=== PATIENT | female | born 2000 | race Caucasian/White ===

== ENCOUNTER 2020-07-27 11:59 | Emergency (ER) | payer MEDICAID, SELFPAY ==
[2020-07-27 12:00] VITALS: BP 135/71; PULSE 84; RESP 16; TEMP 37.7; O2SAT 95; BMI 49.6
--- NOTE | 2020-07-27 12:03 | US_ITS ---
PROCEDURE: US OB <= 14 WEEKS FETUS CLINICAL INDICATION: pain, bleeding Early OB with bleeding COMPARISON: No exams were available for comparison FINDINGS: There is no visualized intrauterine . There is the endometrium which measures 13.8 millimeters, upper limits of normal for a reproductive age female. The cervix is non dilated. There is no fluid gestational sac in the cervix. There is heterogeneity of the myometrium or endometrium. Differential considerations include vaginal bleeding, but raise possibility of coexisting fibroids or myometrosis. Correlate with beta HCG to exclude abnormality such as molar or ectopic . The ovaries are normal in appearance bilaterally. IMPRESSION: No viable intrauterine . Normal ovaries. Correlate clinically. Additional comments above. Dictated by: Nerissa Gan MD 07/27/2020 13:44 Nerissa Gan MD in OV 07/27/2020 13:44
--- NOTE | 2020-07-27 12:10 | HMH.EDGENADL ---
ED Disposition Clinical Impression: Threatened miscarriage in early Disposition: Home, Self-Care Condition on Discharge: Good Instructions: DI for Vaginal Bleeding, Threatened Miscarriage Additional Instructions: You have been evaluated for bleeding in first trimester . This is called a threatened miscarriage. Please use pelvic rest. Follow-up with your CT SCAN TECHNICIAN in 24 to 48 hours for repeat beta hCG. Return to the emergency department for any new or worsening symptoms, pain, syncope, other concerns Referrals: PCP,No [Non-Staff] - Time of Disposition: 13:10 - Critical Care Critical Care Time: No Attestation: On , the high probability of a clinically significant, sudden or life threatening deterioration of the following system(s) required my full and direct attention, intervention and personal management. The time I documented below is in addition to time spent performing reported procedures but includes the following listed in this critical care notation. Medical Decision Making - Medical Records Medical records reviewed: Yes: I reviewed the patient's medical records. - Narinder Inquiry Pt receiving controlled substance: No Vital Signs: 07/27/20 12:00 Temperature 99.9 F H Temperature Source Oral Pulse Rate [Right] 84 Respiratory Rate 16 Blood Pressure [Right Arm] 135/71 Blood Pressure Mean [Right Arm] 92 Blood Pressure Source [Right Arm] Automatic Cuff Blood Pressure Position [Right Arm] Sitting 02 Sat by Pulse Oximetry 95 Oxygen Delivery Method Room Air - Lab Data Lab Results 07/27/20 12:20: WBC 8.1, RBC 4.68, Hgb 12.7, Hct 40.7, MCV 86.9, MCH 27.2, MCHC 31.2 L, RDW 13.5, Plt Count 215, MPV 8.7, Neut % (Auto) 79.7, Lymph % (Auto) 15.8, [place] % (Auto) 2.9, Eos % (Auto) 1.2, Baso % (Auto) 0.5, Neut # (Auto) 6.5, Lymph # (Auto) 1.3, [place] # (Auto) 0.2, Eos # (Auto) 0.1, Baso # (Auto) 0.0 07/27/20 12:20: HCG, Quant 498 H 07/27/20 12:20: Blood Type O Positive Result diagrams: 07/27/20 12:20 Orders (Tests/Meds): ORDERS Category Date Time Status Type and Screen Stat BBK 07/27/20 12:20 Results US OB <= 14 weeks fetus Stat Exams 07/27/20 12:03 Taken UA [Urinalysis and Microscopic] Stat Lab 07/27/20 12:02 Ordered Medical Decision Narrative: In summary this is a 19-year-old female presenting to the emergency department with vaginal bleeding, cramping, possible . Patient is stable on arrival. Vital signs within normal limits. No hypotension, tachycardia, other vital sign abnormalities. Differential diagnoses include threatened miscarriage, intrauterine , ectopic . Will obtain CBC, type and screen, hCG, urinalysis, transvaginal ultrasound. Laboratory results show no significant anemia. hCG elevated at 498. Blood type is O+, does not require RhoGam. Transvaginal ultrasound shows a thickened endometrium. No clear intrauterine . The patient is very early in . Counseled on first trimester threatened miscarriage. Counseled on pelvic rest. Recommended close follow-up with CT SCAN TECHNICIAN for repeat beta hCG in 24 to 48 hours. Given return precautions. Stable for discharge. General Adult HPI - General Chief complaint: Vaginal Bleeding Stated complaint: Possible miscarriage Time Seen by Provider: 07/27/20 12:10 Mode of Arrival: EMS Limitations: No Limitations Description of Symptoms (Recalled from ER Triage Doc. by RN): Pt advises she had a positive test at the doc 2 weeks ago and last night she tsrated having bleeding and pain. advises the blood is bright red and dark. Pt given 75 mcg of fentanyl and 4mg of zofran enroute per EMS plus 500ml fluid bolus - History of Present Illness HPI narrative: 19-year-old female presenting to the emergency department with vaginal bleeding and abdominal cramping. Symptoms started this morning. Cramping is located on both sides. Happens intermittently. Lasts for seconds to minutes at a
--- NOTE | 2020-07-27 12:27 | PC.NURSE ---
pt to ultra sound
[2020-07-27 12:46] LABS: Basophils % 0.5 % (0.1-2.0); Eosinophils # 0.1 K/mm3 (0.0-0.4); Eosinophils % 1.2 % (0.1-12.0); Hematocrit 40.7 % (37.0-47.0); Hemoglobin 12.7 g/dL (12.2-16.2); Lymphocytes # 1.3 K/mm3 (0.7-4.5); Lymphocytes % 15.8 % (10-50); Mean Corpuscular HGB Conc 31.2 g/dL (31.8-35.4); Mean Corpuscular Hemoglobin 27.2 pg (27.0-31.2); Mean Corpuscular Volume 86.9 fl (81-99); Mean Platelet Volume 8.7 fl (7.4-10.4); Monocytes # 0.2 K/mm3 (0.1-1.0); Monocytes % 2.9 % (1.7-9.3); Neutrophils # 6.5 K/mm3 (1.8-7.8); Neutrophils % 79.7 % (37.0-80.0); Platelet Count 215 K/mm3 (142-424); Red Blood Count 4.68 M/mm3 (4.20-5.40); Red Cell Distribution Width 13.5 % (11.5-17.5); White Blood Count 8.1 K/mm3 (4.8-10.8)
--- NOTE | 2020-07-27 12:54 | PC.NURSE ---
pt return from ultrasound, ultrasound staff gave report to MARY SAVAGE
[2020-07-27 13:09] LABS: HCG,Quantitative 498 mIU/ml (0-5.42)
[2020-07-27 13:41] VITALS: PULSE 93; O2SAT 98
[2020-07-27 13:52] VITALS: BP 132/70; PULSE 84; RESP 16; TEMP 37.6; O2SAT 98
== END 2020-07-27 13:53 | disposition home or self-care (01) ==
PROVIDERS: Emergency Provider Emergency Medicine; PCP Nurse Practitioner
DX: O20.0 Threatened abortion (principal)
CPT/HCPCS: 36415; 76801; 84702; 85025; 86850; 99283

== ENCOUNTER → 2022-02-28 10:30 | Outpatient (CLI) | payer MEDICAID, SELFPAY ==
[2022-02-28 11:28] LABS: Basophils # 0.1 K/mm3 (0-0.2); Basophils % 1.6 % (0.1-2.0); Eosinophils # 0.1 K/mm3 (0.0-0.4); Eosinophils % 1.4 % (0.1-12.0); Hemoglobin 14.2 g/dL (12.2-16.2); Lymphocytes # 1.8 K/mm3 (0.7-4.5); Lymphocytes % 20.2 % (10-50); Mean Corpuscular Hemoglobin 27.8 pg (27.0-31.2); Mean Platelet Volume 8.7 fl (7.4-10.4); Monocytes # 0.4 K/mm3 (0.1-1.0); Monocytes % 4.4 % (1.7-9.3); Neutrophils # 6.3 K/mm3 (1.8-7.8); Neutrophils % 72.3 % (37.0-80.0); Platelet Count 273 K/mm3 (142-424); Red Blood Count 5.12 M/mm3 (4.20-5.40); Red Cell Distribution Width 14.3 % (11.5-17.5); White Blood Count 8.7 K/mm3 (4.8-10.8)
[2022-02-28 11:47] LABS: Chloride 103 mmol/L (98-107); Sodium 141 mmol/L (136-145)
[2022-02-28 11:48] LABS: Potassium 4.4 mmoL/L (3.5-5.1)
[2022-02-28 11:50] LABS: Alanine Aminotransferase 27 U/L (12-78); Albumin Level 4.9 g/dl (3.5-5.0); Albumin/Globulin Ratio 1.7 (1.1-1.8); Alkaline Phosphatase 117 U/L (38-126); Anion Gap 17.4 mEq/L (5-15); Aspartate Amino Transferase 28 U/L (14-36); Bilirubin,Total 0.3 mg/dl (0.2-1.3); Blood Urea Nitrogen 13 mg/dl (7-17); Carbon Dioxide 25 mmol/L (22.0-30.0); Estimated Glomerular Filt Rate 153 ml/min (>60); GFR (African American) 185 ML/MIN (>60); Globulin 2.9 g/dL (1.3-3.2); Total Protein,Serum 7.8 g/dl (6.3-8.2)
[2022-02-28 11:51] LABS: Calcium 9.1 mg/dl (8.4-10.2); Glucose 99 mg/dl (74-100)
[2022-02-28 12:09] LABS: HCG,Quantitative < 2 mIU/ml (0-5.42)
== END ==
PROVIDERS: PCP Family Medicine; Visit Provider Obstetrics & Gynecology
DX: E28.2 Polycystic ovarian syndrome (principal)
CPT/HCPCS: 36415; 80053; 84702; 85025; C9803; U0003; U0005

== ENCOUNTER 2022-03-02 06:05 | Day surgery (SDC) | payer MEDICAID, SELFPAY ==
[2022-03-02] VITALS (11 sets, daily range): BP systolic 108–138; BP diastolic 67–75; PULSE 69–96; RESP 14–20; TEMP 36.3–43; O2SAT 93–98; BMI 47.5
--- NOTE | 2022-03-02 07:12 | P.PN_ITS ---
[facility] Medical History Allergies Anxiety Asthma Cholecystectomy planned Degenerative disc disease Depression Encounter for sterilization Enlarged heart Heart murmur History of anemia History of bipolar disorder History of COVID-19 Hypothyroid Irritable bowel syndrome (IBS) Scoliosis Surgical History History of tonsillectomy and adenoidectomy [place] teeth extracted Family History (Updated 03/02/22 @ 06:29 by Pinky Chi RN) Father History of liver disease Father Heart attack Social History (Updated 03/02/22 @ 06:32 by Pinky Chi, RN) Smoking Status: Never smoker alcohol intake: current substance use type: denies use current occupational status: unemployed Travel in the last 8 weeks: None [facility] Anesthesia Checklist Patient Identification Patient Identification: Arm Band and Verbal (Name & ) Structural Data Admitted From: Home Planned Operative Procedure/s: Lap. salpingectomy Consent for Planned Operative Procedure(s) Verified: Yes NPO Status Verified Time NPO: 00:00 Chart Verification Results Verified: CBC, BMP and HCG Additional verifications Anesthesia Reactions: No Hx Blood Transfusions: No Blood Transfusion Reaction: No Airway Assessment C-Spine Mobility Assessed: Yes TMJ Mobility Assessed: Yes Dentition: Good Dentition Neurological Assessment Level of Consciousness: Awake Hx Seizures: No Numbness or tingling in extremities: No Anesthesia Plan Anesthesia Risk discussed: Yes Anesthesia Plan: Verified ASA Class: II Anesthesia Type: General
--- NOTE | 2022-03-02 08:40 | EXP.ANES.I ---
[facility] Anesthesia Record Part I Anesthesia Record I Intake, IV Amount: 300 Estimated blood loss (mL): 5 Urine output (mL): 0 Blood Pressure: 116/67 SaO2: 94 Pulse Rate: 96 Respiratory Rate: 20 Temperature: 97.9 F Patient is:: Awake Stable to PACU at:: 08:39
--- NOTE | 2022-03-02 08:40 | EXP.OP.NOTE ---
Date of procedure: 03/02/22 Pre-op Diagnosis:: 1. Complete family status, desires permanent sterilization Post-op Diagnosis:: 1. Complete family status, desires permanent sterilization Procedure performed:: 1. Laparoscopy, bilateral salpingectomy Surgeon:: Le Ashford DO Hogshead Packer(s):: N/a RETAIL WAREHOUSE SUPERVISOR:: Adama Hall Anesthesia: GETA Estimated blood loss (mL): 5 Clinical Note:: Ms Rosalinda Boateng is a 21 yo P2022. History of x 2. She is complete with childbearing. She is currently on OCPs and is breast feeding. Last period was October. She reports history of PCOS. Surgical history significant for cholecystectomy. She desires permanent sterilization. Operative findings:: 1. On bimanual exam, uterus was anteverted and of normal size and shape. No adnexal masses palpated 2. On laparoscopic exam, grossly normal appearing liver, stomach, bowel and omentum. Gallbladder surgically absent. 3. Uterus, bilateral fallopian tubes and bilateral ovaries grossly normal. No adhesion and no evidence of endometriosis. Operative note:: Risks, benefits and alternatives were discussed with the patient. Risks include but are not limited to bleeding, infection, damage to adjacent structures and VTE. Patient voiced understanding and agreed to proceed with surgery. She was wheeled back to the operating room and placed under general anesthesia without difficulty. She was placed in the dorsal lithotomy position and prepped and draped in normal sterile fashion. A straight catheter was used to drain the bladder. A bimanual exam was performed. A weighted Auvard was placed in the vaginal vault. A single tooth tenaculum was placed on the anterior lip of the cervix. [place] manipulator was inserted into the cervical canal and attached to the tenaculum. Weighted Auvard was removed from the vagina. Attention was then drawn to the abdomen. A 2cm infraumbilical incision was made. Veress needle was tested and inserted intraabdominally without difficulty. Opening pressure of 6 mm Hg. Abdomen was then insulflated to 15 mm Hg. Trocar was inserted through infraumbilical incision and laparoscope was inserted. Abdomen was viewed in its entirety. See findings above. Pictures were taken. Right lower quadrant was transilluminated. 5 mm incision was made and 5 mm disposable blunt trocar was inserted into the abdomen under direct laparoscopic visualization. Trocar was removed and sleeve was left in place. Left lower quadrant was transilluminated. A 1 cm incision was made and an 8 mm disposable trocar was inserted into the abdomen under direct laparoscopic visualization. Obturator was removed and sleeve was left in place. Fimbriated end of right fallopian tube was grasped. Ligasure was used to transect the right mesosalpinx and fallopian tube at uterine cornua, leaving right ovary in situ. Same procedure was carried out on the contralateral side. Bilateral fallopian tubes will be sent to pathology for review. Hemostasis was noted. Left lower quadrant trocar was removed under direct laparoscopic visualization. Right lower quadrant trocar was removed under direct laparoscopic visualization. Pneumoperitoneum was released into the atmosphere. Infraumbilical trocar was removed under direct laparoscopic visualization to ensure no herniation of bowel or omentum. Skin incisions were closed with 3-0 Vicryl. Dermabond was applied over closed skin incisions. All instruments were removed from the vagina. Tenaculum site with small amount of oozing noted. Anterior lip of cervix was grasped with ringed forcep. Silver nitrate stick x 1 was applied to right tenaculum site. Hemostasis was noted. Patient was cleaned and placed into the dorsal supine position. She awoke from anesthesia without difficulty. She was transported to the recovery room in stable condition. She was given instructions for discharge and to follow-up in the office in 2 weeks at which time pathology will be reviewed. Condition: stable Disposition: same day
--- NOTE | 2022-03-02 09:16 | SUR.PHASEI ---
0904 called and gave detailed report to Comfort Santoyo RN [id number] transported via stretcher to post op. vital signs stable. rates pain at a 3. states warm blanket helped relieve some pain. left in stable condition with Comfort Santoyo RN at bedside.
--- NOTE | 2022-03-02 09:44 | P.PNANES_ITS ---
[facility] Anesthesia Record Part II Anesthesia Record Part II Discharge Time: :09 Destination: Surgical Day Care (OP Surgery) PACU nurse assessment reviewed?: Yes Patient Condition:: Good Anesthesia Complications:: None Swallowing reflex intact?: Yes Cyanosis?: No Blood Pressure: 136/69 Pulse Rate: 74 Temperature: 98 F Mental Status: Alert & Oriented Pain level:: 3 Nausea and/or vomitting:: None Intake, IV Amount: 0
== END 2022-03-02 09:40 | disposition home or self-care (01) ==
PROVIDERS: PCP Nurse Practitioner; Visit Provider Obstetrics & Gynecology
PROC: (CPT 58661; principal; 2022-03-02 07:30)
DX: Z30.2 Encounter for sterilization (principal); E28.2 Polycystic ovarian syndrome; Z79.899 Other long term (current) drug therapy
CPT/HCPCS: 58661; J0131; J2405; J3475

== ENCOUNTER 2024-01-02 13:42 | Outpatient (CLI) | payer MEDICAID, SELFPAY ==
--- NOTE | 2024-01-02 13:43 | US_ITS ---
PROCEDURE: US TRANSVAGINAL CLINICAL INDICATION: menorrhagia, pelvic pain COMPARISON: No exams were available for comparison FINDINGS: Transvaginal sonographic images of the pelvis were obtained. UTERUS: 8.7 cm x 4.4cmx 3.7 cm anteverted with a combined endometrial thickness of 11.7mm. LEFT OVARY: 2.6 cmx2.9 cmx2.2cm with a volume of 8.8ml. There is a follicle in left ovary measuring 1.4 cm x 1.4 cm x 1.5 cm. There are several smaller follicles. RIGHT OVARY: Not visualized. Left ovary is seen and appears normal. Doppler flow to left ovary is seen. There is no fluid in the cul-de-sac. IMPRESSION: 1. Difficult exam secondary to patient body habitus. 2. Anteverted uterus normal in shape and size. The endometrium is normal. 3. The left ovary is seen and appears normal. There is a dominant follicle measuring 1.5 cm. 4. The right ovary is not visualized. No masses seen in the right adnexa. 5. No fluid in the cul-de-sac. Dictated by: Lj Choi MD 01/02/2024 15:12 Lj Choi MD in OV 01/02/2024 15:12
== END 2024-01-02 23:59 | disposition home or self-care (01) ==
LOC: RAD 13:43
PROVIDERS: PCP Nurse Practitioner; Visit Provider Obstetrics & Gynecology
DX: N92.0 Excessive and frequent menstruation with regular cycle (principal); R10.2 Pelvic and perineal pain
CPT/HCPCS: 76830

== ENCOUNTER 2024-01-14 15:23 | Outpatient (CLI) | payer MEDICAID, SELFPAY | END 2024-01-14 23:59 | disposition home or self-care (01) | LOC: RT 15:25 | PROVIDERS: PCP Nurse Practitioner; Visit Provider Internal Medicine | DX: I49.8 Other specified cardiac arrhythmias (principal); R01.1 Cardiac murmur, unspecified | CPT/HCPCS: 93225; 93227 ==

== ENCOUNTER 2024-01-16 14:59 | Outpatient (CLI) | payer MEDICAID, SELFPAY | END 2024-01-16 23:59 | disposition home or self-care (01) | LOC: RT 15:01 | PROVIDERS: PCP Nurse Practitioner | DX: I49.8 Other specified cardiac arrhythmias (principal); R01.1 Cardiac murmur, unspecified | CPT/HCPCS: 93270 ==

== ENCOUNTER 2024-01-23 13:40 | Outpatient (CLI) | payer MEDICAID, SELFPAY ==
--- NOTE | 2024-01-23 13:42 | CA_ITS ---
APPROVED REPORT EXAM: Comprehensive 2D, Doppler, and color-flow Echocardiogram Certified Medical Asst: Sneha Miranda RVT Ht: 5 ft 3 in Wt: 278lbs BSA: 2.22 BP: 131/77 mmHg Indications: PRE-OP,CARDIOMEGALY,ABN EKG,MURMUR 2D Dimensions LA Volume 28.20 mL LA Volume Index 12.65 mL/m2 (M/F) 16-34 M-Mode Dimensions RVDd 2.85 cm (0.9-2.6) LA Diam 3.58 cm (1.9-4.0) LVDd 5.55 cm (3.5-5.7) LVDs 3.88 cm (3.5-5.7) IVSd 0.84 cm (0.6-1.1) PWd 0.61 cm (0.6-1.1) EF (Teich) 56.70% FS 30.10% EDV (Teich) 150.50 mL TAPSE 2.26 (<1.7) ESV (Teich) 65.10 mL LV Diastology E Decel Time 207 (160-240 msec) E/A Ratio 1.1 Aortic Valve JACKIE Index 2.09 cm2/m2 AoV Peak Rohan. 126.0 (50-130 cm/s) AO Peak GR. 6.30 mmHg AO Mean GR. 3.60 (<5 mmHg) AO VTI 22.8 (18-25 cm) JACKIE (VTI) 4.76 (2.5-4.5 cm2) Mitral Valve MV E Max Rohan. 65.0 (40-130 cm/s) MV A Velocity 58.0 (40-130 cm/s) E/A Ratio 1.12 MV PHT 61.0 ms Pulmonary Valve PV Peak Velocity 110.0 (50-150 cm/s) Tricuspid Valve TR P. Velocity 210.00 cm/s RAP Estimate 10.00 mmHg RVSP 27.60 mmHg Left Ventricle The left ventricle is normal size. The left ventricular systolic function is normal. The left ventricular ejection fraction is within the normal range. There is normal left ventricular wall thickness. There is normal LV segmental wall motion. The left ventricular diastolic function is normal. LVEF is 55%. Right Ventricle Right ventricle is mildly dilated. Right ventricle is mildly hypokinetic. Atria The left atrium size is normal. The right atrium size is normal. There is no Doppler evidence of interatrial shunt. Aortic Valve The aortic valve opens well. There is no aortic valvular stenosis. Trace aortic regurgitation. Mitral Valve The mitral valve is normal in structure. No evidence of mitral valve stenosis. Trace mitral regurgitation. Tricuspid Valve The tricuspid valve leaflets are thin and pliable. Trace tricuspid regurgitation. There is insufficient TR jet to estimate RVSP. Pulmonic Valve The pulmonary valve is normal in structure. Trace pulmonic regurgitation. Great Vessels The aortic root is normal in size. The ascending aorta is normal in size. IVC is normal in size and collapses >50% with inspiration. Pericardium There is no pericardial effusion. Other Information Study Quality: Fair Conclusion Normal LV systolic function. Mild RV dilation with mild reduction in RV function. No significant valvular stenosis or regurgitation. No Doppler evidence of interatrial shunt. In the setting of young age and mild RV dysfunction, further evaluation with limited TTE with agitated saline administration (bubble study) is recommended. Also cardiac MRI ([facility] protocol) is suggested. Electronically signed by : Luz Shetty MD 01/27/2024 13:28:31
== END 2024-01-23 23:59 | disposition home or self-care (01) ==
LOC: RT 13:40
PROVIDERS: PCP Nurse Practitioner; Visit Provider Nurse Practitioner Family
DX: I49.8 Other specified cardiac arrhythmias (principal); R01.1 Cardiac murmur, unspecified
CPT/HCPCS: 93306

== ENCOUNTER 2024-02-22 10:51 | Outpatient (CLI) | payer MEDICAID, SELFPAY ==
--- NOTE | 2024-02-22 10:56 | CA_ITS ---
APPROVED REPORT EXAM: Limited 2D and color flow Echocardiogram Bituminous Paving Machine Operator: RT Sabino(R) Ht: 5 ft 3 in Wt: 281lbs BSA: 2.23 BP: 125/77 mmHg Indications: Limited bubble study, recent echo with bubble study recommended. murmur, abn EKG, arrhythmia noted. Other Information Study Quality: Fair Conclusion This is a limited study to evaluate for interatrial shunt. Limited windows were obtained. Agitated saline administration (bubble study) was performed. Agitated saline administration (bubble study) demonstrates no evidence of interatrial shunt at rest or with either sniff or Valsalva maneuver. Color Doppler does not demonstrate evidence of interatrial shunt. Electronically signed by : Luz Shetty MD 02/24/2024 12:05:21
== END 2024-02-22 23:59 | disposition home or self-care (01) ==
LOC: RT 10:52
PROVIDERS: PCP Nurse Practitioner; Visit Provider Nurse Practitioner Family
DX: I49.3 Ventricular premature depolarization (principal); I51.9 Heart disease, unspecified
CPT/HCPCS: 93308

== ENCOUNTER 2024-03-03 10:13 | Outpatient (CLI) | payer MEDICAID, SELFPAY ==
--- NOTE | 2024-03-03 10:40 | MR_ITS ---
APPROVED REPORT Pharmacy Operations Coordinator: CLINICAL INDICATION PVCs TECHNIQUE Image Acquisition: Cardiac magnetic resonance (CMR) was performed on Siemens Espree MRI 1.5T scanner. Software platform sequences were performed using the Siemens Funidelia MR B19 platform. A set of three-plane, low-resolution, large [id number] localizers were initially acquired. Then axial, coronal, sagittal TrueFISP, as well as axial HASTE images, were obtained. These were followed by gated TrueFISP breathold cinematic sequences obtained in the short axis with 8 mm slices and 2 mm gaps, 2-chamber (vertical long axis), 3-chamber, 4-chamber (horizontal long axis). 2D-velocity phase mapping was performed. Functional parameters were calculated by offline analysis on an independent workstation ([employer], [facility]). Contrast: Not administered FINDINGS MORPHOLOGY AND FUNCTION Left ventricle: The left ventricle is normal in size. The indexed left ventricular end-diastolic volume (LVEDVi) is 57 ml/m2 (reference range 57-105 ml/m2 in males, 56-96 ml/m2 in females). Normal left ventricular systolic function is present. There is low normal left ventricular wall thickness. There are no regional wall motion abnormalities noted. LVEF is calculated at 50.6% (reference range 57-77%). Right ventricle: The right ventricle is normal in size. The indexed right ventricular end-diastolic volume (RVEDVi) is 56 ml/m2 (reference range 61-121 ml/m2 in males, 48-112 ml/m2 in females). Normal right ventricular systolic function is present. RVEF is calculated at 50.4% (reference range 52-72% in males, 51-71% in females). Atria: The left atrium is normal in size. The maximum indexed left atrial volume is 24 ml/m2 (reference range 26-52 ml/m2 in males, 27-53 ml/m2 in females). The right atrium is normal in size. The maximum indexed right atrial volume is 18 ml/m2 (reference range 18-90 ml/m2). Aorta: The diameter of the aortic annulus is normal, measuring 24 mm (coronal view reference range 21-30 mm in males, 19-27 mm in females). The diameter of the aortic sinus is normal, measuring 29 mm (coronal view reference range 25-42 mm in males, 24-36 mm in females). The diameter of the sinotubular junction is normal, measuring 22 mm (coronal view reference range 18-32 mm in males, 18-28 mm in females). The diameters of the ascending and descending thoracic aorta are normal. Main pulmonary artery: The main pulmonary artery diameter is normal. Pericardium: The pericardial thickness is normal. The pericardial thickness measures 1 mm (normal < 4.0 mm). There is no pericardial effusion. VALVES The valvular morphologies in the visualized sequences appear normal. There is no significant valvular stenosis or regurgitation of the mitral, aortic, tricuspid, or pulmonic valve noted visually. Systolic anterior motion of the mitral valve is not visualized. Ratio of pulmonary to systemic flow, Qp:Qs ratio = 1.37 (normal < or = 1.2, hemodynamically significant shunt > 1.5), demonstrating no evidence of hemodynamically significant shunt. TISSUE CHARACTERIZATION Resting Perfusion: Contrast was not administered during this study. Perfusion analysis cannot be performed. Myocardial Fibrosis and/or edema: Contrast was not administered during this study. Gadolinium enhancement analysis cannot be performed. OTHER No other significant findings are noted. However, this exam is focused on the cardiac structure and function. IMPRESSION Normal LV size with low-normal LV systolic function. LVEDVi= 57 ml/m2 and LVEF= 50.6%. Normal RV size with normal RV systolic function. RVEDVi= 56 ml/m2 and RVEF= 50.4%. No atrial enlargement. Perfusion analysis and LGE data cannot be performed due to absence of contrast administration in the study. Ratio of pulmonary to systemic flow, Qp:Qs ratio = 1.37 (normal < or = 1.2, hemodynamically significant shunt > 1.5), demonstrating no evidence of hemodynamically significant shunt. This was a noncontrast CMR to evaluate for cardiac function and structure in the setting of frequent PVCs. Overall, this CMR demonstrates low normal biventricular systolic function. No CMR evidence of structural or functional cardiomyopathy. This study cannot evaluate for myocardial scar tissue (to assess possible location of PVCs) in the setting of no contrast administration. COMPARISON None CRITICAL RESULT None COMMUNICATION This CMR findings were communicated with the patient at the time of her routine outpatient visit. The findings of this cardiac MR were reviewed, reported, and signed by Jaxon Shetty MD (Charge Hand). Conclusion Electronically signed by : Luz Shetty MD 03/04/2024 01:50:02
== END 2024-03-03 23:59 | disposition home or self-care (01) ==
LOC: RAD 10:14
PROVIDERS: PCP Nurse Practitioner; Visit Provider Nurse Practitioner Family
DX: I49.3 Ventricular premature depolarization (principal); I50.9 Heart failure, unspecified
CPT/HCPCS: 75557

== ENCOUNTER 2024-03-12 12:12 | Outpatient (CLI) | payer MEDICAID, SELFPAY ==
[2024-03-12 13:02] LABS: Basophils # 0.1 K/mm3 (0-0.2); Eosinophils # 0.1 K/mm3 (0.0-0.4); Eosinophils % 2.2 % (0.1-12.0); Hematocrit 44.2 % (37.0-47.0); Hemoglobin 13.8 g/dL (12.2-16.2); Lymphocytes # 1.3 K/mm3 (0.7-4.5); Lymphocytes % 25.9 % (10-50); Mean Corpuscular HGB Conc 31.3 g/dL (31.8-35.4); Mean Corpuscular Hemoglobin 27.8 pg (27.0-31.2); Mean Corpuscular Volume 88.8 fl (81-99); Mean Platelet Volume 8.6 fl (7.4-10.4); Monocytes # 0.2 K/mm3 (0.1-1.0); Monocytes % 3.8 % (1.7-9.3); Neutrophils # 3.3 K/mm3 (1.8-7.8); Neutrophils % 67.2 % (37.0-80.0); Platelet Count 214 K/mm3 (142-424); Red Blood Count 4.97 M/mm3 (4.20-5.40); Red Cell Distribution Width 13.7 % (11.5-17.5); White Blood Count 4.9 K/mm3 (4.8-10.8)
[2024-03-12 14:50] LABS: Albumin Level 4.5 g/dl (3.5-5.0); Chloride 103 mmol/L (98-107)
[2024-03-12 14:51] LABS: Potassium 4.1 mmoL/L (3.5-5.1); Sodium 138 mmol/L (136-145)
[2024-03-12 14:53] LABS: Alanine Aminotransferase 37 U/L (12-78); Anion Gap 13.1 mEq/L (5-15); Aspartate Amino Transferase 38 U/L (14-36); Blood Urea Nitrogen 7 mg/dl (7-17); Carbon Dioxide 26 mmol/L (22.0-30.0); Estimated Glomerular Filt Rate 102 ml/min (>60); GFR (African American) 123 ML/MIN (>60)
[2024-03-12 14:54] LABS: Albumin/Globulin Ratio 1.5 (1.1-1.8); Alkaline Phosphatase 82 U/L (38-126); Bilirubin,Total 0.7 mg/dl (0.2-1.3); Glucose 93 mg/dl (74-100); Total Protein,Serum 7.5 g/dl (6.3-8.2)
[2024-03-12 15:11] LABS: HCG,Quantitative < 2 mIU/ml (0-5.42)
== END 2024-03-12 23:59 | disposition home or self-care (01) ==
LOC: PREOP 12:13
PROVIDERS: PCP Nurse Practitioner; Visit Provider Obstetrics & Gynecology
DX: N94.6 Dysmenorrhea, unspecified (principal)
CPT/HCPCS: 80053; 84702; 85025

== ENCOUNTER 2024-03-17 07:22 | Day surgery (SDC) | payer MEDICAID, SELFPAY ==
[2024-03-12 12:28] VITALS: BMI 46.5
[2024-03-17] VITALS (10 sets, daily range): BP systolic 105–157; BP diastolic 58–84; PULSE 68–94; RESP 16–18; TEMP 36.3–37.3; O2SAT 95–99
[2024-03-17] MEDS: ACETAMINOPHEN 500MG TAB 1000 MG PO (07:47)
[2024-03-17] MEDS: LACTATED RINGERS 1000ML 1,000 ML 25 ML IV (07:55)
--- NOTE | 2024-03-17 08:51 | EXP.ANES.CKL ---
[facility] Disclaimer: The information contained in this section may have been updated after the patient was seen, as this information can be updated by other users. Medical History Anxiety History of gastroesophageal reflux (GERD) Palpitations Right ventricular dysfunction PVC (premature ventricular contraction) Ventricular bigeminy Encounter for pre-operative cardiovascular clearance Abnormal electrocardiogram [ECG] [EKG] Morbid obesity with BMI of 45.0-49.9, adult Dysmenorrhea Menorrhagia Asthma History of bipolar disorder Depression Anxiety Scoliosis Degenerative disc disease Irritable bowel syndrome (IBS) Hypothyroid Allergies Enlarged heart Heart murmur History of anemia Cholecystectomy planned Surgical History H/O wisdom tooth extraction History of tubal ligation History of cholecystectomy History of tonsillectomy History of salpingectomy History of tonsillectomy and adenoidectomy [place] teeth extracted Family History Father History of liver disease Father Heart attack Brother Testicular cancer Grandmother Lung cancer Social History Smoking Status: Never smoker alcohol intake: never substance use type: denies use current occupational status: unemployed Travel in the last 8 weeks: None [facility] Anesthesia Checklist Patient Identification Patient Identification: Verbal (Name & ) Structural Data Admitted From: Home Planned Operative Procedure/s: d/c hyst NPO Status Verified Time NPO: 00:00 Additional verifications Anesthesia Reactions: No Hx Blood Transfusions: No Blood Transfusion Reaction: No Airway Assessment Mallampati Score:: Class II C-Spine Mobility Assessed: Yes TMJ Mobility Assessed: Yes Dentition: Good Dentition Neurological Assessment Level of Consciousness: Awake, Alert and Appropriate Anesthesia Plan Anesthesia Risk discussed: Yes Anesthesia Plan: Verified ASA Class: III Anesthesia Type: General
[2024-03-17] MEDS: SODIUM CHLORIDE IRRIG SOLUTION 3,000 ML 25 ML IR (08:57)
--- NOTE | 2024-03-17 09:27 | EXP.ANES.I ---
[facility] Anesthesia Record Part I Anesthesia Record I Intake, IV Amount: 1,000 Hydration: Adequate Estimated blood loss (mL): 0 Urine output (mL): 0 Blood Pressure: 105/60 SaO2: 96 Pulse Rate: 94 Airway Patency: Patent Respiratory Rate: 16 Temperature: 99 F Patient is:: Awake and Stable Stable to PACU at:: 09:25
--- NOTE | 2024-03-17 09:30 | EXP.OP.NOTE ---
Date of procedure: 03/17/24 Pre-op Diagnosis:: 1. Menorrhagia 2. Dysmenorrhea 3. Morbid obesity Post-op Diagnosis:: 1. Menorrhagia 2. Dysmenorrhea 3. Morbid obesity Procedure performed:: 1. Hysteroscopy, dilation and curettage, Novasure endometrial ablation Surgeon:: Le Ashford DO Affirmative Action Officer(s):: N/a TOWER OPERATOR:: yTson Melgar Anesthesia: GETA Estimated blood loss (mL): 5 Clinical Note:: Ms Rosalinda Boateng is a 23 yo P2022 who presents to [facility] for scheduled procedure. She complains of heavy periods. Flow typically lasts 10 days. She reports a lot of back pain with her periods. History of x 2 and tubal ligation. History of laparoscopic cholecystectomy. She has tried Depo Provera, Micronor and Sprintec in the past without success. Depo Provera changed her mood and did not make her feel well. She states she intentionally lost 50 lbs and periods became heavier and more painful. She decided not to proceed with gastric sleeve. She admits to excess hair on chin and lip that she has to shave. She initially wanted a hysterectomy but now would rather try endometrial ablation first. Pelvic ultrasound 01/02/24 demonstrated anteverted uterus normal in shape and size. The endometrium is normal. The left ovary is seen and appears normal. There is a dominant follicle measuring 1.5 cm. The right ovary is not visualized. No masses seen in the right adnexa. No fluid in the cul-de-sac. Operative findings:: 1. On bimanual exam, uterus normal size and shape, midposition. No adnexal masses palpated but exam was extremely difficulty secondary to patient's body habitus 2. On hysteroscopic exam, bilateral tubal ostia easily visualized, small amount of fluffy endometrial tissue present. No masses, lesions or polyps. Operative note:: Risks, benefits and alternatives were discussed with the patient. Risks include but are not limited to bleeding, infection, uterine perforation and VTE. Patient voiced understanding and agreed to proceed. She was wheeled back to the operating room and placed under general anesthesia without difficulty. She was placed in dorsal lithotomy position and prepped and draped in the normal sterile fashion. Straight catheter was used to drain the bladder. A bimanual exam was performed. A weighted Auvard was placed in the vaginal vault. Single tooth tenaculum was placed on anterior lip of the cervix. Uterus sounded to 10. Sequential Malcolm dilators were used to dilate the cervical os. Hysteroscope was tested inserted through the cervix without difficulty. Endometrial cavity was evaluated. See findings above. Pictures were taken. Hysteroscope was removed. Medium size sharp curette was inserted through the cervix into the uterine cavity. The endometrial cavity was curetted with a systematic [id number] movement of the curette so that all possible endometrium was sampled. Endometrial curettings will be sent to pathology for review. Novasure sure sound was used to obtain uterine length. Uterus measured 4 cm in length and 4.4 cm in cavity width. Novasure deviced was inserted and ablation was performed per protocol at a power of 97 w for 94 seconds. Novasure device was removed. Hysteroscope was reinserted and cavity revealed adequate burn and no uterine perforation. Hysteroscope was removed. Instruments were removed from the vagina. Tenaculum site was noted to be oozing. 2-0 Chromic suture was used to ligate oozing tenaculum site. Excellent hemostasis was noted. Patient was awaken from anesthesia without difficulty. She was transported to recovery room in stable condition. Patient will be discharged home when awake and ambulating. She was given postop instructions as well as instructions to follow-up in the office in 2 weeks at which time pathology will be reviewed. Condition: stable Disposition: same day Specimens:: 1. Endometrial curettings Complications:: None
--- NOTE | 2024-03-17 14:32 | P.PNANES_ITS ---
[facility] Anesthesia Record Part II Anesthesia Record Part II Discharge Time: 09:55 Destination: Surgical Day Care (OP Surgery) PACU nurse assessment reviewed?: Yes Patient Condition:: Good Anesthesia Complications:: None Swallowing reflex intact?: Yes Airway Patency: Patent Cyanosis?: No Blood Pressure: 123/65 SaO2: 96 Respiratory Rate: 18 Pulse Rate: 87 Temperature: 99.2 F Mental Status: Alert & Oriented Pain level:: 0 Nausea and/or vomitting:: None Intake, IV Amount: 0 Hydration: Adequate
== END 2024-03-17 10:27 | disposition home or self-care (01) ==
PROVIDERS: Visit Provider Obstetrics & Gynecology
PROC: (CPT 58563; principal; 2024-03-17 09:00)
DX: N92.0 Excessive and frequent menstruation with regular cycle (principal); N94.6 Dysmenorrhea, unspecified; E66.01 Morbid (severe) obesity due to excess calories; Z68.42 Body mass index [BMI] 45.0-49.9, adult
CPT/HCPCS: 58563; J1100; J1885; J2250; J2405; J3010; J7120

== ENCOUNTER 2024-08-08 10:37 | Outpatient (CLI) | payer MEDICAID, SELFPAY ==
--- NOTE | 2024-08-08 10:40 | US_ITS ---
PROCEDURE INFORMATION: Exam: US Left Breast, Complete Exam date and time: 08/08/2024 11:14 AM Age: 23 years old Clinical indication: Breast pain; Left. Left armpit pain TECHNIQUE: Imaging protocol: Complete ultrasound of all four quadrants of the left breast and the retroareolar regions, including ultrasound of the axilla when performed. COMPARISON: No relevant prior studies available. FINDINGS: ULTRASOUND: Breast ultrasound findings: Sonographic images of the left breast including the retroareolar region, all 4 quadrants and the axilla do not demonstrate any solid or cystic masses. No architectural distortion or acoustical shadowing. No skin thickening or axillary adenopathy. A fat containing normal appearing axillary lymph node measuring 2.8 cm is noted IMPRESSION: No sonographic evidence of malignancy. ASSESSMENT: BI-RADS Category 1: Negative.
== END 2024-08-08 23:59 | disposition home or self-care (01) ==
LOC: RAD 10:37
PROVIDERS: PCP Nurse Practitioner; Visit Provider Obstetrics & Gynecology
DX: N64.4 Mastodynia (principal); N63.20 Unspecified lump in the left breast, unspecified quadrant
CPT/HCPCS: 76641

== ENCOUNTER 2024-11-24 08:56 | Day surgery (SDC) | payer MEDICAID, SELFPAY ==
[2024-11-21 09:40] VITALS: BMI 48.9
--- NOTE | 2024-11-24 08:51 | P.HP_ITS ---
History of Present Illness *Admission Date: 11/24/24 *Reason for visit:: Noncardiac chest pain, heartburn, nausea, belching and dyspepsia *History of present illness: Ms. Boateng is a 23-year-old female who is here for diagnostic EGD secondary to dyspepsia, noncardiac chest pain, heartburn, belching, nausea and vomiting. The examination is deemed medically necessary for diagnostic EGD. The patient has been seen, interviewed and examined prior to the procedure by both myself and the anesthesia provider. [facility] Disclaimer: The information contained in this section may have been updated after the patient was seen, as this information can be updated by other users. Medical History Breast pain, left Acid reflux Anxiety History of gastroesophageal reflux (GERD) Palpitations Right ventricular dysfunction PVC (premature ventricular contraction) Ventricular bigeminy Encounter for pre-operative cardiovascular clearance Abnormal electrocardiogram [ECG] [EKG] Morbid obesity with BMI of 45.0-49.9, adult Dysmenorrhea Menorrhagia Asthma History of bipolar disorder Depression Anxiety Scoliosis Degenerative disc disease Irritable bowel syndrome (IBS) Hypothyroid Allergies Enlarged heart Heart murmur History of anemia Cholecystectomy planned Surgical History H/O cardiac radiofrequency ablation History of endometrial ablation H/O wisdom tooth extraction History of cholecystectomy History of tonsillectomy History of salpingectomy History of tonsillectomy and adenoidectomy [place] teeth extracted Family History Father History of liver disease Father Heart attack Brother Testicular cancer Grandmother Lung cancer Social History Smoking Status: Never smoker alcohol intake: never substance use type: denies use current occupational status: unemployed Travel in the last 8 weeks?: None Have you lived/traveled outside [place] in past 30 days?: No Contact w/someone who lives/traveled outside US past 30 days?: No Exposure to someone with infectious disease in past 14 days?: No Do you have a fever (greater than 100.4 F or 38 C)?: No Have you tested positive for COVID-19?: No Exposed to someone with COVID-19 in past 14 days?: No Do you have a sore throat?: No Do you have a cough?: No Do you have any weakness?: No Do you have any diarrhea?: No Are you experiencing any unusual bleeding?: No Do you have any muscle aches/pain?: No Do you have any abdominal pain?: No Are you experiencing loss of taste or smell?: No Other Medical History Have you received the Flu Vaccine for this season: Yes Have you received the Pneumonia Vaccine: No Review of Systems Review of Systems Review of systems (narrative): Negative *Cardiovascular Comments: Negative *Gastrointestinal Comments: Negative *Genitourinary Comments: Negative *Musculoskeletal Comments: Negative *Neurologic Comments: Negative Meds Home Medications and Allergies Home Medications ?Medication ?Instructions ?Recorded ?Confirmed ?Type buspirone 10 mg tablet 10 mg PO DAILY 09/03/2411/09 History pantoprazole 40 mg tablet,delayed 40 mg PO DAILY Heart burn 09/03/24 11/24/24 History release amitriptyline 10 mg tablet 10 mg PO HS PRN bp 11/05/24 11/24/24 History vortioxetine 10 mg tablet 10 mg PO DAILY 11/05/2411/09 History (Trintellix) New Prescriptions to Start Prescriptions: Allergies Allergy/AdvReac Type Severity Reaction Status Date / Time duloxetine (From Cymbalta) Allergy Mild Headache Verified 11/24/24 09:35 sumatriptan (From Imitrex) Allergy Mild Headache Verified 11/24/24 09:35 Exam Data for Last 24 hours I & O for Last 24 hours: Intake & Output 11/21/24 11/22/24 11/23/24 11/24/24 23:59 23:59 23:59 23:59 Weight 294 lb *Routine HEENT Exam Head: Present normocephalic Eye: Present EOMI and PERRL ENT: Present mucous membranes moist *Routine Neck Exam Neck: Present supple *Routine Respiratory Exam Respiratory: Present CTA bilaterally *Routine Cardiovascular Exam Cardiovascular: Present RRR *Routine Abdominal Exam Abdominal: Present soft and normoactive bowel sounds; Absent tenderness *Routine Rectal Exam Rectal:: deferred *Routine Genitalia Exam Genitalia:: deferred *Routine Extremities Exam Extremities: Absent cyanosis, clubbing or edema *Routine Skin Exam Skin: Present warm; Absent rash *Routine Neurological Exam Neurological: Present alert and oriented X3 Assessment and Plan *Assessment and plan (1) Non-cardiac chest pain: Status: Acute Category: Medical Code(s): R07.89 - Other chest pain (2) Epigastric pain: Status: Acute Category: Medical Code(s): R10.13 - Epigastric pain (3) Nausea: Status: Acute Category: Medical Code(s): R11.0 - Nausea (4) Loss of appetite: Status: Acute Category: Medical Code(s): R63.0 - Anorexia (5) Dyspepsia: Status: Acute Category: Medical Code(s): R10.13 - Epigastric pain (6) Heartburn: Status: Acute Category: Medical Code(s): R12 - Heartburn Plan A/P: 1. Dyspepsia/noncardiac chest pain with nausea, early satiety and heartburn is the preprocedural diagnosis. The patient will be anesthetized/sedated using MAC sedation. The patient has been seen and examined. Cardiac and lung assessment prior to the examination is stable. Proceed with planned diagnostic EGD.
[2024-11-24 09:38] VITALS: BP 120/66; PULSE 63; RESP 17; TEMP 36.1; O2SAT 98
[2024-11-24 09:40] LABS: Urine Pregnancy, HCG Qual. Negative (Negative)
--- NOTE | 2024-11-24 10:38 | P.PCN_ITS ---
[facility] Procedure Note Date: 11/24/24 Time: 10:46 Procedure Note:: Upper Endoscopy Procedure Report: Esophagogastroduodenoscopy with cold biopsies Endoscopost: Henry Max II, MD Referring Physician: SIMON Cutler, [address] [facility] [id number] Date of Procedure: November 24, 2024 Equipment: Olympus GIF 190 standard upper endoscope Sedation: MAC sedation Indications: Ms. Boateng is a 23-year-old female with noncardiac chest pain and dyspepsia who is here for diagnostic upper endoscopy. She reports epigastric and retrosternal pain and discomfort that occurs about 10 minutes postprandially. She has had bloating, belching, nausea and early satiety. She has lost about 40 pounds over the last year and some of this weight loss is intentional. She did have cardiac ablation treatment in March 2020 for and her symptoms did get worse. She does have chronic constipation but then will alternate with diarrhea. The patient is on pantoprazole. Procedure: Prior to the procedure, a history and physical exam was performed, and patient's medications and allergies were reviewed. The risks, benefits and alternatives of the sedation and procedure were discussed with the patient. All questions were answered and informed consent was obtained. The patient was brought to the procedure room. Patient identification and proposed procedure were verified by the physician and the nurse. The patient was placed in a left lateral decubitus position and the scope was passed under direct vision. Throughout the procedure, the patient's blood pressure, pulse, and oxygen saturations were monitored continuously. The upper GI endoscopy was accomplished without difficulty. The patient tolerated the procedure well. Findings: The scope was passed directly into the upper esophagus and advanced to the fourth portion of duodenum and proximal jejunum. A cold biopsy was taken from the proximal jejunum for disaccharidase assay. The proximal jejunum, post bulbar duodenum, ampulla and duodenal bulb were normal with normal mucosa and conniventes. The scope was withdrawn through a normal duodenal bulb and pylorus into the stomach. There was minor bile reflux with minimal antral linear gastropathy. There was minimal proximal gastritis. Biopsies were taken along the lesser curvature to rule out H. pylori. Upon retroflexion there was no hiatal hernia. The scope was then withdrawn into the esophagus. There was no evidence of reflux esophagitis or Camilo's. The remainder of the esophageal mucosa was normal. Impression: 1. Nonerosive GERD 2. Very mild antral gastropathy and very mild chronic gastritis Plan: I will follow-up the biopsies and disaccharidase assay. 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 Most of her symptoms of dyspepsia are related to and driven by lower intestinal gas pressure gradients/high gas pressure buildup resulting in backflow of bile and peptic fluid from the duodenum into the stomach (duodenal reflux). This gas production (carbon dioxide, hydrogen, methane, etc.) from the lower intestinal tract is the byp roduct of colonic bacterial fermentation. This colonic fermentation occurs when there is more carbohydrate (dietary starches, sugars and high residue plant fiber) substrate that does not get digested (in the middle or small intestine) or occurs when there is colonic fecal buildup and colonic bacterial overgrowth. This indeed leads to bloating and the gas pressure buildup with gas pressure gradients that do drive backflow and dyspepsia.
[2024-11-24 10:48] VITALS: BP 145/71; PULSE 68; RESP 16; TEMP 36.2; O2SAT 96
[2024-11-24 10:58] VITALS: BP 129/83; PULSE 54; RESP 17; O2SAT 96
[2024-11-24 11:08] VITALS: BP 109/64; PULSE 64; RESP 18; O2SAT 99
[2024-11-24 11:18] VITALS: BP 117/64; PULSE 63; RESP 18; O2SAT 100
[2024-11-28 14:11] LABS: Disclaimer Notes (.); Interpretation Notes (.); Lactase 32.13 (>/= 14.0); Palatinase 23.76 (>/= 8.5); Reference Notes (.); Sucrase 79.65 (>/= 25.0)
== END 2024-11-24 11:25 | disposition home or self-care (01) ==
PROVIDERS: PCP Nurse Practitioner; Visit Provider Internal Medicine Gastroenterology
PROC: 0DJ08ZZ Inspection of Upper Intestinal Tract, Via Natural or Artificial Opening Endoscopic (ICD-10-PCS; CPT 43239; principal; 2024-11-24 10:00)
DX: K21.9 Gastro-esophageal reflux disease without esophagitis (principal); K31.9 Disease of stomach and duodenum, unspecified; K29.50 Unspecified chronic gastritis without bleeding; J45.909 Unspecified asthma, uncomplicated; E03.9 Hypothyroidism, unspecified; E66.01 Morbid (severe) obesity due to excess calories; Z68.42 Body mass index [BMI] 45.0-49.9, adult; Z79.899 Other long term (current) drug therapy
CPT/HCPCS: 43239; 81025; 82657; J2003; J2704

== ENCOUNTER 2025-02-16 10:31 | Emergency (ER) | payer OTHER, SELFPAY ==
--- OUTSIDE RECORDS SUMMARY | 2022-10-10 09:20 | XMS_ITS | Encounter Summary ---
Author Organization [place] [address] Care Team Providers Care Senior Revenue Accountant Name Role Phone Gareth Wheeler MD Primary Care Provider [phone] Encounter Details Date Type Department Care Team (Late st Contact Info) Description 10/10/2022 9:20 AM EDT Hospital Encounter [facility] [address] [place] [address] Le Blood, DEPOSITING MACHINE OPERATOR [address] [place] [address] Left without seen Social History Tobacco Use Types Packs/Day Years Used Date Smoking Tobacco: Never Passive Smoke Exposure: Never Smokeless Tobacco: Never Alcohol Use Standard Drinks/Week Comments Not Currently 1 (1 standard drink = 0.6 oz pur e alcohol) every once and a while [facility] Utilities Answer Date Recorded In the past 12 months has [employer], [employer], or water [employer] threatened to shut off services in your home? No 03/27/2024 Overall Financial Resource Strain (CARDIA) Answe r Date Recorded How hard is it for you to pa y for the very basics like food, housing, medical care, and heating? Not very hard 03/27/2024 PHQ-2 Answer Date Recorded PHQ-2 Total Score 0 01/29/2025 [facility]ational Stress Questionnaire Answer Date [...] things needed for daily living? No 09/05/2021 [facility] IP Transportation Answer D ate Recorded In [...] as of this encounter Functional Status * Cognitive and Functional Status Question Answer Date of Assessment Author Is the person deaf or does he/she have serious difficulty hearing? No 11/14/2024 10:03 AM EDT Liset Lin ae, RMA Is the person blind or does he/she have serious difficulty seeing even when wearing glasses? No 11/14/2024 10:03 AM EDT Liset Lin jorge, RMA Does this person have seriou s difficulty walking or climbing stairs? No 11/14/2024 10:03 AM EDT Liset Lin jorge, RMA Does this person have difficulty dressing or bathing? No 11/14/2024 10:03 AM EDT Liset Lin ae, RMA * Alcohol Screening Score Answer Date of Assessment Author 0 03/27/2024 6:48 PM Anjum Crisostomo RN * Drug Screening Score Answer Date of Assessment Author 0 03/27/2024 6:48 PM Anjum Crisostomo RN * Question Answer Date of Assessment Author How often do you have a drin k containing alcohol? 0 03/27/2024 6:48 PM Marianna Crisostomo RN How many drinks containing a lcohol do you have on a typical day when you are drinking? 0 03/27/2024 6:48 PM Marianna Crisostomo RN How often do you have six or more drinks on one occasion? 0 03/27/2024 6:48 PM Sheyla Crisostomo RN AUDIT-C to Determine Rows 4-10 0 03/27/2024 6:48 PM Marianna Crisostomo RN * Is the person deaf or does he/she have serious difficulty hearing? Answer Date of Assessment Author No 10/10/2022 10:16 AM Angelito Meredith LPN * Is the person blind or does he/she have serious difficulty seeing even when wearing glasses? Answer Date of Assessment Author No 10/10/2022 10:16 AM Angelito Meredith LPN * Does this person have serious difficulty walking or climbing stairs? Answer Date of Assessment Author No 10/10/2022 10:16 AM EDT Angelito Martinez, ECOLOGICAL RISK ASSESSOR * Does this person have difficulty dressing or bathing? Answer Date of Assessment Author No 10/10/2022 10:16 AM EDT Angelito Martinez, ECOLOGICAL RISK ASSESSOR * Because of a physical, mental or emotional condition, does this person have difficulty doing errands alone such as visiting a doctor's office or shopping? Answer Date of Assessment Author No 10/10/2022 10:16 AM Angelito Meredith, ECOLOGICAL RISK ASSESSOR * Question Answer Date of Assessment Author If you checked off any problems, how difficult have these problems made it for you to do your work, take care of things at home, or get along with other people? Not difficult at all 03/26/2024 10:29 AM EDT Preeti Damon RN * PHQ-2 Total Score Answer Date of Assessment Author 0 01/29/2025 9:00 AM Nirmal Ventura RMA * PHQ-9 Total Score Answer Date of Assessment Author 0 01/29/2025 9:00 AM EDNirmal Zepeda RMA * Question Answer Date of Assessment Author Little interest or pleasure in doing things 0 01/29/2025 9:00 AM Liset Ventura Ma, JAMES Feeling down, depressed, or hopeless 0 01/29/2025 9:00 AM Liset Ventura Ma, JAMES Trouble falling or staying asleep, or sleeping too much 0 01/29/2025 9:00 AM Liset Ventura RMA Feeling tired or having boogie le energy 0 01/29/2025 9:00 AM Liset Ventura Ma, RMA Poor appetite or overeating 0 01/29/2025 9: 00 AM Liset Ventura RMA Feeling bad about yourself - or that you are a failure or have let yourself or your family down 0 01/29/2025 9:00 AM Liset Ventura Ma, JAMES Trouble concentrating on things, such as reading the newspaper or watching television 0 01/29/2025 9:00 AM EDT Liset Lin Ma, RMA Moving or speaking so slowly that other people could have noticed. Or the opposite - being so fidgety or restless that you have been moving around a lot more than usual 0 01/29/2025 9:00 AM EDT Liset Lin, JAMES Thoughts that you would be better off , or of hurting yourself in some way 0 01/29/2025 9:00 AM EDT Liset Lin ae, RMA * PHQ-2 Total Score Answer Date of Assessment Author 0 01/29/2025 9:00 AM EDT Nirmal Lin, RMA * Question Answer Date of Assessment Author Feeling Nervous, Anxious, or on Edge 0 11/27/2024 9:36 AM EDT Liset Lin Ma, RMA Not Being Able to Stop or Control Worrying 0 11/27/2024 9:36 AM EDT Liset Lin Ma, RMA Worrying too Much About Different Things 0 11/27/2024 9:36 AM EDT Liset Lin Ma, RMA Trouble Relaxing 0 11/27/2024 9:36 AM EDT Liset Dominguez, RMA Being so Restless That it is Hard to Sit Still 0 11/27/2024 9:36 AM EDT Liset Lin Ma, RMA Becoming Easily Annoyed or Irritable 0 11/27/2024 9:36 AM EDT Liset Lin Ma, RMA Feeling Afraid as if Somethi ng Awful Might Happen 0 11/27/2024 9:36 AM EDT Liset Lin Ma, RMA JONAS-7 Total Score 0 11/27/2024 9:36 AM EDT Liset Lin, RMA * Suicide Severity Rating Answer Date of Assessment Author No Risk 11/14/2024 6:10 PM EDT Juan Luis Duffy, HARESH * [place] Suicide Severity Rating Scale (Q shift for moderate and high) Question Answer Date of Assessment Author 1. In the past month, have y ou wished you were or wished you could go to sleep and not wake up? 0 11/14/2024 6:10 PM EDT Joselin Duffy, RN 2. In the past month, have y ou actually had any thoughts of killing yourself? (If no, skip to question 6) 0 11/14/2024 6:10 PM EDT Elba Duffy RN 6. Have you ever done anythi ng, started to do anything, or prepared to do anything to end your life? 0 11/14/2024 6:10 PM EDT Elba Rosario RN documented as of this encounter Mental Status * Cognitive and Functional Status Question Answer Entry Date Author Because of a physical, menta l or emotional condition, does this person have difficulty doing errands alone such as visiting a doctor's office or shopping? No 11/14/2024 10:03 AM EDT Liset Lin ae, RMA Because of a physical, menta l or emotional condition, does this person have serious difficulty concentrating, remembering or making decisions? No 11/14/2024 10:03 AM EDT Liset Lin ae, RMA * Because of a physical, mental or emotional condition, does this person have serious difficulty concentrating, remembering or making decisions? Answer Entry Date Author No 10/10/2022 10:16 AM EDT Angelito Martinez, LENKA documented in this encounter Plan of Treatment Upcoming Encounters Date Type Department Care Team (Late st Contact Info) Description 02/17/2025 8:45 AM EDT Office Visit [facility] [address] [facility] [address] Gareth Wheeler MD [address] [place] [address] 02/18/2025 10:30 AM EDT Telemedicine [facility] [address] [place] [address] Chely Frazier, RD [address] [place] [address] 02/27/2025 9:30 AM EDT Office Visit [facility] [address] [place] [address] documented as of this encounter Goals Goal Patient Goal Type Associated Problems Recent Progress Patient-Stated? Author Blood Pressure < 140/90 Blood Pressure 118/80(2024 8:54 AM EDT) No Jess Wang MA Eat better, exercise, reach an ideal body weight General No Liset Lin RMA BMI (Calculated) < 30 General 53(01/30/2025 8:54 AM EDT) No Jess Wang MA HEMOGLOBIN A1C < 7.0 Result Component 5.4( 12:11 PM EDT) No Jess Wang MA documented as of this encounter Visit Diagnoses Not on filedocumented in this encounter Additional Health Concerns Assessment Noted Time PHQ-9 Depression Total Score: 23 023 10:16 AM EDT PHQ-2 Depression Total Score: 6 10/11/19 23 10:16 AM EDT documented as of this encounter Care Teams Senior Revenue Accountant Relationship Specialty Start Date End Date Gareth Wheeler MD [address] [place] [address] PCP - General 03/01/09 documented as of this encounter
--- OUTSIDE RECORDS SUMMARY | 2023-01-11 12:10 | XMS_ITS | Encounter Summary ---
Author Organization [place] [address] Support Name Relationship Address Phone Juma Bear Emergency Contact [address] [place] [address] Mecheleelee Jones Emergency Contact [address] [address] Jose Nate Emergency Contact [address] [place] [address] Vicenta Kilo Emergency Contact Unknown [phone] Kvng Kilo Personal Relationship [address] [place], [place] Care Team Providers Care Ground Systems Engineer Name Role Phone Gareth Wheeler MD Primary Care Provider [phone] Encounter Details Date Type Department Care Team (Latest Contact Info) Description 01/11/2023 12:10 PM EDT Hospital Encounter [facility] [address] [place] [address] Left without seen Social History Tobacco Use Types Packs/Day Years Used Date Smoking Tobacco: Never Passive Smoke Exposure: Never Smokeless Tobacco: Never Alcohol Use Standard Drinks/Week Comments Not Currently 1 (1 standard drink = 0.6 oz pur e alcohol) every once and a while [facility] Utilities Answer Date Recorded In the past [...] Date Recorded PHQ-2 Total Score 0 01/29/2025 [facility] Occupat ional Health - Occupational Stress [...] things needed for daily living? No 09/05/2021 [facility] IP Transportation Answer D ate [...] Meredith, LENKA * Does this person have difficulty dressing or bathing? Answer Date of Assessment Author No 10/10/2022 10:16 AM Angelito Meredith, INFORMATION SPECIALIST * Because of a physical, mental or emotional condition, does this person have difficulty doing errands alone such as visiting a doctor's office or shopping? Answer Date of Assessment Author No 10/10/2022 10:16 AM EDT Angelito Martinez, LENKA * Question Answer Date of Assessment Author [...] of Assessment Author 0 01/29/2025 9:00 AM KBT Nirmal Lin RMA * Question Answer Date of Assessment Author Little interest or pleasure in doing things 0 01/29/2025 9:00 AM EDT Liset Lin Ma, RMA Feeling down, depressed, or hopeless 0 01/29/2025 9:00 AM EDT Liset Lin Ma, RMA Trouble falling or staying asleep, or sleeping too much 0 01/29/2025 9:00 AM Liset Ventura RMA Feeling tired or having boogie le energy 0 01/29/2025 9:00 AM KBT Liset Lin Ma, JAMES Poor appetite or overeating 0 01/29/2025 9: 00 AM KBT Liset Lin RMA Feeling bad about yourself - or that you are a failure or have let yourself or your family down 0 01/29/2025 9:00 AM Liset Ventura Ma, RMA Trouble concentrating on things, such as reading the newspaper or watching television 0 01/29/2025 9:00 AM Liset Ventura Ma, RMA Moving or speaking so slowly that other people could have noticed. Or the opposite - being so fidgety or restless that you have been moving around a lot more than usual 0 01/29/2025 9:00 AM EDT Delia, Liset Vergara, RMA Thoughts that you would be better [...] Risk 11/14/2024 6:10 PM EDT Juan Luis Duffy RN * [place] Suicide Severity Rating Scale (Q shift for moderate and high) Question Answer Date of Assessment Author 1. In the past month, have y ou wished you were or wished you could go to sleep and not wake up? 0 11/14/2024 6:10 PM EDT Joselin Duffy RN 2. In the past month, have [...] 02/17/2025 8:45 AM EDT Office Visit [facility] [address] [place] [address] Gareth Wheeler MD [address] [place] [address] 02/18/2025 10:30 AM EDT Telemedicine [facility] BRITANY LAURO [address] [place] [address] Chely Frazier, RD [address] [place] [address] 02/27/2025 9:30 AM EDT Office Visit [facility] BRITANY LAURO [address] [place] [address] documented as of this encounter [...] HEMOGLOBIN A1C < 7.0 Result Component 5.4( 5 12:11 PM EDT) No Jess Wang MA documented as of this encounter Visit Diagnoses Not on filedocumented in this encounter Additional Health Concerns Assessment Noted Time PHQ-9 Depression Total Score: 23 023 10:16 AM EDT PHQ-2 Depression Total Score: 6 10/11/19 23 10:16 AM EDT documented as of this encounter Care Teams Ground Systems Engineer Relationship Specialty Start Date End Date Gareth Wheeler MD [address] [place] [address] PCP - General 03/01/09 documented as of this encounter
--- OUTSIDE RECORDS SUMMARY | 2024-01-12 05:00 | XMS_ITS ---
Author Organization [facility] Address [address] [place] [address] Care Team Providers Care Radiology Asst Name Role Phone Bonita Frederick Unavailable [phone] Migration, Provider Unavailable Unavailable Allergies Allergen (clinical [...] belts Encounters Encounter Location Date Provider Diagnosis [facility] [address] [place] [address] 01/12/2024 Provider Migration Plan Of Treatment No Information Progress Notes * Rosalinda NELSON sDOB:2000 (24 yo F)Acc No.[id number]:01/12/2024 Patient: Guevara Rosalinda CHAN :2000 A ge:23 Y S ex:Female Address:[address] [place] [address], [id number] Subjective: * Chief Complaints: * Medical History: Asthma Arthritis Bowel trouble Stress incontinence Heart trouble: murmur Anxiety Depression GERD Finger fracture *NO SIGNIFICANT GENETIC HISTORY 7 [place]: Self breast exam - No 7 [place]: Sexually active - Yes 7 [place]: Dairy Product Use - Yes + DHA, oral Flonase Allergy Relief spray 1 spray (50 mcg) in each nostril by intranasal route once daily for 30 days. * Immigration Services Officer History: M enstrual History: A ge of [...] :N Sex :F.? * Surgical History: Tonsillectomy [place] teeth surgery * Family History: F amily [...]
--- OUTSIDE RECORDS SUMMARY | 2024-12-30 13:00 | XMS_ITS | Encounter Summary ---
Author Organization [place] [address] Support Name Relationship Address Phone Juma Bear Emergency Contact [address] [place] [address] Meche Jones Emergency Contact [address] [address] Jose Sullivan Emergency Contact [address] [place] [address] Vicenta Kilo Emergency Contact Unknown [phone] Kvng Kilo Personal Relationship [address] [place], [place] Care Team Providers Care Fbi Investigator Name Role Phone Gareth Wheeler MD Primary Care Provider [phone] Janeth Hester SUPERVISOR NET MAKING Unavailable Unav ailable Reason for Referral * Genetic Lab Test (Routine) - Authorization Not Needed Specialty Diagnoses / Procedures Referred By Contac t Referred To Contact Lab Diagnoses Bipolar 2 disorder, major depressive episode (HCC) Generalized anxiety disorder with panic attacks Procedures PHARMACOGENOMIC PANEL Le Blood APRN [address] [place] [address] Phone: tel: fax: Referral ID Status Reason Start Date Expiration Date Visits Requested Visits Authorized [id number] Authorization Not Needed 12/30/2024 12/30/2025 1 1 Reason for Visit * Reason Comments Skin Condition Started with a bite on 12/26 Nausea Encounter Details Date Type Department Care Team (Late st Contact Info) Description 12/30/2024 1:00 PM EDT Office Visit [facility] [address] [place] [address] Le Blood, ADDING MACHINE MECHANIC [address] [place] [address] Contact dermatitis due to plants, except food, unspecified contact dermatitis type (Primary Dx); Tired; Nausea; Bipolar 2 disorder, major depressive episode (HCC); Generalized anxiety disorder with panic attacks; Acne vulgaris; Mastitis in female Social History Tobacco Use Types Packs/Day Years Used Date Smoking Tobacco: Never Passive Smoke Exposure: Never Smokeless Tobacco: Never Alcohol Use Standard Drinks/Week Comments Not Currently 1 (1 standard drink = 0.6 oz pur e alcohol) every once and a while [facility] Utilities Answer Date Recorded In the past 12 months has [employer] electric, gas, oil, or water [employer] threatened to shut off services in your home? No 03/27/2024 Overall Financial Resource Strain (CARDIA) Answe r Date Recorded How hard is it for you to pa y for the very basics like food, housing, medical care, and heating? Not very hard 03/27/2024 PHQ-2 Answer Date Recorded PHQ-2 Total Score 0 11/27/2024 [facility] [place] [facility] - Occupational Stress [...] the money to buy more. Never true 10/17/20 24 Within the past 12 months, t [...] things needed for daily living? No 09/05/2021 [facility] H[facility]N [facility] IP Transportation Answer D ate Recorded [...] on file Sexual Orientation Not on file documented as of this encounter Last Filed Vital Signs Vital Sign Reading Time Taken Comments Blood Pressure 124/82 12/30/2024 1:03 PM EDT Pulse 103 12/30/2024 1:03 PM EDT Temperature 36.3 C (97.4 F) 12/30/2024 1:03 PM EDT Respiratory Rate - - Oxygen Saturation 99% 12/30/2024 1:03 PM EDT Inhaled Oxygen Concentration - - Weight 137.4 kg (303 lb) 12/30/2024 1:03 PM EDT Height 162.6 cm (5' 4 ) 12/30/2024 1:03 PM EDT Body Mass Index 52.01 12/30/2024 1:03 PM EDT documented in this encounter Functional Status * Is the person deaf or does he/she have serious difficulty hearing? Answer Date of Assessment Author No 11/14/2024 10:03 AM EDT Liset Lin RMA * Is the person blind or does he/she have serious difficulty seeing even when wearing glasses? Answer Date of Assessment Author No 11/14/2024 10:03 AM EDT Liset Lin RMA * Does this person have serious difficulty walking or climbing stairs? Answer Date of Assessment Author No 11/14/2024 10:03 AM Liset Ventura RMA * Does this person have difficulty dressing or bathing? Answer Date of Assessment Author No 11/14/2024 10:03 AM Liset Ventura RMA * Because of a physical, mental or emotional condition, does this person have difficulty doing errands alone such as visiting a doctor's office or shopping? Answer Date of Assessment Author No 11/14/2024 10:03 AM Liset Ventura RMA documented as of this encounter Mental Status * Because of a physical, mental or emotional condition, does this person have serious difficulty concentrating, remembering or making decisions? Answer Entry Date Author No 11/14/2024 10:03 AM Liset Ventura RMA documented in this encounter Ordered Prescriptions Prescription Sig Dispense Quantity Refills Last Filled Start Date End Date minocycline (MINOCIN;DYNACIN) 100 mg Oral CapsuleIndications :Acne vulgaris Take 1 Capsule by mouth daily. 90 Capsule 1 12/30/2024 clindamycin-benzoy l peroxide (BENZACLIN) Top GelIndications:Acn e vulgaris Apply topically 2 times daily. 50 g 2 12/30/2024 ondansetron (ZOFRAN-ODT) 4 mg Oral Tablet, Rapid DissolveIndication s:Nausea Dissolve 1 Tablet by mouth every 6 hours as needed. 30 Tablet 12/30/2024 cephALEXin (KEFLEX) 500 mg Oral CapsuleIndications :Mastitis in female Take 2 Capsules by mouth 2 times daily for 10 days. 40 Capsule 12/30/2024 5 lumateperone (CAPLYTA) 21 mg Oral CapsuleIndications :Bipolar 2 disorder, major depressive episode (HCC),Generalized anxiety disorder with panic attacks Take 21 mg by mouth daily. 90 Capsule 1 12/30/2024 5 documented in this encounter Progress Notes * Le Blood APRN - 12/30/2024 1:00 PM EDTAssociated Problem(s): Bipolar 2 disorder, major depressive episode (HCC) Goal: achieve mental health wellness where ADLs, family, social and work relationships are optimal Depression Screen Score: Addressed: - Current stressors contributing to sx explored and discussed Compliance: - compliant with medications Advice: - remain compliant with follow up and medications Medication Management: - medication management decisions took place at today's visit (see orders) Orders: ??? PHARMACOGENOMIC PANEL; Future ??? lumateperone (CAPLYTA) 21 mg Oral Capsule; Take 21 mg by mouth daily. Decrease dose of caplyta due to side effects and see if better tolerated. * Le Blood APRN - 12/30/2024 1:00 PM EDT Assessment & Plan Contact dermatitis due to plants, except food, unspecified contact dermatitis type Orders: ??? methylPREDNISolone acetate (DEPO-Medrol) injection 80 mg Tired Orders: ??? LYME ABS, IGG AND IGM BY IMMUNOBLOT-REF LAB; Future ??? IRON+TIBC; Future ??? CMV IGG/IGM; Future ??? EBV VIRAL CAPSID ANTIBODIES; Future Nausea Orders: ??? LYME ABS, IGG AND IGM BY IMMUNOBLOT-REF LAB; Future ??? IRON+TIBC; Future ??? CMV IGG/IGM; Future ??? EBV VIRAL CAPSID ANTIBODIES; Future ??? ondansetron (ZOFRAN-ODT) 4 mg Oral Tablet, Rapid Dissolve; Dissolve 1 Tablet by mouth every 6 hours as needed. ??? HUMAN CHORIONIC GONADOTROPIN QUANTITATIVE; Future Bipolar 2 disorder, major depressive episode (HCC) Goal: achieve mental health wellness where ADLs, family, social and work relationships are optimal Depression Screen Score: Addressed: - Current stressors contributing to sx explored and discussed Compliance: - compliant with medications Advice: - remain compliant with follow up and medications Medication Management: - medication management decisions took place at today's visit (see orders) Orders: ??? PHARMACOGENOMIC PANEL; Future ??? lumateperone (CAPLYTA) 21 mg Oral Capsule; Take 21 mg by mouth daily. Decrease dose of caplyta due to side effects and see if better tolerated. Generalized anxiety disorder with panic attacks Goal: achieve mental health wellness where ADLs, family, social and work relationships are optimal Depression Screen Score: Addressed: - Current stressors contributing to sx explored and discussed Compliance: - compliant with medications Advice: - remain compliant with follow up and medications Medication Management: - medication management decisions took place at today's visit (see orders) Orders: ??? PHARMACOGENOMIC PANEL; Future ??? lumateperone (CAPLYTA) 21 mg Oral Capsule; Take 21 mg by mouth daily. Acne vulgaris Orders: ??? clindamycin-benzoyl peroxide (BENZACLIN) Top Gel; Apply topically 2 times daily. ??? minocycline (MINOCIN;DYNACIN) 100 mg Oral Capsule; Take 1 Capsule by mouth daily. Mastitis in female Orders: ??? cephALEXin (KEFLEX) 500 mg Oral Capsule; Take 2 Capsules by mouth 2 times daily for 10 days. Progress Note: Vitals: 12/30/24 1303 BP: 124/82 Pulse: 103 Temp: 97.4 ??F (36.3 ??C) TempSrc: Forehead SpO2: 99% Weight: (!) 303 lb (137.4 kg) Height: 5' 4 (1.626 m) Body mass index is 52.01 kg/m??. SUBJECTIVE: Chief Complaint Patient presents with ??? Skin Condition Started with a bite on 12/26 ??? Nausea HPI: Not feeling well, yesterday woke with nausea. No diarrhea.no known fevers, no abdominal cramping. Has been around a lot of kids, had VBS last week. Some abdominal tenderness, radiates into back. Out in garden, feels like has poison oak. Started on right thigh, now to inner thigh and spreading to left thigh. Does not like caplyta so far. Makes her feel tired and drunk. Stopped her sleep aid, but still makes her feel off. Having some breast pain, mostly in left breast. Pain toward back of breast. Deep throbbing pain. Feels like clogged duct. Review of Systems Constitutional: Positive for fatigue. HENT: Negative. Respiratory: Negative. Cardiovascular: Negative. Skin: Positive for rash. OBJECTIVE: Physical Exam Vitals and nursing note reviewed. Constitutional: Appearance: Normal appearance. HENT: Mouth/Throat: Mouth: Mucous membranes are moist. Cardiovascular: Rate and Rhythm: Normal rate and regular rhythm. Pulmonary: Effort: Pulmonary effort is normal. Breath sounds: Normal breath sounds. Abdominal: Palpations: Abdomen is soft. Tenderness: There is abdominal tenderness (upper abdomen). Skin: General: Skin is warm and dry. Findings: Rash present. Neurological: Mental Status: She is alert. documented in this encounter Plan of Treatment Upcoming Encounters Date Type Department Care Team (Late st Contact Info) Description 02/17/2025 8:45 AM EDT Office Visit [facility] [address] [place] [address] Gareth Wheeler MD [address] [place] [address] 02/18/2025 10:30 AM EDT Telemedicine [facility] [address] [place] [address] Chely Frazier, RD [address] [place] [address] 02/27/2025 9:30 AM EDT Office Visit [facility] [address] [place] [address] documented as of this encounter [...] Wang MA documented as of this encounter Procedures Procedure Name Priority Date/Time Associated Diagnosis Comments PHARMACOGENOMIC PANEL Routine 01/05/2025 Bipolar 2 disorder, major depressive episode (HCC) Generalized anxiety disorder with panic attacks IRON+TIBC Routine 12/30/2024 1:40 PM EDT Tired Nausea LYME ABS, IGG AND IGM BY IMMUNOBLOT-REF LAB Routine 12/30/2024 1:40 PM EDT Tired Nausea CMV IGG/IGM Routine 12/30/2024 1:40 PM EDT Tired Nausea EBV VIRAL CAPSID ANTIBODIES Routine 12/30/2024 1:40 PM EDT Tired Nausea HUMAN CHORIONIC GONADOTROPIN QUANTITATIVE Routine 12/30/2024 1:40 PM EDT Nausea documented in this encounter Results * PHARMACOGENOMIC PANEL (01/05/2025) [facility] Pharmacogenomic Lab Comments See Comment ONELEAH Comment:Hemizygous males and homozygous females are reported as HTR2C CC. Pharmacogenomic Lab Method See Comment JENNIFERLEAH Comment: This test was developed, and its performance characteristics determined by [facility], a clinical laboratory located at [address] [place] [address]. These tests have not been cleared or approved by the U.S. Food and Drug Administration. The FDA does not require this test to go through premarket FDA review. [facility] is certified under CLIA-88 and accredited by the [employer] as qualified to perform high-complexity testing. This test is approved for clinical use by the [facility] Department of Health. This test should not be regarded as investigational or for research. *Genomic DNA was analyzed by PCR using [employer] TaqMan and/or proteonomix BHQ probe-based methods to interrogate the variant locations listed in the Test results table above. For tests that include CYP2D6, the CYP2D6 copy number status was assessed at sites within the promoter, intron 2, intron 6, and exon 9. The test detects CYP2D6 deletions, duplications/multiplications, and hybrid alleles, but cannot differentiate duplications in the presence of a deletion. *Legacy nomenclature for applicable genes and alleles is used to remain consistent with industry language. *The test does not detect all known and unknown variations in the gene(s) tested, nor does absence of a detectable variant (designated as *1 for genes encoding drug metabolizing enzymes) rule out the presence of other, non-detected variants. *As with other common SNP genotyping techniques, these assays cannot differentiate between the maternal and paternal chromosomes. In cases where observed variants are associated with more than one haplotype, [facility] infers and reports the most likely diplotype based on published allele frequency and/or ethnicity data. Inferences with potential clinical impact are reported in the Report and laboratory comments section. *PCR may be subject to general interference by factors such as reaction inhibitors and low quality or quantity of extracted DNA. When present, these interferents typically yield no result rather than an inaccurate one. Very infrequent variants or polymorphisms occurring in primer- or probe-binding regions may affect testing and could produce an erroneous result or assay failure. Variant locations tested by the assay but not assigned a genotype call are reported as No Call. *The variant detection methods validated by [employer] [facility] [employer] [facility] provide >99.9% accuracy for the adult population; however, clinical interpretation may be inaccurate for patients who have undergone or are receiving non-autologous blood transfusions, tissue, and/or organ transplant therapies. Although extremely rare, results could also be impacted by other factors not addressed above, such as laboratory error. *Pharmacogenetic correlation is largely based on studies of adult populations. Gene-drug guidance may not be informative in pediatric patients. For patients that may carry a probabilistic risk of disease, patients and providers should consider the benefits of consulting with a trained genetic counseling professional, physician, or pharmacogenomic specialist. For additional support, contact [facility] through the website or by calling [phone]. [facility] 01/05/2025 01/12/2025 Narrative [facility] - 01/16/2025 This result has genomic variants that were not included in this document. us Le Blood APRN [facility] - ORDERABLES Final Result [facility] [address] [facility] [address] [phone] * HUMAN CHORIONIC GONADOTROPIN QUANTITATIVE (12/30/2024 1:40 PM EDT) Pathologist [facility] Hcg Quant <1 <5 mIU/mL 12/30/2024 10:13 PM EDT [facility] Blood VENOUS BLOOD / Unknown Venipuncture / Unknown 12/30/2024 1:40 PM EDT 12/30/2024 1:40 PM EDT Narrative PREFERRED [facility] - 12/30/2024 10:13 PM EDT Female (non-): 0-4.9 mIU/mL Female (postmenopausal): 0-8.1 mIU/mL Indeterminate values for (e.g., 5-25 mIU/mL) may be confirmed with a repeat test in 48-72 hours. Values in should double every 2-3 days for the first six weeks. Ingestion of mary jo doses of biotin (>5 mg/day) taken within 8 hours of drawing blood sample can interfere with this immunoassay test. Le Blood APRN CHEMISTRY ORDERABLES Vesta strange Result [facility] [address] [facility] , [place] [address] * EBV VIRAL CAPSID ANTIBODIES (12/30/2024 1:40 PM EDT) Pathologist [facility] EB VCA IgM 12.6 unit/mL 12/31/2024 10:13 AM EDT [facility] Comment: Sample results should be interpreted as follows: <36.0 U/mL Negative Absence of detectable VCA IgM antibodies. If exposure to Nataly-Kinsey virus is suspected despite a negative finding, a second sample should be collected and tested no less than one to two weeks later. 36.0 to 43.9 U/mL Equivocal The equivocal sample should be repeat tested. In case the result remains in this range after repeat testing, a second sample should be collected and tested no less than one to two weeks later. > 44.0 U/mL Positive Presence of detectable VCA IgM antibodies. Specific IgM antibodies are usually detected in patients with recent primary infections and may be found in patients with reactivated infections. Other EBV serology assays should be performed to confirm EBV-associated infectious mononucleosis. Note - The magnitude of the measured result, above the cutoff, is not indicative of the amount of antibody present. EB VCA IgG 329.0 unit/mL 12/31/2024 10:13 AM EDT [facility] Comment: Sample results should be interpreted as follows: < 18.0 U/mL Negative Absence of detectable VCA IgG antibodies. If exposure to Nataly-Kinsey virus is suspected despite a negative finding, a second sample should be collected and tested no less than one to two weeks later. 18.0 to 21.9 U/mL Equivocal The equivocal sample should be repeat tested. In case the result remains in this range after repeat testing, a second sample should be collected and tested no less than one or two weeks later. > 22 U/mL Positive Presence of detectable VCA IgG antibodies. A positive result indicates current or past exposure to Nataly-Kinsey virus. Note - The magnitude of the measured result, above the cutoff, is not indicative of the amount of antibody present. Blood VENOUS BLOOD / Unknown Venipuncture / Unknown 12/30/2024 1:40 PM EDT 12/30/2024 1:40 PM EDT us Le Blood APRN IMMUNOLOGY ORDERABLES Fin al Result [facility] [address] [facility] , [place] [address] * CMV IGG/IGM (12/30/2024 1:40 PM EDT) Pathologist [facility] CMV IgG Negative Negative 12/31/2024 10:09 AM EDT [facility] CMV IgM Negative Negative 12/31/2024 10:09 AM EDT [facility] Blood VENOUS BLOOD / Unknown Venipuncture / Unknown 12/30/2024 1:40 PM EDT 12/30/2024 1:40 PM EDT Narrative [facility] - 12/31/2024 10:09 AM EDT A positive test for CMV IgG indicates that a person was infected with CMV at some time during their life, but does not indicate when a person was infected. This applies for persons >/= 12 months of age when maternal antibodies are no longer present. Measurement of CMV IgG in paired samples taken 1-3 months apart can be used to diagnose primary infection. Seroconversion (first sample IgG negative, second sample IgG positive) is evidence for recent primary infection. The presence of CMV IgM cannot be used by itself to diagnose primary CMV infection because IgM can also be present during secondary infection (reactivation). An IgG avidity assay may be necessary to distinguish a primary CMV infection from a past infection. Various factors may cause false positive IgM results. Recommend drawing another sample in 1-3 weeks for equivocal results. [facility] ADDING MACHINE MECHANIC IMMUNOLOGY ORDERABLES Fin al Result Performing Organization Address [facility] Co de Phone Number [employer] [address] [place] [address] , [place] [address] * (ABNORMAL) IRON+TIBC (12/30/2024 1:40 PM EDT) [facility] Iron 68 30 - 160 mcg/dL 12/30/2024 10:03 PM EDT [facility] Transferrin 267 200 - 360 mg/dL 12/30/2024 10:03 PM EDT [facility] Transferrin Saturation 18(L) 20 - 50 % 12/30/2024 10:03 PM EDT [facility] TIBC 374 250 - 400 mcg/dL 12/30/2024 10:03 PM EDT [facility] Blood VENOUS BLOOD / Unknown Venipuncture / Unknown 12/30/2024 1:40 PM EDT 12/30/2024 1:40 PM EDT [facility] ADDING MACHINE MECHANIC CHEMISTRY ORDERABLES Vesta l Result Performing Organization Address [facility] Co de Phone Number [facility] [address] [place] [address] [place] [address] [place] [address] * LYME ABS, IGG AND IGM BY IMMUNOBLOT-REF LAB (12/30/2024 1:40 PM EDT) Pathologist [facility] B. burgdorferi IgG Immunoblot Negative Negative 01/02/2025 3:21 PM EDT [facility] Comment: Band(s) present: 41 kDa (Insufficient number of bands for positive result) INTERPRETIVE INFORMATION: B. burgdorferi IgG Immunoblot For this assay, a positive result is reported when any 5 or more of the following 10 bands are present: 18, 23, 28, 30, 39, 41, 45, 58, 66, or 93 kDa. All other banding patterns are reported as negative. B. burgdorferi IgM Immunoblot Negative Negative 01/02/2025 3:21 PM EDT [facility] Comment: Band(s) present: NONE (Insufficient number of bands for positive result) INTERPRETIVE INFORMATION: B. burgdorferi Antibody IgM Immunoblot For this assay, a positive result is reported when any 2 or more of the following bands are present: 23, 39, or 41 kDa. All other banding patterns are reported as negative. Performed By: [facility] [address] [place] [address] [employer] Preserving Plant Laborer: Elie Hassan MD, PhD CLIA Number: [id number] Blood VENOUS BLOOD / Unknown Venipuncture / Unknown 12/30/2024 1:40 PM EDT 12/30/2024 1:40 PM EDT us Le Blood APRN IMMUNOLOGY ORDERABLES Fin al Result [facility] [address] [place] [address] documented in this encounter Visit Diagnoses Diagnosis Contact dermatitis due to plants, except food, unspecified contact dermatitis type- Primary Tired Other malaise and fatigue Nausea Nausea alone Bipolar 2 disorder, major depressive episode (HCC) Other bipolar disorders Generalized anxiety disorder with panic attacks Acne vulgaris Other acne Mastitis in female Inflammatory disease of breast documented in this encounter Administered Medications Inactive Administered Medications - up to 1 most recent administrations Medication Order MAR Action Action Date Dose Rate Site methylPREDNISolone acetate (DEPO-Medrol) injection 80 mg 80 mg, Intramuscular, ONCE, 1 dose, On Sun12/30/24 at 1330, Dx: 1. Contact dermatitis due to plants, except food, unspecified contact dermatitis typeIndications:Contact dermatitis due to plants, except food, unspecified contact dermatitis type Given 12/30/2024 1:40 PM EDT 80 mg Right upper gluteus documented in this encounter Discontinued Medications Medication Sig Discontinue Reason Start Date End Da te lumateperone (CAPLYTA) 42 mg Oral CapsuleIndications:Bipol ar 2 disorder, major depressive episode (HCC) Take 1 Capsule by mouth daily. Dose adjustment 12/11/2024 12/30/2024 minocycline (MINOCIN;DYNACIN) 100 mg Oral CapsuleIndications:Acne vulgaris Take 1 Capsule by mouth daily. Reorder 12/11/2024 12/30/2024 documented as of this encounter Orders Medications Ordered That Manish ht Not Have Been Administered Count Last Ordered Date First Ordered Date methylPREDNISolone acetate ( DEPO-Medrol) injection 80 mg 1 12/30/2024 documented in this encounter Care Teams Fbi Investigator Relationship Specialty Start Date End Date Gareth Wheeler MD [address] [place] [id number] PCP - General 03/01/09 Janeth Hester, SUPERVISOR NET MAKING [employer] 10/16/24 documented as of this encounter
--- OUTSIDE RECORDS SUMMARY | 2025-01-02 11:00 | XMS_ITS | Encounter Summary ---
Author Organization [place] [address] Support Name Relationship Address Phone Juma Bear Emergency Contact [address] [place] [address] Mecheleelee Jones Emergency Contact [address] [address] Jose Nate Emergency Contact [address] [place] [address] Vicenta Boateng Emergency Contact Unknown [phone] Kvng Kilo Personal Relationship [address] 06/12 [place] Care Team Providers Care Philosophy And Religion Instructor Name Role Phone Gareth Wheeler MD Primary Care Provider [phone] Janeth Hester JEWELRY JOBBER Unavailable Unav ailable Encounter Details Date Type Department Care Team (Late st Contact Info) Description 01/02/2025 11:00 AM EDT Office Visit [facility] [address] [place] [address] Chely Frazier, RD [address] [place] [address] Morbid obesity with BMI of 50.0-59.9, adult (HCC) (Primary Dx); Encounter for nutrition evaluation prior to bariatric surgery; Encounter for pre-bariatric surgery counseling and education; Screening for unspecified condition; Pre-operative laboratory examination; Screening for endocrine, nutritional, metabolic and immunity disorder Social History Tobacco Use Types Packs/Day Years Used Date Smoking Tobacco: Never Passive Smoke Exposure: Never Smokeless Tobacco: Never Alcohol Use Standard Drinks/Week Comments Not Currently 1 (1 standard drink = 0.6 oz pur e alcohol) every once and a while [facility] Utilities Answer Date Recorded In [...] Date Recorded PHQ-2 Total Score 0 11/27/2024 [facility] - Occupational Stress [...] things needed for daily living? No 09[facility]20[facility] IP Transportation Answer D ate Recorded [...] Sign Reading Time Taken Comments Blood Pressure - - Pulse - - Temperature - - Respiratory Rate - - Oxygen Saturation - - Inhaled Oxygen Concentration - - Weight 137.4 kg (303 lb) 01/02/2025 10:44 AM EDT Height 162.6 cm (5' 4 ) 01/02/2025 10:44 AM EDT Body Mass Index 52.01 01/02/2025 10:44 AM EDT documented in this encounter Functional Status * Is the person deaf or does he/she have serious difficulty hearing? Answer Date of Assessment Author No 11/14/2024 10:03 AM Liset Ventura RMA * Is the person blind or does he/she have serious difficulty seeing even when wearing glasses? Answer Date of Assessment Author No 11/14/2024 10:03 AM Liset Ventura RMA * Does this person have serious [...] Liset Ventura RMA documented in this encounter Progress Notes * Chely Frazier, RD - 01/02/2025 10:30 AM EDT Medical Nutrition Therapy Pre-operative Assessment/Diet Trial Diet Trial 2 of 3 Type of Surgery Planned: Sleeve Gastrectomy Surgeon: Mcnamara Start Weight: 296.4 lbs Up 6.6 lbs since starting NUTRITION ASSESSMENT Food/Nutrition Related History Current Outpatient Medications on File Prior to Visit Medication Sig Dispense Refill ??? albuterol (PROVENTIL HFA;VENTOLIN HFA) 90 mcg/actuation Inhl HFA Aerosol Inhaler Inhale 2 Puffsinto the lungs every 4 hours as needed for Wheezing. 1 Each 2 ??? busPIRone (BUSPAR) 10 mg Oral Tablet Take 1 Tablet by mouth 3 times daily. 270 Tablet 1 ??? cephALEXin (KEFLEX) 500 mg Oral Capsule Take 2 Capsules by mouth 2 times daily for 10 days. 40 Capsule 0 ??? clindamycin-benzoyl peroxide (BENZACLIN) Top Gel Apply topically 2 times daily. 50 g 2 ??? hydrOXYzine (ATARAX) 10 mg Oral Tablet Take 1-2 tabs nightly as needed. 180 Tablet 1 ??? linaCLOtide (LINZESS) 72 mcg Oral Capsule Take 1 Capsule by mouth daily. 30 Capsule 2 ??? lumateperone (CAPLYTA) 21 mg Oral Capsule Take 21 mg by mouth daily. 90 Capsule 1 ??? minocycline (MINOCIN;DYNACIN) 100 mg Oral Capsule Take 1 Capsule by mouth daily. 90 Capsule 1 ??? ondansetron (ZOFRAN-ODT) 4 mg Oral Tablet, Rapid Dissolve Dissolve 1 Tablet by mouth every 6 hours as needed. 30 Tablet 0 ??? pantoprazole (PROTONIX) 40 mg Oral Tablet, Delayed Release (E.C.) Take 1 Tablet by mouth daily.90 Tablet 1 No current facility-administered medications on file prior to visit. Food Preferences Food allergies: NKFA Food intolerances: eggs, oatmeal, diary, beans, nuts - was having trouble with chronic constipation, reports she saw GI and was told to avoid these; eliminated all of these and feels better since; they also started her on laxative and she is having regular BM's; she has reintroduced those foods andfound she does not tolerate eggs and milk, but the rest seem ok (especially if she does not over consume) Food dislikes: likes most foods Food triggers: None Eating Habits Do you recognize fullness/satisfaction? Yes, using smaller plates, waits for about 15 minutes before deciding if she wants seconds; rarely goes back for seconds How long does it take you to finish a meal? still following eating practices from when she in the program in 2022 - eating slow, chewing well, not drinking with meals How often do you dine out/week? 2 times/week Occupation/work schedule: [employer]; Does your work schedule/environment affect your diet? No Food Diary How often are you eating? Consistent meals throughout the day Did you journal? Compliant with recording ; Baritastic, 1200 kcals Typical Food Choices and Meal Schedule Wakes 8-8:30 Breakfast : fish (sometimes breaded, sometimes not) with a little cheese and LF tartar sauce on gluten free bread, 10 Snack : none Lunch : piece of fish; plain chicken wings 2-3 Snack : none Dinner : usually chicken, green beans and corn; chicken and roasted potatoes; occ a little mac and cheese, 6-7 Snack : none Fluids: flavored water; coffee with creamer (sometimes flavored lattes if she is out), a few times/wk; eliminated sweet tea Have you eliminated carbonated beverages? Does not consume Have you eliminated caffeine? No, coffee a few times/wk Do you drink alcohol? rarely Are you smoking or using nicotine? no Physical Activity: Are you exercising? rides bikes with her kids; walks at the park Anthropometric Measurements Current Weight: Weight: (!) 303 lb (137.4 kg) BMI: Body mass index is 52.01 kg/m??. Wt Readings from Last 6 Encounters: 01/02/25 (!) 303 lb (137.4 kg) 12/30/24 (!) 303 lb (137.4 kg) 12/11/24 300 lb (136.1 kg) 12/05/24 296 lb 6.4 oz (134.4 kg) 11/27/24 295 lb (133.8 kg) 11/14/24 290 lb (131.5 kg) Client History Past Medical History: Diagnosis Date ??? Allergy ??? Anemia ??? Anxiety ??? Asthma ??? Breast disorder low vitamin E ??? Complication of anesthesia anxiety, mild nausea ??? Depression ??? Geographical tongue during ??? Headache Migraines ??? 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 ??? Heart murmur ??? Heartburn ??? Mental disorder depression, anxiety ??? Motion sickness ??? PCOS (polycystic ovarian syndrome) 08/15/2022 ??? Post-operative nausea and vomiting nausea postop ??? Thyroid disease ??? Vertebrogenic pain Family History Problem Relation Age of Onset ??? Asthma Mother ??? Migraines Mother ??? Hypertension Father ??? Heart Disease Father ??? Liver Disease Father ??? Diabetes Father ??? Substance Abuse Father ??? Asthma Father ??? Hypertension Sister ??? Heart Disease Sister mumur ??? Heart Disease Brother mumur ??? Diabetes Maternal Aunt ??? No Known Problems Maternal Grandmother ??? Hypertension Maternal Grandfather ??? Heart Disease Maternal Grandfather ??? Diabetes Paternal Grandmother ??? Cancer Paternal Grandfather ??? Diabetes Paternal Grandfather ??? Hypertension Paternal Grandfather ??? Heart Disease Paternal Grandfather ??? Depression Maternal Aunt ??? Diabetes Maternal Aunt ??? Thyroid Disease Maternal Aunt ??? High Blood Pressure Maternal Aunt ??? Hearing Loss Neg Hx ??? Allergies Neg Hx ??? Anesth Problems Neg Hx Personal History Who do you live with? Spouse, Children Who does the meal planning? Both Who does the food preparation? Both Who does the grocery shopping? Both Do you have problems with any of the following? Dentition Problems: no Gi Problems: GERD (had EGD recently at [facility]) NUTRITION INTERVENTION Nutrition Education Portioned plate, Go-to food and snack ideas, Nutrition basics - macros and good sources of each, Meal timing, Meal planning and prepping, Food diary, Soda alternatives, Mindful eating habits, Physical activity Client Understanding: good Barriers to Learning: no Expected Compliance to diet and lifestyle changes: yes Common Dietary Goals Prior to Surgery: 1. Eliminate carbonation if you have not already done so 2. Eat slowly - try to spend 20-30 minutes at each meal and avoid distractions while eating. 3. Chew your food thoroughly before swallowing. 4. Do not drink with your meals, and try not to drink for 30 minutes after your meals. 5. Eat your lean protein first, then low carb veggies next, then whole grains and fruits last. 6. Don't drink your calories! Water or sugar free beverages only. 7. Please bring your dietary binder and journal with you to ALL appointments Patient Specific Goals for Next Visit Food Goal : Recommend the following kcal/macro goals: 7552-0805 kcals (100-116 g protein, 100-116 gcarbs, 45-52 g fat), Increase fiber (fruits, vegetables, grains) Behavior Goal: Continue recording intake, Continue current meal schedule Fitness Goal: Continue current PA regimen, Increase frequency, duration and intensity as tolerated RD Comments: Stopped Abilify (as recommended by Dr. Mcnamara); trying to find a new medication that works for her; she is having Genesight testing (will completing soon). This has created barriers for her motivation and energy. She is frustrated with her weight; feels she is doing well with her diet and is being pretty active. She also eliminated sweet tea, drinks mostly flavored water. She is recording her intake; consuming ~1200 kcals/day. Per pt verbal recall - she focuses on protein, but carb intake is sporadic (fiber intake is low). Recommend pt to incorporate a fruit/veg/grain at B and L. Discussed weight gain and suspect it is r/t to fluid as a result constant changes with bipolar meds. Encouraged ptto focus on factors she can control (diet and exercise) and reminded her weight is just one piece. Cleared by Behavioral Health to proceed to surgery? no; appointment scheduled? no SPECIALTY CLEARANCES REQUIRED: 1. Need Documented History of Obesity? no 2. PCP Letter of Recommendation: no 3. PCP Clearance: no 4. Cardiac: no 5. Pulmonology: no 6. TSH: no 7. H. Pylori: no 8. Drug Screen: no 9. EGD prior to surgery: no To Do List for Next Visit: 1) Schedule Diet Trial 3, Sleeve and Bypass Class, RD follow-up after class, and follow-up with Marky 2) Have pre-op labs completed - fast for 10-12 hours prior Time spent in Chart review/pre-charting prior to visit: 5 minutes Time spent face to face time with patient, documenting in chart and Care Coordination: 70 minutes Total time: 75 minutes documented in this encounter Plan of Treatment Upcoming Encounters Date Type Department Care Team (Late st Contact Info) Description 02/17/2025 8:45 AM EDT Office Visit [facility] [address] [place] [address] Gareth Wheeler MD [address] [place] [address] 02/18/2025 10:30 AM EDT Telemedicine SEP WE[facility]ITANY LAURO [address] [place] [address] Chely Frazier, RD [address] [place] [address] 02/27/2025 9:30 AM EDT Office Visit SEP WEIGHT MGT BRITANY LAURO [address] [place] [address] documented as of this encounter [...] Wang MA documented as of this encounter Results * FERRITIN (01/02/2025 12:11 PM EDT) [facility] Signature Ferritin 53 30 - 150 ng/mL 01/02/2025 7:38 PM EDT [facility] [employer] [facility] Comment:The lower threshold of 30 is not statistically defined, nor internally validated. The threshold has been updated to more closely reflect a physiologic basis. Lorri Sherwood, et al. Physiologically based serum ferritin thresholds for iron deficiency in children and non- women: a [place] National Health and Nutrition Examination Surveys (NHANES) serial cross-sectional study. Lancet Haematol 2021;8:e572-82. Blood VENOUS BLOOD / Unknown Venipuncture / Unknown 01/02/2025 12:11 PM EDT 01/02/2025 12:11 PM EDT Narrative PREFERRED [facility] - 01/02/2025 7:38 PM EDT Ingestion of mary jo doses of biotin (>5 mg/day) taken within 8 hours of drawing blood sample can interfere with this immunoassay test. Andreia Love APRN CHEMISTRY ORDERABLES Fi nal Result Performing Organization Address [facility] Co de Phone Number [facility] [address] , [place] [address] * MAGNESIUM LEVEL (01/02/2025 12:11 PM EDT) Magnesium 2.3 1.6 - 2.4 mg/dL 01/02/2025 7:38 PM EDT [facility] Blood VENOUS BLOOD / Unknown Venipuncture / Unknown 01/02/2025 12:11 PM EDT 01/02/2025 12:11 PM EDT Andreia Love APRN CHEMISTRY ORDERABLES Fi nal Result Performing Organization Address [facility] Phone Number [facility] [employer] , [place] [id number] * ZINC LEVEL-REF LAB (01/02/2025 12:11 PM EDT) Zinc 79.9 60.0 - 120.0 ug/dL 01/04/2025 2:36 AM EDT [facility] Comment: INTERPRETIVE INFORMATION: Zinc, Serum or Plasma Elevated results may be due to skin or collection-related contamination, including the use of a noncertified metal-free collection/transport tube. If contamination concerns exist due to elevated levels of serum/plasma zinc, confirmation with a second specimen collected in a certified metal-free tube is recommended. Circulating zinc concentrations are dependent on albumin status and are depressed with malnutrition. Zinc may also be lowered with infection, inflammation, stress, oral contraceptives, and . Zinc may be elevated with zinc supplementation or fasting. Elevated zinc concentrations may interfere with copper absorption. This test was developed and its performance characteristics determined by [employer]. It has not been cleared or approved by the US Food and Drug Administration. This test was performed in a CLIA certified laboratory and is intended for clinical purposes. Performed By: [employer] [address] [place], [place] [id number] Marketing Support Manager: Elie Hassan MD, PhD CLIA Number: [id number] Blood VENOUS BLOOD / Unknown Venipuncture / Unknown 01/02/2025 12:11 PM EDT 01/02/2025 12:11 PM EDT [facility] Yuan Love DIRECTOR TRANSITION CHEMISTRY ORDERABLES Fi nal Result Performing Organization Address [facility] Co [place] [address] * VITAMIN E - REF LAB (01/02/2025 12:11 PM EDT) Alpha-Tocopherol (Vit E) mg/L 6.9 5.5 - 18.0 mg/L 01/05/2025 3:17 PM EDT [facility] Comment: This test was developed and its performance characteristics determined by [employer]. It has not been cleared or approved by the US Food and Drug Administration. This test was performed in a CLIA certified laboratory and is intended for clinical purposes. Gamma-Tocopherol (Vit E) mg/L 1.9 0.0 - 6.0 mg/L 01/05/2025 3:17 PM EDT [facility] Comment: Performed By: [employer] [address] [place], [place] [id number] Marketing Support Manager: Elie Hassan MD, PhD CLIA Number: [id number] Blood VENOUS BLOOD / Unknown Venipuncture / Unknown 01/02/2025 12:11 PM EDT 01/02/2025 12:11 PM EDT Andreia Love APRN CHEMISTRY ORDERABLES Fi nal Result Performing Organization Address [facility] Co [place] [address] * (ABNORMAL) VITAMIN D 25 HYDROXY (01/02/2025 12:11 PM EDT) Vit D 25 OH 23.9(L) 30.0 - 150.0 ng/mL 01/02/2025 6:03 PM EDT [facility] Comment: Preferred: >= 30 ng/mL Insufficient: 21-29 ng/mL Deficient <= 20 ng/mL Possible Toxicity: >150 ng/mL Samples should not be taken from patients receiving therapy with high biotin doses (i.e. > 5 mg/day) until at least 8 hours following the last biotin administration. Blood VENOUS BLOOD / Unknown Venipuncture / Unknown 01/02/2025 12:11 PM EDT 01/02/2025 12:11 PM EDT Andreia Love APRN CHEMISTRY ORDERABLES Fi nal Result Performing Organization Address [facility] Co de Phone Number [facility] [employer] , [place] [address] * FOLATE LEVEL (01/02/2025 12:11 PM EDT) Pathologist [facility] Folate 8.35 >=4.80 ng/mL 01/02/2025 6:03 PM EDT [facility] Blood VENOUS BLOOD / Unknown Venipuncture / Unknown 01/02/2025 12:11 PM EDT 01/02/2025 12:11 PM EDT Narrative [facility] - 01/02/2025 6:03 PM EDT Ingestion of mary jo doses of biotin (>5 mg/day) taken within 8 hours of drawing blood sample can interfere with this immunoassay test. Andreia Love APRN CHEMISTRY ORDERABLES Fi nal Result Performing Organization Address [facility] Co de Phone Number [facility] [employer] , [place] [address] * VITAMIN B12 LEVEL (01/02/2025 12:11 PM EDT) [facility] Vitamin B12 490 232 - 1,245 pg/mL 01/02/2025 6:03 PM EDT [facility] [employer] Blood VENOUS BLOOD / Unknown Venipuncture / Unknown 01/02/2025 12:11 PM EDT 01/02/2025 12:11 PM EDT Narrative PREFERRED [facility] - 01/02/2025 6:03 PM EDT Ingestion of mary jo doses of biotin (>5 mg/day) taken within 8 hours of drawing blood sample can interfere with this immunoassay test. Andreia Love DIRECTOR TRANSITION CHEMISTRY ORDERABLES Fi nal Result Performing Organization Address City/[facility]/ZIP Co de Phone Number [facility] [address] [facility], [place] [address] * VITAMIN B1 (THIAMINE) WHOLE BLOOD -REF LAB (01/02/2025 12:11 PM EDT) [facility] Vit B1 WB 109 70 - 180 nmol/L 01/05/2025 10:32 AM EDT [facility] Comment: INTERPRETIVE INFORMATION: Vitamin B1, Whole Blood This assay measures the concentration of thiamine diphosphate (TDP), the primary active form of vitamin B1. Approximately 90 percent of vitamin B1 present in whole blood is TDP. Thiamine and thiamine monophosphate, which comprise the remaining 10 percent, are not measured. This test was developed and its performance characteristics determined by [employer]. It has not been cleared or approved by the US Food and Drug Administration. This test was performed in a CLIA certified laboratory and is intended for clinical purposes. Performed By: [facility] [address] [place] [address] Marketing Support Manager: Elie Hassan MD, PhD CLIA Number: [id number] Blood VENOUS BLOOD / Unknown Venipuncture / Unknown 01/02/2025 12:11 PM EDT 01/02/2025 12:11 PM EDT Andreia Love DIRECTOR TRANSITION CHEMISTRY ORDERABLES Fi nal Result Performing Organization Address City/[facility]/ZIP Co de Phone Number [facility] [address] [place] [address] * VITAMIN A (RETINOL) -REF LAB (01/02/2025 12:11 PM EDT) Vit A(Retinol) 0.36 0.30 - 1.20 mg/L 01/05/2025 3:17 PM EDT [facility] Retinyl Palm <0.02 0.00 - 0.10 mg/L 01/05/2025 3:17 PM EDT [employer] Vit A Intrp Normal 01/05/2025 3:17 PM EDT [employer] Comment: This test was developed and its performance characteristics determined by [employer]. It has not been cleared or approved by the US Food and Drug Administration. This test was performed in a CLIA certified laboratory and is intended for clinical purposes. Performed By: [facility] [employer] [facility] [address] [place] [address] Marketing Support Manager: Elie Hassan MD, PhD CLIA Number: [id number] Blood VENOUS BLOOD / Unknown Venipuncture / Unknown 01/02/2025 12:11 PM EDT 01/02/2025 12:11 PM EDT Andreia Love DIRECTOR TRANSITION CHEMISTRY ORDERABLES Fi nal Result [facility] [address] [place], [place] [id number] * HEMOGLOBIN A1C (01/02/2025 12:11 PM EDT) Pathologist [facility] Hgb A1C 5.4 4.2 - 5.6 % 01/02/2025 4:27 PM EDT [facility] [employer] [employer] Est. Avg Glucose 108 mg/dL 01/02/2025 4:27 PM EDT [facility] [employer] [employer] Blood VENOUS BLOOD / Unknown Venipuncture / Unknown 01/02/2025 12:11 PM EDT 01/02/2025 12:11 PM EDT Narrative [facility] [employer] [employer] - 01/02/2025 4:27 PM EDT REFERENCE RANGE: Normal: 4.0-5.6% Pre-diabetes: 5.7-6.4% Provisional diagnosis of diabetes: >6.4% Hgb F>10% and anything which shortens red cell survival, such as hemolytic anemia, or unstable hemoglobin variants such as HbSS, HbSC, or HbCC, will lower the HbA1c value associated with a given level of glycemic control. Andreia Love DIRECTOR TRANSITION CHEMISTRY ORDERABLES Fi nal Result [facility] [address] [facility] , [place] [address] * COMPREHENSIVE METABOLIC PANEL (01/02/2025 12:11 PM EDT) [facility] Sodium 136 136 - 145 mmol/L 01/02/2025 7:38 PM EDT [facility] Potassium 3.8 3.5 - 5.0 mmol/L 01/02/2025 7:38 PM EDT [facility] Chloride 102 98 - 107 mmol/L 01/02/2025 7:38 PM EDT [facility] Total CO2 23 22 - 29 mmol/L 01/02/2025 7:38 PM EDT [facility] Anion Gap 11 7 - 16 mmol/L 01/02/2025 7:38 PM EDT [facility] Calcium 9.2 8.6 - 10.4 mg/dL 01/02/2025 7:38 PM EDT [facility] Glucose Lvl 86 70 - 99 mg/dL 01/02/2025 7:38 PM EDT [facility] BUN 10 6 - 20 mg/dL 01/02/2025 7:38 PM EDT [facility] Creatinine 0.55 0.51 - 1.30 mg/dL 01/02/2025 7:38 PM EDT [facility] Albumin 4.6 3.5 - 5.2 gm/dL 01/02/2025 7:38 PM EDT [facility] Total Protein 7.8 6.4 - 8.3 gm/dL 01/02/2025 7:38 PM EDT [facility] Bili Total 0.4 0.2 - 1.3 mg/dL 01/02/2025 7:38 PM EDT [facility] ALT 35 <=41 U/L 01/02/2025 7:38 PM EDT [facility] AST 30 <=40 U/L 01/02/2025 7:38 PM EDT [facility] Alk Phos 103 36 - 123 U/L 01/02/2025 7:38 PM EDT [facility] eGFR (CKD-EPIcr 2020) 129 >=60 mL/min/1.7 3 m2 01/02/2025 7:38 PM EDT [facility] Comment:Estimated GFR was ca lculated using the CKD-EPIcr (2020) equation refit without race. The equation is recommended by the National Kidney Foundation - [place] [employer] of Nephrology Task Force. Blood VENOUS BLOOD / Unknown Venipuncture / Unknown 01/02/2025 12:11 PM EDT 01/02/2025 12:11 PM EDT us Andreia Love DIRECTOR TRANSITION CHEMISTRY ORDERABLES Fi nal Result [facility] [address] [facility] , [place] [address] * CBC (01/02/2025 12:11 PM EDT) WBC 7.5 3.7 - 10.3 x10(3)/mcL 01/02/2025 4:05 PM EDT [facility] RBC 5.08 3.90 - 5.20 x10(6)/mcL 01/02/2025 4:05 PM EDT [facility] Hgb 13.8 11.2 - 15.7 g/dL 01/02/2025 4:05 PM EDT [facility] Hct 44.5 34.0 - 45.0 % 01/02/2025 4:05 PM EDT [facility] MCV 87.6 80.0 - 100.0 fL 01/02/2025 4:05 PM EDT [facility] MCH 27.2 26.0 - 34.0 pg 01/02/2025 4:05 PM EDT [facility] MCHC 31.0 30.7 - 35.5 g/dL 01/02/2025 4:05 PM EDT [facility] RDW 13.1 <=14.9 % 01/02/2025 4:05 PM EDT [facility] [employer] Platelet 230 155 - 369 x10(3)/mcL 01/02/2025 4:05 PM EDT [facility] MPV 10.6 8.8 - 12.5 fL 01/02/2025 4:05 PM EDT [facility]REF[facility]ED [facility] [employer] Blood VENOUS BLOOD / Unknown Venipuncture / Unknown 01/02/2025 12:11 PM EDT 01/02/2025 12:11 PM EDT us Andreia Love DIRECTOR TRANSITION HEMATOLOGY ORDERABLES F inal Result PREFERRED [facility] [employer] [address] [facility] , [place] [place] [address] documented in this encounter Visit Diagnoses Diagnosis Morbid obesity with BMI of 50.0-59.9, adult (HCC)- Primary Encounter for nutrition evaluation prior to bariatric surgery Dietary surveillance and counseling Encounter for pre-bariatric surgery counseling and education Screening for unspecified condition Pre-operative laboratory examination Pre-procedural laboratory examination Screening for endocrine, nutritional, metabolic and immunity disorder Screening for other and unspecified endocrine, nutritional, metabolic, and immunity disorders documented in this encounter Care Teams Philosophy And Religion Instructor Relationship Specialty Start Date End Date Gareth Wheeler MD [address] [place] [id number] PCP - General 03/01/09 Janeth Hester, JEWELRY JOBBER Dredge Pump Operator 10/16/24 documented as of this encounter
--- OUTSIDE RECORDS SUMMARY | 2025-01-02 12:05 | XMS_ITS | Encounter Summary ---
Author Organization [place] [address] Support Name Relationship Address Phone Juma Bear Emergency Contact [address] [place] [address] Mecheleelee Jones Emergency Contact [address] [address] Jose Nate Emergency Contact [address] [place] [address] Vicenta Boateng Emergency Contact Unknown [phone] Kvng Kilo Personal Relationship [address] [place], [place] Care Team Providers Care Land Resource Specialist Name Role Phone Gareth Wheeler MD Primary Care Provider [phone] Janeth Hester UNDER TRIMMER Unavailable Unav ailable Encounter Details Date Type Department Care Team (Latest Contact Info) Description 01/02/2025 12:05 PM EDT - 01/02/2025 11:59 PM EDT Hospital Encounter [facility] [address] [place] [address] Morbid obesity with BMI of 50.0-59.9, adult (HCC); Encounter for nutrition evaluation prior to bariatric surgery; Encounter for pre-bariatric surgery counseling and education; Screening for unspecified condition; Pre-operative laboratory examination; Screening for endocrine, nutritional, metabolic and immunity disorder Discharge Disposition: Home or Self Care Social History Tobacco Use Types Packs/Day Years Used Date Smoking Tobacco: Never Passive Smoke Exposure: Never Smokeless Tobacco: Never Alcohol Use Standard Drinks/Week Comments Not Currently 1 (1 standard drink = 0.6 oz pur e alcohol) every once and a while [facility] Utilities Answer Date Recorded In the past [...] Date Recorded PHQ-2 Total Score 0 11/27/2024 [facility] - Occupational Stress [...] things needed for daily living? No [facility] Answer D [...] on file documented as of this encounter Functional Status * Is the [...] Liset Ventura RMA documented in this encounter Medications at Time of Discharge albuterol (PROVENTIL HFA;VENTOLIN HFA) 90 mcg/actuation Inhl HFA Aerosol InhalerIndications :History of asthma Inhale 2 Puffs into the lungs every 4 hours as needed for Wheezing. 1 Each 2 11/14/2024 clindamycin-benzoy l peroxide (BENZACLIN) Top GelIndications:Acn e vulgaris Apply topically 2 times daily. 50 g 2 12/30/2024 linaCLOtide (LINZESS) 72 mcg Oral CapsuleIndications :Irritable bowel syndrome with constipation Take 1 Capsule by mouth daily. 30 Capsule 2 12/11/2024 minocycline (MINOCIN;DYNACIN) 100 mg Oral CapsuleIndications :Acne vulgaris Take 1 Capsule by mouth daily. 90 Capsule 1 12/30/2024 ondansetron (ZOFRAN-ODT) 4 mg Oral Tablet, Rapid DissolveIndication s:Nausea Dissolve 1 Tablet by mouth every 6 hours as needed. 30 Tablet 12/30/2024 busPIRone (BUSPAR) 10 mg Oral TabletIndications: Bipolar 2 disorder, major depressive episode (HCC),Generalized anxiety disorder with panic attacks Take 1 Tablet by mouth 3 times daily. 270 Tablet 1 05/23/2024 5 cephALEXin (KEFLEX) 500 mg Oral CapsuleIndications :Mastitis in female Take 2 Capsules by mouth 2 times daily for 10 days. 40 Capsule 12/30/2024 5 hydrOXYzine (ATARAX) 10 mg Oral TabletIndications: Insomnia, persistent Take 1-2 tabs nightly as needed. 180 Tablet 1 11/14/2024 5 lumateperone (CAPLYTA) 21 mg Oral CapsuleIndications :Bipolar 2 disorder, major depressive episode (HCC),Generalized anxiety disorder with panic attacks Take 21 mg by mouth daily. 90 Capsule 1 12/30/2024 5 pantoprazole (PROTONIX) 40 mg Oral Tablet, Delayed Release (E.C.)Indications: Gastroesophageal reflux disease with esophagitis without hemorrhage Take 1 Tablet by mouth daily. 90 Tablet 1 05/23/2024 5 documented as of this encounter Discharge Disposition Disposition Code Departure Means Destination Home or Self Care documented in this encounter Plan of Treatment Upcoming Encounters Date Type Department Care Team (Late st Contact Info) Description 02/17/2025 8:45 AM EDT Office Visit [facility] [address] [place] [address] Gareth Wheeler MD [address] [place] [address] 02/18/2025 10:30 AM EDT Telemedicine [facility] [address] [place] [address] Chely Frazier, RD [address] [place] [address] 02/27/2025 9:30 AM EDT Office Visit [facility] [address] [place] [address] documented as of this encounter [...] Procedure Name Priority Date/Time Associated Diagnosis Comments VITAMIN E - REF LAB Routine 01/02/2025 1 2:11 PM EDT Morbid obesity with BMI of 50.0-59.9, adult (HCC) Encounter for nutrition evaluation prior to bariatric surgery Encounter for pre-bariatric surgery counseling and education Screening for unspecified condition Pre-operative laboratory examination Screening for endocrine, nutritional, metabolic and immunity disorder CBC Routine 01/02/2025 12:11 PM EDT Morbid obesity with BMI of 50.0-59.9, adult ([facility]) Encounter for nutrition evaluation prior to bariatric surgery Encounter for pre-bariatric surgery counseling and education Screening for unspecified condition Pre-operative laboratory examination Screening for endocrine, nutritional, metabolic and immunity disorder VITAMIN D 25 HYDROXY Routine 01/02/2025 12:11 PM EDT Morbid obesity with BMI of 50.0-59.9, adult (HCC) Encounter for nutrition evaluation prior to bariatric surgery Encounter for pre-bariatric surgery counseling and education Screening for unspecified condition Pre-operative laboratory examination Screening for endocrine, nutritional, metabolic and immunity disorder VITAMIN B1 (THIAMINE) WHOLE BLOOD -REF LAB Routine 01/02/2025 12:11 PM EDT Morbid obesity with BMI of 50.0-59.9, adult ([facility]) Encounter for nutrition evaluation prior to bariatric surgery Encounter for pre-bariatric surgery counseling and education Screening for unspecified condition Pre-operative laboratory examination Screening for endocrine, nutritional, metabolic and immunity disorder ZINC LEVEL-REF LAB Routine 01/02/2025 12 :11 PM EDT Morbid obesity with BMI of 50.0-59.9, adult (HCC) Encounter for nutrition evaluation prior to bariatric surgery Encounter for pre-bariatric surgery counseling and education Screening for unspecified condition Pre-operative laboratory examination Screening for endocrine, nutritional, metabolic and immunity disorder VITAMIN A (RETINOL) -REF LAB Routine 01/02/2025 12:11 PM EDT Morbid obesity with BMI of 50.0-59.9, adult ([facility]) Encounter for nutrition evaluation prior to bariatric surgery Encounter for pre-bariatric surgery counseling and education Screening for unspecified condition Pre-operative laboratory examination Screening for endocrine, nutritional, metabolic and immunity disorder MAGNESIUM LEVEL Routine 01/02/2025 12:11 PM EDT Morbid obesity with BMI of 50.0-59.9, adult ([facility]) Encounter for nutrition evaluation prior to bariatric surgery Encounter for pre-bariatric surgery counseling and education Screening for unspecified condition Pre-operative laboratory examination Screening for endocrine, nutritional, metabolic and immunity disorder HEMOGLOBIN A1C Routine 01/02/2025 12:11 PM EDT Morbid obesity with BMI of 50.0-59.9, adult ([facility]) Encounter for nutrition evaluation prior to bariatric surgery Encounter for pre-bariatric surgery counseling and education Screening for unspecified condition Pre-operative laboratory examination Screening for endocrine, nutritional, metabolic and immunity disorder FOLATE LEVEL Routine 01/02/2025 12:11 PM EDT Morbid obesity with BMI of 50.0-59.9, adult ([facility]) Encounter for nutrition evaluation prior to bariatric surgery Encounter for pre-bariatric surgery counseling and education Screening for unspecified condition Pre-operative laboratory examination Screening for endocrine, nutritional, metabolic and immunity disorder FERRITIN Routine 01/02/2025 12:11 PM EDT Morbid obesity with BMI of 50.0-59.9, adult ([facility]) Encounter for nutrition evaluation prior to bariatric surgery Encounter for pre-bariatric surgery counseling and education Screening for unspecified condition Pre-operative laboratory examination Screening for endocrine, nutritional, metabolic and immunity disorder VITAMIN B12 LEVEL Routine 01/02/2025 12: 11 PM EDT Morbid obesity with BMI of 50.0-59.9, adult (HCC) Encounter for nutrition evaluation prior to bariatric surgery Encounter for pre-bariatric surgery counseling and education Screening for unspecified condition Pre-operative laboratory examination Screening for endocrine, nutritional, metabolic and immunity disorder COMPREHENSIVE METABOLIC PANEL Routine 01/02/2025 12:11 PM EDT Morbid obesity with BMI of 50.0-59.9, adult (HCC) Encounter for nutrition evaluation prior to bariatric surgery Encounter for pre-bariatric surgery counseling and education Screening for unspecified condition Pre-operative laboratory examination Screening for endocrine, nutritional, metabolic and immunity disorder documented in this encounter Results * FERRITIN (01/02/2025 12:11 PM EDT) Ferritin 53 30 - 150 ng/mL 01/02/2025 7:38 PM EDT [facility] Comment:The lower threshold of 30 is not statistically defined, nor internally validated. The threshold has been updated to more closely reflect a physiologic basis. Lorri Z, et al. Physiologically based serum ferritin thresholds for iron deficiency in children and non- women: a [place] National Health and Nutrition Examination Surveys (NHANES) serial cross-sectional study. Lancet Haematol 202;8:e572-82. Blood VENOUS BLOOD / Unknown Venipuncture / Unknown 01/02/2025 12:11 PM EDT 01/02/2025 12:11 PM EDT Narrative [facility] - 01/02/2025 7:38 PM EDT Ingestion of mary jo doses of biotin (>5 mg/day) taken within 8 hours of drawing blood sample can interfere with this immunoassay test. Andreia Love ROUTE RELIEF DRIVER CHEMISTRY ORDERABLES Fi nal Result [facility] [address] [facility] , [place] [address] * MAGNESIUM LEVEL (01/02/2025 12:11 PM EDT) Magnesium 2.3 1.6 - 2.4 mg/dL 01/02/2025 7:38 PM EDT [facility] [employer] [facility] Blood VENOUS BLOOD / Unknown Venipuncture / Unknown 01/02/2025 12:11 PM EDT 01/02/2025 12:11 PM EDT Andreia Love ROUTE RELIEF DRIVER CHEMISTRY ORDERABLES Fi nal Result Performing Organization Address City/[facility] Co de Phone Number [facility] [employer] [address] [facility] , [place] [address] * ZINC LEVEL-REF LAB (01/02/2025 12:11 PM EDT) Zinc 79.9 60.0 - 120.0 ug/dL 01/04/2025 2:36 AM EDT [employer] Comment: INTERPRETIVE INFORMATION: Zinc, Serum or [...] developed and its performance characteristics determined by [employer]. It has not been cleared or approved by the US Food and Drug Administration. This test was performed in a CLIA certified laboratory and is intended for clinical purposes. Performed By: [employer] [address] [place] [id number] Commercial Airline Pilot: Elie Hassan MD, PhD CLIA Number: [id number] Blood VENOUS BLOOD / Unknown Venipuncture / Unknown 01/02/2025 12:11 PM EDT 01/02/2025 12:11 PM EDT Andreia Love ROUTE RELIEF DRIVER CHEMISTRY ORDERABLES Fi nal Result Performing Organization Address City/[facility] Co de Phone Number [facility] [address] [place] [address] * VITAMIN E - REF LAB (01/02/2025 12:11 PM EDT) [facility] Alpha-Tocopherol (Vit E) mg/L 6.9 5.5 - 18.0 mg/L 01/05/2025 3:17 PM EDT [employer] Comment: This test was developed and its performance characteristics determined by [employer]. It has not been cleared or approved by the US Food and Drug Administration. This test was performed in a CLIA certified laboratory and is intended for clinical purposes. Gamma-Tocopherol (Vit E) mg/L 1.9 0.0 - 6.0 mg/L 01/05/2025 3:17 PM EDT [employer] Comment: Performed By: [employer] [address] [place] [address] Commercial Airline Pilot: Elie Hassan MD, PhD CLIA Number: [id number] Blood VENOUS BLOOD / Unknown Venipuncture / Unknown 01/02/2025 12:11 PM EDT 01/02/2025 12:11 PM EDT Andreia Love ROUTE RELIEF DRIVER CHEMISTRY ORDERABLES Fi nal Result Performing Organization Address [facility]/ZIP Co de Phone Number [facility] [address] [place] [address] * (ABNORMAL) VITAMIN D 25 HYDROXY (01/02/2025 12:11 PM EDT) [facility] Vit D 25 [place] 23.9(L) 30.0 - 150.0 ng/mL 01/02/2025 6:03 PM EDT [employer] Comment: Preferred: >= 30 ng/mL Insufficient: 21-29 [...] ORDERABLES Fi nal Result Performing Organization Address City/[facility]/ZIP Co de Phone Number [facility] [address] [facility] , [place] [address] * FOLATE LEVEL (01/02/2025 12:11 PM EDT) Folate 8.35 >=4.80 ng/mL 01/02/2025 6:03 PM EDT [facility]REF[facility] [employer] Blood VENOUS BLOOD / Unknown Venipuncture / Unknown 01/02/2025 12:11 PM EDT 01/02/2025 12:11 PM EDT Narrative PREFERRED [employer] - 01/02/2025 6:03 PM EDT Ingestion of mary jo doses of biotin (>5 mg/day) taken within 8 hours of drawing blood sample can interfere with this immunoassay test. Andreia Love APRN CHEMISTRY ORDERABLES Fi nal Result Performing Organization Address [facility] de Phone Number [facility] [address] [facility] , [place] [address] * VITAMIN B12 LEVEL (01/02/2025 12:11 PM EDT) Vitamin B12 490 232 - 1,245 pg/mL 01/02/2025 6:03 PM EDT [facility] Blood VENOUS BLOOD / Unknown Venipuncture / Unknown 01/02/2025 12:11 PM EDT 01/02/2025 12:11 PM EDT Narrative [facility]REFERRED [employer] [employer] - 01/02/2025 6:03 PM EDT Ingestion of mary jo doses of biotin (>5 mg/day) taken within 8 hours of drawing blood sample can interfere with this immunoassay test. Andreia Love APRN CHEMISTRY ORDERABLES Fi nal Result Performing Organization Address City/[facility] Co de Phone Number [employer] [facility] [address] [facility] , [address] [place] [id number] * VITAMIN B1 (THIAMINE) WHOLE BLOOD -REF LAB (01/02/2025 12:11 PM EDT) Pathologist [facility] Vit B1 WB 109 70 - 180 nmol/L 01/05/2025 10:32 AM EDT [employer] Comment: INTERPRETIVE INFORMATION: Vitamin B1, Whole Blood This assay measures the concentration of thiamine diphosphate (TDP), the primary active form of vitamin B1. Approximately 90 percent of vitamin B1 present in whole blood is TDP. Thiamine and thiamine monophosphate, which comprise the remaining 10 percent, are not measured. This test was developed and its performance characteristics determined by [employer]. It has not been cleared or approved by the US Food and Drug Administration. This test was performed in a CLIA certified laboratory and is intended for clinical purposes. Performed By: [facility] [address] [place] [address] Commercial Airline Pilot: Elie Hassan MD, PhD CLIA Number: [id number] Blood VENOUS BLOOD / Unknown Venipuncture / Unknown 01/02/2025 12:11 PM EDT 01/02/2025 12:11 PM EDT Andreia Love ROUTE RELIEF DRIVER CHEMISTRY ORDERABLES Fi nal Result [facility] [address] [place], [place] [id number] * VITAMIN A (RETINOL) -REF LAB (01/02/2025 12:11 PM EDT) [facility] Vit A(Retinol) 0.36 0.30 - 1.20 mg/L 01/05/2025 3:17 PM EDT [employer] Retinyl Palm <0.02 0.00 - 0.10 mg/L 01/05/2025 3:17 PM EDT [employer] Vit A Intrp Normal 01/05/2025 3:17 PM EDT [employer] Comment: This test was developed and its performance characteristics determined by [employer]. It has not been cleared or approved by the US Food and Drug Administration. This test was performed in a CLIA certified laboratory and is intended for clinical purposes. Performed By: [facility] [address] [place] [address] Commercial Airline Pilot: Elie Hassan MD, PhD CLIA Number: [id number] Blood VENOUS BLOOD / Unknown Venipuncture / Unknown 01/02/2025 12:11 PM EDT 01/02/2025 12:11 PM EDT Andreia Love APRN CHEMISTRY ORDERABLES Fi nal Result Performing Organization Address [facility] Co de Phone Number [facility] [address] [place] [address] * HEMOGLOBIN A1C (01/02/2025 12:11 PM EDT) Hgb A1C 5.4 4.2 - 5.6 % 01/02/2025 4:27 PM EDT PREFERRED [employer] Est. Avg Glucose 108 mg/dL 01/02/2025 4:27 PM EDT [facility]REF[facility] [employer] Blood VENOUS BLOOD / Unknown Venipuncture / Unknown 01/02/2025 12:11 PM EDT 01/02/2025 12:11 PM EDT Narrative PREFERRED [employer] - 01/02/2025 4:27 PM EDT REFERENCE RANGE: Normal: 4.0-5.6% Pre-diabetes: 5.7-6.4% Provisional diagnosis of diabetes: >6.4% Hgb F>10% and anything which shortens red cell survival, such as hemolytic anemia, or unstable hemoglobin variants such as HbSS, HbSC, or HbCC, will lower the HbA1c value associated with a given level of glycemic control. Andreia Love APRN CHEMISTRY ORDERABLES Fi nal Result Performing Organization Address City/[facility]/ZIP Co de Phone Number [facility] [address] [place] [address] , [place] [address] * COMPREHENSIVE METABOLIC PANEL (01/02/2025 12:11 PM EDT) Sodium 136 136 - 145 mmol/L 01/02/2025 [...] 7:38 PM EDT [facility] Alk Phos 103 36 - 123 U/L 01/02/2025 7:38 PM EDT [facility] eGFR (CKD-EPIcr 2020) 129 >=60 mL/min/1.7 3 m2 01/02/2025 7:38 PM EDT [facility] Comment:Estimated GFR was ca lculated using the CKD-EPIcr (2020) equation refit without race. The equation is recommended by the National Kidney Foundation - [place] [employer] Neph[employer] Task Force. Blood VENOUS BLOOD / Unknown Venipuncture / Unknown 01/02/2025 12:11 PM EDT 01/02/2025 12:11 PM EDT Andreia Love ROUTE RELIEF DRIVER CHEMISTRY ORDERABLES Fi nal Result [facility] [address] [facility] , [place] [address] * CBC (01/02/2025 12:11 PM EDT) Pathologist [facility] WBC 7.5 3.7 - 10.3 x10(3)/mcL 01/02/2025 4:05 PM EDT [facility] RBC 5.08 3.90 - 5.20 x10(6)/mcL 01/02/2025 4:05 PM EDT [facility] Hgb 13.8 11.2 - 15.7 g/dL 01/02/2025 4:05 PM EDT [facility] Hct 44.5 34.0 - 45.0 % 01/02/2025 4:05 PM EDT [facility] MCV 87.6 80.0 - 100.0 fL 01/02/2025 4:05 PM EDT [facility] MCH 27.2 26.0 - 34.0 pg 01/02/2025 4:05 PM EDT [facility] MCHC 31.0 30.7 - 35.5 g/dL 01/02/2025 4:05 PM EDT [facility] RDW 13.1 <=14.9 % 01/02/2025 4:05 PM EDT [facility] Platelet 230 155 - 369 x10(3)/mcL 01/02/2025 4:05 PM EDT [facility] MPV 10.6 8.8 - 12.5 fL 01/02/2025 4:05 PM EDT [facility] Blood VENOUS BLOOD / Unknown Venipuncture / Unknown 01/02/2025 12:11 PM EDT 01/02/2025 12:11 PM EDT Andreia Love ROUTE RELIEF DRIVER HEMATOLOGY ORDERABLES F inal Result [facility] [address] [facility] , [address] [place], [place] [id number] documented in this encounter Visit Diagnoses Diagnosis Morbid obesity with BMI of 50.0-59.9, adult (HCC) Encounter for nutrition evaluation prior to bariatric surgery Dietary surveillance and counseling Encounter for pre-bariatric surgery counseling and education Screening for unspecified condition Pre-operative laboratory examination Pre-procedural laboratory examination Screening for endocrine, nutritional, metabolic and immunity disorder Screening for other and unspecified endocrine, nutritional, metabolic, and immunity disorders documented in this encounter Care Teams Land Resource Specialist Relationship Specialty Start Date End Date Gareth Wheeler MD [address] [place] [address] PCP - General 03/01/09 Janeth Hester, UNDER TRIMMER Burr Filer 10/16/24 documented as of this encounter
--- OUTSIDE RECORDS SUMMARY | 2025-01-29 09:30 | XMS_ITS | Encounter Summary ---
Author Organization [place] [address] Support Name Relationship Address Phone Juma Bear Emergency Contact [address] [place] [address] Meche Jones Emergency Contact [address] [address] Jose Nate Emergency Contact [address] [place] [address] Vicenta Kilo Emergency Contact Unknown [phone] Kvng Kilo Personal Relationship [address] [place], [place] Care Team Providers Care Tierce Filler Name Role Phone Gareth Wheeler MD Primary Care Provider [phone] Janeth Hester PRODUCTION LEADER Unavailable Unav ailable Reason for Referral * Medication Prior Authorization - Authorized Specialty Diagnoses / Procedures Referred By Niyah draper Referred To Contact Diagnoses Bipolar 2 disorder, major depressive episode (HCC) Le Blood APRN [address] [place] [address] Phone: tel: fax: Referral ID Status Reason Start Date Expiration Date V isits Requested Visits Authorized [id number] Authorized 1 1 Reason for Visit * Reason Comments Follow-up Discuss results Headache Fatigue Encounter Details Date Type Department Care Team (Late st Contact Info) Description 01/29/2025 9:30 AM EDT Office Visit [facility] [address] [place] [address] Le Blood APRN [address] [place] [address] Acute cough (Primary Dx); Bipolar 2 disorder, major depressive episode (HCC) Social History Tobacco Use Types Packs/Day Years Used Date Smoking Tobacco: Never Passive Smoke Exposure: Never Smokeless Tobacco: Never Alcohol Use Standard Drinks/Week Comments Not Currently 1 (1 standard drink = 0.6 oz pur e alcohol) every once and a while [facility] Utilities Answer Date Recorded In [...] Date Recorded PHQ-2 Total Score 0 01/29/2025 [facility] [place] [facility] - Occupational Stress [...] things needed for daily living? No 09[facility]2021 [facility] [address] IP Transportation Answer D ate Recorded In [...] Sign Reading Time Taken Comments Blood Pressure 114/72 01/29/2025 9:21 AM EDT Pulse 103 01/29/2025 9:21 AM EDT Temperature 36.6 C (97.9 F) 01/29/2025 9:21 AM EDT Respiratory Rate - - Oxygen Saturation 95% 01/29/2025 9:21 AM EDT Inhaled Oxygen Concentration - - Weight 139.7 kg (308 lb) 01/29/2025 9:21 AM EDT Height 162.6 cm (5' 4 ) 01/29/2025 9:21 AM EDT Body Mass Index 52.87 01/29/2025 9:21 AM EDT documented in this encounter Functional [...] Lin RMA * Does this person have difficulty dressing or bathing? Answer Date of Assessment Author No 11/14/2024 10:03 AM EDT Liset Lin RMA * Because of a physical, mental or emotional condition, does this person have difficulty doing errands alone such as visiting a doctor's office or shopping? Answer Date of Assessment Author No 11/14/2024 10:03 AM Liset Ventura RMA * PHQ-2 Total Score Answer Date [...] Entry Date Author No 11/14/2024 10:03 AM EDT Liset Lin RMA documented in this encounter Ordered Prescriptions Prescription Sig Dispense Quantity Refills Last Filled Start Date End Date benzonatate (TESSALON) 200 mg Oral CapsuleIndications :Acute cough Take 1 Capsule by mouth 3 times daily as needed for Cough. 30 Capsule 2 01/29/2025 ARIPiprazole (ABILIFY) 10 mg Oral TabletIndications: Bipolar 2 disorder, major depressive episode (HCC) Take 10mg daily x 2 weeks then increase to 20mg daily. 180 Tablet 01/29/2025 documented in this encounter Progress Notes * Le Blood APRN - 01/29/2025 9:30 AM EDTAssociated Problem(s): Bipolar 2 disorder, major depressive episode (HCC) Goal: achieve mental health wellness where ADLs, family, social and work relationships are optimal Depression Screen Score: PHQ-2 Total Score: 0 PHQ-9 Total Score: 0 Addressed: - Current stressors contributing to sx explored and discussed Compliance: - compliant with medications Advice: - remain compliant with follow up and medications Medication Management: - medication management decisions took place at today's visit (see orders) Orders: ??? ARIPiprazole (ABILIFY) 10 mg Oral Tablet; Take 10mg daily x 2 weeks then increase to 20mg daily. Stop caplyta, restart abilify, did much better on her abilify when she was on it. * Le Blood APRN - 01/29/2025 9:30 AM EDT Assessment & Plan Bipolar 2 disorder, major depressive episode (HCC) Goal: achieve mental health wellness where ADLs, family, social and work relationships are optimal Depression Screen Score: PHQ-2 Total Score: 0 PHQ-9 Total Score: 0 Addressed: - Current stressors contributing to sx explored and discussed Compliance: - compliant with medications Advice: - remain compliant with follow up and medications Medication Management: - medication management decisions took place at today's visit (see orders) Orders: ??? ARIPiprazole (ABILIFY) 10 mg Oral Tablet; Take 10mg daily x 2 weeks then increase to 20mg daily. Stop caplyta, restart abilify, did much better on her abilify when she was on it. Acute cough Orders: ??? benzonatate (TESSALON) 200 mg Oral Capsule; Take 1 Capsule by mouth 3 times daily as needed forCough. Progress Note: Vitals: 01/29/25 0921 BP: 114/72 Pulse: 103 Temp: 97.9 ??F (36.6 ??C) TempSrc: Forehead SpO2: 95% Weight: (!) 308 lb (139.7 kg) Height: 5' 4 (1.626 m) Body mass index is 52.87 kg/m??. SUBJECTIVE: Chief Complaint Patient presents with ??? Follow-up Discuss results ??? Headache ??? Fatigue HPI: Has been having extreme headaches. Takes tylenol, improves, but then returns. Started in last threeweeks. Stays tired. Has been taking caplyta med every other day, will feel better, but then when takes the next day is so tired it's hard to function. Review of Systems Constitutional: Negative. HENT: Negative. Respiratory: Positive for cough. Neurological: Positive for headaches. OBJECTIVE: Physical Exam Vitals and nursing note reviewed. Constitutional: Appearance: Normal appearance. HENT: Mouth/Throat: Mouth: Mucous membranes are moist. Cardiovascular: Rate and Rhythm: Normal rate and regular rhythm. Pulmonary: Effort: Pulmonary effort is normal. Skin: General: Skin is warm and dry. Neurological: Mental Status: She is alert. Psychiatric: Mood and Affect: Mood normal. documented in this encounter Plan of Treatment Upcoming Encounters Date Type Department Care Team (Late st Contact Info) Description 02/17/2025 8:45 AM EDT Office Visit [facility] [address] [place] [address] Gareth Wheeler MD [address] [place] [address] 02/18/2025 10:30 AM EDT Telemedicine [facility] [address] [place] [address] Chely Frazier, RD [address] [place] [address] 02/27/2025 9:30 AM EDT Office Visit [facility] [address] [place] [address] documented as of this encounter [...] documented as of this encounter Visit Diagnoses Diagnosis Acute cough- Primary Bipolar 2 disorder, major depressive episode (HCC) Other bipolar disorders documented in this encounter Discontinued Medications Medication Sig Discontinue Reason Start Date End Da te lumateperone (CAPLYTA) 21 mg Oral CapsuleIndications:Bipola r 2 disorder, major depressive episode (HCC),Generalized anxiety disorder with panic attacks Take 21 mg by mouth daily. Side effects 12/30/2024 01/29/2025 documented as of this encounter Care Teams Tierce Filler Relationship Specialty Start Date End Date Gareth Wheeler MD [address] [place] [address] PCP - General 03/01/09 Janeth Hester, PRODUCTION LEADER Hunter Guide 10/16/24 documented as of this encounter
--- OUTSIDE RECORDS SUMMARY | 2025-01-30 09:30 | XMS_ITS | Encounter Summary ---
Author Organization [place] [address] Care Team Providers Care Electronic Console Display Operator Name Role Phone Gareth Wheeler MD Primary Care Provider [phone] Janeth Hester COSMETIC ASSEMBLER Unavailable Unav ailable Reason for Referral * Consultation (Routine) - Pending Review Specialty Diagnoses / Procedures Referred By Contac t Referred To Contact Diagnoses Encounter for pre-bariatric surgery counseling and education Morbid obesity with BMI of 50.0-59.9, adult (HCC) Fatty liver Gastroesophageal reflux disease, unspecified whether esophagitis present Portia Jones, ENTRY LEVEL SOFTWARE ENGINEER [address] [place] [address] Phone: tel: fax: Noel Burnett MD [address] [place] [id number] Phone: tel: fax: Referral ID Status Reason Start Date Expiration Date V isits Requested Visits Authorized [id number] Pending Review 01/30/2025 01/30/2026 99 99 Reason for Visit * Reason Comments Diet Trial 3 of 3 Encounter Details Date Type Department Care Team (Late st Contact Info) Description 01/30/2025 9:30 AM EDT Telemedicine [facility] [address] [place] [address] Portia Jones APRN [address] [place] [address] Encounter for pre-bariatric surgery counseling and education (Primary Dx); Morbid obesity with BMI of 50.0-59.9, adult (HCC); Fatty liver; Gastroesophageal reflux disease, unspecified whether esophagitis present Social History Tobacco Use Types Packs/Day Years Used Date Smoking Tobacco: Never Passive Smoke Exposure: Never Smokeless Tobacco: Never Alcohol Use Standard Drinks/Week Comments Not Currently 1 (1 standard drink = 0.6 oz pur e alcohol) every once and a while [facility] Utilities Answer Date Recorded In the past 12 months has [employer] electric, gas, oil, or water company threatened to shut off services in your home? No 03/27/2024 Overall Financial Resource Strain (CARDIA) Answe r Date Recorded How hard is it for you to pa y for the very basics like food, housing, medical care, and heating? Not very hard 03/27/2024 PHQ-2 Answer Date Recorded PHQ-2 Total Score 0 01/29/2025 [facility] Occupat ional Health - Occupational Stress [...] things needed for daily living? No 09/05/2021 [facility] IP Transportation Answer D ate Recorded In [...] Sign Reading Time Taken Comments Blood Pressure 118/80 01/30/2025 8:54 AM EDT Pulse 86 01/30/2025 8:54 AM EDT Temperature - - Respiratory Rate - - Oxygen Saturation 99% 01/30/2025 8:54 AM EDT Inhaled Oxygen Concentration - - Weight 139.7 kg (308 lb) 01/30/2025 8:54 AM EDT Height 162.6 cm (5' 4 ) 01/30/2025 8:54 AM EDT Body Mass Index 52.87 01/30/2025 8:54 AM EDT documented in this encounter Functional [...] of Assessment Author No 11/14/2024 10:03 AM VARSHA Lin Liset VergaraJAMES * Does this person have difficulty dressing or bathing? Answer Date of Assessment Author No 11/14/2024 10:03 AM VASRHA Lin Liset VergaraJAMES * Because of a physical, mental or emotional condition, does this person have difficulty doing errands alone such as visiting a doctor's office or shopping? Answer Date of Assessment Author No 11/14/2024 10:03 AM VARSHA Lin Liset VergaraJAMES documented as of this encounter Mental Status * Because of a physical, mental or emotional condition, does this person have serious difficulty concentrating, remembering or making decisions? Answer Entry Date Author No 11/14/2024 10:03 AM Liset Ventura JAMES documented in this encounter Progress Notes * Portia Jones, ENTRY LEVEL SOFTWARE ENGINEER - 01/30/2025 9:30 AM EDT PRE-OPERATIVE DIET TRIAL Month # 3 of 3 Type of Surgery Planned: Sleeve Gastrectomy Surgeon: Naima Start Weight: 296.4 pounds gain 11.6 lbs. since starting program. Weight Change Since Last Visit: gain 5 lbs. SUBJECTIVE Has just stopped a medication she was taking to help stabilize her mood due to side effects (headaches, etc) - has been trying new medications to find something that helps her, but doesn't cause weight gain. Currently not feeling great and attributes to these medication changes. [place] seeing the cfo controller was very helpful. She wasn't getting enough calories according to her tracking review with the RD, but she is frustrated because she has gained weight. Tracking with [employer] and staying within targets provided by RD. Has also discovered foods that she doesn't tolerate (eggs, some dairy) Does a lot of walking, has some weights at home, does You Tube videos; exercising 3x/week. Getting ready to start going to the gym now that her son is going back to school. Denies carbonation, doesn't use NSAIDs. Denies any prior nicotine use. Uses Protonix and denies breakthrough reflux symptoms. Any Health Problems Since Last Visit? no What diet plan are you currently prescribed?: Portioned Plate Diet Did you follow your recommended diet plan this month? yes If not, what type of dietary plan are you following, and why? Did you journal? yes Did you bring your journal for review? no Did You Exercise? yes How much? doing light activities daily, planning to start going to the gym soon Fitness Goal: Aerobic 30 minutes/day 5 days/week, to include 10,000 steps daily at least 5 days perweek. Are you smoking or using nicotine? no Have you eliminated carbonated drinks? yes Do you drink alcohol? no If yes, how many drinks per day / week? REVIEW OF SYSTEMS: Review of Systems Constitutional: Negative for chills, fever and malaise/fatigue. HENT: Negative for congestion and sore throat. Respiratory: Negative for cough, shortness of breath and wheezing. Cardiovascular: Negative for chest pain, palpitations and leg swelling. Gastrointestinal: Negative for abdominal pain, constipation, diarrhea, heartburn, nausea and vomiting. Musculoskeletal: Negative for back pain, joint pain and neck pain. Neurological: Positive for headaches. Negative for dizziness. Endo/Heme/Allergies: Negative for environmental allergies. Does not bruise/bleed easily. Psychiatric/Behavioral: The patient is not nervous/anxious. Current Medications: Outpatient Medications Marked as Taking for the 01/30/25 encounter (Telemedicine) with Portia Jones APRN Medication Sig Dispense Refill albuterol (PROVENTIL HFA;VENTOLIN HFA) 90 mcg/actuation Inhl HFA Aerosol Inhaler Inhale 2 Puffs into the lungs every 4 hours as needed for Wheezing. 1 Each 2 ARIPiprazole (ABILIFY) 10 mg Oral Tablet Take 10mg daily x 2 weeks then increase to 20mg daily. 180Tablet 0 benzonatate (TESSALON) 200 mg Oral Capsule Take 1 Capsule by mouth 3 times daily as needed for Cough. 30 Capsule 2 busPIRone (BUSPAR) 10 mg Oral Tablet Take 1 Tablet by mouth 3 times daily. 270 Tablet 1 clindamycin-benzoyl peroxide (BENZACLIN) Top Gel Apply topically 2 times daily. 50 g 2 hydrOXYzine (ATARAX) 10 mg Oral Tablet Take 1-2 tabs nightly as needed. 180 Tablet 1 linaCLOtide (LINZESS) 72 mcg Oral Capsule Take 1 Capsule by mouth daily. 30 Capsule 2 minocycline (MINOCIN;DYNACIN) 100 mg Oral Capsule Take 1 Capsule by mouth daily. 90 Capsule 1 ondansetron (ZOFRAN-ODT) 4 mg Oral Tablet, Rapid Dissolve Dissolve 1 Tablet by mouth every 6 hours as needed. 30 Tablet 0 pantoprazole (PROTONIX) 40 mg Oral Tablet, Delayed Release (E.C.) Take 1 Tablet by mouth daily. 90 Tablet 1 Chronic Problem List: Patient Active Problem List Diagnosis Constipation, chronic Irritable bowel syndrome with constipation Morbid obesity with BMI of 50.0-59.9, adult (HCC) Depression during in third trimester Closed fracture of first lumbar vertebra with routine healing Scoliosis of thoracolumbar spine Cervicogenic migraine PCOS (polycystic ovarian syndrome) Lumbar radiculopathy DDD (degenerative disc disease), lumbosacral Gastroesophageal reflux disease without esophagitis PVC (premature ventricular contraction) Hx of prior ablation treatment Pseudoaneurysm following procedure Bipolar 2 disorder, major depressive episode (HCC) History of asthma 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 Weight: Wt Readings from Last 6 Encounters: 01/30/25 (!) 308 lb (139.7 kg) 01/29/25 (!) 308 lb (139.7 kg) 01/02/25 (!) 303 lb (137.4 kg) 12/30/24 (!) 303 lb (137.4 kg) 12/11/24 300 lb (136.1 kg) 12/05/24 296 lb 6.4 oz (134.4 kg) BMI: Body mass index is 52.87 kg/m??. Height: 5' 4 (162.6 cm) Hospital Outpatient Visit on 01/02/2025 Component Date Value Ref Range Status WBC 01/02/2025 7.5 3.7 - 10.3 x10(3)/mcL Final RBC 01/02/2025 5.08 3.90 - 5.20 x10(6)/mcL Final Hgb 01/02/2025 13.8 11.2 - 15.7 g/dL Final Hct 01/02/2025 44.5 34.0 - 45.0 % Final MCV 01/02/2025 87.6 80.0 - 100.0 fL Final MCH 01/02/2025 27.2 26.0 - 34.0 pg Final MCHC 01/02/2025 31.0 30.7 - 35.5 g/dL Final RDW 01/02/2025 13.1 <=14.9 % Final Platelet 01/02/2025 230 155 - 369 x10(3)/mcL Final MPV 01/02/2025 10.6 8.8 - 12.5 fL Final Sodium 01/02/2025 136 136 - 145 mmol/L Final Potassium 01/02/2025 3.8 3.5 - 5.0 mmol/L Final Chloride 01/02/2025 102 98 - 107 mmol/L Final Total CO2 01/02/2025 23 22 - 29 mmol/L Final Anion Gap 01/02/2025 11 7 - 16 mmol/L Final Calcium 01/02/2025 9.2 8.6 - 10.4 mg/dL Final Glucose Lvl 01/02/2025 86 70 - 99 mg/dL Final BUN 01/02/2025 10 6 - 20 mg/dL Final Creatinine 01/02/2025 0.55 0.51 - 1.30 mg/dL Final Albumin 01/02/2025 4.6 3.5 - 5.2 gm/dL Final Total Protein 01/02/2025 7.8 6.4 - 8.3 gm/dL Final Bili Total 01/02/2025 0.4 0.2 - 1.3 mg/dL Final ALT 01/02/2025 35 <=41 U/L Final AST 01/02/2025 30 <=40 U/L Final Alk Phos 01/02/2025 103 36 - 123 U/L Final eGFR (CKD-EPIcr 2020) 01/02/2025 129 >=60 mL/min/1.73 m2 Final Estimated GFR was calculated using the CKD-EPIcr (2020) equation refit without race. The equation is recommended by the National Kidney Foundation - [place] Society of Nephrology Task Force. Hgb A1C 01/02/2025 5.4 4.2 - 5.6 % Final Est. Avg Glucose 01/02/2025 108 mg/dL Final Vit A(Retinol) 01/02/2025 0.36 0.30 - 1.20 mg/L Final Retinyl Palm 01/02/2025 <0.02 0.00 - 0.10 mg/L Final Vit A Intrp 01/02/2025 Normal Final This test was developed and its performance characteristics determined by [facility]. It has not been cleared or approved by the US Food and Drug Administration. This test was performed in a CLIA certified laboratory and is intended for clinical purposes. Performed By: [facility] [address] [place] [address] Marketing Designer: Elie Hassan MD, PhD CLIA Number: [id number] Vit B1 WB 01/02/2025 109 70 - 180 nmol/L Final INTERPRETIVE INFORMATION: Vitamin B1, Whole Blood This assay measures the concentration of thiamine diphosphate (TDP), the primary active form of vitamin B1. Approximately 90 percent of vitamin B1 present in whole blood is TDP. Thiamine and thiamine monophosphate, which comprise the remaining 10 percent, are not measured. This test was developed and its performance characteristics determined by [facility]. It has not been cleared or approved by the US Food and Drug Administration. This test was performed in a CLIA certified laboratory and is intended for clinical purposes. Performed By: [facility] [address] [place] [address] Marketing Designer: Elie Hassan MD, PhD CLIA Number: [id number] Vitamin B12 01/02/2025 490 232 - 1,245 pg/mL Final Folate 01/02/2025 8.35 >=4.80 ng/mL Final Vit D 25 OH 01/02/2025 23.9 (L) 30.0 - 150.0 ng/mL Final Preferred: >= 30 ng/mL Insufficient: 21-29 ng/mL Deficient <= 20 ng/mL Possible Toxicity: >150 ng/mL Samples should not be taken from patients receiving therapy with high biotin doses (i.e. > 5 mg/day) until at least 8 hours following the last biotin administration. Alpha-Tocopherol (Vit E) mg/L 01/02/2025 6.9 5.5 - 18.0 mg/L Final This test was developed and its performance characteristics determined by [facility]. It has not been cleared or approved by the US Food and Drug Administration. This test was performed in a CLIA certified laboratory and is intended for clinical purposes. Gamma-Tocopherol (Vit E) mg/L 01/02/2025 1.9 0.0 - 6.0 mg/L Final Performed By: [facility] [address] [place], [place] [id number] Marketing Designer: Elie Hassan MD, PhD CLIA Number: [id number] Zinc 01/02/2025 79.9 60.0 - 120.0 ug/dL Final Comment: INTERPRETIVE INFORMATION: Zinc, Serum or Plasma [...] developed and its performance characteristics determined by [facility]. It has not been cleared or approved by the US Food and Drug Administration. This test was performed in a CLIA certified laboratory and is intended for clinical purposes. Performed By: [facility] [address] [place], [place] [id number] Marketing Designer: Elie Hassan MD, PhD CLIA Number: [id number] Magnesium 01/02/2025 2.3 1.6 - 2.4 mg/dL Final Ferritin 01/02/2025 53 30 - 150 ng/mL Final The lower threshold of 30 is not statistically defined, nor internally validated. The threshold hasbeen updated to more closely reflect a physiologic basis. Lorri Z, et al. Physiologically based serumferritin thresholds for iron deficiency in children and non- women: a [place] National Health and Nutrition Examination Surveys (NHANES) serial cross-sectional study. Lancet Haematol 2021;8:e572-82. Physical Exam: Physical Exam Vitals reviewed. Constitutional: Appearance: Normal appearance. She is obese. She is not ill-appearing. HENT: Head: Normocephalic. Pulmonary: Effort: Pulmonary effort is normal. Abdominal: Palpations: Abdomen is soft. Skin: General: Skin is warm and dry. Neurological: Mental Status: She is alert. Psychiatric: Mood and Affect: Mood normal. BEHAVIORAL THERAPY: Cleared by Behavioral Health to proceed to surgery? no; pending coordination ofcare letter from current psych meds provider as well as future therapist; also pending improvement in eating behaviors (i.e., eating 3 meals day and tracking food intake) and continue working on improving healthy life style choices (i.e. movement/self-care) Counseling Referral for: n/a SPECIALTY CLEARANCES REQUIRED: 1. Cardiac no 2. Pulmonology no 3. Sleep Study no 4. Upper GI no 5. H.Pylori no 6. PCP Clearance no 7. PCP Letter of Recommendation no 8. GB Ultrasound no 9. EGD prior to surgery? no 10. Need Documented History of Obesity? no 11. Can not gain weight BMI: Body mass index is 52.87 kg/m??. REVIEWED: Dietary Journal Diet/Menu guidelines and compliance to dietary recommendations Program Compliance and attendance, pathway to surgery Importance of regular protein intake to regulate appetite and blood sugar Hidden CHO sources Potential effect of low cho products on blood sugar / weight loss efforts in susceptible individuals, Medications reviewed for appropriate size and strength after surgery Dietitian notes since last visit reviewed Behavioral health notes since last visit reviewed Comment to R.N. / R.D: None CURRENT ASSESSMENT / DIAGNOSES: Diagnoses and all orders for this visit: Encounter for pre-bariatric surgery counseling and education - AMB REFERRAL FOR BARIATRICS Morbid obesity with BMI of 50.0-59.9, adult (HCC) (Chronic) - AMB REFERRAL FOR BARIATRICS Fatty liver - AMB REFERRAL FOR BARIATRICS Gastroesophageal reflux disease, unspecified whether esophagitis present - AMB REFERRAL FOR BARIATRICS TREATMENT PLAN: Portioned Plate plan to include non-starchy green vegetables as desired, 4 ounces of lean protein per meal, and 1/2-3/4 cup whole grain or fruit per meal. EXERCISE PLAN: Aerobic exercise 30 minutes/day, 5 days/week GOALS FOR THE NEXT 4 WEEKS Common Dietary Goals Prior to Surgery: 1. Eliminate carbonation if you have not already done so 2. Eat slowly - try to spend 30 minutes at each meal and avoid distractions [...] ALL appointments Patient Specific Goals for Next Visit: 1. Start eating from The [employer] . Document all intake and bring records to each visit 2. Start tracking your steps - target 10,000 daily. Record in your journal and bring to each visit 3. Practice your common goals 4. Schedule diet trial # 4 in 4-6 weeks 5. Practice meal planning and shopping from your meal plan to ensure you have the proper foods at home. To Do List for Next Visit Continue working on common goals Eat small, frequent, protein-dense meals/snacks Continue food tracking Exercise regularly, including 2-3 days of strength/resistance training Referral placed to Medical Weight Management Schedule diet trial #4 in 4-6 weeks Have pre-op labs been ordered? yes Have pre-op labs been drawn? yes Total time spent this visit was 39 minutes. Additional Comments: Lengthy discussion today. She has experienced weight gain and we discussed some potential contributing factors. She has had several recent adjustments of some of her psychiatric medications and is also adjusting her eating schedule to better support postop eat habits. We discussed the role of Medical Weight Management to augment her efforts in preparation for bariatric surgery. She is agreeable to referral and this was placed today. Advised additional diet trials while working to achieve pre-op weight loss and stabilization of her psychiatric medication regimen. I have spent a total of 39 on Preparing to see the patient (e.g. review of tests), Performing a medical appropriate examination and/or evaluation, Counseling and educating the patient/family/caregiver, Referring and communicating with other healthcare professionals (not separately reported), and Documenting clinical information in the electronic or other health record. Portia Jones, MSN, ENTRY LEVEL SOFTWARE ENGINEER, PRIOR AUTHORIZATION TECHNICIAN-C [facility] [address] [place] [address] documented in this encounter Miscellaneous Notes * Patient Instructions - Portia Jones APRN - 01/30/2025 9:30 AM EDT GOALS FOR THE NEXT 4 WEEKS Common Dietary Goals Prior to Surgery: 1. Eliminate carbonation if you have not already done so 2. Eat slowly - try to spend 30 minutes at each meal and avoid distractions [...] ALL appointments Patient Specific Goals for Next Visit: 1. Start eating from The Plate . Document all intake and bring records to each visit 2. Start tracking your steps - target 10,000 daily. Record in your journal and bring to each visit 3. Practice your common goals 4. Schedule diet trial # 4 in 4-6 weeks 5. Practice meal planning and shopping from your meal plan to ensure you have the proper foods at home. To Do List for Next Visit Continue working on common goals Eat small, frequent, protein-dense meals/snacks Continue food tracking Exercise regularly, including 2-3 days of strength/resistance training Referral placed to Medical Weight Management Schedule diet trial #4 in 4-6 weeks documented in this encounter Plan of Treatment Upcoming Encounters Date Type Department Care Team (Late st Contact Info) Description 02/17/2025 8:45 AM EDT Office Visit [facility] [address] [place] [address] Gareth Wheeler MD [address] [place] [address] 02/18/2025 10:30 AM EDT Telemedicine [facility] [address] [place] [address] Chely Frazier, RD [address] [place] [address] 02/27/2025 9:30 AM EDT Office Visit [facility] [address] [place] [address] Scheduled Referrals Name Type Priority Associated Diagnoses Orde r Schedule AMB REFERRAL FOR BARIATRICS Outpatient Referral Routine Encounter for pre-bariatric surgery counseling and education Morbid obesity with BMI of 50.0-59.9, adult (HCC) Fatty liver Gastroesophageal reflux disease, unspecified whether esophagitis present Ordered: 01/30/2025 documented as of this encounter Goals Goal [...] as of this encounter Visit Diagnoses Diagnosis Encounter for pre-bariatric surgery counseling and education- Primary Morbid obesity with BMI of 50.0-59.9, adult (HCC) Fatty liver Other chronic nonalcoholic liver disease Gastroesophageal reflux disease, unspecified whether esophagitis present documented in this encounter Care Teams Electronic Console Display Operator Relationship Specialty Start Date End Date Gareth Wheeler MD [address] [place] [address] PCP - General 03/01/09 Janeth Hester, TRE Sales Property Manager 10/16/24 documented as of this encounter
--- OUTSIDE RECORDS SUMMARY | 2025-02-04 15:30 | XMS_ITS | Encounter Summary ---
Author Organization [place] [address] Support Name Relationship Address Phone Juma Bear Emergency Contact [address] [place] [address] Mecheleelee Jones Emergency Contact [address] [address] Jose Nate Emergency Contact [address] [place] [address] Vicenta Kilo Emergency Contact Unknown [phone] Kvng Kilo Personal Relationship [address] [place], [place] Care Team Providers Care Box Machine Operator Name Role Phone Gareth Wheeler MD Primary Care Provider [phone] Janeth Hester COMMUNICATIONS STRATEGIST Unavailable Unav ailable Encounter Details Date Type Department Care Team (Late st Contact Info) Description 02/04/2025 3:30 PM EDT Office Visit [facility] [address] [place] [address] Morbid obesity with BMI of 50.0-59.9, adult (HCC) (Primary Dx) Social History Tobacco Use Types Packs/Day Years Used Date Smoking Tobacco: Never Passive Smoke Exposure: Never Smokeless Tobacco: Never Alcohol Use Standard Drinks/Week Comments Not Currently 1 (1 standard drink = 0.6 oz pur e alcohol) every once and a while [facility] Utilities Answer Date Recorded In the past 12 months has [employer], gas, oil, or water company threatened to shut off services in your home? No 03/27/2024 Overall Financial Resource Strain (CARDIA) Answe r Date Recorded How hard is it for you to pa y for the very basics like food, housing, medical care, and heating? Not very hard 03/27/2024 PHQ-2 Answer Date Recorded PHQ-2 Total Score 0 01/29/2025 [facility] - [...] things needed for daily living? No 09/05/2021 [facility] IP Transportation Answer D ate Recorded [...] No 11/14/2024 10:03 AM Liset Ventura JAMES * Does this person have difficulty dressing or bathing? Answer Date of Assessment Author No 11/14/2024 10:03 AM EDLiset Zepeda JAMES * Because of a physical, mental or emotional condition, does this person have difficulty doing errands alone such as visiting a doctor's office or shopping? Answer Date of Assessment Author No 11/14/2024 10:03 AM Liset Ventura JAMES documented as of this encounter Mental Status * Because of a physical, mental or emotional condition, does this person have serious difficulty concentrating, remembering or making decisions? Answer Entry Date Author No 11/14/2024 10:03 AM Liset Ventura PENELOPENirmal documented in this encounter Progress Notes * Agustín, September Cheryle Parker JAMES - 02/04/2025 3:30 PM EDT Topics: Pre-operative Diet, Post-operative Diet, Protein Supplements and Vitamins and Minerals *Pre-operative Diet -Importance/benefits -Calorie and Protein goals -Diet Prescription *Post-operative Diet -Eating practices (Chew thoroughly: 20-25 times/bite, Eat slow, Alternate liquids & solids) -Protein & Fluid needs -Stop eating when you are satisfied -Diet Progression: 1) Clear Liquids as instructed in the hospital 2) Week 1-2 Full Liquids 3) Week 3-4 Pureed Foods 4) Week 5-6 (possibly longer) Soft Foods 5) If tolerating soft foods well move to regular textures at Week 7 *Allowed food choices and appropriate portions on each stage - Protein first *Sample menus for each stage *Appropriate meal timing -Importance of fluid intake, especially immediately after surgery. Use fluid tracker provided -Possibility of lactose intolerance -Potential food intolerances after surgery and ways to deal with them -Appetite changes *Protein supplements -Difference varieties of protein supplements - Choose Whey Protein Isolate -Whey Isolate supplement options -Powder vs. RTD vs. Protein water -Where to purchase -Protein shake recipe ideas *Vitamins and Minerals -Importance of vitamin/mineral supplementation for life -Post-op vitamin and mineral regimen and the role each one plays in the body -Begin on day 30 after discharge 1) Multi-Vitamin - chewable or liquid form - no gummies! *Must contain 100% Daily Value for at least two thirds of nutrients *Aguilar nutrients: Vit B1, A, E & K, Iron, Folic acid, Zinc, Copper *Suggested brands 2) Calcium with Vitamin D - 3192-8230 mg/day (this is usually equivalent to 2-3 tabs/day *Chewable *Divide into of doses 500-600 mg at a time. Your body cannot absorb more than this. * If calcium carbonate - must take with a meal 3) Vitamin B12 - 350-500 mcg/day (sublingual tablet) OR 1000 mcg/month Intramuscular injections OR 500 mcg/week intranasal documented in this encounter Plan of Treatment Upcoming Encounters Date Type Department Care Team (Late st Contact Info) Description 02/17/2025 8:45 AM EDT Office Visit [facility] [address] [place] [address] Gareth Wheeler MD [address] [place] [address] 02/18/2025 10:30 AM EDT Telemedicine [facility] [address] [place] [address] Chely Frazier, RD [address] [place] [address] 02/27/2025 9:30 AM EDT Office Visit [facility] [address] [place] [address] documented as of this encounter [...] as of this encounter Visit Diagnoses Diagnosis Morbid obesity with BMI of 50.0-59.9, adult (HCC)- Primary documented in this encounter Care Teams Box Machine Operator Relationship Specialty Start Date End Date Gareth Wheeler MD [address] [facility] [place] [address] PCP - General 03/01/09 Janeth Hester, COMMUNICATIONS STRATEGIST Laboratory Helper 10/16/24 documented as of this encounter
--- OUTSIDE RECORDS SUMMARY | 2025-02-11 10:30 | XMS_ITS | Encounter Summary ---
Author Organization [facility] [address] Support Name Relationship Address Phone Juma Bear Emergency Contact [address] [place] [address] Mecheleelee Jones Emergency Contact [address] [address] Jose Sullivan Emergency Contact [address] [place] [address] Vicenta Boateng Emergency Contact Unknown Kvng Kilo Personal Relationship [address] [place], [place] Care Team Providers Care Correctional Substance Abuse Counselor Name Role Phone Gareth Wheeler MD Primary Care Provider [phone] Janeth Hester AIRPORT ENGINEER Unavailable Unav ailable Encounter Details Date Type Department Care Team (Latest Contact Info) Description 02/11/2025 10:30 AM EDT Telemedicine [facility] [address] [place] [address] Marky Gaspar, CONCERT MANAGER [address] [place] [address] Bipolar 2 disorder (HCC) (Primary Dx); Eating disorder, unspecified type; History of posttraumatic stress disorder (PTSD) Social History Tobacco Use Types Packs/Day Years Used Date Smoking Tobacco: Never Passive Smoke Exposure: Never Smokeless Tobacco: Never Alcohol Use Standard Drinks/Week Comments Not Currently 1 (1 standard drink = 0.6 oz pur e alcohol) every once and a while [facility] Utilities Answer Date Recorded In the [...] Date Recorded PHQ-2 Total Score 0 01/29/2025 [facility] - Occupational Stress [...] things needed for daily living? No 09/05/2021 [facility] IP Transportation Answer D ate [...] documented in this encounter Progress Notes * Marky Gaspar, CONCERT MANAGER - 02/11/2025 10:30 AM EDT BEHAVIORAL HEALTH FOLLOW-UP SURGICAL This encounter was completed through: [email or web address] Video Visit - Patient presented today through a videovisit. Patient has reviewed the terms and conditions of service as part of the registration for today's visit. Patient is aware that a video visit does not replace a [id number] exam and further services may be necessary. I advised the patient that we are conducting this video visit through a private space on our secure network, and that this video visit is being conducted in accordance with [facility] telehealth/video visit regulations. Emergency and disconnection contacts were confirmed.Patient had no questions prior to initiation of the visit. DIAGNOSIS: 1. Bipolar 2 disorder (HCC) 2. Eating disorder, unspecified type 3. History of posttraumatic stress disorder (PTSD) SESSION START TIME: 10:30 AM SESSION END TIME: 11:14 AM SESSION TIME (MINUTES): 44 METHOD OF THERAPY: Insight Oriented/Supportive Therapy SUMMARY OF SESSION: Subjective (complaints/concerns addressed): ?Pt. reported progress with scheduling/eating 3 meals daily, tracking food intake, and increased movement/self care. Pt also established BH care with Jose Alberto and was seeing Samantha GomezKRISTIN since October of this year; however, pt just recently found out Samantha is no longer with Jose Alberto as of last week. Pt provided a coordination of care letter from Samantha Patricia, but it was missing the provider's actual signature. Pt reported plans to contact Jose Alberto to beassigned a new behavioral health therapist and agreed to get an updated coordination of care letterfrom them. This therapist acknowledged receipt of the coordination of care [facility], Le Blood APRN, which was uploaded to pt's [employer] on 10/23/24. Pt reported some recent weight gain after attempting to change her Abilify. Pt reported attempting to findan alternative medication to Abilify at Dr. Mcnamara's suggestion (due to possible weight gain side effects); however, pt did not respond well to new medications and after doing Genesight testing, it wasdecided to go back on the Abilify. Pt reported feeling stable on current medication and being down 4 pounds since getting back on the Abilify. Pt was informed an updated coordination of care letter from Jose Alberto will need to be provided before her BH status can be moved from pending to cleared.? ? Objective (observations in session):??Pt. demonstrated a?cooperative attitude and remained engaged and composed throughout session. Pt and therapist discussed ways to maintain?and continue making?progress?with her goals?as?she?continues to?prepare for surgery GOALS/OBJECTIVES/STATUS: Goal: Facilitate stability in behavioral health symptom and medication management. Objective: Pt. will provide evidence of appropriate behavioral health treatment, including symptom management and treatment compliance over time. Progress: Progressing, Goal: Facilitate pt.'s behavioral readiness forWLS. Objective: Pt. will demonstrate compliance in weight loss surgery protocols. Progress: Progressing, and Goal: Facilitate pt.'s social and emotional readiness for WLS. Objective: Pt. will demonstrate adequacy of self-care and social support. Progress: Progressing MENTAL STATUS EXAM: Appearance: Normal Speech: Normal Eye contact: Normal Psychomotor Activity: Normal Affect: Full Mood: Euthymic Orientation: Oriented to Place, Object, Person, Time Attention: Normal Thought Process: Normal/Logical Thought Content/Perceptual Disturbances: None reported Attitude/Behavior: Cooperative Insight: Good Judgement: Good RISK ASSESSMENT: Suicide (risk of harm to self): None reported Non-Suicidal Self-Injurious Behavior: None reported Homicide (risk of harm to others): None reported ABILITY/CAPACITY TO RESPOND TO TREATMENT: From a behavioral health perspective, this pt. requires additional evaluation and follow-up before being deemed an appropriate candidate for weight loss surgery. Pt has provided the requested coordination of care letter from her psych meds provider and reported improvement in healthier eating habits and increased self care. Pt was was advised that BH assessment will remain pending until a coordination of care letters from her new therapist/counselor is received. Pt was informed their BH status is still currently pending, and that surgery will not proceed should BH assessment not be cleared. Pt expressed understanding and awareness. PLAN: Homework: Engage in self-care activities as discussed and continue working on previously discussed goals Follow-up: Make follow-up appointment in approximately 2-4 weeks and Continue with program appointments documented in this encounter Plan of Treatment Upcoming Encounters Date Type Department Care Team (Late st Contact Info) Description 02/17/2025 8:45 AM EDT Office Visit [facility] [address] [facility] [place] [address] Gareth Wheeler MD [address] [place] [address] 02/18/2025 10:30 AM EDT Telemedicine [facility] [address] [place] [address] Chely Frazier, [address] [place] [address] 02/27/2025 9:30 AM EDT Office Visit [facility] [address] [place] [address] documented as of this encounter [...] Component 5.4( 12:11 PM EDT) No Jess aWng MA documented as of this encounter Visit Diagnoses Diagnosis Bipolar 2 disorder (HCC)- Primary Other bipolar disorders Eating disorder, unspecified type History of posttraumatic stress disorder (PTSD) documented in this encounter Care Teams Correctional Substance Abuse Counselor Relationship Specialty Start Date End Date Gareth Wheeler MD [address] [place] [address] PCP - General 03/01/09 Janeth Hester, TRE Senior Accounts Payable Clerk 10/16/24 documented as of this encounter
[2025-02-16] VITALS (7 sets, daily range): BP systolic 117–139; BP diastolic 65–92; PULSE 62–93; RESP 15–18; TEMP 36.9; O2SAT 96–100; BMI 50.5
--- OUTSIDE RECORDS SUMMARY | 2025-02-16 10:39 | XMS_ITS | Encounter Summary ---
Author Organization [facility] [place] [address] Care Team Providers Care Shoe Laster Name Role Phone Gareth Wheeler MD Primary Care Provider [phone] Janeth Hester PLASTIC WORKER Unavailable Unav ailable Encounter Details Date Type Department Care Team (Latest Contact Info) Description 01/06/2025 Results Follow-Up [facility] [address] [place] [address] Andreia Love, DISK SHARPENER [address] [facility] [place] [address] CBC, COMPREHENSIVE METABOLIC PANEL, HEMOGLOBIN A1C, Additional followed-up results: 9 Social History Tobacco Use Types Packs/Day Years Used Date Smoking Tobacco: Never Passive Smoke Exposure: Never Smokeless Tobacco: Never Alcohol Use Standard Drinks/Week Comments Not Currently 1 (1 standard drink = 0.6 oz pur e alcohol) every once and a while [facility] Utilities Answer Date Recorded In the [...] Date Recorded PHQ-2 Total Score 0 11/27/2024 [facility] Answer Date [...] things needed for daily living? No 09/05/2021 [facility] IP Transportation Answer D ate Recorded [...] 10:03 AM EDT Liset Lin RMA documented as of this encounter Mental Status * Because of a physical, mental or emotional condition, does this person have serious difficulty concentrating, remembering or making decisions? Answer Entry Date Author No 11/14/2024 10:03 AM EDT Liset Lin RMA documented in this encounter Plan of Treatment Upcoming Encounters Date Type Department Care Team (Late st Contact Info) Description 02/17/2025 8:45 AM EDT Office Visit [facility] [address] [facility] [place] [address] Gareth Wheeler MD [address] [place] [address] 02/18/2025 10:30 AM EDT Telemedicine [facility] [address] [place] [address] Chely Frazier, RD [address] [place] [address] 02/27/2025 9:30 AM EDT Office Visit [facility] [address] [place] [address] documented as of this encounter [...] Diagnoses Not on filedocumented in this encounter Care Teams Shoe Laster Relationship Specialty Start Date End Date Gareth Wheeler MD [address] [place] [address] PCP - General 03/01/09 Janeth Hester, PLASTIC WORKER Nut Sifter 10/16/24 documented as of this encounter
--- OUTSIDE RECORDS SUMMARY | 2025-02-16 10:39 | XMS_ITS | Encounter Summary ---
Author Organization [place] [address] Support Name Relationship Address Phone Juma Bear Emergency Contact [address] [place] [address] Meche Jones Emergency Contact [address] [address] Jose Nate Emergency Contact [address] [place] [address] Vicenta Boateng Emergency Contact Unknown [phone] Kvng Brothersen Personal Relationship [address] [place], [place] Care Team Providers Care Harbour Master Name Role Phone Gareth Wheeler MD Primary Care Provider [phone] Mervat Reyes RN Unavailable Unavailable Janeth Hester MONOTYPE MACHINIST Unavailable Unav ailable Reason for Visit * Auth/Cert/Inpt Specialty Diagnoses / Procedures Referred By Contac t Referred To Contact Diagnoses labor assessment Referral ID Status Reason Start Date Expiration Date Visits Re quested Visits Authorized [id number] 1 1 Encounter Details Date Type Department Care Team (Late st Contact Info) Description 04/29/2019 Lab Requisition [facility] [place] [id number] Artemio Mayo MD Encounter for supervision of other normal , unspecified trimester Social History Tobacco Use Types Packs/Day Years Used Date Smoking Tobacco: Never Smokeless Tobacco: Never Alcohol Use Standard Drinks/Week Comments No 0 (1 standard drink = 0.6 oz pur e alcohol) PHQ-2 Answer Date Recorded PHQ-2 Score 0 10/29/2018 Comments Yes Sex and Gender Information Value Date Recorded Sex Assigned at Not on file Legal Sex Female 4:25 AM EDT Gender Identity Not on file Sexual Orientation Not on file documented as of this encounter Functional Status * Alcohol Screening Score Answer Date of Assessment Author 0 04/29/2019 5:54 PM Demarcus Villarreal RN * Drug Screening Score Answer Date of Assessment Author 0 04/29/2019 5:54 PM Demarcus Villarreal RN * Question Answer Date of Assessment Author How often do you have a drin k containing alcohol? 0 04/29/2019 5:54 PM Marine Villarreal RN * Is the person deaf or does he/she have serious difficulty hearing? Answer Date of Assessment Author No 04/28/2019 9:21 PM Lashaun Carter RN * Is the person blind or does he/she have serious difficulty seeing even when wearing glasses? Answer Date of Assessment Author No 04/28/2019 9:21 PM Lashaun Carter RN * Does this person have serious difficulty walking or climbing stairs? Answer Date of Assessment Author No 04/28/2019 9:21 PM Lashaun Carter RN * Does this person have difficulty dressing or bathing? Answer Date of Assessment Author No 04/28/2019 9:21 PM Lashaun Carter RN * Because of a physical, mental or emotional condition, does this person have difficulty doing errands alone such as visiting a doctor's office or shopping? Answer Date of Assessment Author No 04/28/2019 9:21 PM Lashaun Carter RN documented as of this encounter Mental Status * Because of a physical, mental or emotional condition, does this person have serious difficulty concentrating, remembering or making decisions? Answer Entry Date Author No 04/28/2019 9:21 PM Lashaun Carter RN documented in this encounter Plan of Treatment Upcoming Encounters Date Type Department Care Team (Late st Contact Info) Description 02/17/2025 8:45 AM EDT Office Visit [facility] [address] [place] [address] [place] [address] Gareth Wheeler MD [address] [place] [address] 02/18/2025 10:30 AM EDT Telemedicine [facility] [address] [place] [address] Chely Frazier, RD [address] [place] [address] 02/27/2025 9:30 AM EDT Office Visit [facility] [address] [place] [address] documented as of this encounter Goals Goal Patient Goal Type Associated Problems Recent Progress Patient-Stated? Author Eat better, exercise, reach an ideal body weight General No Liset Lin RMA documented as of this encounter Procedures Procedure Name Priority Date/Time Associated Diagnosis Comments STREP B DNA Routine 04/29/2019 4:30 PM EST Encounter for supervision of other normal , unspecified trimester documented in this encounter Results * STREP B DNA (04/29/2019 4:30 PM EST) Strep B DNA Not Detected Not Detected 9 8:15 AM EST PREFERRED DEQ Swab RECTUM AND VAGINA, CS / Unknown 04/29/2019 4:30 PM EST 04/29/2019 6:35 PM EST Narrative PREFERRED DEQ - 05/01/2019 8:15 AM EST TEST INFORMATION: This qualitative assay utilizes molecular amplification to detect a portion of the Streptococcus agalactiae genome and is intended for a screen of antepartum women in 35-37 weeks gestation. A negative result does not rule out the presence the Group B Strep in concentrations below the limit of detection for the assay. us Artemio Mayo MD MICROBIOLOGY - GENERAL ORDER MYRNA Final Result PREFERRED DEQ [address] [facility] , [place] [address] documented in this encounter Visit Diagnoses Diagnosis Encounter for supervision of other normal , unspecified trimester documented in this encounter Additional Health Concerns Infection Onset Date Last Indicated Resolved Time R/O COVID-19 03/03/2021 03/03/2021 03/03/2021 11:4 8 PM EDT COVID-19 06/23/2021 06/23/2021 07/23/2021 10:1 2 PM EST documented as of this encounter Care Teams Harbour Master Relationship Specialty Start Date End Date Gareth Wheeler MD [address] [place] [address] PCP - General 03/01/09 Mervat Reyes, RN Duty Officer 09/05/21 09/05/21 Janeth Hester, MONOTYPE MACHINIST Compounding Pharmacy Technician 10/16/24 documented as of this encounter
--- OUTSIDE RECORDS SUMMARY | 2025-02-16 10:39 | XMS_ITS | Encounter Summary ---
Author Organization [place] [address] Support Name Relationship Address Phone Juma Bear Emergency Contact [address] [place] [address] Meche Jones Emergency Contact [address] [address] Jose Salass Emergency Contact [address] [place] [address] Vicentarosa m Brothersen Emergency Contact Unknown Kvng Boateng Personal Relationship [address] [place], [place] Care Team Providers Care Data Sciences Director Name Role Phone Gareth Wheeler MD Primary Care Provider [phone] Janeth Hester CONSTRUCTION SKILLS TEACHER Unavailable Unav ailable Reason for Visit * Reason Onset Date Comments Results 01/20/2025 PHARMACOGENOMIC PANEL need resulted Encounter Details Date Type Department Care Team (Late st Contact Info) Description 01/20/2025 Telephone [facility] [address] [place] [address] Gareth Wheeler MD [address] [place] [address] Results (PHARMACOGENOMIC PANEL need resulted) Social History Tobacco Use Types Packs/Day Years Used Date Smoking Tobacco: Never Passive Smoke Exposure: Never Smokeless Tobacco: Never Alcohol Use Standard Drinks/Week Comments Not Currently 1 (1 standard drink = 0.6 oz pur e alcohol) every once and a while [facility] Utilities Answer Date Recorded In the [...] Date Recorded PHQ-2 Total Score 0 11/27/2024 [facility] of Occupat ional Health - Occupational [...] things needed for daily living? No 09/05/2021 [facility] IP Transportation Answer D ate Recorded In [...] Liset Lin RMA documented in this encounter Miscellaneous Notes * Telephone Encounter - Liset Lin RMA - 01/20/2025 3:53 PM EDT Msg sent to patient * Telephone Encounter - Le Blood APRN - 01/20/2025 3:39 PM EDT Hi Serenity! I looked over your results. There does not appear to be significant interaction in genes with the current medication. How is shefeeling on the caplyta now? * Telephone Encounter - Cha Hendricks RMA - 01/20/2025 1:04 PM EDT Select the most appropriate reason for this telephone message: Test Result(s) Purpose of call: Patient seeking results Type of test: Lab PHARMACOGENOMIC PANEL need resulted Date of test: 01/05/25 Who ordered the test: HIGINIO Hernandezdox Where was test performed: Other ordered to her house, it was a mouth swab Return Method of Communication: Phone Call or My Chart Additional Information: N/A Please Advise Patient/Caller, thank you. documented in this encounter Plan of Treatment Upcoming Encounters Date Type Department Care Team (Late st Contact Info) Description 02/17/2025 8:45 AM EDT Office Visit [facility] [address] [facility] [place] [address] Gareth Wheeler MD [address] [place] [address] 02/18/2025 10:30 AM EDT Telemedicine [facility] [address] [place] [address] Chely Frazier, RD [address] [place] [address] 02/27/2025 9:30 AM EDT Office Visit [facility] [address] [place] [address] documented as of this encounter [...] on filedocumented in this encounter Care Teams Data Sciences Director Relationship Specialty Start Date End Date Gareth Wheeler MD [address] [place] [address] PCP - General 03/01/09 Janeth Hester, CONSTRUCTION SKILLS TEACHER Yoga Instructor 10/16/24 documented as of this encounter
--- OUTSIDE RECORDS SUMMARY | 2025-02-16 10:39 | XMS_ITS | Encounter Summary ---
Author Organization [place] [address] Care Team Providers Care Property Portfolio Officer Name Role Phone Gareth Wheeler MD Primary Care Provider [phone] Janeth Hester RUBBER PRESS TENDER Unavailable Unav ailable Encounter Details Date Type Department Care Team (Late st Contact Info) Description 01/05/2025 Results Follow-Up SEP [facility] [address] [facility] [place] [address] Le Blood, BENEFITS ADVISOR [address] [place] [address] LYME ABS, IGG AND IGM BY IMMUNOBLOT-REF LAB, IRON+TIBC, CMV IGG/IGM, Additional followed-up results: 3 Social History Tobacco Use Types Packs/Day Years Used Date Smoking Tobacco: Never Passive Smoke Exposure: Never Smokeless Tobacco: Never Alcohol Use Standard Drinks/Week Comments Not Currently 1 (1 standard drink = 0.6 oz pur e alcohol) every once and a while [facility] Utilities Answer Date Recorded In the [...] Date Recorded PHQ-2 Total Score 0 11/27/2024 [facility] of Occupat ional [facility] - Occupational Stress Questionnaire Answer Date Recorded [...] things needed for daily living? No 09/05/2021 [facility] HRSN [facility] IP Transportation Answer D ate Recorded In [...] Entry Date Author No 11/14/2024 10:03 AM EDLiset Zepeda RMA documented in this encounter Miscellaneous Notes * Telephone Encounter - Vikki Malik, [place] - 01/26/2025 10:30 AM EDT Summary: Pharmacogenomics note PHARMACOGENOMIC PHARMACY CONSULT Name: Rosalinda Boateng : 2000 Date: 01/26/2025 Ordering Provider: Le Blood Summary of Recommendations: Medication Relevant PGx Finding Pharmacist Recommendation Lumateperone NA recommend if clinically indicated and effective, see justification below Pantoprazole 40 mg [id number] Rapid Metabolizer, risk of failure Continue if effective. Assess response. If ineffective, may increase to twice daily dosing of 40 mg Pharmacogenomic results are viewable in the Genomic Indicators tab. You can access Genomic Indicators on the Patient Snapshot or by adding the tab to your toolbar. Assessment: Patient was referred for pharmacogenetic testing to guide selection of medications for moods disorders. Patient has co- morbid depression, anxiety, bipolar 2. Patient has morbid obesity (BMI >50).Patient has been on multiple medications including antipsychotics (e.g. quetiapine XR 50 mg, cariprazine 3 mg, aripiprazole 30 mg ), SSRIs (sertraline 100 mg, ); SNRIs (duloxetine 60 mg) and others (vortioxetine 10 mg, bupropion XL 150 mg ) because of ineffectiveness intolerance or both. Please seehistory of medications below. Past Medications Quetiapine 50 mg -- 01/2022 -- did not do well Duloxetine 2017 >> nausea cariprazine 3 mg 10/2022 >> not effective and caused blurred vision. Was taken with sertraline Sertraline 100 mg 2022 aripiprazole 30 mg > 10 mg (last fill 10/20/2024) -- was stable on medication for a few years (2-3) for bipolar disorder and anxiety but prefers to discontinue due to upcoming gastric sleeve surgery and desire for maintaining healthy weight. She was concurrently on aripiprazole 30 mg, buSpar 10 mg three times daily, and hydroxyzine Bupropion XL 150 mg) last filled 08/06/2024 -- believed that it has caused stomach issues, was switched to vortioxetine Buspirone 10 mg three times daily (last fill 10/02/2024) Hydroxyzine 10 mg last fill 11/14/2024 Prazosin 1 mg 02/14/2023 Trazodone 50 mg 05/30/2024 Vortioxetine 10 mg last fill 11/25/2024 >> felt manic amitriptyline HCl 10 mg last filled 10/20/2024 Current Medications Lumateperone 42 mg > 21 mg (last fill 12/30/2024) Pharmacogenetics results (relevant) [id number] Rapid Metabolizer (RM) enzyme activity, which can lead to increased metabolism of [id number] SSRIs (escitalopram and citalopram), Tertiary amines Tricyclic Antidepressants (amitriptyline, clomipramine, trimipramine, doxepin), and a small increase in the metabolism of sertraline to the less active compounds. This can potentially result in a lower drug level than a person with a normal [id number] enzyme activity, which may increase the chances of non response. CYP2D6 Normal Metabolizer (NM) enzyme activity, and therefore, patient is predicted to have a normal metabolism of CYP2D6 dependent substrates including SSRIs (paroxetine, fluvoxamine); SNRIs (e.g. venlafaxine); serotonin modulators (e.g. vortioxetine); antipsychotics (aripiprazole, risperidone) Plan: -Bipolar 2 Lumateperone: Indicated for bipolar II depression. There are no data that indicates pharmacogeneticimplication with lumateperone. We recommend that patient continues treatment if clinically indicated and effective. Please find a table with recommendations on psychiatric medications informed by pharmacogenetics results (Lab results) Please note that patient response to medications depend on multiple factors such as age, comorbid conditions, response history, etc. Use clinical judgement in addition to pharmacogenetic information for all medication decisions. Subjective/Objective Rosalinda Boateng is a 24 y.o. female who has received pharmacogenomic testing to assist with medication therapy management. Through a review of patient???s current medication therapy and genetic results, pharmacogenomic results could provide guidance on the patient???s current therapy and potentially inform future therapy. Reason for testing: The patient has a history of medication failure Actionable Results: Genomic Indicators as of 01/26/2025 10:34 AM CYP2B6 Intermediate Metabolizer [id number] Rapid Metabolizer CY Expresser VKORC1: GA (Increased warfarin sensitivity) Gene-specific recommendations can be found in the Result Note or on the Genomic Indicators tab, accessible by clicking the DNA icon next to the patient's picture on the Storyboard. PHQ-9/JONAS-7 10/22/2024 JONAS 7 : 2 PHQ9: 2 Problem List Patient Active Problem List Diagnosis Constipation, chronic [...] History of asthma CYP2B6 intermediate metabolizer (HCC) [id number] rapid metabolizer (HCC) CY intermediate metabolizer (HCC) Monoallelic mutation of VKORC1 gene Allergies Allergies Allergen Reactions Cymbalta [Duloxetine] Nausea And Vomiting Imitrex [Sumatriptan Succinate] Nausea And Vomiting Medications Current Outpatient Medications Medication Instructions albuterol (PROVENTIL HFA;VENTOLIN HFA) 90 mcg/actuation Inhl HFA Aerosol Inhaler 2 Puffs, Inhalation, EVERY 4 HOURS PRN busPIRone (BUSPAR) 10 mg, Oral, 3 TIMES DAILY CAPLYTA 21 mg, Oral, DAILY clindamycin-benzoyl peroxide (BENZACLIN) Top Gel Topical, 2 TIMES DAILY hydrOXYzine (ATARAX) 10 mg Oral Tablet Take 1-2 tabs nightly as needed. LINZESS 72 mcg, Oral, DAILY minocycline (MINOCIN;DYNACIN) 100 mg, Oral, DAILY ondansetron (ZOFRAN-ODT) 4 mg, Oral, EVERY 6 HOURS PRN pantoprazole (PROTONIX) 40 mg, Oral, DAILY Thank you for the consult. Please reach out with any questions. Vikki Aceves PharmD [employer] [facility] documented in this encounter Plan of Treatment Upcoming Encounters Date Type Department Care Team (Late st Contact Info) Description 02/17/2025 8:45 AM EDT Office Visit [facility] [address] [facility] [place] [address] Gareth Wheeler MD [address] [place] [address] 02/18/2025 10:30 AM EDT Telemedicine [facility] [address] [place] [address] Chely Frazier, RD [address] [place] [address] 02/27/2025 9:30 AM EDT Office Visit [facility] [address] [place] [address] documented as of this encounter [...] as of this encounter Visit Diagnoses Diagnosis CYP2B6 intermediate metabolizer (HCC)- Primary [id number] rapid metabolizer (HCC) CY intermediate metabolizer (HCC) Monoallelic mutation of VKORC1 gene documented in this encounter Care Teams Property Portfolio Officer Relationship Specialty Start Date End Date Gareth Wheeler MD [address] [place] [address] PCP - General 03/01/09 Janeth Hester, RUBBER PRESS TENDER Tower Equipment Repairer 10/16/24 documented as of this encounter
--- OUTSIDE RECORDS SUMMARY | 2025-02-16 10:39 | XMS_ITS | Encounter Summary ---
Author Organization [facility] [place] [address] Support Name Relationship Address Phone Juma Bear Emergency Contact [address] [place] [address] Mecheleelee Jones Emergency Contact [address] [address] Jose Nate Emergency Contact [address] [place] [address] Vicenta Kilo Emergency Contact Unknown [phone] Kvng Kilo Personal Relationship [address] [place], [place] Care Team Providers Care Rn Private Duty Name Role Phone Gareth Wheeler MD Primary Care Provider [phone] Janeth Hester CLAIM EXAMINER Unavailable Unav ailable Encounter Details Date Type Department Care Team (Latest Contact Info) Description 01/28/2025 Travel Social History Tobacco Use Types Packs/Day Years Used Date Smoking Tobacco: Never Passive Smoke Exposure: Never Smokeless Tobacco: Never Alcohol Use Standard Drinks/Week Comments Not Currently 1 (1 standard drink = 0.6 oz pur e alcohol) every once and a while [facility] Utilities Answer Date Recorded In the past 12 months has [employer] electric, gas, oil, or water company threatened to shut off services in your home? No 03/27/2024 Overall Financial Resource Strain (CARDIA) Answe r Date Recorded How hard is it for you to pa y for the very basics like food, housing, medical care, and heating? Not very hard 03/27/2024 PHQ-2 Answer Date Recorded PHQ-2 Total Score 0 01/29/2025 [facility] of Occupat ional [facility] - Occupational Stress Questionnaire Answer [...] things needed for daily living? No 09/05/2021 [facility] IP Transportation Answer D ate Recorded [...] Assessment Author No 11/14/2024 10:03 AM EDT Delia Liset Vergara PENELOPENirmal * Does this person have difficulty dressing or bathing? Answer Date of Assessment Author No 11/14/2024 10:03 AM EDT Delia Liset VergaraJAMES * Because of a physical, mental or emotional condition, does this person have difficulty doing errands alone such as visiting a doctor's office or shopping? Answer Date of Assessment Author No 11/14/2024 10:03 AM EDT Delia Liset VergaraJAMES documented as of this encounter [...] 02/17/2025 8:45 AM EDT Office Visit SE[facility] [place] [address] [facility] [place] [address] Gareth Wheeler MD [address] [place] [address] 02/18/2025 10:30 AM EDT Telemedicine [facility] [address] [place] [address] Chely Frazier, RD [address] [place] [address] 02/27/2025 9:30 AM EDT Office Visit [facility] [address] [place] [address] documented as of this encounter [...] on filedocumented in this encounter Care Teams Rn Private Duty Relationship Specialty Start Date End Date Gareth Wheeler MD [address] [place] [address] PCP - General 03/01/09 Janeth Hester CSW Industrial Equipment Mechanic 10/16/24 documented as of this encounter
--- OUTSIDE RECORDS SUMMARY | 2025-02-16 10:39 | XMS_ITS | Encounter Summary ---
Author Organization [place] [address] Support Name Relationship Address Phone Juma Marianela Emergency Contact [address] [place] [address] Meche Jones Emergency Contact [address] [address] Jose Nate Emergency Contact [address] [place] [address] Vicenta Kilo Emergency Contact Unknown [phone] Kvng Kilo Personal Relationship [address] [place], [place] Care Team Providers Care Senior Science Consultant Name Role Phone Gareth Wheeler MD Primary Care Provider [phone] Janeth Hester COKE DRAWER Unavailable Unav ailable Reason for Visit * Reason Onset Date Comments Referral 01/30/2025 Ref'd by Antonella Jones APRN. Encounter Details Date Type Department Care Team (Late st Contact Info) Description 01/30/2025 Telephone [facility] [address] [place] [address] Kaela Velasquez MA Referral (Ref'd by Portia Jones APRN.) Social History Tobacco Use Types Packs/Day Years Used Date Smoking Tobacco: Never Passive Smoke Exposure: Never Smokeless Tobacco: Never Alcohol Use Standard Drinks/Week Comments Not Currently 1 (1 standard drink = 0.6 oz pur e alcohol) every once and a while [facility] Utilities Answer Date Recorded In [...] Date Recorded PHQ-2 Total Score 0 01/29/2025 [facility] of Occupat ional [facility] - Occupational Stress Questionnaire Answer Date [...] things needed for daily living? No 09/05/2021 [facility] IP Transportation Answer D ate [...] No 11/14/2024 10:03 AM EDT Liset Lin Vergara JAMES * Does this person have difficulty dressing or bathing? Answer Date of Assessment Author No 11/14/2024 10:03 AM EDT Liset Lin VergaraJAMES paiz * Because of a physical, mental or emotional condition, does this person have difficulty doing errands alone such as visiting a doctor's office or shopping? Answer Date of Assessment Author No 11/14/2024 10:03 AM EDT Liset Lin VergaraJAMES paiz documented as of this encounter Mental Status * Because of a physical, mental or emotional condition, does this person have serious difficulty concentrating, remembering or making decisions? Answer Entry Date Author No 11/14/2024 10:03 AM EDT Liset Lin Ursula JAMES documented in this encounter Miscellaneous Notes * Telephone Encounter - Kaela Velasquez MA - 01/30/2025 9:42 AM EDT Pt stopped at checkout stating she was referred by Portia Jones APRN to become a new patient of our Medical Weight Management program. Pt is aware that a New Patient packet must be completed and returned to the office before the firstappointment with our doctor can be scheduled. Pt left with the packet in hand today. Thank you. documented in this encounter Plan of Treatment Upcoming Encounters Date Type Department Care Team (Late st Contact Info) Description 02/17/2025 8:45 AM EDT Office Visit [facility] [address] [place] [address] Gareth Wheeler MD [address] [place] [address] 02/18/2025 10:30 AM EDT Telemedicine [facility] [address] [place] [address] Karin Chely Phelps, RD [address] [place] [address] 02/27/2025 9:30 AM EDT Office Visit [facility] [address] [place] [address] documented as of this encounter [...] on filedocumented in this encounter Care Teams Senior Science Consultant Relationship Specialty Start Date End Date Gareth Wheeler MD [address] [place] [address] PCP - General 03/01/09 Janeth Hester CSW Tacking Machine Operator 10/16/24 documented as of this encounter
--- OUTSIDE RECORDS SUMMARY | 2025-02-16 10:39 | XMS_ITS | Encounter Summary ---
Author Organization [place] [address] Support Name Relationship Address Phone Juma Bear Emergency Contact [address] [place] [address] Meche Jones Emergency Contact [address] [address] Jose Salass Emergency Contact [address] [place] [address] Vicenta Kilo Emergency Contact Unknown Kvng Boateng Personal Relationship [address] [place] Care Team Providers Care Product Applications Engineer Name Role Phone Gareth Wheeler MD Primary Care Provider [phone] Janeth Hester TEMPLATE CLERK Unavailable Unav ailable Reason for Visit * Reason Onset Date Comments Medication Refill 01/30/2025 Encounter Details Date Type Department Care Team (Late st Contact Info) Description 01/30/2025 Refill SEP [facility] [address] [place] [address] Le Blood, SAWMILLING OPERATOR [address] [place] [address] Medication Refill Social History Tobacco Use Types Packs/Day Years Used Date Smoking Tobacco: Never Passive Smoke Exposure: Never Smokeless Tobacco: Never Alcohol Use Standard Drinks/Week Comments Not Currently 1 (1 standard drink = 0.6 oz pur e alcohol) every once and a while [facility] Utilities Answer Date Recorded In the [...] Date Recorded PHQ-2 Total Score 0 01/29/2025 [facility] of Occupat ional Health - Occupational Stress [...] things needed for daily living? No 09/05/2021 [facility] IP Transportation Answer D ate [...] Refills Last Filled Start Date End Date hydrOXYzine (ATARAX) 10 mg Oral TabletIndications: Insomnia, persistent Take 1-2 tabs nightly as needed. 180 Tablet 02/02/2025 pantoprazole (PROTONIX) 40 mg Oral Tablet, Delayed Release (E.C.)Indications: Gastroesophageal reflux disease with esophagitis without hemorrhage Take 1 Tablet by mouth daily. 90 Tablet 02/02/2025 busPIRone (BUSPAR) 10 mg Oral TabletIndications: Bipolar 2 disorder, major depressive episode (HCC),Generalized anxiety disorder with panic attacks Take 1 Tablet by mouth 3 times daily. 270 Tablet 02/02/2025 documented in this encounter Plan of Treatment Upcoming Encounters Date Type Department Care Team (Late st Contact Info) Description 02/17/2025 8:45 AM EDT Office Visit [facility] [address] [place] [address] [place] [address] Gareth Wheeler MD [address] [place] [address] 02/18/2025 10:30 AM EDT Telemedicine [facility] [address] [place] [address] Chely Frazier, RD [address] [place] [address] 02/27/2025 9:30 AM EDT Office Visit [facility] [address] [place] [address] documented as of this encounter [...] this encounter Visit Diagnoses Diagnosis Bipolar 2 disorder, major depressive episode (HCC) Other bipolar disorders Generalized anxiety disorder with panic attacks Gastroesophageal reflux disease with esophagitis without hemorrhage Insomnia, persistent Persistent disorder of initiating or maintaining sleep documented in this encounter Discontinued Medications Medication Sig Discontinue Reason Start Date End Da te busPIRone (BUSPAR) 10 mg Oral TabletIndications:Bipola r 2 disorder, major depressive episode (HCC),Generalized anxiety disorder with panic attacks Take 1 Tablet by mouth 3 times daily. Reorder 05/23/2024 01/30/2025 pantoprazole (PROTONIX) 40 mg Oral Tablet, Delayed Release (E.C.)Indications:Gastro esophageal reflux disease with esophagitis without hemorrhage Take 1 Tablet by mouth daily. Reorder 05/23/2024 01/30/2025 hydrOXYzine (ATARAX) 10 mg Oral TabletIndications:Insomn ia, persistent Take 1-2 tabs nightly as needed. Reorder 11/14/2024 01/30/2025 documented as of this encounter Care Teams Product Applications Engineer Relationship Specialty Start Date End Date Gareth Wheeler MD [address] [facility] [place] [phone] PCP - General 03/01/09 Janeth Hester, TEMPLATE CLERK Maintenance Data Analyst 10/16/24 documented as of this encounter
--- OUTSIDE RECORDS SUMMARY | 2025-02-16 10:39 | XMS_ITS | Encounter Summary ---
Author Organization [place] [address] Support Name Relationship Address Phone Juma Bear Emergency Contact [address] [place] [address] Meche Jones Emergency Contact [address] [address] Jose Nate Emergency Contact [address] [place] [address] Vicenta Kilo Emergency Contact Unknown Kvng Kilo Personal Relationship 920 06/12 [place] Care Team Providers Care Newspaper Clipper Name Role Phone Gareth Wheeler MD Primary Care Provider [phone] Janeth Hester MILL AND COAL TRANSPORT OPERATOR Unavailable Unav ailable Reason for Visit * Reason Onset Date Comments Prior Authorization 01/30/2025 PA for Aripi prazole 10mg tablet Approved Encounter Details Date Type Department Care Team (Late st Contact Info) Description 01/30/2025 Telephone SEP [facility] [address] [place] [address] Le Blood, [facility] [address] [place] [address] Prior Authorization (PA for Aripiprazole 10mg tablet Approved) Social History Tobacco Use Types Packs/Day Years Used Date Smoking Tobacco: Never Passive Smoke Exposure: Never Smokeless Tobacco: Never Alcohol Use Standard Drinks/Week Comments Not Currently 1 (1 standard drink = 0.6 oz pur e alcohol) every once and a while [facility] Utilities Answer Date Recorded In [...] Date Recorded PHQ-2 Total Score 0 01/29/2025 [facility] of Occupat ional Health - Occupational Stress [...] things needed for daily living? No 09/05/2021 [facility] IP Transportation Answer D ate Recorded [...] encounter Miscellaneous Notes * Telephone Encounter - Idalia Estes MA - 01/30/2025 8:08 AM EDT PA for Aripiprazole 10mg tablet APPROVED. Approval dates from 01/29/2025 through 02/28/2025 This request has been approved with a quantity limit of 46 tablets per 30 days. PA reference #[id number] documented in this encounter Plan of Treatment Upcoming Encounters Date Type Department Care Team (Late st Contact Info) Description 02/17/2025 8:45 AM EDT Office Visit [facility] [address] [place] [address] Gareth Wheeler MD [address] [place] [address] 02/18/2025 10:30 AM EDT Telemedicine [facility] [address] [place] [address] Chely Frazier, RD [address] [place] [address] 02/27/2025 9:30 AM EDT Office Visit [facility] [address] [place] [address] documented as of this encounter [...] on filedocumented in this encounter Care Teams Newspaper Clipper Relationship Specialty Start Date End Date Gareth Wheeler MD [address] [facility] [address] PCP - General 03/01/09 Janeth Hester CSW Research Physicist 10/16/24 documented as of this encounter
--- OUTSIDE RECORDS SUMMARY | 2025-02-16 10:39 | XMS_ITS | Encounter Summary ---
Author Organization [place] [address] Support Name Relationship Address Phone Juma Bear Emergency Contact [address] [place] [address] Meche Jones Emergency Contact [address] [address] Jose Nate Emergency Contact [address] [place] [address] Vicenta Boateng Emergency Contact Unknown Kvng Kilo Personal Relationship 920 06/12 [place] Care Team Providers Care Office Services Clerk Name Role Phone Gareth Wheeler MD Primary Care Provider [phone] Janeth Hester FUNCTIONAL SUPPORT ANALYST Unavailable Unav ailable Encounter Details Date Type Department Care Team (Late st Contact Info) Description 02/13/2025 Orders Only SEP [facility] [address] [place] [address] Le Blood, HORSES OR MULES TEAMSTER [address] [place] [address] Social History Tobacco Use Types Packs/Day Years Used Date Smoking Tobacco: Never Passive Smoke Exposure: Never Smokeless Tobacco: Never Alcohol Use Standard Drinks/Week Comments Not Currently 1 (1 standard drink = 0.6 oz pur e alcohol) every once and a while [facility] Utilities Answer Date Recorded In the [...] Date Recorded PHQ-2 Total Score 0 01/29/2025 [facility] of Occupat ional [facility] - Occupational Stress Questionnaire Answer Date [...] things needed for daily living? No 09/05/2021 [facility] IP Transportation Answer D ate Recorded [...] No 11/14/2024 10:03 AM EDLiset Zepeda RMA * Does this person have serious [...] 11/14/2024 10:03 AM EDLiset Zepeda RMA documented as of this encounter Mental Status * Because of a physical, mental or emotional condition, does this person have serious difficulty concentrating, remembering or making decisions? Answer Entry Date Author No 11/14/2024 10:03 AM EDT Liset Lin RMA documented in this encounter Ordered Prescriptions Prescription Sig Dispense Quantity Refills Last Filled Start Date End Date promethazine-dextro methorphan (PROMETHAZINE-DM) 6.25-15 mg/5 mL Oral Syrup Take 10 mL by mouth every 6 hours as needed. 473 mL 02/13/2025 documented in this encounter Plan of Treatment Upcoming Encounters Date Type Department Care Team (Late st Contact Info) Description 02/17/2025 8:45 AM EDT Office Visit [facility] [address] [place] [address] Gareth Wheeler MD [address] [place] [address] 02/18/2025 10:30 AM EDT Telemedicine [facility] [address] [place] [address] Chely Frazier, RD [address] [facility] [place] [address] 02/27/2025 9:30 AM EDT Office Visit [facility] [address] [place] [address] documented as of this encounter Goals [...] on filedocumented in this encounter Care Teams Office Services Clerk Relationship Specialty Start Date End Date Gareth Wheeler MD [address] [facility] [place] [place] [address] PCP - General 03/01/09 Janeth Hester, TRE Senior Sas Programmer 10/16/24 documented as of this encounter
--- OUTSIDE RECORDS SUMMARY | 2025-02-16 10:39 | XMS_ITS | Encounter Summary ---
Author Organization [facility] [place] [address] Support Name Relationship Address Phone Juma Bear Emergency Contact [address] [place] [address] Mecheleelee Jones Emergency Contact [address] [address] Jose Nate Emergency Contact [address] [place] [address] Vicenta Kilo Emergency Contact Unknown [phone] Kvng Kilo Personal Relationship 920 06[address] [place], [place] Care Team Providers Care Silk Screen Printer Name Role Phone Gareth Wheeler MD Primary Care Provider [phone] Janeth Hester PROGRAM DIRECTOR GROUP WORK Unavailable Unav ailable Encounter Details Date Type Department Care Team (Latest Contact Info) Description 12/30/2024 Travel Social History Tobacco Use Types Packs/Day Years Used Date Smoking Tobacco: Never Passive Smoke Exposure: Never Smokeless Tobacco: Never Alcohol Use Standard Drinks/Week Comments Not Currently 1 (1 standard drink = 0.6 oz pur e alcohol) every once and a while [facility] Utilities Answer Date Recorded In the past 12 months has [employer] electric, gas, oil, or water company threatened to shut off services in your home? No 03/27/2024 Overall Financial Resource Strain (CARDIA) Answe r Date Recorded How hard is it for you to pa y for the very basics like food, housing, medical care, and heating? Not very hard 03/27/2024 PHQ-2 Answer Date Recorded PHQ-2 Total Score 0 11/27/2024 [facility] of Occupat ional [facility] - Occupational Stress Questionnaire Answer Date [...] things needed for daily living? No 09/05/2021 [facility] IP Transportation Answer D ate Recorded [...] Assessment Author No 11/14/2024 10:03 AM EDT Delai Liset VergaraJAMES documented as of this encounter [...] 02/17/2025 8:45 AM EDT Office Visit SEP [place] [address] [facility] [place] [address] Gareth Wheeler MD [address] [place] [address] 02/18/2025 10:30 AM EDT Telemedicine [facility] [address] [place] [address] Chely Frazier, RD [address] [place] [address] 02/27/2025 9:30 AM EDT Office Visit [facility] [address] [place] [address] documented as of this encounter [...] on filedocumented in this encounter Care Teams Silk Screen Printer Relationship Specialty Start Date End Date Gareth Wheeler MD [address] [place] [address] PCP - General 03/01/09 Janeth Hester CSW Clinical Research Nurse Coordinator 10/16/24 documented as of this encounter
--- OUTSIDE RECORDS SUMMARY | 2025-02-16 10:39 | XMS_ITS | Patient Health Record ---
Author Organization [facility] Address [address] [place] [address] Care Team Providers Care Innovation Analyst Name Role Phone Bonita Frederick Unavailable [phone] Allergies Allergen (clinical drug ingredient) Drug/Non Drug Allergy documented on EMR Reaction Allergy Type Onset Date Status Medications: Imitrex (uncoded) Unspecified Allergy Active Other: Cymbalta (uncoded) Unspecified Allergy Active Other: Narcotics (uncoded) Unspecified Allergy Active Reason For Referral No Information Medications Medication SIG (Take, Route, Fr equency, [...] [place]: Travel History: Uses seat belts Plan Of Treatment No Information Medical (General) History Medical History History ICD Code Asthma Arthritis Bowel trouble Stress incontinence Heart trouble: murmur Anxiety Depression GERD Finger fracture *NO SIGNIFICANT GENETIC HISTORY 7 Pipestem: Self breast exam - No 7 Pipestem: Sexually active - Yes 7 Pipestem: Dairy Product Use - Yes Surgical History Surgery Date(Month/Year) Tonsillectomy [place] teeth surgery
--- OUTSIDE RECORDS SUMMARY | 2025-02-16 10:39 | XMS_ITS | Encounter Summary ---
Author Organization [place] [address] Support Name Relationship Address Phone Juma Bear Emergency Contact [address] [place] [address] Meche Jones Emergency Contact [address] [address] Jose Nate Emergency Contact [address] [place] [address] Vicentarosa m Brothersen Emergency Contact Unknown [phone] Kvng Kilo Personal Relationship [address] 06/[address] [place] Care Team Providers Care Executive Sous Chef Name Role Phone Gareth Wheeler MD Primary Care Provider [phone] Janeth Hester LABORATORY EQUIPMENT CLEANER Unavailable Unav ailable Reason for Visit * Reason Onset Date Comments Prior Authorization 12/30/2024 PA for Caply ta 21mg capsule Approved Encounter Details Date Type Department Care Team (Late st Contact Info) Description 12/30/2024 Telephone SEP [facility] [address] [facility] [place] [address] Le Blood, SUPERVISOR CLEANING AND ANNEALING [address] [place] [address] Prior Authorization (PA for Caplyta 21mg capsule Approved) Social History Tobacco Use Types Packs/Day Years Used Date Smoking Tobacco: Never Passive Smoke Exposure: Never Smokeless Tobacco: Never Alcohol Use Standard Drinks/Week Comments Not Currently 1 (1 standard drink = 0.6 oz pur e alcohol) every once and a while [facility] Utilities Answer Date Recorded In the [...] Date Recorded PHQ-2 Total Score 0 11/27/2024 [facility] [place] of Occupat ional Health - Occupational Stress [...] things needed for daily living? No 09/05/2021 [facility] IP Transportation Answer D ate Recorded In [...] No 11/14/2024 10:03 AM EDT Liset Lin JAMES * Is the person blind or does he/she have serious difficulty seeing even when wearing glasses? Answer Date of Assessment Author No 11/14/2024 10:03 AM EDT Liset Lin JAMES * Does this person have serious difficulty walking or climbing stairs? Answer Date of Assessment Author No 11/14/2024 10:03 AM EDT Liset Lin JAMES * Does this person have difficulty dressing or bathing? Answer Date of Assessment Author No 11/14/2024 10:03 AM EDT Liset Lin JAMES * Because of a physical, mental or emotional condition, does this person have difficulty doing errands alone such as visiting a doctor's office or shopping? Answer Date of Assessment Author No 11/14/2024 10:03 AM EDT Liset Lin JAMES documented as of this encounter Mental Status * Because of a physical, mental or emotional condition, does this person have serious difficulty concentrating, remembering or making decisions? Answer Entry Date Author No 11/14/2024 10:03 AM EDT Liset Lin RMNirmal documented in this encounter Miscellaneous Notes * Telephone Encounter - Idalia Estes MA - 12/30/2024 4:09 PM EDT PA for Caplyta 21mg capsule APPROVED. Approval dates from 12/11/2024 through 12/11/2025 PA reference #[id number] documented in this encounter Plan of Treatment Upcoming Encounters Date Type Department Care Team (Late st Contact Info) Description 02/17/2025 8:45 AM EDT Office Visit SE[facility] [address] [place] [address] Gareth Wheeler MD [address] [place] [address] 02/18/2025 10:30 AM EDT Telemedicine [facility] [address] [facility] [address] Chely Frazier, RD [address] [place] [address] 02/27/2025 9:30 AM EDT Office Visit [facility] [address] [place] [address] documented as of this encounter [...] on filedocumented in this encounter Care Teams Executive Sous Chef Relationship Specialty Start Date End Date Gareth Wheeler MD [address] [place] [address] PCP - General 03/01/09 Janeth Hester CSW Machine Helper 10/16/24 documented as of this encounter
--- OUTSIDE RECORDS SUMMARY | 2025-02-16 10:40 | XMS_ITS | Encounter Summary ---
Author Organization [facility] Address [address] [place] [address] Phone Care Team Providers Care Electrical And Electronic Assembler Name Role Phone Bonita Frederick MD Primary Care Provider [phone] Reason for Referral * Radiology Services (Routine) - Closed Specialty Diagnoses / Procedures Referred By Contbreanne t Referred To Contact Procedures OB US STANDARD SECOND OR THIRD TRIMESTER HISTORICAL MED Referral ID Status Reason Start Date Expiration Date V isits Requested Visits Authorized [id number] Closed Specialty Services Required 03/24/2019 03/23/2020 150 150 Encounter Details Date Type Department Care Team (Late st Contact Info) Description 03/24/2019 [facility] [address] [place] [address] Social History Tobacco Use Types Packs/Day Years Used Date Smoking Tobacco: Never Assessed Comments Unknown Sex and Gender Information Value Date Recorded Sex Assigned at Not on file Legal Sex Female 4:30 PM EDT Gender Identity Not on file Sexual Orientation Not on file documented as of this encounter Plan of Treatment Not on file documented as of this encounter Procedures Procedure Name Priority Date/Time Associated Diagnosis Comments OB US STANDARD SECOND OR THI RD TRIMESTER Routine 03/03/2019 documented in this encounter Results * OB US STANDARD SECOND OR THIRD TRIMESTER (03/03/2019) Anatomical Region Laterality Modality Abdomen, Pelvis Ultrasound us Historical Med OBUS Final Result documented in this encounter Visit Diagnoses Not on filedocumented in this encounter Care Teams Electrical And Electronic Assembler Relationship Specialty Start Date End Date Otoniel, Denia., MD PCP - General Obstetrics & Gynecology 01/08/19 documented as of this encounter
--- OUTSIDE RECORDS SUMMARY | 2025-02-16 10:40 | XMS_ITS | Encounter Summary ---
Author Organization [place] [address] Support Name Relationship Address Phone Juma Bear Emergency Contact [address] [place] [address] Meche Jones Emergency Contact [address] [address] Jose Nate Emergency Contact [address] [place] [address] Vicentarosa m Brothersen Emergency Contact Unknown [phone] Kvng Brothersen Personal Relationship [address] [place], [place] Care Team Providers Care Library Circulation Clerk Name Role Phone Gareth Wheeler MD Primary Care Provider [phone] Janeth Hester ADVANCED PRACTICE NURSE PSYCHOTHERAPIST Unavailable Unav ailable Reason for Visit * Reason Onset Date Comments Prior Authorization 12/11/2024 PA for Caply ta 42mcg capsule Approved Encounter Details Date Type Department Care Team (Late st Contact Info) Description 12/11/2024 Telephone SEP [facility] [address] [place] [address] Le Blood, CONE TENDER [address] [place] [address] Prior Authorization (PA for Caplyta 42mcg capsule Approved) Social History Tobacco Use Types Packs/Day Years Used Date Smoking Tobacco: Never Passive Smoke Exposure: Never Smokeless Tobacco: Never Alcohol Use Standard Drinks/Week Comments Not Currently 1 (1 standard drink = 0.6 oz pur e alcohol) every once and a while [facility] Utilities Answer Date Recorded In the [...] Date Recorded PHQ-2 Total Score 0 11/27/2024 [facility] [place] of Occupat ional Health - Occupational Stress [...] things needed for daily living? No 09/05/2021 [facility] IP Transportation Answer D ate Recorded In [...] Telephone Encounter - Idalia Estes MA - 12/11/2024 8:46 AM EDT PA for Caplyta 42mg capsule APPROVED. Approval dates from 12/11/2024 through 12/11/2025 PA reference #[id number] documented in this encounter Plan of Treatment Upcoming Encounters Date Type Department Care Team (Late st Contact Info) Description 02/17/2025 8:45 AM EDT Office Visit [facility] [address] [place] [address] Gareth Wheeler MD [address] [place] [address] 02/18/2025 10:30 AM EDT Telemedicine [facility] [address] [place] [address] Caitlyn Chely Phelps, RD [address] [place] [address] 02/27/2025 9:30 AM EDT Office Visit [facility] [address] [place] [address] documented as of this encounter [...] on filedocumented in this encounter Care Teams Library Circulation Clerk Relationship Specialty Start Date End Date Gareth Wheeler MD [address] [place] [address] PCP - General 03/01/09 Janeth Hester CSW Blending Technician 10/16/24 documented as of this encounter
--- OUTSIDE RECORDS SUMMARY | 2025-02-16 10:40 | XMS_ITS | Clinical Summary ---
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 Routine 01/02/2025 12:11 PM EDT Morbid obesity with BMI of 50.0-59.9, adult ([facility]) Encounter for nutrition evaluation prior to bariatric surgery Encounter for pre-bariatric surgery counseling and education Screening for unspecified condition Pre-operative laboratory examination Screening for endocrine, nutritional, metabolic and immunity disorder VITAMIN B12 LEVEL Routine 01/02/2025 12: 11 PM EDT Morbid obesity with BMI of 50.0-59.9, adult ([facility]) Encounter for nutrition evaluation prior to bariatric surgery Encounter for pre-bariatric surgery counseling and education Screening for unspecified condition Pre-operative laboratory examination Screening for endocrine, nutritional, metabolic and immunity disorder VITAMIN B1 (THIAMINE) WHOLE BLOOD -REF LAB Routine 01/02/2025 12:11 PM EDT Morbid obesity with BMI of 50.0-59.9, adult ([facility]) Encounter for nutrition evaluation prior to bariatric surgery Encounter for pre-bariatric surgery counseling and education Screening for unspecified condition Pre-operative laboratory examination Screening for endocrine, nutritional, metabolic and immunity disorder VITAMIN A (RETINOL) -REF LAB Routine 01/02/2025 12:11 PM EDT Morbid obesity with BMI of 50.0-59.9, adult ([facility]) Encounter for nutrition evaluation prior to bariatric surgery Encounter for pre-bariatric surgery counseling and education Screening for unspecified condition Pre-operative laboratory examination Screening for endocrine, nutritional, metabolic and immunity disorder HEMOGLOBIN A1C Routine 01/02/2025 12:11 PM EDT Morbid obesity with BMI of 50.0-59.9, adult ([facility]) Encounter for nutrition evaluation prior to bariatric [...] for endocrine, nutritional, metabolic and immunity disorder HUMAN CHORIONIC GONADOTROPIN QUANTITATIVE Routine 12/30/2024 1:40 PM EDT Nausea EBV VIRAL CAPSID ANTIBODIES Routine 12/30/2024 1:40 PM EDT Tired Nausea CMV IGG/IGM Routine 12/30/2024 1:40 PM EDT Tired Nausea IRON+TIBC Routine 12/30/2024 1:40 PM EDT Tired Nausea LYME ABS, IGG AND IGM BY IMMUNOBLOT-REF LAB Routine 12/30/2024 1:40 PM EDT Tired Nausea T4, FREE (THYROXINE) Routine 12/11/2024 8:06 AM EDT Obesity, morbid, BMI 50 or higher (HCC) THYROID STIMULATING HORMONE Routine 12/11/2024 8:06 AM EDT Obesity, morbid, BMI 50 or higher (HCC) HEMOGLOBIN A1C Routine 12/11/2024 8:06 AM EDT Obesity, morbid, BMI 50 or higher (HCC) Elevated glucose LIPID SCREEN Routine 12/11/2024 8:06 AM EDT Well adult exam COMPREHENSIVE METABOLIC PANEL Routine 12/11/2024 8:06 AM EDT Well adult exam CBC WITH DIFF Routine 12/11/2024 8:06 AM EDT Well adult exam SCANNED LABS 12/07/2024 3:27 PM EDT SCANNED LABS 11/28/2024 1:32 PM EDT GC CHLAMYDIA THIN PREP Routine 10:09 AM EDT 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 Pharmacogenomic Lab Method See Comment [facility] Comment: This test was developed, and its performance characteristics determined by [facility], a clinical laboratory located at [address] [place] [address]. These tests have not been cleared or approved by the U.S. Food and Drug Administration. The FDA does not require this test to go through premarket FDA review. [facility] is certified under CLIA-88 and accredited by the [employer] as qualified to perform high-complexity testing. This test is approved for clinical use by the [facility] Department of Health. This test should not be regarded as investigational or for research. *Genomic DNA was analyzed by PCR using [employer] TaqMan and/or Optics 1Q probe-based methods to interrogate the variant locations [...] are associated with more than one haplotype, [facility] and reports the most likely diplotype [...] Call. *The variant detection methods validated by [facility] provide >99.9% accuracy for the adult population; [...] or pharmacogenomic specialist. For additional support, contact [facility] through the website or by calling [phone]. [facility]iva 01/05/2025 01/12/2025 Narrative [facility] - 01/16/2025 This result has genomic variants that were not included in this document. us Le Blood APRN [facility] - ORDERABLES Final Result [facility] [id number] [facility] [address] [place], [place] [address] [phone] * VITAMIN E - REF LAB (01/02/2025 12:11 PM EDT) Alpha-Tocopherol (Vit E) mg/L 6.9 5.5 - 18.0 mg/L 01/05/2025 3:17 PM EDT [facility] Comment: This test was developed and its performance characteristics determined by [facility]. It has not been cleared or approved by the US Food and Drug Administration. This test was performed in a CLIA certified laboratory and is intended for clinical purposes. Gamma-Tocopherol (Vit E) mg/L 1.9 0.0 - 6.0 mg/L 01/05/2025 3:17 PM EDT [facility] Comment: Performed By: [facility] [address] [place] [address] Radio News Writer: Elie Hassan MD, PhD CLIA Number: [id number] Blood VENOUS BLOOD / Unknown Venipuncture / Unknown 01/02/2025 12:11 PM EDT 01/02/2025 12:11 PM EDT Andreia Love PARK SERVICES SPECIALIST CHEMISTRY ORDERABLES Fi nal Result [facility] [address] [place] [address] * CBC (01/02/2025 12:11 PM EDT) WBC [...] g/dL 01/02/2025 4:05 PM EDT PREFERRED LAB [facility], [facility] RDW 13.1 <=14.9 % 01/02/2025 4:05 PM EDT [facility]REFERRED [facility], [facility] Platelet 230 155 - 369 x10(3)/mcL 01/02/2025 4:05 PM EDT PREFERRED [facility], [facility] MPV 10.6 8.8 - 12.5 fL 01/02/2025 4:05 PM EDT [facility], [facility] Blood VENOUS BLOOD / Unknown Venipuncture / Unknown 01/02/2025 12:11 PM EDT 01/02/2025 12:11 PM EDT Andreia Love PARK SERVICES SPECIALIST HEMATOLOGY ORDERABLES F inal Result Performing Organization Address [facility] de Phone Number PREFERRED [address] , [place] [address] * (ABNORMAL) VITAMIN D 25 HYDROXY (01/02/2025 12:11 PM EDT) [facility] Vit D 25 OH 23.9(L) 30.0 - 150.0 ng/mL 01/02/2025 6:03 PM EDT [facility], [facility] Comment: Preferred: >= 30 ng/mL Insufficient: 21-29 [...] ORDERABLES Fi nal Result Performing Organization Address [facility] de Phone Number [address] , [place] [address] * VITAMIN B1 (THIAMINE) WHOLE BLOOD -REF LAB (01/02/2025 12:11 PM EDT) Vit B1 WB 109 70 - 180 nmol/L 01/05/2025 10:32 AM EDT [facility] [employer] Comment: INTERPRETIVE INFORMATION: Vitamin B1, Whole Blood This assay measures the concentration of thiamine diphosphate (TDP), the primary active form of vitamin B1. Approximately 90 percent of vitamin B1 present in whole blood is TDP. Thiamine and thiamine monophosphate, which comprise the remaining 10 percent, are not measured. This test was developed and its performance characteristics determined by [facility]. It has not been cleared or approved by the US Food and Drug Administration. This test was performed in a CLIA certified laboratory and is intended for clinical purposes. Performed By: [facility] [address] [place] [address] Radio News Writer: Elie Hassan MD, PhD CLIA Number: [id number] Blood VENOUS BLOOD / Unknown Venipuncture / Unknown 01/02/2025 12:11 PM EDT 01/02/2025 12:11 PM EDT Andreia Love PARK SERVICES SPECIALIST CHEMISTRY ORDERABLES Fi nal Result [employer] [employer] [address] [place] [address] * ZINC LEVEL-REF LAB (01/02/2025 12:11 PM EDT) Pathologist [facility] Zinc 79.9 60.0 - 120.0 ug/dL 01/04/2025 2:36 AM EDT [employer] Comment: INTERPRETIVE INFORMATION: Zinc, Serum or Plasma [...] developed and its performance characteristics determined by [facility]. It has not been cleared or approved by the US Food and Drug Administration. This test was performed in a CLIA certified laboratory and is intended for clinical purposes. Performed By: [facility] [address] [place] [id number] Radio News Writer: Elie Hassan MD, PhD CLIA Number: [id number] Blood VENOUS BLOOD / Unknown Venipuncture / Unknown 01/02/2025 12:11 PM EDT 01/02/2025 12:11 PM EDT Andreia Love PARK SERVICES SPECIALIST CHEMISTRY ORDERABLES Fi nal Result Performing Organization Address City/[facility]/ZIP Co de Phone Number [facility], [place] [phone] * VITAMIN A (RETINOL) -REF LAB (01/02/2025 12:11 PM EDT) Vit A(Retinol) 0.36 0.30 - 1.20 mg/L 01/05/2025 3:17 PM EDT [facility] [place] Retinyl Palm <0.02 0.00 - 0.10 mg/L 01/05/2025 3:17 PM EDT [facility] Vit A Intrp Normal 01/05/2025 3:17 PM EDT [employer] Comment: This test was developed and its performance characteristics determined by [facility]. It has not been cleared or approved by the US Food and Drug Administration. This test was performed in a CLIA certified laboratory and is intended for clinical purposes. Performed By: [facility] [address] [place], [place] [id number] Radio News Writer: Elie Hassan MD, PhD CLIA Number: [id number] Blood VENOUS BLOOD / Unknown Venipuncture / Unknown 01/02/2025 12:11 PM EDT 01/02/2025 12:11 PM EDT Andreia Love APRN CHEMISTRY ORDERABLES Fi nal Result Performing Organization Address City/[facility]/ZIP Co de Phone Number Marco Vasco [place] [phone] * MAGNESIUM LEVEL (01/02/2025 12:11 PM EDT) [facility] Magnesium 2.3 1.6 - 2.4 mg/dL 01/02/2025 7:38 PM EDT [facility] [employer] [facility] Blood VENOUS BLOOD / Unknown Venipuncture / Unknown 01/02/2025 12:11 PM EDT 01/02/2025 12:11 PM EDT Andreia Love APRN CHEMISTRY ORDERABLES Fi nal Result Performing Organization Address [facility] Co de Phone Number [facility] [employer] [address] , [place] [address] * HEMOGLOBIN A1C (01/02/2025 12:11 PM EDT) Only the most recent of2 resultswithin the time period is included. [facility] Hgb A1C 5.4 4.2 - 5.6 % 01/02/2025 4:27 PM EDT [facility] [employer] [facility] Est. Avg Glucose 108 mg/dL 01/02/2025 4:27 PM EDT [facility] [employer] [facility] Blood VENOUS BLOOD / Unknown Venipuncture / Unknown 01/02/2025 12:11 PM EDT 01/02/2025 12:11 PM EDT Narrative [facility] [employer] [facility] - 01/02/2025 4:27 PM EDT REFERENCE RANGE: Normal: 4.0-5.6% Pre-diabetes: 5.7-6.4% Provisional diagnosis of diabetes: >6.4% Hgb F>10% and anything which shortens red cell survival, such as hemolytic anemia, or unstable hemoglobin variants such as HbSS, HbSC, or HbCC, will lower the HbA1c value associated with a given level of glycemic control. Andreia Love APRN CHEMISTRY ORDERABLES Fi nal Result Performing Organization Address [facility] Co de Phone Number [facility] [employer] [address] , [place] [address] * FOLATE LEVEL (01/02/2025 12:11 PM EDT) [facility] Folate 8.35 >=4.80 ng/mL 01/02/2025 6:03 PM EDT [facility] [employer] [facility] Blood VENOUS BLOOD / Unknown Venipuncture / Unknown 01/02/2025 12:11 PM EDT 01/02/2025 12:11 PM EDT Narrative [facility] - 01/02/2025 6:03 PM EDT Ingestion of mary jo doses of biotin (>5 mg/day) taken within 8 hours of drawing blood sample can interfere with this immunoassay test. Andreia Love APRN CHEMISTRY ORDERABLES Fi nal Result Performing Organization Address [facility] de Phone Number [facility] [employer] [address] , [place] [address] * FERRITIN (01/02/2025 12:11 PM EDT) Ferritin 53 30 - 150 ng/mL 01/02/2025 7:38 PM EDT [facility] [employer] [facility] Comment:The lower threshold of 30 is not [...] PM EDT 01/02/2025 12:11 PM EDT Narrative [facility] [employer] [facility] - 01/02/2025 7:38 PM EDT Ingestion of mary jo doses of biotin (>5 mg/day) taken within 8 hours of drawing blood sample can interfere with this immunoassay test. Andreia Love PARK SERVICES SPECIALIST CHEMISTRY ORDERABLES Fi nal Result Performing Organization Address [facility] Co de Phone Number [facility] [address] [facility] , [place] [address] * VITAMIN B12 LEVEL (01/02/2025 12:11 PM EDT) Vitamin B12 490 232 - 1,245 pg/mL 01/02/2025 6:03 PM EDT PREFERRED LAB [facility], [facility] Blood VENOUS BLOOD / Unknown Venipuncture / Unknown 01/02/2025 12:11 PM EDT 01/02/2025 12:11 PM EDT Narrative [facility], [facility] - 01/02/2025 6:03 PM EDT Ingestion of mary jo doses of biotin (>5 mg/day) taken within 8 hours of drawing blood sample can interfere with this immunoassay test. us Andreia Love PARK SERVICES SPECIALIST CHEMISTRY ORDERABLES Fi nal Result [facility] [address] [facility] , [address] [place] [id number] * COMPREHENSIVE METABOLIC PANEL (01/02/2025 12:11 PM EDT) Only the most recent of2 resultswithin the time period is included. Sodium 136 136 - 145 mmol/L 01/02/2025 7:38 PM EDT [facility] Potassium 3.8 3.5 - 5.0 mmol/L 01/02/2025 7:38 PM EDT [facility] Chloride 102 98 - 107 mmol/L 01/02/2025 7:38 PM EDT [facility] Total CO2 23 22 - 29 mmol/L 01/02/2025 7:38 PM EDT [facility] Anion Gap 11 7 - 16 mmol/L 01/02/2025 7:38 PM EDT [facility] Calcium 9.2 8.6 - 10.4 mg/dL 01/02/2025 7:38 PM EDT [facility] Glucose Lvl 86 70 - 99 mg/dL [...] 01/02/2025 7:38 PM EDT [facility] Bili Total 0.4 0.2 - 1.3 mg/dL 01/02/2025 7:38 PM EDT [facility] ALT 35 <=41 U/L 01/02/2025 7:38 PM EDT [facility] AST 30 <=40 U/L 01/02/2025 7:38 PM EDT [facility] Alk Phos 103 36 - 123 U/L 01/02/2025 7:38 PM EDT [facility] eGFR (CKD-EPIcr 2020) 129 >=60 mL/min/1.7 3 m2 01/02/2025 7:38 PM EDT [facility] Comment:Estimated GFR was ca lculated using the CKD-EPIcr (2020) equation refit without race. The equation is recommended by the National Kid[employer] - [place] [employer] Task Force. Blood VENOUS BLOOD / Unknown Venipuncture / Unknown 01/02/2025 12:11 PM EDT 01/02/2025 12:11 PM EDT Andreia Love PARK SERVICES SPECIALIST CHEMISTRY ORDERABLES Fi nal Result [facility] [address] [facility] , [place] [address] * (ABNORMAL) IRON+TIBC (12/30/2024 1:40 PM EDT) Iron 68 30 - 160 mcg/dL 12/30/2024 10:03 PM EDT [facility] Transferrin 267 200 - 360 mg/dL 12/30/2024 10:03 PM EDT [facility] [employer] Saturation 18(L) 20 - 50 % 12/30/2024 10:03 PM EDT [facility] TIBC 374 250 - 400 mcg/dL 12/30/2024 10:03 PM EDT [facility], [facility] Blood VENOUS BLOOD / Unknown Venipuncture / Unknown 12/30/2024 1:40 PM EDT 12/30/2024 1:40 PM EDT us Le Blood PARK SERVICES SPECIALIST CHEMISTRY ORDERABLES Vesta l Result [facility] [employer] [address] [facility], [place] [address] * LYME ABS, IGG AND IGM BY IMMUNOBLOT-REF LAB (12/30/2024 1:40 PM EDT) B. burgdorferi IgG Immunoblot Negative Negative 01/02/2025 3:21 PM EDT [facility] Comment: Band(s) present: 41 kDa (Insufficient number [...] Immunoblot Negative Negative 01/02/2025 3:21 PM EDT [facility] [employer] Comment: Band(s) present: NONE (Insufficient number of bands for positive result) INTERPRETIVE INFORMATION: B. burgdorferi Antibody IgM Immunoblot For this assay, a positive result is reported when any 2 or more of the following bands are present: 23, 39, or 41 kDa. All other banding patterns are reported as negative. Performed By: [facility] [address] [place] [address] Radio News Writer: Elie Hassan MD, PhD CLIA Number: [id number] Blood VENOUS BLOOD / Unknown Venipuncture / Unknown 12/30/2024 1:40 PM EDT 12/30/2024 1:40 PM EDT us Le Blood PARK SERVICES SPECIALIST IMMUNOLOGY ORDERABLES Fin al Result Performing Organization Address City/[facility]/ZIP Co de Phone Number [facility] [address] [place], [place] [id number] * CMV IGG/IGM (12/30/2024 1:40 PM EDT) CMV IgG Negative Negative 12/31/2024 10:09 AM EDT [facility] [employer] [facility] CMV IgM Negative Negative 12/31/2024 10:09 AM EDT [facility] Blood VENOUS BLOOD / Unknown Venipuncture / Unknown 12/30/2024 1:40 PM EDT 12/30/2024 1:40 PM EDT Narrative [facility] [employer] [facility] - 12/31/2024 10:09 AM EDT A positive [...] sample in 1-3 weeks for equivocal results. us Le Blood APRN IMMUNOLOGY ORDERABLES Fin al Result [facility] [employer] [facility] [address] [facility] , [place] [address] * EBV VIRAL CAPSID ANTIBODIES (12/30/2024 1:40 PM EDT) EB VCA IgM 12.6 unit/mL 12/31/2024 10:13 AM EDT [facility] [employer] [facility] Comment: Sample results should be interpreted as [...] IgG 329.0 unit/mL 12/31/2024 10:13 AM EDT [facility] Comment: Sample results should be interpreted as [...] PM EDT 12/30/2024 1:40 PM EDT Le Blood APRN IMMUNOLOGY ORDERABLES Fin al Result [facility] [address] [facility] , [place] [address] * HUMAN CHORIONIC GONADOTROPIN QUANTITATIVE (12/30/2024 1:40 PM EDT) [facility] Hcg Quant <1 <5 mIU/mL 12/30/2024 10:13 PM EDT [facility] Blood VENOUS BLOOD / Unknown Venipuncture / Unknown 12/30/2024 1:40 PM EDT 12/30/2024 1:40 PM EDT Narrative [facility] [employer] - 12/30/2024 10:13 PM EDT Female (non-): [...] sample can interfere with this immunoassay test. us Le Blood APRN CHEMISTRY ORDERABLES Vesta strange Result [facility] [address] [facility] , [place] [address] * CBC WITH DIFF (12/11/2024 8:06 AM EDT) WBC 6.7 3.7 - 10.3 x10(3)/mcL 12/11/2024 4:34 PM EDT [facility] RBC 4.80 3.90 - 5.20 x10(6)/mcL 12/11/2024 4:34 PM EDT [facility] Hgb 13.0 11.2 - 15.7 g/dL 12/11/2024 4:34 PM EDT [facility] Hct 42.3 34.0 - 45.0 % 12/11/2024 4:34 PM EDT [facility] MCV 88.1 80.0 - 100.0 fL 12/11/2024 4:34 PM EDT [facility] MCH 27.1 26.0 - 34.0 pg 12/11/2024 4:34 PM EDT [facility] MCHC 30.7 30.7 - 35.5 g/dL 12/11/2024 4:34 PM EDT [facility] RDW 13.3 <=14.9 % 12/11/2024 4:34 PM EDT [facility] Platelet 222 155 - 369 x10(3)/mcL 12/11/2024 4:34 PM EDT [facility] MPV 10.4 8.8 - 12.5 fL 12/11/2024 4:34 PM EDT [facility] Neut Percent 69.8 % 12/11/2024 4:34 PM EDT [facility] Comment:Neutrophils equals s egs plus bands Imm Gran% 0.6 % 12/11/2024 4:34 PM EDT [facility] Comment:Automated count of m etamyelocytes, myelocytes and promyelocytes. Lymph Percent 22.5 % 12/11/2024 4:34 PM EDT [facility] Waller Percent 4.8 % 12/11/2024 4:34 PM EDT [facility] Eos Percent 1.6 % 12/11/2024 4:34 PM EDT [facility] Baso Percent 0.7 % 12/11/2024 4:34 PM EDT [facility] Neut # 4.7 1.6 - 6.1 x10(3)/mcL 12/11/2024 4:34 PM EDT [facility] Comment:Neutrophils equals s egs plus bands IMMGRAN# 0.0 0.0 - 0.1 x10(3)/mcL 12/11/2024 4:34 PM EDT [facility] Comment:Automated count of m etamyelocytes, myelocytes and promyelocytes. An absolute IG <0.1 is reported as 0.0. Lymph # 1.5 1.2 - 3.9 x10(3)/mcL 12/11/2024 4:34 PM EDT [facility] Waller # 0.3 0.3 - 0.9 x10(3)/mcL 12/11/2024 4:34 PM EDT [facility] Eos# 0.1 0.0 - 0.5 x10(3)/[facility] 12/11/2024 4:34 PM EDT [facility] Baso # 0.1 0.0 - 0.1 x10(3)/[facility] 12/11/2024 4:34 PM EDT [facility] Blood VENOUS BLOOD / Unknown Venipuncture / Unknown 12/11/2024 8:06 AM EDT 12/11/2024 8:06 AM EDT us Le Blood PARK SERVICES SPECIALIST HEMATOLOGY ORDERABLES Fin al Result [facility], [address] , [place] [address] * THYROID STIMULATING HORMONE (12/11/2024 8:06 AM EDT) TSH 2.130 0.270 - 4.200 mcIU/mL 12/11/2024 3:16 PM EDT [facility] [employer] [facility] Blood VENOUS BLOOD / Unknown Venipuncture / Unknown 12/11/2024 8:06 AM EDT 12/11/2024 8:06 AM EDT Narrative [facility] [employer] [facility] - 12/11/2024 3:16 PM EDT Ingestion of mary jo doses of biotin (>5 mg/day) taken within 8 hours of drawing blood sample can interfere with this immunoassay test. [employer] PARK SERVICES SPECIALIST CHEMISTRY ORDERABLES Vesta l Result Performing Organization Address [facility] de Phone Number [facility] [employer] , [place] [address] * T4, FREE (THYROXINE) (12/11/2024 8:06 AM EDT) [facility] Free T4 1.30 0.80 - 1.80 ng/dL 12/11/2024 3:16 PM EDT [facility] [employer] [facility] Blood VENOUS BLOOD / Unknown Venipuncture / Unknown 12/11/2024 8:06 AM EDT 12/11/2024 8:06 AM EDT Narrative [facility] [employer] [facility] - 12/11/2024 3:16 PM EDT Ingestion of mary jo doses of biotin (>5 mg/day) taken within 8 hours of drawing blood sample can interfere with this immunoassay test. El S Blood PARK SERVICES SPECIALIST CHEMISTRY ORDERABLES Vesta l Result Performing Organization Address [facility] Co de Phone Number [facility] Owned [address] , [place] [address] * (ABNORMAL) LIPID SCREEN (12/11/2024 8:06 AM EDT) Pathologist [facility] [place] Cholesterol 154 <200 mg/dL 12/11/2024 3:16 PM EDT [facility] [employer] Comment: < 200 Desirable 200 - 239 Borderline High >= 240 High Triglyceride 213(H) <150 mg/dL 12/11/2024 3:16 PM EDT [employer] Comment: < 150 Normal 150 - 199 Borderline High 200 - 499 High >= 500 Very High HDL 36(L) >=40 mg/dL 12/11/2024 3:16 PM EDT [facility] [employer] Comment: > 60 Optimal 40 - 60 Acceptable < 40 Low LDL Calculated 82 <100 mg/dL 12/11/2024 3:16 PM EDT [facility] [employer] Comment: < 100 Optimal 100 - 129 Near or above optimal 130 - 159 Borderline High 160 - 189 High >= 190 Very High The National Institutes of Health (NIH) equation is used for all lipid panels that report calculated LDL (LDL-C). Non-HDL-C Calculated 118 <=129 mg/dL 12/11/2024 3:16 PM EDT [employer] Comment: <130 Desirable 130-159 Above Desirable 160-189 Borderline High 190-219 High >= 220 Very High Fasting Specimen? Yes None 025 3:16 PM EDT [facility] [employer] Blood VENOUS BLOOD / Unknown Venipuncture / Unknown 12/11/2024 8:06 AM EDT 12/11/2024 8:06 AM EDT us Le Blood PARK SERVICES SPECIALIST CHEMISTRY ORDERABLES Vesta l Result [facility] [employer] [address] [facility] , [place] [address] * SCANNED LABS (12/07/2024 3:27 PM EDT) Only the most recent of2 resultswithin the time period is included. 12/07/2024 3:27 PM EDT us Unknown Provider HEMATOLOGY ORDERABLES Final Res ult * MATERIALS ASSOCIATE CYTOLOGY REQUEST (PAP ONLY) (02/10/2021 10:09 AM EDT) CASE REPORT Gynecologic Cytology Report Case: [id number] Authorizing Provider: Jitendra Reyes, Collected: 02/10/2021 1009 DO Ordering Location: [facility] Received: 02/10/2021 1009 First Screen: Cordelia Freed CT Specimen: LIQUID-BASED PAP - CERVICAL/ENDOCERV ICAL, Cervix, Endocervical 02/15/2021 10:30 AM EDT [facility] PAP FINAL DIAGNOSIS Negative for intraepithelial lesion or malignancy 02/15/2021 10:30 AM EDT [facility] at 1030 EDT MICROSCOPIC DESCRIPTION Microscopic examination is performed and the findings corroborate the diagnosis. 02/15/2021 10:30 AM EDT [facility] PAP SMEAR ADEQUACY Satisfactory for evaluation 02/15/2021 10:30 AM EDT [facility] ENDOCERVICAL T-ZONE Transformation zone absent. This is not unusual in a woman 02/15/2021 10:30 AM EDT [facility] EMBEDDED IMAGES 10:30 AM EDT [facility] PAP DISCLAIMER The Pap Smear is a screening test that aids in the detection of cervical cancer and cancer precursors. Both false positive and false negative results can occur. The test should be used at regular intervals, and positive results should be confirmed before definitive therapy. Processed using the ThinPrep Dining Room Host/Hostess Automated cytology screening device (SpotH[employer]). 02/15/2021 10:30 AM EDT [facility] Thin Prep ENDOCERVICAL STRUCTURE / Unknown 02/10/2021 10:09 AM EDT 02/10/2021 10:09 AM EDT Jitendra Reyes DO CYTOLOGY ORDERABLES Final Result [facility] [address] [place] [address] * GC CHLAMYDIA THIN PREP (02/10/2021 10:09 AM EDT) Chlamydia trachomatis Not Detected Not Detected 02/11/2021 3:28 PM EDT PREFERRED [employer] Neisseria gonorrhoeae Not Detected Not Detected 02/11/2021 3:28 PM EDT [facility] [employer] [facility] Thin Prep SPECIMEN FROM UTERINE CERVIX / Unknown 02/10/2021 10:09 AM EDT 02/10/2021 10:09 AM EDT Narrative PREFERRED [employer] [facility] - 02/11/2021 3:28 PM EDT Testing methodology is superintendent quarry mediated amplification (TMA) using the Aptima Combo 2 assay from [employer]. A negative result does not completely rule out a Chlamydia trachomatis or Neisseria gonorrhoeae infection due to potential inhibitors or levels present below the limit of detection by this assay. Results are dependent on proper collection and transport of specimen. This test is indicated for medical purposes only and should not be used for legal or forensic purposes. The performance characteristics of this assay were validated by the testing laboratory. This assay is FDA cleared to test the following specimens: clinician-collected endocervical, vaginal, male urethral swab specimens, rectal swabs, and throat/pharyngeal swabs; patient collected vaginal specimens within a clinic setting; Thin Prep Specimens in [employer]; and first-stream, unpreserved male and female urine specimens. Detailed methodology is available upon request. Jitendra Reyes DO MICROBIOLOGY - GENER AL ORDERABLES Final Result PREFERRED [employer] [address], [address] [place] [id number] from Last 3 Months or Most Recently Relevant to Health Maintenance Insurance [employer] [place] MDR Advance Directives For more information, please contact: [phone] * Full Code (Latest Code Status on File) Date Activated Date Inactivated Comments 03/27/2024 7:51 PM 03/29/2024 3:54 PM * Full Code Date Activated Date Inactivated Comments 09/03/2021 3:18 AM 09/04/2021 5:24 PM * Full Code Date Activated Date Inactivated Comments 08/09/2021 6:23 AM 08/10/2021 9:19 PM * Full Code Date Activated Date Inactivated Comments 05/15/2019 2:00 PM 05/17/2019 8:30 PM Care Teams Security Business Analyst Relationship Specialty Start Date End Date Gareth Wheeler MD [address] [place] [address] PCP - General 03/01/09 Janeth Hester, TERADATA SOLUTION ARCHITECT Forest Supervisor 10/16/24
--- OUTSIDE RECORDS SUMMARY | 2025-02-16 10:40 | XMS_ITS | Encounter Summary ---
Author Organization [facility] Address [address] [place] [address] Phone Care Team Providers Care Test Designer Name Role Phone Bonita Frederick MD Primary Care Provider [phone] Reason for Referral * Radiology Services (Routine) - Closed Specialty Diagnoses / Procedures Referred By Contbreanne t Referred To Contact Procedures OB US STANDARD SECOND OR THIRD TRIMESTER HISTORICAL MED Referral ID Status Reason Start Date Expiration Date V isits Requested Visits Authorized [id number] Closed Specialty Services Required 02/20/2019 02/20/2020 150 150 Encounter Details Date Type Department Care Team (Late st Contact Info) Description 02/20/2019 SCAN [facility] [address] [place] [id number] Social History Tobacco Use Types Packs/Day Years [...] STANDARD SECOND OR THI RD TRIMESTER Routine 01/27/2019 documented in this encounter Results * OB US STANDARD SECOND OR THIRD TRIMESTER (01/27/2019) Anatomical Region Laterality Modality Abdomen, Pelvis Ultrasound us Historical Med OBUS Final Result documented in this encounter Visit Diagnoses Not on filedocumented in this encounter Care Teams Test Designer Relationship Specialty Start Date End Date Otoniel, Denia., MD PCP - General Obstetrics & Gynecology 01/08/19 documented as of this encounter
--- OUTSIDE RECORDS SUMMARY | 2025-02-16 10:40 | XMS_ITS | Clinical Summary ---
Author Organization [facility] Address [address] [place] [phone] Phone Care Team Providers Care Business Solutions Consultant Name Role Phone Bonita Frederick MD Primary Care Provider [phone] Social History Tobacco Use Types Packs/Day Years Used Date Smoking Tobacco: Never Assessed Comments Unknown Sex and Gender Information Value Date Recorded Sex Assigned at Not on file Legal Sex Female 4:30 PM EDT Gender Identity Not on file Sexual Orientation Not on file Plan of Treatment Health Maintenance Due Date Last Done Comments Pap Screening 12/26/2019 Influenza Vaccine (#1) 2025 02/28/2011 DTap,Tdap,and Td (8 - Td or Tdap) 03/03/2029 03/03/2019, 01/08/2010, 07/01/2003, Additional history exists RSV Vaccine (60+ or ) (1 - 1-dose 75+ series) 2073 HPV Completed 12/24/2015, 10/08/2012 Meningococcal conjugate valent 4 (MCV4) Aged Out 12/24/2015, 12/24/2015, 01/08/2010 No longer eligible based on patient's age to complete this topic Meningococcal B (MenB) Aged Out No lo nger eligible based on patient's age to complete this topic Pneumococcal 0-49 Aged Out No longer eligible based on patient's age to complete this topic RSV Immunization (<20 months) Aged Out No longer eligible based on patient's age to complete this topic Insurance * Guarantor: Rosalinda Boateng Account Type Relation to Patient Date of Phone Billing Address Personal/Family Self [address] [place] [address] [facility] Care Teams Business Solutions Consultant Relationship Specialty Start Date End Date Bonita Frederick MD PCP - General Obstetrics & Gynecology 01/08/19
--- OUTSIDE RECORDS SUMMARY | 2025-02-16 10:40 | XMS_ITS | Referral Summary ---
Author Organization [facility] Address [address] [place] [phone] Phone Care Team Providers Care Lending Manager Name Role Phone Bonita Frederick MD Primary Care Provider [phone] Social History Tobacco Use Types Packs/Day Years Used Date Smoking Tobacco: Never Assessed Comments Unknown Sex and Gender Information Value Date Recorded Sex Assigned at Not on file Legal Sex Female 4:30 PM EDT Gender Identity Not on file Sexual Orientation Not on file Plan of Treatment Not on file Insurance [facility] Care Teams Lending Manager Relationship Specialty Start Date End Date Bonita Frederick MD PCP - General Obstetrics & Gynecology 01/08/19
--- OUTSIDE RECORDS SUMMARY | 2025-02-16 10:40 | XMS_ITS | Encounter Summary ---
Author Organization [place] [address] Care Team Providers Care Flat Polisher Name Role Phone Gareth Wheeler MD Primary Care Provider Janeth Hester FILM SORTER Unavailable Unav ailable Encounter Details Date Type Department Care Team (Latest Contact Info) Description 12/15/2024 Results Follow-Up SEP [facility] [address] [place] [address] Le Blood, [facility] [address] [place] [address] CBC WITH DIFF, COMPREHENSIVE METABOLIC PANEL, LIPID SCREEN, Additional followed-up results: 3 Social History Tobacco Use Types Packs/Day Years Used Date Smoking Tobacco: Never Passive Smoke Exposure: Never Smokeless Tobacco: Never Alcohol Use Standard Drinks/Week Comments Not Currently 1 (1 standard drink = 0.6 oz pur e alcohol) every once and a while [facility] Utilities Answer Date Recorded In the [...] Date Recorded PHQ-2 Total Score 0 01/29/2025 [facility] - Occupational Stress [...] for daily living? No 09/05/2021 [facility] IP Transportation Answer D ate Recorded [...] your family down 0 01/29/2025 9:00 AM EDT Liset Lin Ma, RMA Trouble concentrating on things, such as reading the newspaper or watching television 0 01/29/2025 9:00 AM KBT Liset Lin Ma, RMA Moving or speaking so slowly that other people could have noticed. Or the opposite - being so fidgety or restless that you have been moving around a lot more than usual 0 01/29/2025 9:00 AM KBT Liset Lin RMA Thoughts that you would be better [...] 02/17/2025 8:45 AM EDT Office Visit [facility] [address] [facility] [place] [address] Gareth Wheeler MD [address] [place] [address] 02/18/2025 10:30 AM EDT Telemedicine [facility] [address] [place] [address] Chely Frazier, [address] [place] [address] 02/27/2025 9:30 AM EDT Office Visit [facility] [address] [place] [address] documented as of this encounter [...] on filedocumented in this encounter Care Teams Flat Polisher Relationship Specialty Start Date End Date Gareth Wheeler MD [address] [place] [id number] PCP - General 03/01/09 Janeth Hester, FILM SORTER Mud Mixer 10/16/24 documented as of this encounter
--- OUTSIDE RECORDS SUMMARY | 2025-02-16 10:40 | XMS_ITS | Encounter Summary ---
Author Organization [facility] Address [address] [place] [address] Phone Care Team Providers Care Fruit Or Nut Crops Farm Manager Name Role Phone Bonita Frederick MD Primary Care Provider [phone] Reason for Referral * Radiology Services (Routine) - Closed Specialty Diagnoses / Procedures Referred By Contbreanne t Referred To Contact Procedures OB US STANDARD SECOND OR THIRD TRIMESTER HISTORICAL MED Referral ID Status Reason Start Date Expiration Date V isits Requested Visits Authorized [id number] Closed Specialty Services Required 01/10/2019 01/10/2020 150 150 Encounter Details Date Type Department Care Team (Late st Contact Info) Description 01/10/2019 SCAN [facility] [address] [place] [phone] Social History Tobacco Use Types Packs/Day Years [...] STANDARD SECOND OR THI RD TRIMESTER Routine 01/06/2019 documented in this encounter Results * OB US STANDARD SECOND OR THIRD TRIMESTER (01/06/2019) Anatomical Region Laterality Modality Abdomen, Pelvis Ultrasound us Historical Med OBUS Final Result documented in this encounter Visit Diagnoses Not on filedocumented in this encounter Care Teams Fruit Or Nut Crops Farm Manager Relationship Specialty Start Date End Date Bonita Frederick MD PCP - General Obstetrics & Gynecology 01/08/19 documented as of this encounter
--- NOTE | 2025-02-16 10:46 | CT_ITS ---
FINAL REPORT TECHNIQUE: Thin section axial images are obtained through the abdomen and pelvis after intravenous contrast. Reconstruction images were obtained from the axial data. Exam was performed using dose reduction techniques. CLINICAL HISTORY: left back and abdominal pain FINDINGS: LUNG BASES: Lung bases are clear. Heart size is normal. LIVER: Homogeneous. No focal lesion. GALLBLADDER/BILIARY SYSTEM: Gallbladder is absent. No biliary dilatation. SPLEEN: Unremarkable. PANCREAS: Unremarkable. ADRENALS: Unremarkable. KIDNEYS/URETERS/BLADDER: No hydronephrosis, renal mass, or renal stone. Unremarkable urinary bladder. GI TRACT: No small bowel obstruction or dilatation. There is an appendicolith at the base of the appendix. Appendix is otherwise normal. No acute colon abnormality. PELVIC ORGANS: Unremarkable for age. LYMPH NODES/RETROPERITONEUM/MESENTERY: No lymphadenopathy. No abdominal aortic aneurysm. ABDOMINAL WALL: The abdominal wall is intact. FREE FLUID: No ascites. BONES: No acute osseous abnormality. IMPRESSION: No CT evidence of acute intra-abdominal or intrapelvic abnormality. Reviewed, Interpreted and Dictated by Montserrat Coles MD Transcribed by Shu Bush Authenticated and [facility]
--- NOTE | 2025-02-16 10:48 | ED_ITS ---
<Statement entered by Caden Sheppard MD - 02/16/25 19:04> I was consulted by the EULALIA, and we discussed the complexity of the problems being addressed. I approve the treatment and management plan for this patient's care in the emergency department, thus performing a substantive portion of the medical decision making. Caden Sheppard MD Discharge Plan Disposition Patient Disposition: Home, Self-Care Prescriptions Prescriptions: No Action buspirone 10 mg tablet 10 mg PO DAILY Patient Comments: TAKE 1 TABLET BY MOUTH 2 TIMES DAILY. Rx Instructions: ! tablet by mouth once a day pantoprazole 40 mg tablet,delayed release (DR/EC) 40 mg PO DAILY Patient Comments: TAKE 1 TABLET BY MOUTH DAILY. Rx Instructions: TAKE 1 TABLET BY MOUTH DAILY. amitriptyline 10 mg tablet 10 mg PO HS PRN (Reason: bp) Patient Comments: TAKE 1 TABLET BY MOUTH NIGHTLY NEEDED FOR SLEEP. Trintellix 10 mg tablet 10 mg PO DAILY Patient Comments: TAKE 1 TABLET BY MOUTH DAILY. Linzess 145 mcg capsule 145 mcg PO DAILY Qty: 30 12RF Rx Instructions: Please take 1 capsule by mouth every morning Referrals Follow up/Referrals: Le Ashford DO [Staff Physician, EMERGENCY VETERINARY TECHNICIAN] - See instructions Le Blood APRN [Primary Care Provider, Medical] - See instructions Activity Restrictions/Add. Instructions Additional Instructions/Restrictions: Please make appointment with Dr. Ashford. Drink lots of fluids and rest. May take ibuprofen or Tylenol for pain. If symptoms do not improve please return to the ED or call PCP. Clinical Impressions Clinical Impression: Abdominal pain Instructions Patient Instructions: DI for Acute Abdominal Pain Print Language Print Language: Icelandic Discharge ED Provider: Caden Sheppard General Adult HPI General Chief complaint: Abdominal Pain Stated complaint: abd pain Time Seen by Provider: 02/16/25 10:37 History of Present Illness HPI narrative: 24-year-old female presents to the ED today complaining of left lower abdominal pain, left side pain, pain along the top of the vagina and left lower pelvis. She did start spotting this morning when she was urinating. She has some increased urination. She has had some diarrhea but no vomiting and had some nausea. She says the pain is 6-1/2 to 7 out of 10 that is constant. It did start yesterday and it was not constant. But today it has been more constant. She has had some low back pain that has not been as bad. She also says she has had a cough and she has an appointment for that tomorrow. She has no history of stones. She did call the OB office for an appointment but they told her to come to the ED. She is concerned about torsion as her friend had torsion. No fevers. She has had hot flashes. She tells me she has had a tubal. No other associated signs or symptoms. Related Data Home Medications ?Medication ?Instructions ?Recorded ?Confirmed buspirone 10 mg tablet 10 mg PO DAILY 09/03/2411/09 pantoprazole 40 mg tablet,delayed 40 mg PO DAILY Heart burn 09/03/24 11/24/24 release amitriptyline 10 mg tablet 10 mg PO HS PRN bp 11/05/24 11/24/24 vortioxetine 10 mg tablet 10 mg PO DAILY 11/05/2411/09 (Trintellix) Previous Rx's ?Medication ?Instructions ?Recorded linaclotide 145 mcg capsule 145 mcg PO DAILY #30 caps 11/24/24 (Linzess) Allergies Allergy/AdvReac Type Severity Reaction Status Date / Time duloxetine (From Cymbalta) Allergy Mild Headache Verified 11/24/24 09:35 sumatriptan (From Imitrex) Allergy Mild Headache Verified 11/24/24 09:35 [facility] Disclaimer: The information contained in this section may have been updated after the patient was seen, as this information can be updated by other users. Medical History Breast pain, left Acid reflux Anxiety History of gastroesophageal reflux (GERD) Palpitations Right ventricular dysfunction PVC (premature ventricular contraction) Ventricular bigeminy Encounter for pre-operative cardiovascular clearance Abnormal electrocardiogram [ECG] [EKG] Morbid obesity with BMI of 45.0-49.9, adult Dysmenorrhea Menorrhagia Asthma History of bipolar disorder Depression Anxiety Scoliosis Degenerative disc disease Irritable bowel syndrome (IBS) Hypothyroid Allergies Enlarged heart Heart murmur History of anemia Cholecystectomy planned Surgical History H/O cardiac radiofrequency ablation History of endometrial ablation H/O wisdom tooth extraction History of cholecystectomy History of tonsillectomy History of salpingectomy History of tonsillectomy and adenoidectomy [place] teeth extracted Family History Father History of liver disease Father Heart attack Brother Testicular cancer Grandmother Lung cancer Social History Smoking Status: Never smoker alcohol intake: never substance use type: denies use current occupational status: unemployed Travel in the last 8 weeks?: None Have you lived/traveled outside US in past 30 days?: No Contact w/someone who lives/traveled outside US past 30 days?: No Exposure to someone with infectious disease in past 14 days?: No Do you have a fever (greater than 100.4 F or 38 C)?: No Have you tested positive for COVID-19?: No Exposed to someone with COVID-19 in past 14 days?: No Do you have a sore throat?: No Do you have a cough?: No Do you have any weakness?: No Do you have any diarrhea?: No Are you experiencing any unusual bleeding?: No Do you have any muscle aches/pain?: No Do you have any abdominal pain?: Yes Are you experiencing loss of taste or smell?: No Other Medical History Have you received the Flu Vaccine for this season: Yes Have you received the Pneumonia Vaccine: No ROS Obtained: Yes Systems reviewed as appropriate & no additional complaints except as documented Constitutional Constitutional: Reports as per HPI Physical Exam General General appearance: alert and in no apparent distress Head Head exam: normocephalic Eye Eye exam: Present PERRL and EOMI ENT ENT exam: Present normal oropharynx and mucous membranes moist Neck Neck exam: Present full ROM and trachea midline Respiratory Respiratory exam: Present normal lung sounds bilaterally Cardiovascular Cardiovascular exam: Present regular rate, normal rhythm, normal heart sounds, +S1 and +S2 Abdominal Exam Abdominal exam: Present soft and normal bowel sounds Abdominal tenderness: Present LLQ and suprapubic Extremities Exam Extremities exam: Present full ROM and normal capillary refill Back Exam Back exam: Present normal inspection Neurological Exam Neurological exam: Present alert, oriented X3 and normal gait Skin Skin exam: Present warm, dry and intact Medical Decision Making Medical Records Screening: Per USPSTF and CDC recommendations, given the prevalence of disease in our region, it is our hospital?s policy to screen for HIV and viral Hepatitis for all patients aged 18 and over and those with ongoing risk factors. Narinder Inquiry Pt receiving controlled substance: No Narinder was queried for this patient: No Vital Signs: 02/16/25 10:41 02/16/25 10:44 02/16/25 11:01 Temperature 98.4 F Temperature Source Oral Pulse Rate 93 H 78 Pulse Rate [Right Radial] 89 Respiratory Rate 18 15 17 Blood Pressure 134/92 H 117/73 Blood Pressure [Right Arm] 134/92 H Blood Pressure Mean [Right Arm] 106 Blood Pressure Source Blood Pressure Source [Right Arm] Automatic Cuff Blood Pressure Position Blood Pressure Position [Right Arm] Sitting 02 Sat by Pulse Oximetry 100 100 99 Oxygen Delivery Method Room Air 02/16/25 12:00 02/16/25 12:31 02/16/25 13:01 Temperature Temperature Source Pulse Rate 62 79 76 Pulse Rate [Right Radial] Respiratory Rate 18 Blood Pressure 130/65 136/79 139/91 H Blood Pressure [Right Arm] Blood Pressure Mean [Right Arm] Blood Pressure Source Blood Pressure Source [Right Arm] Blood Pressure Position Blood Pressure Position [Right Arm] 02 Sat by Pulse Oximetry 100 97 98 Oxygen Delivery Method Room Air 02/16/25 13:53 Temperature 98.4 F Temperature Source Oral Pulse Rate 73 Pulse Rate [Right Radial] Respiratory Rate 15 Blood Pressure 139/91 H Blood Pressure [Right Arm] Blood Pressure Mean [Right Arm] Blood Pressure Source Automatic Cuff Blood Pressure Source [Right Arm] Blood Pressure Position Supine Blood Pressure Position [Right Arm] 02 Sat by Pulse Oximetry Oxygen Delivery Method Room Air Lab Data Lab Results 02/16/25 10:39: Urine Color Yellow, Urine Appearance Clear, Urine pH 6.0, Ur Specific Alvo 1.010, Urine Protein Negative, Urine Glucose (UA) Negative, Urine Ketones Negative, Urine Blood Negative, Urine Nitrate Negative, Urine Bilirubin Negative, Urine Urobilinogen 0.2, Ur Leukocyte Esterase Negative, Urine RBC None, Urine WBC None, Ur Squamous Epith Cells 5-10, Urine Bacteria 1+, Urine HCG, Qual Negative 02/16/25 10:41: SARS-CoV-2 (PCR) Not detected, Influenza A Untype (PCR) Not detected, Influenza Type B (PCR) Not detected 02/16/25 10:45: WBC 7.8, RBC 4.97, Hgb 13.7, Hct 42.6, MCV 85.7, MCH 27.6, MCHC 32.2, RDW 12.9, Plt Count 243, MPV 9.6, Neut % (Auto) 76.3, Lymph % (Auto) 18.2, Tyler % (Auto) 3.9, Eos % (Auto) 0.8, Baso % (Auto) 0.5, Neut # (Auto) 5.9, Lymph # (Auto) 1.4, Tyler # (Auto) 0.3, Eos # (Auto) 0.1, Baso # (Auto) 0.0, Sodium 139, Potassium 3.8, Chloride 104, Carbon Dioxide 28, Anion Gap 10.8, BUN 8, Creatinine 0.60, Estimated Creat Clear 128, Estimated GFR 121, Est GFR ( Amer) 146, Glucose 87, Calcium 9.6, Magnesium 2.1, Total Bilirubin 0.6, AST 38 H , ALT 30, Alkaline Phosphatase 91, Total Protein 8.3 H, Albumin 4.8, Globulin 3.5 H, Albumin/Globulin Ratio 1.4, Lipase 86, HCV Ab BYRON w/Rflx PCR Qn Negative, HIV Ag/Ab Combo Qual Negative 02/16/25 10:45 02/16/25 10:45 Orders (Tests/Meds): ED MEDICATIONS Discontinued Medications Generic Name Dose Route Start Last Admin Trade Name Freq PRN Reason Stop Dose Admin Acetaminophen 1,000 mg 02/16/25 10:44 02/16/25 10:54 Acetaminophen 1,000mg/100ml Vial IV 02/16/25 10:45 1,000 mg ONCE ONE Administration Iopamidol 75 ml 02/16/25 11:46 02/16/25 11:47 Iopamidol-370 (76%);100ml Bottle IV 02/16/25 11:47 75 ml ONCE ONE Administration Ketorolac Tromethamine 30 mg 02/16/25 10:44 02/16/25 10:54 Ketorolac 30mg/Ml Vial IV 02/16/25 10:45 30 mg ONCE ONE Administration Sodium Chloride 10 ml 02/16/25 11:46 02/16/25 11:47 Sodium Chloride 0.9% 10ml Syr (Rad Only) IV 02/16/25 11:47 10 ml ONCE ONE Administration ORDERS Category Date Time Status CT abdomen pelvis w con Stat Cat Scan 02/16/25 10:46 Completed US transvaginal Stat Exams 02/16/25 10:51 Completed CBC [Complete Blood Count Auto Diff] Stat Lab 02/16/25 10:45 Completed Comprehensive Metabolic Panel Stat Lab 02/16/25 10:45 Completed HIV Combo Stat Lab 02/16/25 10:45 Completed Hepatitis C Ab Qual. W/ RFX Stat Lab 02/16/25 10:45 Completed Lipase Stat Lab 02/16/25 10:45 Completed Magnesium Stat Lab 02/16/25 10:45 Completed Rapid PCR Covid and Flu A/B Stat Lab 02/16/25 10:41 Completed Urinalysis and Microscopic Stat Lab 02/16/25 10:39 Completed Urine , HCG Qual. Stat Lab 02/16/25 10:39 Completed Medical Decision Narrative: patient is a 24-year-old female presenting to the emergency department for evaluation of left lower quadrant pain and pelvic pain. Patient is hemodynamically stable and nontoxic-appearing upon arrival, afebrile. Differential diagnosis includes ovarian torsion, diverticulitis, gastroenteritis, colitis, viral illness, among others. Workup will be conducted with hematologic labs, specific imaging. Initial inventions include crystalloid bolus, analgesics. Initial workup reviewed by mt hematologic labs are nonactionable. Preliminary report for CT scan shows no evidence of acute intra-abdominal or intrapelvic abnormality. The ultrasound showed no evidence of torsion. Discussed this with patient that she needs to make appointment with [facility]. Patient is safe for discharge home. Critical Care Critical Care Time Critical Care Time: No
[2025-02-16 10:49] LABS: Microscopic, Urine URINE MICROSCOPIC (MICROSCOPIC)
--- NOTE | 2025-02-16 10:51 | US_ITS ---
PROCEDURE INFORMATION: Exam: US Pelvis, Transvaginal, Non-Obstetric Exam date and time: 02/16/2025 11:00 AM Age: 24 years old Clinical indication: Llq and pelvic pain-- btl--ablation; Additional info: R/O ovarian torsion TECHNIQUE: Imaging protocol: Real-time transvaginal pelvic (non-obstetric) ultrasound with image documentation. Transvaginal imaging was used for better evaluation of the endometrium, adnexa, and/or cervix. COMPARISON: US TRANSVAGINAL 01/02/2024 1:55 PM FINDINGS: Uterus: The uterus is normal measuring 7.4 x 3.6 x 4.6 cm. The endometrium is normal measuring 5.8 mm. Small nabothian cysts. Right ovary/adnexa: The right ovary is normal measuring 1.9 x 1.5 x 1.2 cm. Normal flow is noted in the right ovary. Left ovary/adnexa: The left ovary is normal measuring 2 x 1.6 x 1.4 cm. Normal flow is noted in the left ovary. Urinary bladder: Urinary bladder is limited. Intraperitoneal space: No free fluid. IMPRESSION: No acute findings.
[2025-02-16 10:52] LABS: Hematocrit 42.6 % (37.0-47.0); Hemoglobin 13.7 g/dL (12.2-16.2); Immature Granulocytes % 0.3 %; Mean Corpuscular HGB Conc 32.2 g/dL (31.8-35.4); Mean Corpuscular Hemoglobin 27.6 pg (27.0-31.2); Mean Corpuscular Volume 85.7 fl (81-99); Nucleated Red Blood Cells % 0 %; Platelet Count 243 K/mm3 (142-424); Red Blood Count 4.97 M/mm3 (4.20-5.40); Red Cell Distribution Width-SD 39.9 fL; White Blood Count 7.8 K/mm3 (4.8-10.8)
[2025-02-16 10:54] LABS: Bilirubin,Urine Negative (Negative); Color,Urine YELLOW (Yellow); Glucose,Urine (UA) Negative (Negative); Ketones,Urine Negative (Negative); Leukocyte Esterase,Urine Negative (Negative); PH,Urine 6.0 (5.0-8.5); Protein,Urine Negative (Negative); Urobilinogen,Urine 0.2 EU/dl (0.2)
[2025-02-16] MEDS: KETOROLAC 30MG/ML VIAL 30 MG IV (10:54)
[2025-02-16] MEDS: ACETAMINOPHEN 1,000MG/100ML VIAL 1000 MG IV (10:54)
[2025-02-16 10:55] LABS: Specific Gravity, Urine 1.010 (1.005-1.030)
[2025-02-16 10:55] LABS: Coronavirus 19, PCR Not Detected (NotDetected); Influenza A, PCR Not Detected (NotDetected); Influenza B, PCR Not Detected (NotDetected)
[2025-02-16 10:57] LABS: Urine Pregnancy, HCG Qual. Negative (Negative)
[2025-02-16 11:01] LABS: Alanine Aminotransferase 30 U/L (12-78); Albumin Level 4.8 g/dl (3.5-5.0); Albumin/Globulin Ratio 1.4 (1.1-1.8); Alkaline Phosphatase 91 U/L (38-126); Anion Gap 10.8 mEq/L (5-15); Aspartate Amino Transferase 38 U/L (14-36); Bilirubin,Total 0.6 mg/dl (0.2-1.3); Blood Urea Nitrogen 8 mg/dl (7-17); Calcium 9.6 mg/dl (8.4-10.2); Carbon Dioxide 28 mmol/L (22.0-30.0); Chloride 104 mmol/L (98-107); Creatinine Clearance Estimated 128 mL/min (50-200); Creatinine,Serum 0.60 mg/dl (0.52-1.04); Estimated Glomerular Filt Rate 121 ml/min (>60); GFR (African American) 146 ML/MIN (>60); Globulin 3.5 g/dL (1.3-3.2); Glucose 87 mg/dl (74-100); Lipase 86 U/L (23-300); Magnesium 2.1 mg/dl (1.6-2.3); Potassium 3.8 mmoL/L (3.5-5.1); Sodium 139 mmol/L (136-145); Total Protein,Serum 8.3 g/dl (6.3-8.2)
--- NOTE | 2025-02-16 11:05 | PC.NURSE ---
PT TO US
[2025-02-16 11:30] LABS: Bacteria,Urine 1+ /lpf
--- NOTE | 2025-02-16 11:36 | PC.NURSE ---
PT RETURNED FROM US
--- NOTE | 2025-02-16 11:44 | PC.NURSE ---
PT TO CT
[2025-02-16] MEDS: IOPAMIDOL-370 (76%);100ML BOTTLE 75 ML IV (11:47)
[2025-02-16] MEDS: SODIUM CHLORIDE 0.9% 10ML SYR (RAD ONLY) 10 ML IV (11:47)
--- NOTE | 2025-02-16 11:50 | PC.NURSE ---
PT RETURNED FROM CT
[2025-02-16 12:01] LABS: Hepatitis C Ab Qual. W/ RFX NEGATIVE (Negative)
== END 2025-02-16 13:57 | disposition home or self-care (01) ==
PROVIDERS: Nurse Practitioner; Emergency Provider Student in an Organized Health Care Education/Training Program; PCP Nurse Practitioner
DX: R10.32 Left lower quadrant pain (principal); K21.9 Gastro-esophageal reflux disease without esophagitis; E66.01 Morbid (severe) obesity due to excess calories
CPT/HCPCS: 74177; 76830; 80053; 81001; 81025; 83690; 83735; 85025; 86803; 87389; 87636; 96374; 96375; 99285; J0131; J1885; Q9967

== ENCOUNTER 2025-05-12 09:58 | Outpatient (CLI) | payer OTHER, SELFPAY ==
--- OUTSIDE RECORDS SUMMARY | 2022-10-10 08:20 | XMS_ITS | Encounter Summary ---
Author Organization [place] [address] Support Name Relationship Address Phone Juma Bear Emergency Contact [address] [place] [address] Mecheleelee Jones Emergency Contact [address] [address] Jose Nate Emergency Contact [address] [place] [address] Vicenta Boateng Emergency Contact Unknown Kvng Kilo Personal Relationship [address] [place], [place] Care Team Providers Care Wood Shingle Roofer Name Role Phone Gareth Wheeler MD Primary Care Provider [phone] Encounter Details Date Type Department Care Team (Late st Contact Info) Description 10/10/2022 9:20 AM EDT Hospital Encounter [facility] [address] [place] [address] Le Blood, CUT OUT MARKER [address] [place] [address] Left without seen Social History Tobacco Use Types Packs/Day Years Used Date Smoking Tobacco: Never Passive Smoke Exposure: Never Smokeless Tobacco: Never Alcohol Use Standard Drinks/Week Comments Not Currently 1 (1 standard drink = 0.6 oz pur e alcohol) rarely [facility] Utilities Answer Date Recorded In the past 12 months has [employer], gas, oil, or water [employer] threatened to shut off services in your home? No 03/27/2024 Overall Financial Resource Strain (CARDIA) Answe r Date Recorded How hard is it for you to pa y for the very basics like food, housing, medical care, and heating? Not very hard 03/27/2024 PHQ-2 Answer Date Recorded PHQ-2 Total Score 0 01/29/2025 [facility]at [facility] - Occupational Stress Questionnaire Answer Date [...] things needed for daily living? No 09/05/2021 [facility] IP Transportation Answer D ate Recorded In [...] Author No 10/10/2022 10:16 AM Angelito Meredith, MICROSOFT BI ARCHITECT * Does this person have serious difficulty walking or climbing stairs? Answer Date of Assessment Author No 10/10/2022 10:16 AM Angelito Meredith, MICROSOFT BI ARCHITECT * Does this person have difficulty dressing or bathing? Answer Date of Assessment Author No 10/10/2022 10:16 AM Angelito Meredith, MICROSOFT BI ARCHITECT * Because of a physical, mental or emotional condition, does this person have difficulty doing errands alone such as visiting a doctor's office or shopping? Answer Date of Assessment Author No 10/10/2022 10:16 AM Angelito Meredith, MICROSOFT BI ARCHITECT * PHQ-2 Total Score Answer Date of [...] making decisions? No 11/14/2024 10:03 AM Liset Ventura ae, RMA * Because of a physical, mental or emotional condition, does this person have serious difficulty concentrating, remembering or making decisions? Answer Entry Date Author No 10/10/2022 10:16 AM EDT Angelito Martinez, LENKA documented in this encounter Plan of Treatment Upcoming Encounters Date Type Department Care Team (Late st Contact Info) Description 05/27/2025 10:00 AM EST Telemedicine [facility] [address] [place] [address] 06/01/2025 12:00 PM EST Office Visit [facility] [address] [place] [address] Pretty Vargas APRN [address] [place] [phone] 06/02/2025 1:15 PM EST Office Visit [facility] [address] [place] [address] Noel Burnett MD [address] [place] [address] 06/18/2025 10:00 AM EST Office Visit [facility] [address] [place] [address] 06/22/2025 1:45 PM EST Office Visit [facility] [address] [place] [address] Hakeem Diana MD [address] [place] [phone] documented as of this encounter Goals Goal [...] documented as of this encounter Care Teams Wood Shingle Roofer Relationship Specialty Start Date End Date Gareth Wheeler MD [address] [place] [address] PCP - General 03/01/09 documented as of this encounter
--- OUTSIDE RECORDS SUMMARY | 2023-01-11 11:10 | XMS_ITS | Encounter Summary ---
Author Organization [place] [address] Support Name Relationship Address Phone Juma Bear Emergency Contact [address] [place] [address] Mecheleelee Jones Emergency Contact [address] [address] Jose Nate Emergency Contact [address] [place] [address] Vicenta Boateng Emergency Contact Unknown [phone] Kvng Kilo Personal Relationship [address] [place], [place] Care Team Providers Care Keyseating Machine Set Up Operator Name Role Phone Gareth Wheeler MD Primary Care Provider [phone] Encounter Details Date Type Department Care Team (Latest Contact Info) Description 01/11/2023 12:10 PM EDT Hospital Encounter [facility] [address] [place] [address] Left without seen Social History Tobacco Use Types Packs/Day Years Used Date Smoking Tobacco: Never Passive Smoke Exposure: Never Smokeless Tobacco: Never Alcohol Use Standard Drinks/Week Comments Not Currently 1 (1 standard drink = 0.6 oz pur e alcohol) rarely [facility] Utilities Answer Date Recorded In the [...] Date Recorded PHQ-2 Total Score 0 01/29/2025 [facility] of Occupat ional Health - Occupational Stress [...] things needed for daily living? No 09/05/2021 [facility] IP Transportation Answer D ate Recorded In [...] overeating 0 01/29/2025 9: 00 AM EDLiset Zepeda RMA Feeling bad about yourself - or [...] in some way 0 01/29/2025 9:00 AM EDLiset Zepeda ae, RMA * PHQ-2 Total Score Answer [...] Telemedicine [facility] [address] [place] [address] 06/01/2025 12:00 PM EST Office Visit [facility] [address] [place] [address] Pretty Vargas APRN [address] [place] [address] 06/02/2025 1:15 PM EST Office Visit [facility] [address] [place] [address] Noel Burnett MD [address] [place] [address] 06/18/2025 10:00 AM EST Office Visit [facility] [address] [place] [address] 06/22/2025 1:45 PM EST Office Visit [facility] [address] [place] [address] Hakeem Diana MD [address] [place] [address] [place] [phone] documented as of this encounter Goals [...] documented as of this encounter Care Teams Keyseating Machine Set Up Operator Relationship Specialty Start Date End Date Gareth Wheeler MD [address] [place] [address] PCP - General 03/01/09 documented as of this encounter
--- OUTSIDE RECORDS SUMMARY | 2025-03-13 13:45 | XMS_ITS | Encounter Summary ---
Author Organization [place] [address] Support Name Relationship Address Phone Juma Bear Emergency Contact [address] [place] [address] Meche Jones Emergency Contact [address] [address] Jose Nate Emergency Contact [address] [place] [address] Vicenta Boateng Emergency Contact Unknown Kvng Kilo Personal Relationship [address] [place] Care Team Providers Care Metal Off Bearer Name Role Phone Gareth Wheeler MD Primary Care Provider [phone] Janeth Hester DUMPCART DRIVER Unavailable Unav ailable Encounter Details Date Type Department Care Team (Late st Contact Info) Description 03/13/2025 2:45 PM EDT Telemedicine [facility] [address] [place] [address] Le Blood, DIGITAL COLOR PRESS OPERATOR [address] [place] [address] Weight gain (Primary Dx); Swelling Social History Tobacco Use Types Packs/Day Years Used Date Smoking Tobacco: Never Passive Smoke Exposure: Never Smokeless Tobacco: Never Alcohol Use Standard Drinks/Week Comments Not Currently 1 (1 standard drink = 0.6 oz pur e alcohol) every once and a while [facility] Utilities Answer Date Recorded In the [...] Date Recorded PHQ-2 Total Score 0 01/29/2025 [facility] - Occupational Stress Questionnaire Answer Date [...] things needed for daily living? No 09[facility]05/2021 [facility] [address] IP Transportation Answer D ate Recorded [...] Refills Last Filled Start Date End Date hydroCHLOROthiazid e (MICROZIDE) 12.5 mg Oral CapsuleIndications :Weight gain,Swelling Take 1 Capsule by mouth daily. 30 Capsule 2 03/13/2025 documented in this encounter Progress Notes * Le Blood APRN - 03/13/2025 2:45 PM EDT Patient presented today for routine care follow-up through a video visit. Patient has reviewed the terms and conditions of service as part of the registration for today's visit. A video visit does not replace a [id number] exam and further services may be necessary. We are conducting her video visit in a private space and this video visit is being conducted in accordance with critical access hospital telehealth/video visit regulations. HPI: States is having rapid weight gain. Gaining 5-10 pounds a week. Has to have hysterectomy, having hormonal issues, cramping. Scheduled for May 18 at [facility]. Worried about rapid weight gain. States is now weighing 312 lb. Is in weight management program. Is eating 7189-7190 calories. Is up and moving. ? Having some swelling. Review of Systems Constitutional: Negative. HENT: Negative. Gastrointestinal: Positive for abdominal pain. Exam: Constitutional: NAD, appropriately groomed. Appears comfortable. HENT: No gross deformities. Voice normal. No facial swelling noted. Eyes: Extra occular movements grossly intact. Visible portions of the eyes appear normal. No redness or discharge visible via casual video inspection. Cardiopulmonary: Does not appear in cardiopulmonary distress. Easy respirations w/o labored breathing. No audible gross wheezing or breathlessness. Neuro: Alert and oriented. Conversational. No gross deficits or facial droop appreciated on video evaluation. Psych: Appropriate mood and affect. Normal conversation and thought content. Assessment Diagnoses and all orders for this visit: Weight gain - hydroCHLOROthiazide (MICROZIDE) 12.5 mg Oral Capsule; Take 1 Capsule by mouth daily. Dispense: 30Capsule; Refill: 2 Swelling - hydroCHLOROthiazide (MICROZIDE) 12.5 mg Oral Capsule; Take 1 Capsule by mouth daily. Dispense: 30Capsule; Refill: 2 documented in this encounter Plan of Treatment Upcoming Encounters Date Type Department Care Team (Late st Contact Info) Description 05/27/2025 10:00 AM EST Telemedicine [facility] [address] [place] [address] 06/01/2025 12:00 PM EST Office Visit [facility] [address] [place] [address] Pretty Vargas APRN [address] [place] [address] 06/02/2025 1:15 PM EST Office Visit [facility] [address] [place] [address] Noel Burnett MD [address] [place] [address] 06/18/2025 10:00 AM EST Office Visit [facility] [address] [place] [address] 06/22/2025 1:45 PM EST Office Visit [facility] [address] [place] [address] Hakeem Diana MD [address] [place] [phone] documented as of this encounter Goals [...] as of this encounter Visit Diagnoses Diagnosis Weight gain- Primary Abnormal weight gain Swelling Edema documented in this encounter Care Teams Metal Off Bearer Relationship Specialty Start Date End Date Gareth Wheeler MD [address] [place] [address] PCP - General 03/01/09 Janeth Hester, TRE Ground Service Equipment Mechanic 10/16/24 documented as of this encounter
--- OUTSIDE RECORDS SUMMARY | 2025-03-24 09:00 | XMS_ITS | Encounter Summary ---
Author Organization [facility] [place] [address] Support Name Relationship Address Phone Juma Bear Emergency Contact [address] [place] [address] Meche Jones Emergency Contact [address] [address] Jose Nate Emergency Contact [address] [place] [address] Vicenta Boateng Emergency Contact Unknown [phone] Kvng Kilo Personal Relationship [address] [place] Care Team Providers Care Registered Nurse Surgical Services Name Role Phone Gareth Wheeler MD Primary Care Provider [phone] Janeth Hester CRANE RIGGER Unavailable Unav ailable Reason for Visit * Reason Comments Diet Trial 10/14 Encounter Details Date Type Department Care Team (Late st Contact Info) Description 03/24/2025 10:00 AM EDT Office Visit [facility] [address] [place] [address] Andreia Love, VB DEVELOPER [address] [facility] [place], [place] [id number] Morbid obesity with BMI of 50.0-59.9, adult (HCC) (Primary Dx) Social History Tobacco Use Types Packs/Day Years Used Date Smoking Tobacco: Never Passive Smoke Exposure: Never Smokeless Tobacco: Never Tobacco Cessation:Counseling Given: Not Answered Alcohol Use Standard Drinks/Week Comments Not Currently [...] Date Recorded PHQ-2 Total Score 0 01/29/2025 [facility] [place] [facility] - Occupational Stress [...] things needed for daily living? No [facility] IP Transportation Answer D ate [...] Sign Reading Time Taken Comments Blood Pressure 134/82 03/24/2025 9:53 AM EDT Pulse 96 03/24/2025 9:53 AM EDT Temperature - - Respiratory Rate - - Oxygen Saturation 99% 03/24/2025 9:53 AM EDT Inhaled Oxygen Concentration - - Weight 140.4 kg (309 lb 9.6 oz) 03/24/2025 9:53 AM EDT Height 162.6 cm (5' 4 ) 03/24/2025 9:53 AM EDT Body Mass Index 53.14 03/24/2025 9:53 AM EDT documented in this encounter Functional Status * Is the person deaf or does he/she have serious difficulty hearing? Answer Date of Assessment Author No 11/14/2024 10:03 AM EDLiset Zepeda RMA * Is the person blind or [...] documented in this encounter Progress Notes * Andreia Love, HIGINIO - 03/24/2025 10:00 AM EDT PRE-OPERATIVE DIET TRIAL Month # 5 of 6 Type of Surgery Planned: Sleeve Gastrectomy Surgeon: Naima Start Weight: 296.4 pounds gain 13.2 lbs. since starting program. Weight Change Since Last Visit: gain 6.2 lbs. SUBJECTIVE Any Health Problems Since Last Visit? yes, recently started Hctz and Vitamin D. Has a hysterectomy scheduled for 05/18/2025. What diet plan are you currently prescribed?: Portioned Plate Diet Did you follow your recommended diet plan this month? yes If not, what type of dietary plan are you following, and why? Did you journal? yes Did you bring your journal for review? yes Did You Exercise? yes How much? walking a half a mile to a mile and heavy lifting. Fitness Goal: Aerobic 30 minutes/day 5 days/week, to include 10,000 steps daily at least 5 days perweek. Are you smoking or using nicotine? no Have you eliminated carbonated drinks? yes Do you drink alcohol? no If yes, how many drinks per day / week? REVIEW OF SYSTEMS: Review of Systems Constitutional: Positive for fever. Negative for chills and malaise/fatigue. HENT: Negative for congestion and sore throat. Respiratory: Negative for cough, shortness of breath and wheezing. Cardiovascular: Positive for leg swelling. Negative for chest pain and palpitations. Gastrointestinal: Positive for abdominal pain, diarrhea and nausea. Negative for constipation, heartburn and vomiting. Musculoskeletal: Negative for back pain, joint pain and neck pain. Neurological: Negative for dizziness and headaches. Endo/Heme/Allergies: Does not bruise/bleed easily. Psychiatric/Behavioral: The patient is not nervous/anxious. Current Medications: Medications Taking[1] Chronic Problem List: Problem List[1] OBJECTIVE: Vitals: 03/24/25 0953 BP: 134/82 Pulse: 96 SpO2: 99% BP 134/82 (BP Location: Left arm, Patient Position: Sitting) Pulse 96 Ht 5' 4 (1.626 m) Wt (!) 309 lb 9.6 oz (140.4 kg) SpO2 99% BMI 53.14 kg/m?? Weight: Wt Readings from Last 6 Encounters: 03/24/25 (!) 309 lb 9.6 oz (140.4 kg) 02/23/25 (!) 303 lb 6.4 oz (137.6 kg) 02/20/25 (!) 305 lb 6.4 oz (138.5 kg) 01/30/25 (!) 308 lb (139.7 kg) 01/29/25 (!) 308 lb (139.7 kg) 01/02/25 (!) 303 lb (137.4 kg) BMI: Body mass index is 53.14 kg/m??. Height: 5' 4 (162.6 cm) Hospital Outpatient Visit on 01/02/2025 Component Date Value Ref Range Status ??? WBC 01/02/2025 7.5 3.7 - 10.3 x10(3)/mcL Final ??? RBC 01/02/2025 5.08 3.90 - 5.20 x10(6)/mcL Final ??? Hgb 01/02/2025 13.8 11.2 - 15.7 g/dL Final ??? Hct 01/02/2025 44.5 34.0 - 45.0 % Final ??? MCV 01/02/2025 87.6 80.0 - 100.0 fL Final ??? MCH 01/02/2025 27.2 26.0 - 34.0 pg Final ??? MCHC 01/02/2025 31.0 30.7 - 35.5 g/dL Final RDW 01/02/2025 13.1 <=14.9 % Final ??? Platelet 01/02/2025 230 155 - 369 x10(3)/mcL Final ??? MPV 01/02/2025 10.6 8.8 - 12.5 fL Final ??? Sodium 01/02/2025 136 136 - 145 mmol/L Final ??? Potassium 01/02/2025 3.8 3.5 - 5.0 mmol/L Final ??? Chloride 01/02/2025 102 98 - 107 mmol/L Final ??? Total CO2 01/02/2025 23 22 - 29 mmol/L Final ??? Anion Gap 01/02/2025 11 7 - 16 mmol/L Final ??? Calcium 01/02/2025 9.2 8.6 - 10.4 mg/dL Final ??? Glucose Lvl 01/02/2025 86 70 - 99 mg/dL Final ??? BUN 01/02/2025 10 6 - 20 mg/dL Final ??? Creatinine 01/02/2025 0.55 0.51 - 1.30 mg/dL Final ??? Albumin 01/02/2025 4.6 3.5 - 5.2 gm/dL Final ??? Total Protein 01/02/2025 7.8 6.4 - 8.3 gm/dL Final ??? Bili Total 01/02/2025 0.4 0.2 - 1.3 mg/dL Final ALT 01/02/2025 35 <=41 U/L Final AST 01/02/2025 30 <=40 U/L Final ??? Alk Phos 01/02/2025 103 36 - 123 U/L Final eGFR (CKD-EPIcr 2020) 01/02/2025 129 >=60 mL/min/1.73 m2 Final Estimated GFR was calculated using the CKD-EPIcr (2020) equation refit without race. The equation is recommended by the National Kidney Foundation - [place] Society of Nephrology Task Force. ??? Hgb A1C 01/02/2025 5.4 4.2 - 5.6 % Final ??? Est. Avg Glucose 01/02/2025 108 mg/dL Final ??? Vit A(Retinol) 01/02/2025 0.36 0.30 - 1.20 mg/L Final Retinyl Palm 01/02/2025 <0.02 0.00 - 0.10 mg/L Final ??? Vit A Intrp 01/02/2025 Normal Final This test was developed and its performance characteristics determined by [facility]. It has not been cleared or approved by the US Food and Drug Administration. This test was performed in a CLIA certified laboratory and is intended for clinical purposes. Performed By: [facility] [address] [place] [id number] Portable Canteen Operator: Elie Hassan MD, PhD CLIA Number: [id number] ??? Vit B1 WB 01/02/2025 109 70 - [...] developed and its performance characteristics determined by [facility]. It has not been cleared or approved by the US Food and Drug Administration. This test was performed in a CLIA certified laboratory and is intended for clinical purposes. Performed By: [facility] [address] [place] [address] Portable Canteen Operator: Elie Hassan MD, PhD CLIA Number: [id number] ??? Vitamin B12 01/02/2025 490 232 - 1,245 pg/mL Final Folate 01/02/2025 8.35 >=4.80 ng/mL Final ??? Vit D 25 OH 01/02/2025 23.9 (L) 30.0 - 150.0 ng/mL Final Preferred: >= 30 ng/mL Insufficient: 21-29 ng/mL Deficient <= 20 ng/mL Possible Toxicity: >150 ng/mL Samples should not be taken from patients receiving therapy with high biotin doses (i.e. > 5 mg/day) until at least 8 hours following the last biotin administration. ??? Alpha-Tocopherol (Vit E) mg/L 01/02/2025 6.9 5.5 - 18.0 mg/L Final This test was developed and its performance characteristics determined by [facility]. It has not been cleared or approved by the US Food and Drug Administration. This test was performed in a CLIA certified laboratory and is intended for clinical purposes. ??? Gamma-Tocopherol (Vit E) mg/L 01/02/2025 1.9 0.0 - 6.0 mg/L Final Performed By: [facility] [address] [place] [id number] Portable Canteen Operator: Elie Hassan MD, PhD CLIA Number: [id number] ??? Zinc 01/02/2025 79.9 60.0 - 120.0 ug/dL [...] developed and its performance characteristics determined by [facility]. It has not been cleared or approved by the US Food and Drug Administration. This test was performed in a CLIA certified laboratory and is intended for clinical purposes. Performed By: [facility] [address] [place] [address] Portable Canteen Operator: Elie Hassan MD, PhD CLIA Number: [id number] ??? Magnesium 01/02/2025 2.3 1.6 - 2.4 mg/dL Final ??? Ferritin 01/02/2025 53 30 - 150 ng/mL Final The lower threshold of 30 is not statistically defined, nor internally validated. The threshold hasbeen updated to more closely reflect a physiologic basis. Lorri Sherwood, et al. Physiologically based serumferritin thresholds for iron deficiency in children and non- women: a [place] National Health and Nutrition Examination Surveys (NHANES) serial cross-sectional study. Lancet Haematol 202;8:e572-82. Physical Exam: Physical Exam Vitals reviewed. Constitutional: General: She is not in acute distress. Appearance: She is obese. She is not ill-appearing, toxic-appearing or diaphoretic. HENT: Head: Normocephalic and atraumatic. Mouth/Throat: Mouth: Mucous membranes are moist. Pharynx: Oropharynx is clear. Pulmonary: Effort: No respiratory distress. Abdominal: General: There is no distension. Skin: Coloration: Skin is not jaundiced or pale. Findings: No bruising. Neurological: Mental Status: She is alert and oriented to person, place, and time. BEHAVIORAL THERAPY: Cleared by [facility] to proceed to surgery? yes SPECIALTY CLEARANCES REQUIRED: 1. Cardiac no 2. Pulmonology yes 3. Sleep Study no 4. Upper GI no 5. H.Pylori no 6. PCP Clearance no 7. PCP Letter of Recommendation no 8. GB Ultrasound no 9. EGD prior to surgery? no 10. Need Documented History of Obesity? yes How long? 11. Can not gain weight BMI: Body mass index is 53.14 kg/m??. REVIEWED: Dietary Journal Diet/Menu guidelines and [...] Diagnoses and all orders for this visit: Morbid obesity with BMI of 50.0-59.9, adult (HCC) (Chronic) TREATMENT PLAN: Portioned Plate plan to include [...] visit 3. Practice your common goals 4. Practice meal planning and shopping from your meal plan to ensure you have the proper foods at home. To Do List for Next Visit - schedule DT 6&7 - no plans for aimee surgery until September 03 Have pre-op labs been ordered? yes Have pre-op labs been drawn? yes This [employer] PRODUCT DEVELOPMENT MANAGER spent a total of 30 mins on Preparing to see the patient (e.g. review of tests), Obtaining and/or reviewing separately obtained history, Performing a medical appropriate examination and/or evaluation, Counseling and educating the patient/family/caregiver, Referring and communicating with other healthcare professionals (not separately reported), Documenting clinical information in the electronic or other health record, and Independently interpreting results (not separately reported) and communicating results to patient/family/caregiver. Additional Comments: No WLS before August 2025 as patient will have to undergo a total abdominal hysterectomy May 2025. She has had weight gain despite following all aimee education, she is working closely with her OBGYNand PCP and started diuretics. She states she also has joined medical in hopes they can help her lose weight pre op. She does not smoke She does not don't drink pop Scheduled top see pulmonary June 2025 Schedule DT 6 & 7 [1] Outpatient Medications Marked as Taking for the 03/24/25 encounter (Office Visit) with Andreia Love APRN Medication Sig Dispense Refill ??? albuterol (PROVENTIL HFA;VENTOLIN HFA) 90 mcg/actuation Inhl HFA Aerosol Inhaler Inhale 2 Puffsinto the lungs every 4 hours as needed for Wheezing. 1 Each 2 ??? ARIPiprazole (ABILIFY) 30 mg Oral Tablet Take 1 Tablet by mouth daily. 30 Tablet 2 ??? busPIRone (BUSPAR) 10 mg Oral Tablet Take 1 Tablet by mouth 3 times daily. 270 Tablet 0 ??? Cholecalciferol, Vitamin D3, (VITAMIN D3) 125 mcg (5,000 unit) Oral Tablet Take by mouth daily. ??? clindamycin-benzoyl peroxide (BENZACLIN) Top Gel Apply topically 2 times daily. 50 g 2 ??? hydroCHLOROthiazide (MICROZIDE) 12.5 mg Oral Capsule Take 1 Capsule by mouth daily. 30 Capsule 2 ??? hydrOXYzine (ATARAX) 10 mg Oral Tablet Take 1-2 tabs nightly as needed. 180 Tablet 0 ??? linaCLOtide (LINZESS) 72 mcg Oral Capsule Take 1 Capsule by mouth daily. 30 Capsule 2 ??? minocycline (MINOCIN;DYNACIN) 100 mg Oral Capsule Take 1 Capsule by mouth daily. 90 Capsule 1 ??? ondansetron (ZOFRAN-ODT) 4 mg Oral Tablet, Rapid Dissolve Dissolve 1 Tablet by mouth every 6 hours as needed. 30 Tablet 0 ??? pantoprazole (PROTONIX) 40 mg Oral Tablet, Delayed Release (E.C.) Take 1 Tablet by mouth daily.90 Tablet 0 [1] Patient Active Problem List Diagnosis ??? Constipation, chronic ??? Irritable bowel syndrome with constipation ??? Morbid obesity with BMI of 50.0-59.9, adult (HCC) ??? Depression during in third trimester ??? Closed fracture of first lumbar vertebra with routine healing ??? Scoliosis of thoracolumbar spine ??? Cervicogenic migraine ??? PCOS (polycystic ovarian syndrome) ??? Lumbar radiculopathy ??? DDD (degenerative disc disease), lumbosacral ??? Gastroesophageal reflux disease without esophagitis ??? PVC (premature ventricular contraction) ??? Hx of prior ablation treatment ??? Pseudoaneurysm following procedure ??? Bipolar 2 disorder, major depressive episode (HCC) ??? Mild intermittent asthma with acute exacerbation ??? CYP2B6 intermediate metabolizer (HCC) ??? [id number] rapid metabolizer (HCC) ??? CY intermediate metabolizer (HCC) ??? Monoallelic mutation of VKORC1 gene documented in this encounter Plan of Treatment Upcoming Encounters Date Type Department Care Team (Late st Contact Info) Description 05/27/2025 10:00 AM EST Telemedicine [facility] [address] [place] [address] 06/01/2025 12:00 PM EST Office Visit [facility] [address] [place] [address] Pretty Vargas APRN [address] [place] [address] 06/02/2025 1:15 PM EST Office Visit [facility] [address] [place] [address] Noel Burnett MD [address] [place] [address] 06/18/2025 10:00 AM EST Office Visit [facility] [address] [place] [address] 06/22/2025 1:45 PM EST Office Visit [facility] [address] [place] [address] Hakeem Diana MD [address] [facility] [address] [place] [address] documented as of this encounter Goals [...] adult (HCC)- Primary documented in this encounter Historical Medications * This list may reflect changes made after this encounter. Cholecalciferol, Vitamin D3, (VITAMIN D3) 125 mcg (5,000 unit) Oral Tablet Take by mouth daily. added in this encounter Care Teams Registered Nurse Surgical Services Relationship Specialty Start Date End Date Gareth Wheeler MD [address] [place] [address] PCP - General 03/01/09 Janeth Hester, CRANE RIGGER Consulting Actuary 10/16/24 documented as of this encounter
--- OUTSIDE RECORDS SUMMARY | 2025-04-09 08:30 | XMS_ITS | Encounter Summary ---
Author Organization [place] [address] Support Name Relationship Address Phone Juma Marianela Emergency Contact [address] [place] [address] Meche Jones Emergency Contact [address] [address] Jose Nate Emergency Contact [address] [place] [address] Vicenta Kilo Emergency Contact Unknown [phone] Kvng Kilo Personal Relationship [address]12 [place], [place] Care Team Providers Care Strategic Communications Manager Name Role Phone Gareth Wheeler MD Primary Care Provider [phone] Janeth Hester LEGAL TRANSCRIBER Unavailable Unav ailable Reason for Visit * Reason Comments Obesity H&P * Consultation (Routine) - Pending Review Specialty Diagnoses / Procedures Referred By Contbreanne t Referred To Contact Diagnoses Encounter for pre-bariatric surgery counseling and education Morbid obesity with BMI of 50.0-59.9, adult (HCC) Fatty liver Gastroesophageal reflux disease, unspecified whether esophagitis present Portia Jones, HIGH SCHOOL FOREIGN LANGUAGE TEACHER [address] [place] [address] Phone: tel: fax: Noel Burnett MD [address] [place] [address] Phone: tel: fax: Referral ID Status Reason Start Date Expiration Date V isits Requested Visits Authorized [id number] Pending Review 01/30/2025 01/30/2026 99 99 Encounter Details Date Type Department Care Team (Late st Contact Info) Description 04/09/2025 9:30 AM EDT Office Visit [facility] [address] [place] [address] Noel Burnett MD [address] [place] [address] Cervicogenic migraine (Primary Dx); Constipation, [...] = 0.6 oz pur e alcohol) rarely [facility] Utilities Answer Date Recorded In the past 12 months has e electric, gas, oil, or water [employer] threatened to shut off services in your home? No 03/27/2024 Overall Financial Resource Strain (CARDIA) Answe r Date Recorded How hard is it for you to pa y for the very basics like food, housing, medical care, and heating? Not very hard 03/27/2024 PHQ-2 Answer Date Recorded PHQ-2 Total Score 0 01/29/2025 [place] [facility] - Occupational Stress [...] things needed for daily living? No 09/05/2021 [facility] Transportation Answer D ate Recorded [...] true Transportation Needs: No Transportation Needs (03/27/2024) [facility] Transportation In the past 12 months, has lack of reliable transportation kept you from medical appointments, meetings, work or from getting things needed for daily living?: No Physical Activity: Inactive (03/31/2024) Exercise Vital Sign Days of Exercise per Week: 0 days Minutes of Exercise per Session: 0 min Stress: No Stress Concern Present (03/27/2024) [place] [facility] - Occupational Stress Questionnaire [...] no data is stored anywhere except for [employer]. This permission was witnessed by Noel Burnett [...] 07/13/2020 TSH 2.130 12/11/2024 TSHREFLEX 2.720 08/01/2023 [id number] 23.9 (L) 01/02/2025 No results found for [...] Morbid obesity with BMI of 50.0-59.9, adult ([facility]) 8. Metabolic dysfunction-associated steatotic liver disease (MASLD) 9. Vitamin D deficiency 10. Lipedema 11. Class 3 severe obesity due to excess calories with serious comorbidity and body mass index (BMI) of 50.0 to 59.9 in adult ([facility]) Diet Plan: [place] 2-LCD Number of Supplements Daily: 1 Total Calories Daily: 1200 Exercise Plan: Anaerobic 30 minutes/day 3-4 days/week, Aerobic exercise 30 minutes per day, 5 timesper week Reviewed: Health History Questionnaire, Labs, Body Composition, Notes, PCP notes, and Speciality notes Follow Up: Return in 1-2 weeks from program start for follow-up visit for RD / HIGH SCHOOL FOREIGN LANGUAGE TEACHER class, Return in 8 weeks from program [...] (gastroesophageal reflux disease) Headache Migraines heart [facility] Heartburn Mental disorder depression, [...] PERCUTANEOUS PINNING; Surgeon: Ankit Gan MD; Location: [facility]; Service: Hand FRACTURE SURGERY 2017 OTHER SURGICAL [...] EST Telemedicine [facility] [address] [place] [address] 06/01/2025 12:00 PM EST Office Visit [facility] [address] [place] [address] Pretty Vargas APRN [address] [place] [address] 06/02/2025 1:15 PM EST Office Visit [facility] [address] [place] [address] Noel Burnett MD [address] [place] [address] 06/18/2025 10:00 AM EST Office Visit [facility] [address] [place] [address] 06/22/2025 1:45 PM EST Office Visit [facility] [address] [place] [address] Hakeem Diana MD [address] [facility] [address] [place] [address] Scheduled Referrals Name Type Priority Associated Diagnoses [...] (HCC) documented in this encounter Care Teams Strategic Communications Manager Relationship Specialty Start Date End Date Gareth Wheeler MD [address] [place] [address] PCP - General 03/01/09 Janeth Hester, LEGAL TRANSCRIBER Guest Services Associate 10/16/24 documented as of this encounter
--- OUTSIDE RECORDS SUMMARY | 2025-04-13 12:00 | XMS_ITS | Encounter Summary ---
Author Organization [place] [address] Support Name Relationship Address Phone Juma Bear Emergency Contact [address] [place] [address] Mecheleelee Jones Emergency Contact [address] [address] Jose Nate Emergency Contact [address] [place] [address] Vicenta Kilo Emergency Contact Unknown [phone] Kvng Kilo Personal Relationship 920 06[address] [place], [place] Care Team Providers Care Mailing Machine Operator Name Role Phone Gareth Wheeler MD Primary Care Provider [phone] Janeth Hester FOUNDER AND CEO Unavailable Unav ailable Reason for Visit * Reason Comments Nutrition Counseling Encounter Details Date Type Department Care Team (Late st Contact Info) Description 04/13/2025 12:00 PM EST Office Visit SEP WEIGHT MGT [facility] [address] [place] [address] Morbid obesity with BMI of 50.0-59.9, adult (HCC) (Primary Dx) Social History Tobacco Use Types Packs/Day Years Used Date Smoking Tobacco: Never Passive Smoke Exposure: Never Smokeless Tobacco: Never Alcohol Use Standard Drinks/Week Comments Not Currently 1 (1 standard drink = 0.6 oz pur e alcohol) rarely [facility] Utilities Answer Date Recorded In the past 12 months has [employer], gas, oil, or water company threatened to shut off services in your home? No 03/27/2024 Overall Financial Resource Strain (CARDIA) Answe r Date Recorded How hard is it for you to pa y for the very basics like food, housing, medical care, and heating? Not very hard 03/27/2024 PHQ-2 Answer Date Recorded PHQ-2 Total Score 0 01/29/2025 [facility] - [...] things needed for daily living? No 09/05/2021 [facility] IP Transportation Answer D ate [...] documented in this encounter Progress Notes * Ying Julien RD - 04/13/2025 12:00 PM EST [facility]: MEDICAL WEIGHT LOSS PROGRAM Low Calorie Diet (LCD) New Start Registered Dietitian Class Patient attended Virtual New Start Class. Bariatrician's assessment and plan were reviewed. Meal plan provided: [place] 2, 1200 calories with 1 meal replacements Diet preferences: none Instructed on: Arrival times No Show and Cancellation Policy Specific (LCD) Low Calorie Diet [place] Program and phases of the program BH assessment within 30 days Meal replacements, product use tips and serving ideas Macro/micro nutrients - importance of Macro nutrition - sources Food exchanges - portion sizes and sources Meal timing and frequency Food records and use Hydration - fluid intake and requirements and preferred sugar -free, calorie free natural sweeteners Vitamin and mineral recommendations Emergency food plan Medication changes: no Labs completed: n/a Cleared for New Start: yes Patients questions and concerns addressed. Patient verbalized understanding. Comment to DR: None documented in this encounter Plan of Treatment Upcoming Encounters Date Type Department Care Team (Late st Contact Info) Description 05/27/2025 10:00 AM EST Telemedicine [facility] [address] [place] [address] 06/01/2025 12:00 PM EST Office Visit [facility] [address] [place] [address] Pretty Vargas APRN [address] [place] [address] 06/02/2025 1:15 PM EST Office Visit [facility] [address] [place] [address] Noel Burnett MD [address] [place] [address] 06/18/2025 10:00 AM EST Office Visit SEP WEIGHT MGT [facility] [address] [place] [address] 06/22/2025 1:45 PM EST Office Visit SEP PULMONOLOGY WILL [address] [place] [address] Hakeem Diana MD [address] [address] documented as of this encounter Goals Goal Patient Goal Type Associated Problems Recent Progress Patient-Stated? Author Blood Pressure < 140/90 Blood Pressure 120/76(2024 8:55 AM EDT) No Jess Wang MA Eat better, exercise, reach an ideal body weight General No Liset Lin RMA BMI (Calculated) < 30 General 52.8(05/04/20 12:42 PM EST) Jess Peter MA HEMOGLOBIN A1C < 7.0 Result Component 5.4( 12:11 PM EDT) Jess Peter MA documented as of this encounter Visit Diagnoses Diagnosis Morbid obesity with BMI of 50.0-59.9, adult (HCC)- Primary documented in this encounter Care Teams Mailing Machine Operator Relationship Specialty Start Date End Date Gareth Wheeler MD [address] [facility] [place] [address] PCP - General 03/01/09 Janeth Hester, FOUNDER AND CEO Bead Filler 10/16/24 documented as of this encounter
--- OUTSIDE RECORDS SUMMARY | 2025-04-15 11:00 | XMS_ITS | Encounter Summary ---
Author Organization [place] [address] Support Name Relationship Address Phone Juma Bear Emergency Contact [address] [place] [address] Mecheleelee Jones Emergency Contact [address] [address] Jose Salass Emergency Contact [address] [place] [address] Vicenta Boateng Emergency Contact Unknown [phone] Kvng Kilo Personal Relationship [address] 06/[address] [place], [place] Care Team Providers Care Saw Tailer Name Role Phone Gareth Wheeler MD Primary Care Provider [phone] Janeth Hester PCMH SPECIALIST Unavailable Unav ailable Encounter Details Date Type Department Care Team (Latest Contact Info) Description 04/15/2025 11:00 AM EST Telemedicine SEP WEIGHT MGT [facility] [address] [place] [address] Marky Gaspar, MANUFACTURING TEAM MEMBER [address] [place] [address] Bipolar 2 disorder (HCC) (Primary [...] Date Recorded PHQ-2 Total Score 0 01/29/2025 [facility] Occupat ional Health - Occupational [...] things needed for daily living? No 09/05/2021 [facility] IP Transportation Answer D ate Recorded [...] this encounter Progress Notes * Marky Gaspar, MANUFACTURING TEAM MEMBER - 04/15/2025 11:00 AM EST BEHAVIORAL HEALTH FOLLOW-UP SURGICAL PRE-OP CLASS/REVIEW This encounter was completed through: [employer] Video Visit - Patient presented today through a videovisit. Patient has reviewed the terms and conditions of service as part of the registration for today's visit. Patient is aware that a video visit does not replace a [id number] exam and further services may be necessary. I advised the patient that we are conducting this video visit through a private space on our secure network, and that this video visit is being conducted in accordance with [facility] telehealth/video visit regulations. Emergency and disconnection contacts [...] Telemedicine SEP WEIGHT MGT [facility] [address] [place] [address] 06/01/2025 12:00 PM EST Office Visit [facility] [address] [place] [address] Pretty Vargas APRN [address] [place] [address] 06/02/2025 1:15 PM EST Office Visit [facility] [address] [place] [address] Noel Burnett MD [address] [place] [address] 06/18/2025 10:00 AM EST Office Visit SEP WEIGHT MGT [facility] [address] [place] [address] 06/22/2025 1:45 PM EST Office Visit SEP PULMONOLOGY WILL [address] [place] [address] Hakeem Diana MD [address] [place] [address] [place] [phone] documented as of this encounter Goals [...] (PTSD) documented in this encounter Care Teams Saw Tailer Relationship Specialty Start Date End Date Gareth Wheeler MD [address] [place] [phone] PCP - General 03/01/09 Janeth Hester, PCMH SPECIALIST [employer] 10/16/24 documented as of this encounter
--- OUTSIDE RECORDS SUMMARY | 2025-04-20 12:00 | XMS_ITS | Encounter Summary ---
Author Organization [place] [address] Support Name Relationship Address Phone Juma Bear Emergency Contact [address] [place] [address] Meche Jones Emergency Contact [address] [address] Jose Nate Emergency Contact [address] [place] [address] Vicenta Boateng Emergency Contact Unknown Kvng Kilo Personal Relationship 920 06[address]12 [address] [place], [place] Care Team Providers Care Supervisor Modern Languages Name Role Phone Gareth Wheeler MD Primary Care Provider [phone] Janeth Hester PSYCHOLOGIST Unavailable Unav ailable Encounter Details Date Type Department Care Team (Late st Contact Info) Description 04/20/2025 12:00 PM EST Office Visit [facility] [address] [place] [address] Pretty Vargas APRN [address] [place] [address] Morbid obesity with BMI of 50.0-59.9, adult (HCC) (Primary Dx) Social History Tobacco Use Types Packs/Day Years Used Date Smoking Tobacco: Never Passive Smoke Exposure: Never Smokeless Tobacco: Never Alcohol Use Standard Drinks/Week Comments Not Currently 1 (1 standard drink = 0.6 oz pur e alcohol) rarely [facility] Utilities Answer Date Recorded In the past [...] Date Recorded PHQ-2 Total Score 0 01/29/2025 [facility] - Occupational Stress Questionnaire Answer Date [...] things needed for daily living? No [facility]20[facility] IP Transportation Answer D [...] sleep 30 min spent in class with RD/PARTNER [facility] [1] Patient Active Problem List Diagnosis Constipation, [...] with acute exacerbation CYP2B6 intermediate metabolizer (HCC) [id number] rapid metabolizer (HCC) CY intermediate metabolizer (HCC) [...] Telemedicine [facility] [address] [place] [address] 06/01/2025 12:00 PM EST Office Visit [facility] [address] [place] [address] Pretty Vargas APRN [address] [place], [place] [id number] 06/02/2025 1:15 PM EST Office Visit [facility] [address] [place] [address] Noel Burnett MD [address] [place] [address] 06/18/2025 10:00 AM EST Office Visit [facility] [address] [place] [address] 06/22/2025 1:45 PM EST Office Visit [facility] [address] [place] [address] Hakeem Diana MD [address] [facility] Building [address] [place] [phone] documented as of this encounter Goals [...] Primary documented in this encounter Care Teams Supervisor Modern Languages Relationship Specialty Start Date End Date Gareth Wheeler MD [address] [place] [address] PCP - General 03/01/09 Janeth Hester, TRE Sales Force Administrator 10/16/24 documented as of this encounter
--- OUTSIDE RECORDS SUMMARY | 2025-04-22 14:30 | XMS_ITS | Encounter Summary ---
Author Organization [place] [address] Support Name Relationship Address Phone Juma Marianela Emergency Contact [address] [place] [address] Meche Jones Emergency Contact [address] [address] Jose Sullivan Emergency Contact [address] [place] [address] Vicenta Boateng Emergency Contact Unknown [phone] Kvng Kilo Personal Relationship 9[address] 06[address] [place] Care Team Providers Care Oracle Technical Architect Name Role Phone Gareth Wheeler MD Primary Care Provider [phone] Janeth Hester CANE PILER Unavailable Unav ailable Reason for Visit * Reason Comments Diet Trial 6 of 6 Encounter Details Date Type Department Care Team (Late st Contact Info) Description 04/22/2025 2:30 PM EST Telemedicine [facility] [address] [place] [address] Portia Jones, FISHING INSTRUCTOR [address] [place] [address] Encounter for pre-bariatric surgery counseling and education (Primary Dx); Pre-operative laboratory examination; Morbid obesity with BMI of 50.0-59.9, adult (HCC); Metabolic dysfunction-associat ed steatotic liver disease (MASLD); Gastroesophageal reflux disease without esophagitis Social History Tobacco Use Types Packs/Day Years Used Date Smoking Tobacco: Never Passive Smoke Exposure: Never Smokeless Tobacco: Never Alcohol Use Standard Drinks/Week Comments Not Currently 1 (1 standard drink = 0.6 oz pur e alcohol) rarely [facility] Utilities Answer Date [...] Date Recorded PHQ-2 Total Score 0 01/29/2025 [facility] - Occupational Stress [...] things needed for daily living? No 09/05/2021 [facility] IP Transportation Answer D ate Recorded In [...] - Inhaled Oxygen Concentration - - Weight 139.4 kg (307 lb 6.4 oz) 04/22/2025 2:23 PM EST Height 162.6 cm (5' 4 ) 04/22/2025 2:23 PM EST Body Mass Index 52.77 04/22/2025 2:23 PM EST documented in this encounter Functional [...] this encounter Progress Notes * Portia Jones, HIGINIO - 04/22/2025 2:30 PM EST Patient presented today for routine care follow-up through a video visit. Patient has reviewed the terms and conditions of service as part of the registration for today's visit. A video visit does not replace a [id number] exam and further services may be necessary. We are conducting her video visit in a private space and this video visit is being conducted in accordance with state telehealth/video visit regulations. PRE-OPERATIVE DIET TRIAL Month # 6 of 6 Type of Surgery Planned Sleeve Gastrectomy Surgeon Naima Start Weight: 296.4 pounds gain 11 lbs. since starting program. Weight Change Since Last Visit: loss 2.2 lbs. SUBJECTIVE Hysterectomy scheduled 05/18/2025; no plans for Bariatric Surgery until August 2025 Followed by [facility]. They put her on 1200 kcal/day diet to include one protein shake. Has protein shake for breakfast, then late morning meal/snack around 10:00 am and then dinner. Trying to make healthy food choices and substitutions. Avoiding carbs per MW recommendations, getting more protein. Tracking with Couple yamila. Has eliminated carbonated beverages. Exercise - walks with her daughter and friend, most days. Also about to get a gym membership this week. On PPI - reports no symptoms of reflux or heartburn on this. Recently started on HCTZ - told she may be retaining fluid and this will help. Any Health Problems Since Last Visit? no What diet plan are you currently prescribed?: Portioned Plate Diet Did you follow your recommended diet plan this month? yes If not, what type of dietary plan are you following, and why? Did you journal? yes Did you bring your journal for review? yes Did You Exercise? yes How much? walking with kids daily (1 mile) Fitness Goal: Aerobic 30 minutes/day 5 days/week, to include 10,000 steps daily at least 5 days perweek. Are you smoking or using nicotine? no; never Have you eliminated carbonated drinks? yes Do you drink alcohol? no If yes, how many drinks per day / week? REVIEW OF SYSTEMS: Review of Systems Constitutional: Negative for chills, fever and malaise/fatigue. HENT: Negative for congestion and sore throat. Respiratory: Positive for cough (asthma). Negative for shortness of breath and wheezing. Cardiovascular: Negative for chest pain, palpitations and leg swelling. Gastrointestinal: Negative for abdominal pain, constipation, diarrhea, heartburn, nausea and vomiting. Musculoskeletal: Negative for back pain, joint pain and neck pain. Neurological: Negative for dizziness and headaches. Endo/Heme/Allergies: Negative for environmental allergies. Does not bruise/bleed easily. Psychiatric/Behavioral: The patient is not nervous/anxious. Current Medications: Medications Taking[1] Chronic Problem List: Problem List[2] OBJECTIVE: There were no vitals filed for this visit. Ht 5' 4 (1.626 m) Wt (!) 307 lb 6.4 oz (139.4 kg) LMP (LMP Unknown) BMI 52.77 kg/m?? Weight: Wt Readings from Last 6 Encounters: 04/22/25 (!) 307 lb 6.4 oz (139.4 kg) 04/20/25 (!) 305 lb (138.3 kg) 04/09/25 (!) 305 lb 9.6 oz (138.6 kg) 03/24/25 (!) 309 lb 9.6 oz (140.4 kg) 02/23/25 (!) 303 lb 6.4 oz (137.6 kg) 02/20/25 (!) 305 lb 6.4 oz (138.5 kg) BMI: Body mass index is 52.77 kg/m??. Height: 5' 4 (162.6 cm) Hospital [...] recommended by the National Kidney Foundation - [place] [employer] of Nephrology Task Force. Hgb A1C 01/02/2025 5.4 4.2 - 5.6 % Final Est. Avg Glucose 01/02/2025 108 mg/dL Final Vit A(Retinol) 01/02/2025 0.36 0.30 - 1.20 mg/L Final Retinyl Palm 01/02/2025 <0.02 0.00 - 0.10 mg/L Final Vit A Intrp 01/02/2025 Normal Final This test was developed and its performance characteristics determined by [facility]. It has not been cleared or approved by the [place] Food and Drug Administration. This test was performed in a CLIA certified laboratory and is intended for clinical purposes. Performed By: [facility] [address] [place] [id number] Burning Supervisor: Elie Hassan MD, PhD CLIA Number: [id number] Vit B1 WB 01/02/2025 109 70 - [...] developed and its performance characteristics determined by [facility]. It has not been cleared or approved by the US Food and Drug Administration. This test was performed in a CLIA certified laboratory and is intended for clinical purposes. Performed By: [facility] [address] [place] [address] Burning Supervisor: Elie Hassan MD, PhD CLIA Number: [id number] Vitamin B12 01/02/2025 490 232 - 1,245 [...] developed and its performance characteristics determined by [facility]. It has not been cleared or approved by the US Food and Drug Administration. This test was performed in a CLIA certified laboratory and is intended for clinical purposes. Gamma-Tocopherol (Vit E) mg/L 01/02/2025 1.9 0.0 - 6.0 mg/L Final Performed By: [facility] [address] [place], [place] [id number] Burning Supervisor: Elie Hassan MD, PhD CLIA Number: [id number] Zinc 01/02/2025 79.9 60.0 - 120.0 ug/dL [...] developed and its performance characteristics determined by [facility]. It has not been cleared or approved by the US Food and Drug Administration. This test was performed in a CLIA certified laboratory and is intended for clinical purposes. Performed By: [facility] [address] [place] [id number] Burning Supervisor: Elie Hassan MD, PhD CLIA Number: [id number] Magnesium 01/02/2025 2.3 1.6 - 2.4 mg/dL [...] reviewed. Constitutional: Appearance: Normal appearance. She is not ill-appearing. Pulmonary: Effort: Pulmonary effort is normal. Skin: Coloration: Skin is not pale. Neurological: Mental Status: She is alert. Psychiatric: Mood and Affect: Mood normal. BEHAVIORAL THERAPY: Cleared by Behavioral Health to proceed to surgery? yes Counseling Referral for: n/a SPECIALTY CLEARANCES REQUIRED: 1. Cardiac yes 2. Pulmonology yes; scheduled 06/22/2025 3. Sleep Study no 4. Upper GI no 5. H.Pylori yes; ordered 6. PCP Clearance no 7. PCP Letter of Recommendation yes 8. GB Ultrasound no 9. EGD prior to surgery? no 10. Need Documented History of Obesity? no 11. TSH yes; WNL 12/11/2024 BMI: Body mass index is 52.77 kg/m??. REVIEWED: Diet/Menu guidelines and compliance to dietary recommendations [...] notes since last visit reviewed Comment to Chan / Chris: None CURRENT ASSESSMENT / DIAGNOSES: Diagnoses and all orders for this visit: Encounter for pre-bariatric surgery counseling and education - CBC; Future - THYROID STIMULATING HORMONE; Future - COMPREHENSIVE METABOLIC PANEL; Future - IRON+TIBC; Future - HEMOGLOBIN A1C; Future - VITAMIN A (RETINOL) -REF LAB; Future - VITAMIN B1 (THIAMINE) WHOLE BLOOD -REF LAB; Future - VITAMIN B12 LEVEL; Future - FOLATE LEVEL; Future - VITAMIN D 25 HYDROXY; Future - VITAMIN E - REF LAB; Future - ZINC LEVEL-REF LAB; Future - MAGNESIUM LEVEL; Future Pre-operative laboratory examination - CBC; Future - THYROID STIMULATING HORMONE; Future - COMPREHENSIVE METABOLIC PANEL; Future - IRON+TIBC; Future - HEMOGLOBIN A1C; Future - VITAMIN A (RETINOL) -REF LAB; Future - VITAMIN B1 (THIAMINE) WHOLE BLOOD -REF LAB; Future - VITAMIN B12 LEVEL; Future - FOLATE LEVEL; Future - VITAMIN D 25 HYDROXY; Future - VITAMIN E - REF LAB; Future - ZINC LEVEL-REF LAB; Future - MAGNESIUM LEVEL; Future Morbid obesity with BMI of 50.0-59.9, adult (HCC) (Chronic) Metabolic dysfunction-associated steatotic liver disease (MASLD) Gastroesophageal reflux disease without esophagitis TREATMENT PLAN: Portioned Plate plan to include [...] and journal with you to ALL appointments To Do List for Next Visit -Will need repeat pre-op labs with TSH closer to time of surgery (orders placed; do not need to fast, hold vitamins x 2 days beforehand) -Get H. pylori testing (will need to hold any antibiotics and acid reduce - pantoprazole - for two weeks before test) -Cardiology clearance; call your operative supervisor and schedule an appointment -Pulmonary clearance; keep appointment in June as scheduled -Letter of recommendation from primary care provider -Continue practicing the common goals -Eat small, frequent protein-dense meals/snacks (~ every 3 hours) -Continue food tracking -Exercise regularly and build as you go, to include some strength/resistance training -Schedule diet trial #7 in 4-6 weeks Have pre-op labs been ordered? yes Have pre-op labs been drawn? yes; needs H. pylori testing and will need repeat pre-op labs closer to time of surgery Additional Comments: --- Portia Jones, MSN, FISHING INSTRUCTOR, REEL MAN-C [facility] [address] [place] [address] [1] Outpatient Medications Marked as Taking for the 04/22/25 encounter (Telemedicine) with Portia Jones APRN Medication [...] Capsule by mouth daily. 30 Capsule 2 ondansetron (ZOFRAN-ODT) 4 mg Oral Tablet, Rapid Dissolve Dissolve 1 Tablet by mouth every 6 hours as needed. 30 Tablet 0 pantoprazole (PROTONIX) 40 mg Oral Tablet, Delayed Release (E.C.) Take 1 Tablet by mouth daily. 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 pylori testing (will need to hold any antibiotics and acid reduce - pantoprazole - for two weeks before test) -Cardiology clearance; call your operative supervisor and schedule an appointment -Pulmonary clearance; keep appointment in June as scheduled -Letter of recommendation from primary care provider -Continue practicing the common goals -Eat small, frequent protein-dense meals/snacks (~ every 3 hours) -Continue food tracking -Exercise regularly and build as you go, to include some strength/resistance training -Schedule diet trial #7 in 4-6 weeks documented in this encounter Plan of Treatment Upcoming Encounters Date Type Department Care Team (Late st Contact Info) Description 05/27/2025 10:00 AM EST Telemedicine [facility] [address] [place] [address] 06/01/2025 12:00 PM EST Office Visit [facility] [address] [place] [address] Pretty Vargas APRN [address] [place] [address] 06/02/2025 1:15 PM EST Office Visit [facility] [address] [place] [address] Noel Burnett MD [address] [place], [place] [id number] 06/18/2025 10:00 AM EST Office Visit [facility] [address] [place] [address] 06/22/2025 1:45 PM EST Office Visit [facility] [address] [place] [address] Hakeem Diana MD [address] [facility] Building [address] [place] [phone] Scheduled Orders Name Type Priority Associated Diagnoses Orde r Schedule CBC Lab Routine Encounter for pre-bariatric surgery counseling and education Pre-operative laboratory examination 1 Occurrences starting 04/22/2025 until 04/23/2026 THYROID STIMULATING HORMONE Lab Routine Encounter for pre-bariatric surgery counseling and education Pre-operative laboratory examination 1 Occurrences starting 04/22/2025 until 04/23/2026 COMPREHENSIVE METABOLIC PANEL Lab Routine Encounter for pre-bariatric surgery counseling and education Pre-operative laboratory examination 1 Occurrences starting 04/22/2025 until 04/22/2026 IRON+TIBC Lab Routine Encounter for pre-bariatric surgery counseling and education Pre-operative laboratory examination 1 Occurrences starting 04/22/2025 until 04/22/2026 HEMOGLOBIN A1C Lab Routine Encounter for pre-bariatric surgery counseling and education Pre-operative laboratory examination 1 Occurrences starting 04/22/2025 until 04/23/2026 VITAMIN A (RETINOL) -REF LAB Lab Routine Encounter for pre-bariatric surgery counseling and education Pre-operative laboratory examination 1 Occurrences starting 04/22/2025 until 04/23/2026 VITAMIN B1 (THIAMINE) WHOLE BLOOD -REF LAB Lab Routine Encounter for pre-bariatric surgery counseling and education Pre-operative laboratory examination 1 Occurrences starting 04/22/2025 until 04/23/2026 VITAMIN B12 LEVEL Lab Routine Encounter for pre-bariatric surgery counseling and education Pre-operative laboratory examination 1 Occurrences starting 04/22/2025 until 04/23/2026 FOLATE LEVEL Lab Routine Encounter for pre-bariatric surgery counseling and education Pre-operative laboratory examination 1 Occurrences starting 04/22/2025 until 04/23/2026 VITAMIN D 25 HYDROXY Lab Routine Encounter for pre-bariatric surgery counseling and education Pre-operative laboratory examination 1 Occurrences starting 04/22/2025 until 04/23/2026 VITAMIN E - REF LAB Lab Routine Encounter for pre-bariatric surgery counseling and education Pre-operative laboratory examination 1 Occurrences starting 04/22/2025 until 04/22/2026 ZINC LEVEL-REF LAB Lab Routine Encounter for pre-bariatric surgery counseling and education Pre-operative laboratory examination 1 Occurrences starting 04/22/2025 until 04/23/2026 MAGNESIUM LEVEL Lab Routine Encounter for pre-bariatric surgery counseling and education Pre-operative laboratory examination 1 Occurrences starting 04/22/2025 until 04/23/2026 documented as of this encounter Goals Goal [...] for pre-bariatric surgery counseling and education- Primary Pre-operative laboratory examination Pre-procedural laboratory examination Morbid obesity with BMI of 50.0-59.9, adult (HCC) Metabolic dysfunction-associated steatotic liver disease (MASLD) Gastroesophageal reflux disease without esophagitis Esophageal reflux documented in this encounter Discontinued Medications Medication Sig Discontinue Reason Start Date End Da te minocycline (MINOCIN;DYNACIN) 100 mg Oral CapsuleIndications:Acn e vulgaris Take 1 Capsule by mouth daily. Patient Reported not taking medication 12/30/2024 04/22/2025 documented as of this encounter Care Teams Oracle Technical Architect Relationship Specialty Start Date End Date Gareth Wheeler MD [address] [place] [address] PCP - General 03/01/09 Janeth Hester, CANE PILER Enroller 10/16/24 documented as of this encounter
--- OUTSIDE RECORDS SUMMARY | 2025-05-04 12:00 | XMS_ITS | Encounter Summary ---
Author Organization [place] [address] Support Name Relationship Address Phone Juma Bear Emergency Contact [address] [place] [address] Meche Jones Emergency Contact [address] [address] Jose Nate Emergency Contact [address] [place] [address] Vicenta Boateng Emergency Contact Unknown [phone] Kvng Kilo Personal Relationship 920 06/[address] [place] Care Team Providers Care Die Try Out Worker Stamping Name Role Phone Gareth Wheeler MD Primary Care Provider [phone] Janeth Hester TOOL AND EQUIPMENT RENTAL CLERK Unavailable Unav ailable Encounter Details Date Type Department Care Team (Late st Contact Info) Description 05/04/2025 12:00 PM EST Office Visit [facility] [address] [place] [address] Pretty Vargas APRN [address] [place] [address] Morbid obesity with BMI of 50.0-59.9, adult (HCC) (Primary Dx) Social History Tobacco Use Types Packs/Day Years Used Date Smoking Tobacco: Never Passive Smoke Exposure: Never Smokeless Tobacco: Never Alcohol Use Standard Drinks/Week Comments Not Currently 1 (1 standard drink = 0.6 oz pur e alcohol) rarely [facility] Utilities Answer Date Recorded In the past [...] Recorded PHQ-2 Total Score 0 01/29/2025 [facility] - Occupational Stress Questionnaire Answer Date [...] things needed for daily living? No 09/05/2021 [facility] IP Transportation Answer D ate Recorded In [...] - Inhaled Oxygen Concentration - - Weight 139.3 kg (307 lb) 05/04/2025 12:42 PM EST Height 162.6 cm (5' 4 ) 05/04/2025 12:42 PM EST Body Mass Index 52.7 05/04/2025 12:42 PM EST documented in this encounter Functional [...] Progress Notes * Pretty Vargas APRN - 05/04/2025 12:00 PM EST Weight: Wt Readings from Last 6 Encounters: 05/04/25 (!) 307 lb (139.3 kg) 04/22/25 (!) 307 lb 6.4 oz (139.4 kg) 04/20/25 (!) 305 lb (138.3 kg) 04/09/25 (!) 305 lb 9.6 oz (138.6 kg) 03/24/25 (!) 309 lb 9.6 oz (140.4 kg) 02/23/25 (!) 303 lb 6.4 oz (137.6 kg) CURRENT ASSESSMENT / DIAGNOSES: BMI: Body mass index is 52.7 kg/m??. Height: 5' 4 (162.6 cm) CURRENT ASSESSMENT / DIAGNOSES: Diagnoses and all orders for this visit: Morbid obesity with BMI of 50.0-59.9, adult (HCC) (Chronic) Chronic Problem List: Problem List[1] Current Medications: Medications Taking[2] RD Class: Holiday Eating Tips - The average Faroese gains 8 lb from to the - Many admit to overrating multiple times a day Challenges: - increase in anxiety with finances, meal planning, and family gatherings. - Less time to meal prep and exercise - Increase in emotional eating - Remembering snacking or grazing at parties will add up in calories - Position your self well for success. Go to social functions full - Enjoy only the day of the holiday and not the whole month - Eat on a regular schedule and no skipping meals or MR - Daily self monitoring with daily weights, Keep daily food log and track physical activity - Bring a healthy dish or dessert to share - Be assertive and don't feel like you have to say yes to everything - Prioritize your favorite foods and only pick 3-4 foods - beware of leftovers [address]/FELT HAT FLANGING OPERATOR in class [1] Patient Active Problem List Diagnosis Constipation, [...] with acute exacerbation CYP2B6 intermediate metabolizer (HCC) [id number] rapid metabolizer (HCC) CY intermediate metabolizer (HCC) 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 documented in this encounter Plan of Treatment Upcoming Encounters Date Type Department Care Team (Late st Contact Info) Description 05/27/2025 10:00 AM EST Telemedicine [facility] [address] [place] [address] 06/01/2025 12:00 PM EST Office Visit [facility] [address] [place] [address] Pretty Vargas APRN [address] [place] [address] 06/02/2025 1:15 PM EST Office Visit [facility] [address] [place] [address] Noel Burnett MD [address] [place] [address] 06/18/2025 10:00 AM EST Office Visit [facility] [address] [place] [address] 06/22/2025 1:45 PM EST Office Visit [facility] [address] [place] [address] Hakeem Diana MD [address] [place] [address] [place] [phone] documented as of this encounter Goals [...] Result Component 5.4( 5 12:11 PM EDT) Jess Peter MA documented as of this encounter Visit Diagnoses Diagnosis Morbid obesity with BMI of 50.0-59.9, adult (HCC)- Primary documented in this encounter Care Teams Die Try Out Worker Stamping Relationship Specialty Start Date End Date Gareth Wheeler MD [address] [place] [address] PCP - General 03/01/09 Janeth Hester, TRE Global Climate Change Analyst 10/16/24 documented as of this encounter
[2025-05-12 07:45] VITALS: BMI 51.2
--- OUTSIDE RECORDS SUMMARY | 2025-05-12 10:03 | XMS_ITS | Encounter Summary ---
Author Organization [facility] [address] Support Name Relationship Address Phone Juma Bear Emergency Contact [address] [place] [address] Meche Jones Emergency Contact [address] [address] Jose Nate Emergency Contact [address] [place] [address] Vicenta Boateng Emergency Contact Unknown [phone] Kvng Brothersen Personal Relationship 920 06/[address] [place], [place] Care Team Providers Care Safety Spec Name Role Phone Gareth Wheeler MD Primary Care Provider [phone] Mervat Reyes RN Unavailable Unavailable Janeth Hester RAW SAMPLER Unavailable Unav ailable Reason for Visit * Auth/Cert/Inpt Specialty Diagnoses / Procedures Referred By Contac t Referred To Contact Diagnoses labor assessment Referral ID Status Reason Start Date Expiration Date Visits Re quested Visits Authorized [id number] 1 1 Encounter Details Date Type Department Care Team (Late st Contact Info) Description 04/29/2019 Lab Requisition [facility] [place] [id number] Artemio Mayo MD Encounter for supervision of [...] Telemedicine [facility] [address] [place] [address] 06/01/2025 12:00 PM EST Office Visit [facility] [address] [place] [address] Pretty Vargas APRN [address] [place] [address] 06/02/2025 1:15 PM EST Office Visit [facility] [address] [place] [address] Noel Burnett MD [address] [place] [address] 06/18/2025 10:00 AM EST Office Visit [facility] [address] [place] [address] 06/22/2025 1:45 PM EST Office Visit [facility] [address] [place] [address] Hakeem Diana MD [address] [place] [phone] documented as of this encounter Goals Goal Patient Goal Type Associated Problems Recent Progress Patient-Stated? Author Eat better, exercise, reach an ideal body weight General No Liset Lin, Rogelio documented as of this encounter Procedures Procedure Name Priority Date/Time Associated Diagnosis Comments STREP B DNA Routine 04/29/2019 4:30 PM EST Encounter for supervision of other normal , unspecified trimester documented in this encounter Results * STREP B DNA (04/29/2019 4:30 PM EST) Strep B DNA Not Detected Not Detected 9 8:15 AM EST PREFERRED [facility] Swab RECTUM AND VAGINA, CS / Unknown 04/29/2019 4:30 PM EST 04/29/2019 6:35 PM EST Narrative PREFERRED [facility] - 05/01/2019 8:15 AM EST TEST INFORMATION: [...] - GENERAL ORDER MYRNA Final Result PREFERRED [facility] [address] [place] [address] , [place] [address] documented in this encounter Visit Diagnoses Diagnosis Encounter for supervision of other normal , unspecified trimester documented in this encounter Additional Health Concerns Infection Onset Date Last Indicated Resolved Time R/O COVID-03/03/2021 03/03/2021 03/03/2021 11:4 8 PM EDT COVID-19 06/23/2021 06/23/2021 07/23/2021 10:1 2 PM EST documented as of this encounter Care Teams Safety Spec Relationship Specialty Start Date End Date Gareth Wheeler MD [address] [place] [address] PCP - General 03/01/09 Mervat Reyes, RN [employer] Founder 09/05/21 09/05/21 Janeth Hester, RAW SAMPLER Siebel Architect 10/16/24 documented as of this encounter
--- OUTSIDE RECORDS SUMMARY | 2025-05-12 10:06 | XMS_ITS | Encounter Summary ---
Author Organization [facility] Address [address] [place] [address] Phone Care Team Providers Care Senior Sas Programmer Name Role Phone Bonita Frederick MD Primary Care Provider [phone] Reason for Referral * Radiology Services (Routine) - Closed Specialty Diagnoses / Procedures Referred By Contbreanne t Referred To Contact Procedures OB US STANDARD SECOND OR THIRD TRIMESTER HISTORICAL MED Referral ID Status Reason Start Date Expiration Date V isits Requested Visits Authorized [id number] Closed Specialty Services Required 01/10/2019 01/10/2020 150 150 Encounter Details Date Type Department Care Team (Late st Contact Info) Description 01/10/2019 SCAN [facility] [address] [place] [address] Social History Tobacco Use Types Packs/Day Years [...] filedocumented in this encounter Care Teams Senior Sas Programmer Relationship Specialty Start Date End Date Bonita Frederick MD PCP - General Obstetrics & Gynecology 01/08/19 documented as of this encounter
--- OUTSIDE RECORDS SUMMARY | 2025-05-12 10:06 | XMS_ITS | Encounter Summary ---
Author Organization [place] [address] Support Name Relationship Address Phone Juma Bear Emergency Contact [address] [place] [address] Meche Jones Emergency Contact [address] [address] Jose Nate Emergency Contact [address] [place] [address] Vicentarosa m Brothersen Emergency Contact Unknown Kvng Kilo Personal Relationship [address] 06/[address] [place] Care Team Providers Care Manager Chinese Name Role Phone Gareth Wheeler MD Primary Care Provider [phone] Janeth Hester PERSONNEL REPRESENTATIVE Unavailable Unav ailable Reason for Visit * Reason Onset Date Comments Prior Authorization 03/31/2025 PA for Abili fy 30mg tablet Approved Encounter Details Date Type Department Care Team (Late st Contact Info) Description 03/31/2025 Telephone [facility] [address] [facility] [place] [address] Le Blood, CHAIR MECHANIC [address] [place] [address] Prior Authorization (PA for Abilify 30mg tablet Approved) Social History Tobacco Use Types Packs/Day Years Used Date Smoking Tobacco: Never Passive Smoke Exposure: Never Smokeless Tobacco: Never Alcohol Use Standard Drinks/Week Comments Not Currently 1 (1 standard drink = 0.6 oz pur e alcohol) every once and a while [facility] Utilities Answer Date Recorded In the past [...] Date Recorded PHQ-2 Total Score 0 01/29/2025 [facility] of Occupat ional Health - Occupational Stress [...] things needed for daily living? No 09/05/2021 [facility] IP Transportation Answer D ate Recorded In [...] Liset Ventura RMA documented in this encounter Miscellaneous Notes * Telephone Encounter - Idalia Estes MA - 03/31/2025 3:05 PM EDT Images from the original note were not included. PA for Abilify 30mg tablet APPROVED. Prior authorization approved Payer: [employer] [phone] Note from payer: The request has been approved. The authorization is effective for a maximum of 1 fills from 01/29/2025 to 02/28/2025, as long as the member is enrolled in their current health plan. The request was reviewed and approved by a licensed clinical pharmacist. This request has been approved with a quantity limit of 46 tablets per 30 days. A written notification letter will follow with additional details. Approval Details Authorized from January 29, 2025 to February 28, 2025 documented in this encounter Plan of Treatment Upcoming Encounters Date Type Department Care Team (Late st Contact Info) Description 05/27/2025 10:00 AM EST Telemedicine [facility] [address] [place] [address] 06/01/2025 12:00 PM EST Office Visit [facility] [address] [place] [address] Pretty Vargas APRN [address] [place] [address] 06/02/2025 1:15 PM EST Office Visit [facility] [address] [place] [address] Noel Burnett MD [address] [place] [address] 06/18/2025 10:00 AM EST Office Visit [facility] [address] [place] [address] 06/22/2025 1:45 PM EST Office Visit [facility] [address] [place] [address] Hakeem Diana MD [address] [place] [address] [place] [address] documented as of this encounter Goals [...] 5.4( 5 12:11 PM EDT) No Jess Wagn MA documented as of this encounter Visit Diagnoses Not on filedocumented in this encounter Care Teams Manager Chinese Relationship Specialty Start Date End Date Gareth Wheeler MD [address] [place] [address] PCP - General 03/01/09 Janeth Hester, TRE Track Oiler 10/16/24 documented as of this encounter
--- OUTSIDE RECORDS SUMMARY | 2025-05-12 10:06 | XMS_ITS | Clinical Summary ---
Author Organization [facility] Address [address] [place] [address] Phone Care Team Providers Care Scientific Laboratory Supervisor Name Role Phone Bonita Frederick MD Primary Care Provider [phone] Social History Tobacco Use Types Packs/Day Years [...] Address Personal/Family Self [address] [place] [address] [facility] Care Teams Scientific Laboratory Supervisor Relationship Specialty Start Date End Date Bonita Frederick MD PCP - General Obstetrics & Gynecology 01/08/19
--- OUTSIDE RECORDS SUMMARY | 2025-05-12 10:06 | XMS_ITS | Encounter Summary ---
Author Organization [facility] [place] [address] Support Name Relationship Address Phone Juma Bear Emergency Contact [address] [place] [address] Mecheleelee Jones Emergency Contact [address] [address] Jose Nate Emergency Contact [address] [place] [address] Vicenta Kilo Emergency Contact Unknown [phone] Kvng Kilo Personal Relationship [address] [place], [place] Care Team Providers Care Cnc Manufacturing Engineer Name Role Phone Gareth Wheeler MD Primary Care Provider [phone] Janeth Hester BREAKFAST HOST Unavailable Unav ailable Encounter Details Date Type Department Care Team (Latest Contact Info) Description 03/13/2025 Travel Social History Tobacco Use Types Packs/Day Years Used Date Smoking Tobacco: Never Passive Smoke Exposure: Never Smokeless Tobacco: Never Alcohol Use Standard Drinks/Week Comments Not Currently 1 (1 standard drink = 0.6 oz pur e alcohol) every once and a while [facility] Utilities Answer Date Recorded In the past 12 months has [employer] electric, gas, oil, or water company threatened to shut off services in your home? No 03/27/2024 Overall Financial Resource Strain (CARDIA) Answe r Date Recorded How hard is it for you to pa y for the very basics like food, housing, medical care, and heating? Not very hard 03/27/2024 PHQ-2 Answer Date Recorded PHQ-2 Total Score 0 01/29/2025 [facility] - Occupational Stress Questionnaire Answer Date [...] living? No 09/05/2021 [facility] IP Transportation Answer D ate Recorded In [...] Author No 11/14/2024 10:03 AM Liset Ventura RMNirmal * Because of a physical, mental or emotional condition, does this person have difficulty doing errands alone such as visiting a doctor's office or shopping? Answer Date of Assessment Author No 11/14/2024 10:03 AM Liset Ventura RMNirmal documented as of this encounter Mental Status * Because of a physical, mental or emotional condition, does this person have serious difficulty concentrating, remembering or making decisions? Answer Entry Date Author No 11/14/2024 10:03 AM Liset Ventura RMA documented in this encounter Plan of Treatment Upcoming Encounters Date Type Department Care Team (Late st Contact Info) Description 05/27/2025 10:00 AM EST Telemedicine [facility] [address] [place] [address] 06/01/2025 12:00 PM EST Office Visit [facility] [address] [place] [address] Pretty Vargas APRN [address] [place] [address] 06/02/2025 1:15 PM EST Office Visit [facility] [address] [place] [address] Noel Burnett MD [address] [place] [address] 06/18/2025 10:00 AM EST Office Visit [facility] [address] [place] [address] 06/22/2025 1:45 PM EST Office Visit [facility] [address] [place] [address] Hakeem Diana MD [address] [place] [address] documented as of this encounter [...] on filedocumented in this encounter Care Teams Cnc Manufacturing Engineer Relationship Specialty Start Date End Date Gareth Wheeler MD [address] [place] [address] PCP - General 03/01/09 Janeth Hester, BREAKFAST HOST Youth Agent 10/16/24 documented as of this encounter
--- OUTSIDE RECORDS SUMMARY | 2025-05-12 10:06 | XMS_ITS | Encounter Summary ---
Author Organization [facility] Address [address] [place] [address] Phone Care Team Providers Care Regional Loss Prevention Manager Name Role Phone Bonita Frederick MD Primary Care Provider Reason for Referral * Radiology Services (Routine) - Closed Specialty Diagnoses / Procedures Referred By Contbreanne t Referred To Contact Procedures OB US STANDARD SECOND OR THIRD TRIMESTER HISTORICAL MED Referral ID Status Reason Start Date Expiration Date V isits Requested Visits Authorized [id number] Closed Specialty Services Required 03/24/2019 03/23/2020 150 150 Encounter Details Date Type Department Care Team (Late st Contact Info) Description 03/24/2019 SCAN [facility] [address] [place] [phone] Social History Tobacco Use Types Packs/Day Years [...] on filedocumented in this encounter Care Teams Regional Loss Prevention Manager Relationship Specialty Start Date End Date Otoniel, Denia., MD PCP - General Obstetrics & Gynecology 01/08/19 documented as of this encounter
--- OUTSIDE RECORDS SUMMARY | 2025-05-12 10:06 | XMS_ITS | Encounter Summary ---
Author Organization [facility] [place] [address] Support Name Relationship Address Phone Juma Bear Emergency Contact [address] [place] [address] Meche Jones Emergency Contact [address] [address] Jose Salass Emergency Contact [address] [place] [address] Vicentarosa m Brothersen Emergency Contact Unknown Kvng Kilo Personal Relationship [address] [place] Care Team Providers Care Grocery Clerk Checking Name Role Phone Gareth Wheeler MD Primary Care Provider [phone] Janeth Hester DIRECTOR OF PATIENT CARE Unavailable Unav ailable Reason for Visit * Reason Onset Date Comments Medication Refill 04/05/2025 Encounter Details Date Type Department Care Team (Late st Contact Info) Description 04/04/2025 Refill [facility] [address] [place] [address] Le Blood, WAIT STAFF [address] [place] [address] Medication Refill Social History Tobacco Use Types Packs/Day Years Used Date Smoking Tobacco: Never Passive Smoke Exposure: Never Smokeless Tobacco: Never Alcohol Use Standard Drinks/Week Comments Not Currently 1 (1 standard drink = 0.6 oz pur e alcohol) every once and a while [facility] Utilities Answer Date Recorded In the past [...] Recorded PHQ-2 Total Score 0 01/29/2025 [facility] Occupat ional [facility] [...] things needed for daily living? No 09/05/[address] [facility] IP Transportation Answer D ate Recorded In [...] Refills Last Filled Start Date End Date busPIRone (BUSPAR) 10 mg Oral TabletIndications: Bipolar 2 disorder, major depressive episode (HCC),Generalized anxiety disorder with panic attacks Take 1 Tablet by mouth 3 times daily. 270 Tablet 04/07/2025 clindamycin-benzoy l peroxide (BENZACLIN) Top GelIndications:Acn e vulgaris Apply topically 2 times daily. 50 g 2 04/07/2025 documented in this encounter Miscellaneous Notes * Telephone Encounter - Saba Solis CPhT - 04/07/2025 10:08 AM EDT aripiprazole - Refill requested too soon. Refill denied. Last sent on 03/05/2025 for a 30 day supply with 2 refills. Pt notified via [employer] if active. buspirone - There is no CRS protocol for this medication. clindamycin-benzoyl peroxide - There is no CRS protocol for this medication. hydrochlorothiazide - Refill requested too soon. Refill denied. Last sent on 03/13/2025 for a 30 day supply with 2 refills. Pt notified via [employer] if active. documented in this encounter Plan of Treatment Upcoming Encounters Date Type Department Care Team (Late st Contact Info) Description 05/27/2025 10:00 AM EST Telemedicine [facility] [address] [place] [address] 06/01/2025 12:00 PM EST Office Visit [facility] [address] [place] [address] Pretty Vargas APRN [address] [place] [address] 06/02/2025 1:15 PM EST Office Visit [facility] [address] [place] [address] Noel Burnett MD [address] [place] [address] 06/18/2025 10:00 AM EST Office Visit [facility] [address] [place] [address] 06/22/2025 1:45 PM EST Office Visit [facility] [address] [place] [address] Hakeem Diana MD [address] [facility] Building [address] [place] [address] documented as of this encounter Goals [...] as of this encounter Visit Diagnoses Diagnosis Acne vulgaris Other acne Bipolar 2 disorder, major depressive episode (HCC) Other bipolar disorders Generalized anxiety disorder with panic attacks Weight gain Abnormal weight gain Swelling Edema documented in this encounter Discontinued Medications Medication Sig Discontinue Reason Start Date End Da te clindamycin-benzoyl peroxide (BENZACLIN) Top GelIndications:Acne vulgaris Apply topically 2 times daily. Reorder 12/30/2024 04/04/2025 busPIRone (BUSPAR) 10 mg Oral TabletIndications:Bipol ar 2 disorder, major depressive episode (HCC),Generalized anxiety disorder with panic attacks Take 1 Tablet by mouth 3 times daily. Reorder 02/02/2025 04/04/2025 documented as of this encounter Care Teams Grocery Clerk Checking Relationship Specialty Start Date End Date Gareth Wheeler MD [address] [place] [address] PCP - General 03/01/09 Janeth Hester, DIRECTOR OF PATIENT CARE E Learning Developer 10/16/24 documented as of this encounter
--- OUTSIDE RECORDS SUMMARY | 2025-05-12 10:06 | XMS_ITS | Encounter Summary ---
Author Organization [facility] [place] [place] [address] Support Name Relationship Address Phone Juma Bear Emergency Contact [address] [place] [address] Meche Jones Emergency Contact [address] [address] Jose Salass Emergency Contact [address] [place] [address] Vicenta Kilo Emergency Contact Unknown [phone] Kvng Kilo Personal Relationship [address] [place], [place] Care Team Providers Care Utility Hand Name Role Phone Gareth Wheeler MD Primary Care Provider Janeth Hester CLOTH PICKER Unavailable Unav ailable Reason for Visit * Reason Onset Date Comments Medication Refill 04/14/2025 Encounter Details Date Type Department Care Team (Late st Contact Info) Description 04/13/2025 Refill [facility] [address] [place] [address] Le Blood, MACHINE BASTER [address] [place] [address] Medication Refill Social History Tobacco Use Types Packs/Day Years Used Date Smoking Tobacco: Never Passive Smoke Exposure: Never Smokeless Tobacco: Never Alcohol Use Standard Drinks/Week Comments Not Currently 1 (1 standard drink = 0.6 oz pur e alcohol) rarely [facility] Utilities Answer Date Recorded In the [...] Recorded PHQ-2 Total Score 0 01/29/2025 [facility] - Occupational [...] living? No 09/05/2021 [facility] IP Transportation Answer D ate Recorded [...] Zepeda RMA * Does this person have difficulty [...] encounter Miscellaneous Notes * Telephone Encounter - Aracelis Moody CPhT - 04/15/2025 9:08 AM EST aripiprazole- Refill requested too soon. Refill denied. Last sent on 03/05/25 for a 30 day supply with 2 refills. Pt notified via [employer] if active. documented in this encounter Plan of Treatment Upcoming Encounters Date Type Department Care Team (Late st Contact Info) Description 05/27/2025 10:00 AM EST Telemedicine [facility] [address] [place] [address] 06/01/2025 12:00 PM EST Office Visit [facility] [address] [place] [address] Pretty Vargas APRN [address] [place] [address] 06/02/2025 1:15 PM EST Office Visit [facility] [address] [place] [address] Noel Burnett MD [address] [place] [address] 06/18/2025 10:00 AM EST Office Visit [facility] [address] [place] [address] 06/22/2025 1:45 PM EST Office Visit [facility] [address] [place] [address] Hakeem Diana MD [address] [place] [phone] documented as of this encounter Goals [...] on filedocumented in this encounter Care Teams Utility Hand Relationship Specialty Start Date End Date Gareth Wheeler MD [address] [place] [address] PCP - General 03/01/09 Janeth Hester CSW Line Repairer Tower 10/16/24 documented as of this encounter
--- OUTSIDE RECORDS SUMMARY | 2025-05-12 10:06 | XMS_ITS | Encounter Summary ---
Author Organization [facility] Address [address] [place] [address] Phone Care Team Providers Care Immigration Judge Name Role Phone Bonita Frederick MD Primary Care Provider Reason for Referral * Radiology Services (Routine) - Closed Specialty Diagnoses / Procedures Referred By Contbreanne t Referred To Contact Procedures OB US STANDARD SECOND OR THIRD TRIMESTER HISTORICAL MED Referral ID Status Reason Start Date Expiration Date V isits Requested Visits Authorized [id number] Closed Specialty Services Required 02/20/2019 02/20/2020 150 150 Encounter Details Date Type Department Care Team (Late st Contact Info) Description 02/20/2019 SCAN [facility] [address] [place] [address] Social History Tobacco Use Types Packs/Day Years [...] on filedocumented in this encounter Care Teams Immigration Judge Relationship Specialty Start Date End Date Otoniel, Denia., MD PCP - General Obstetrics & Gynecology 01/08/19 documented as of this encounter
[2025-05-12 10:40] LABS: Hematocrit 42.5 % (37.0-47.0); Hemoglobin 14.2 g/dL (12.2-16.2); Immature Granulocytes % 0.6 %; Mean Corpuscular HGB Conc 33.4 g/dL (31.8-35.4); Mean Corpuscular Hemoglobin 28.1 pg (27.0-31.2); Mean Corpuscular Volume 84.2 fl (81-99); Nucleated Red Blood Cells % 0 %; Platelet Count 224 K/mm3 (142-424); Red Blood Count 5.05 M/mm3 (4.20-5.40); Red Cell Distribution Width-SD 37.3 fL; White Blood Count 8.7 K/mm3 (4.8-10.8)
[2025-05-12 11:31] LABS: Albumin Level 4.7 g/dl (3.5-5.0); Chloride 101 mmol/L (98-107); HCG Qualitative, Serum Negative (Negative); Potassium 4.4 mmoL/L (3.5-5.1); Sodium 142 mmol/L (136-145)
[2025-05-12 11:34] LABS: Alanine Aminotransferase 37 U/L (12-78); Albumin/Globulin Ratio 1.6 (1.1-1.8); Alkaline Phosphatase 95 U/L (38-126); Anion Gap 18.4 mEq/L (5-15); Aspartate Amino Transferase 36 U/L (14-36); Bilirubin,Total 0.4 mg/dl (0.2-1.3); Blood Urea Nitrogen 11 mg/dl (7-17); Carbon Dioxide 27 mmol/L (22.0-30.0); Creatinine Clearance Estimated 110 mL/min (50-200); Creatinine,Serum 0.70 mg/dl (0.52-1.04); Estimated Glomerular Filt Rate 101 ml/min (>60); GFR (African American) 122 ML/MIN (>60); Globulin 3.0 g/dL (1.3-3.2); Total Protein,Serum 7.7 g/dl (6.3-8.2)
[2025-05-12 11:35] LABS: Calcium 9.4 mg/dl (8.4-10.2); Glucose 104 mg/dl (74-100)
== END 2025-05-12 23:59 | disposition home or self-care (01) ==
LOC: PREOP 09:59
PROVIDERS: PCP Nurse Practitioner; Visit Provider Obstetrics & Gynecology
DX: Z01.812 Encounter for preprocedural laboratory examination (principal)
CPT/HCPCS: 36415; 80053; 84703; 85025

== ENCOUNTER 2025-05-18 06:30 | Observation (INO) | payer OTHER, SELFPAY ==
[2025-05-12 12:52] VITALS: BMI 51.2
[2025-05-18] VITALS (25 sets, daily range): BP systolic 113–157; BP diastolic 59–93; PULSE 76–107; RESP 17–22; TEMP 36.2–38.3; O2SAT 96–100
[2025-05-18] MEDS: SCOPOLAMINE 1.5MG/72HRS PATCH 1 EACH TD (06:29)
[2025-05-18] MEDS: GABAPENTIN 600MG TABLET 600 MG PO (06:29)
[2025-05-18] MEDS: ACETAMINOPHEN 500MG TAB 1000 MG PO ×2 (06:29→17:59)
[2025-05-18] MEDS: CELECOXIB 100MG CAPSULE 400 MG PO (06:30)
--- NOTE | 2025-05-18 06:56 | EXP.ANES.CKL ---
[facility] Disclaimer: The information contained in this section may have been updated after the patient was seen, as this information can be updated by other users. Medical History Pelvic pain Breast pain, left Acid reflux Anxiety History of gastroesophageal reflux (GERD) Palpitations Right ventricular dysfunction PVC (premature ventricular contraction) Ventricular bigeminy Encounter for pre-operative cardiovascular clearance Abnormal electrocardiogram [ECG] [EKG] Morbid obesity with BMI of 45.0-49.9, adult Dysmenorrhea Menorrhagia Asthma History of bipolar disorder Depression Anxiety Scoliosis Degenerative disc disease Irritable bowel syndrome (IBS) Hypothyroid Allergies Enlarged heart Heart murmur History of anemia Cholecystectomy planned Surgical History H/O cardiac radiofrequency ablation History of endometrial ablation H/O wisdom tooth extraction History of cholecystectomy History of tonsillectomy History of salpingectomy History of tonsillectomy and adenoidectomy [place] teeth extracted Family History Father History of liver disease Father Heart attack Brother Testicular cancer Grandmother Lung cancer Social History Smoking Status: Never smoker alcohol intake: never substance use type: denies use current occupational status: unemployed Travel in the last 8 weeks?: None Have you lived/traveled outside US in past 30 days?: No Contact w/someone who lives/traveled outside US past 30 days?: No Exposure to someone with infectious disease in past 14 days?: No Do you have a fever (greater than 100.4 F or 38 C)?: No Have you tested positive for COVID-19?: No Exposed to someone with COVID-19 in past 14 days?: No Do you have a sore throat?: No Do you have a cough?: No Do you have any weakness?: No Do you have any diarrhea?: No Are you experiencing any unusual bleeding?: No Do you have any muscle aches/pain?: No Do you have any abdominal pain?: No Are you experiencing loss of taste or smell?: No [facility] Anesthesia Checklist Patient Identification Patient Identification: Arm Band and Family Structural Data Admitted From: Home Planned Operative Procedure/s: ANABELLA BSO. Consent for Planned Operative Procedure(s) Verified: Yes Verified Documents: Surgical Consent and History and Physical NPO Status Verified Time NPO: 00:00 Additional verifications Patient : No Anesthesia Reactions: No Hx Blood Transfusions: No Blood Transfusion Reaction: No Cephalosporin Allergy: No Previous Colonoscopy: No Airway Assessment Mallampati Score:: Class II C-Spine Mobility Assessed: Yes TMJ Mobility Assessed: Yes Dentition: Good Dentition Neurological Assessment Level of Consciousness: Awake, Alert, Appropriate and Follows Commands Hx Seizures: No Numbness or tingling in extremities: No Anesthesia Plan Anesthesia Risk discussed: Yes ASA Class: III Anesthesia Type: General Preoperative Comments Pre-Operative Comments: Asthma. BMI 51.
[2025-05-18] MEDS: LACTATED RINGERS 1000ML 1,000 ML 25 ML IV (07:08)
[2025-05-18] MEDS: METRONIDAZ/SOD CHL 500 MG/100 ML PIGGYBACK 100 MG IV ×3 (07:12→22:57)
--- NOTE | 2025-05-18 07:35 | EXP.HP ---
History of Present Illness *Admission Date: 05/18/25 *Reason for visit:: Chronic pelvic pain *History of present illness: Ms Rosalinda Boateng is a 24 yo P2022 who presents to [facility] for scheduled surgery. She complains of chronic pelvic pain. She states pain is severe and is constant. She has been to the ER secondary to the pain. TVUS and an abdominal CT were within normal limits. Labs within normal limits. She rates the pain a 7/10, with no relief from position changes and very little relief from medication. She describes the pain as similar to labor pains where it starts in her pelvic area and radiates to her back. History of x 2. History of tubal ligation in 2021 and endometrial ablation in 2023. Admits to amenorrhea since July of 2024. She desires definitive surgical intervention with hysterectomy, bilateral oophorectomy. [facility] Disclaimer: The information contained in this section may have been updated after the patient was seen, as this information can be updated by other users. Medical History Pelvic pain Breast pain, left Acid reflux Anxiety History of gastroesophageal reflux (GERD) Palpitations Right ventricular dysfunction PVC (premature ventricular contraction) Ventricular bigeminy Encounter for pre-operative cardiovascular clearance Abnormal electrocardiogram [ECG] [EKG] Morbid obesity with BMI of 45.0-49.9, adult Dysmenorrhea Menorrhagia Asthma History of bipolar disorder Depression Anxiety Scoliosis Degenerative disc disease Irritable bowel syndrome (IBS) Hypothyroid Allergies Enlarged heart Heart murmur History of anemia Cholecystectomy planned Surgical History H/O cardiac radiofrequency ablation History of endometrial ablation H/O wisdom tooth extraction History of cholecystectomy History of tonsillectomy History of salpingectomy History of tonsillectomy and adenoidectomy [place] teeth extracted Family History Father History of liver disease Father Heart attack Brother Testicular cancer Grandmother Lung cancer Social History Smoking Status: Never smoker alcohol intake: never substance use type: denies use current occupational status: unemployed Travel in the last 8 weeks?: None Have you lived/traveled outside US in past 30 days?: No Contact w/someone who lives/traveled outside US past 30 days?: No Exposure to someone with infectious disease in past 14 days?: No Do you have a fever (greater than 100.4 F or 38 C)?: No Have you tested positive for COVID-19?: No Exposed to someone with COVID-19 in past 14 days?: No Do you have a sore throat?: No Do you have a cough?: No Do you have any weakness?: No Do you have any diarrhea?: No Are you experiencing any unusual bleeding?: No Do you have any muscle aches/pain?: No Do you have any abdominal pain?: No Are you experiencing loss of taste or smell?: No Other Medical History Have you received the Flu Vaccine for this season: Yes Have you received the Pneumonia Vaccine: No Review of Systems Review of Systems Review of systems:: pertinent systems reviewed and negative unless documented below *Genitourinary Genitourinary: Reports pelvic pain Meds Home Medications and Allergies Home Medications ?Medication ?Instructions ?Recorded ?Confirmed ?Type buspirone 10 mg tablet 10 mg PO DAILY 09/03/24 05/12/25 History pantoprazole 40 mg tablet,delayed 40 mg PO DAILY Heartburn 09/03/24 05/12/25 History release albuterol sulfate 90 mcg/actuation 2 puff inhalation NEEDED PRN SOA 02/18/25 05/12/25 History aerosol inhaler (Ventolin HFA) clindamycin 1 %-benzoyl peroxide 5 1 applic topical DAILY 02/18/25 05/12/25 History % topical gel hydroxyzine HCl 10 mg tablet 10 mg PO BID PRN Sleep 02/18/25 05/12/25 History aripiprazole 30 mg tablet (Abilify) 30 mg PO DAILY 04/27/25 05/12/25 History hydrochlorothiazide 12.5 mg capsule 12.5 mg PO DAILY 04/27/25 05/12/25 History ketorolac 10 mg tablet 10 mg PO Q6H PRN Moderate Pain 05/12/25 05/12/25 History (Scale Score 5-6) linaclotide 145 mcg capsule 145 mcg PO NEEDED PRN 05/12/25 05/12/25 History (Linzess) Constipation New Prescriptions to Start Prescriptions: Allergies Allergy/AdvReac Type Severity Reaction Status Date / Time duloxetine (From Cymbalta) Allergy Mild Headache Verified 05/18/25 06:37 sumatriptan (From Imitrex) Allergy Mild Headache Verified 05/18/25 06:37 Exam Data for Last 24 hours Vital signs and Labs for Last 24 Hours: Temp Pulse Resp BP Pulse Ox O2 Del Method 97.1 F L 89 18 130/62 100 Room Air 05/18/25 06:38 05/18/25 06:38 05/18/25 06:38 05/18/25 06:38 05/18/25 06:38 05/18/25 06:38 Constitutional Constitutional: no acute distress, obese and cooperative *Routine HEENT Exam Head: Present normocephalic and atraumatic Eye: Absent conjunctivae pink ENT: Present mucous membranes moist *Routine Neck Exam Neck: Present full ROM *Routine Respiratory Exam Respiratory: Present CTA bilaterally and normal respiratory effort *Routine Cardiovascular Exam Cardiovascular: Present RRR *Routine Abdominal Exam Abdominal: Present soft and obese; Absent tenderness or distended *Routine Rectal Exam Rectal:: deferred *Routine Genitalia Exam Genitalia:: normal female *Routine Extremities Exam Extremities: Present full ROM; Absent edema or calf tenderness *Routine Neurological Exam Neurological: Present alert, moving all extremities and normal speech Routine Psychiatric Exam Psychiatric: Present normal affect and cooperative Assessment and Plan *Assessment and plan (1) Pelvic pain: Status: Acute Qualifiers: Laterality: unspecified laterality Qualified Code(s): R10.20 - Pelvic and perineal pain unspecified side Category: Medical Code(s): R10.20 - Pelvic and perineal pain unspecified side (2) History of salpingectomy: Status: Acute Category: Surgical Code(s): Z90.79 - Acquired absence of other genital organ(s) (3) History of endometrial ablation: Status: Acute Category: Surgical Code(s): Z98.890 - Other specified postprocedural states (4) Morbid obesity with BMI of 50.0-59.9, adult: Status: Acute Category: Medical Code(s): E66.01 - Morbid (severe) obesity due to excess calories; Z68.43 - Body mass index [BMI] 50.0-59.9, adult Plan Admit to [facility] for scheduled surgery 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 Discussed hysterectomy may not resolve pain and pain could be caused by other etiologies. She requests definitive surgical intervention with hysterectomy and bilateral oophorectomy. Discussed ANABELLA, bilateral oophorectomy in detail. Discussed risks, benefits, alternatives, expectations and possible complications of surgery. Risks include but are not limited to bleeding; infection; damage to adjacent structures (bowel, bladder, nerves, blood vessels, etc) (possibly requiring further intervention and/or longer hospital stay); VTE; risks with anesthesia; and risk of . All questions addressed and answered. Patient voiced understanding of risks and possible complications. Patient desires to proceed with surgery She received cardiac clearance on 04/27 Plan for Delestrogen in PACU and then transition to oral 4 weeks postop Proceed with surgery as scheduled
--- NOTE | 2025-05-18 09:36 | HMH.PHAINT1 ---
Pharmacy Intervention Comments: MEDICATION RECONCILIATION COMPLETE USING EXTERNAL PHARMACY FILL HISTORY AND RECENT MD OFFICE VISIT NOTES.
--- NOTE | 2025-05-18 10:37 | EXP.OP.NOTE ---
Date of procedure: 05/18/25 Pre-op Diagnosis:: 1. Chronic pelvic pain 2. History of bilateral salpingectomy 3. History of endometrial ablation 4. Morbid obesity, BMI 51 6. History of PCOS Post-op Diagnosis:: 1. Chronic pelvic pain 2. History of bilateral salpingectomy 3. History of endometrial ablation 4. Morbid obesity, BMI 51 6. History of PCOS Procedure performed:: 1. Supracervical abdominal hysterectomy 2. Bilateral oophorectomy Surgeon:: Le Ashford DO Printed Circuit Board Designer(s):: Lj Choi MD [employer]ESE MEDICINE PRACTITIONER:: Ankit Camara Anesthesia: GETA Estimated blood loss (mL): 1,000 Clinical Note:: Ms Rosalinda Boateng is a 24 yo P2022 who presents to [facility] for scheduled surgery. She complains of chronic pelvic pain. She states pain is severe and is constant. She has been to the ER secondary to the pain. TVUS and an abdominal CT were within normal limits. Labs within normal limits. She rates the pain a 7/10, with no relief from position changes and very little relief from medication. She describes the pain as similar to labor pains where it starts in her pelvic area and radiates to her back. History of x 2. History of tubal ligation in 2021 and endometrial ablation in 2023. Admits to amenorrhea since July of 2024. She desires definitive surgical intervention with hysterectomy, bilateral oophorectomy. Operative findings:: 1. On laparotomy, uterus normal size and shape. Bilateral ovaries grossly normal. Bilateral fallopian tubes surgically absent. 2. Bowel and bladder grossly normal 3. No evidence of endometriosis or adhesions 4. Diffuse oozing throughout surgery. She received TXA 1 gram when QBL reached 500 mL. Operative note:: Discussed risks, benefits, alternatives, expectations and possible complications of surgery. All questions addressed and answered. Patient wished to proceed with surgery. Patient was wheeled back to the operating room and placed under general anesthesia without difficulty. The patient received 3 grams of Ancef and 500 mg Metronidazole preoperatively. SCDs in place. Mansfield catheter was inserted and draining clear urine prior to the start of the procedure. Vaginal was prepped with Betadine. She was placed in the supine position. She was prepped and draped in normal sterile fashion. Attention was then turned to the abdomen. A Pfannenstiel skin incision was made 2 cm above pubic symphysis. This was carried through to underlying layer of fascia. Fascia was incised in midline, extended laterally with Nagy scissors. Superior aspect of fascial incision was grasped with two Gunner clamps, elevated up, and rectus muscle dissected off bluntly and sharply with Nagy scissors. The retcus muscle was then in the midline and the peritoneum was entered bluntly with a digit. Peritoneal incision was then extended superiorly and inferiorly with good visualization of the bladder. Bookwalter retractor was placed in the abdominal incision. Bowel was packed cephalad with warm moist laparotomy sponges. Bilateral uterine cornua grasped with Samantha clamps. Uterus was deviated to the left, right round ligament was placed on stretch and incised between two clamps. The distal stump of the round ligament was suture ligated with 0 Vicryl suture. The proximal stump was held with a Gunner clamp. The leaves of the broad ligament were opened both anteriorly and posteriorly. The uterus was retracted cephalad. The anterior leaf of the broad ligament was opened down to the vesicouterine fold. Same procedure was carried out on the contralateral side. The vesicouterine peritoneal fold was elevated, and the bladder was dissected off of the lower uterine segment with sharp and blunt dissection. The uterus was retracted toward the pubic symphysis and deviated to left side. A finger was inserted through the peritoneum of the posterior leaf of the broad ligament under the suspensory ligament of the ovary. The IP ligament was doubly clamped, incised and tied with 0 Vicryl suture removing the right ovary. The distal stump was doubly suture ligated. The same procedure was carried out on the contralateral side. The uterus was retracted cephalad and deviated to the right side. Uterine arteries were skeletonized. Two curved Gunner clamps were placed at the junction of the lower uterine segment on the uterine vessels. An incision was made between the uterus and two clamps. The stump was doubly suture ligated with 0 Vicryl. The same procedure was carried out on the contralateral side. The uterus was held in traction in the cephalad position and pubovescial cervical fascia was dissected inferiorly. Two straight Gunner clamps were applied to the cardinal ligament. Cardinal ligament was incised between the two clamps and the distal stump was ligated with 0 Vicryl suture. The same procedure was carried out on the contralateral side. Secondary to oozing decision was made to transect uterus and cervix just above uterosacral ligaments. Uteruse and bilateral ovaries were removed and handed off of sterile field. Approximately 1 cm of cervix was left in situ. Cervix was reapproximated with figure of eight stitch with 0 Vicryl suture. Pelvis was irrigated. Venous oozing under bladder and cervix was noted. Vascular clips were applied to small vessels on lateral edges of cervix. Pelvis was irrigated again. Surgicel powder was applied under bladder and over closed cervix. Pressure was held with clean laparotomy sponge for 2 minutes. Laparotomy sponge was removed. Hemostasis was noted. Surgicel gel foam was placed in pelvis. At this point all instruments and sponges were removed from the pelvis.?Hemostasis was noted. The peritoneum was grasped with Samantha clamps x 3. The peritoneum was reapproximated with 0 Vicryl suture in a running stitch. The corners of the fascia were grasped with Gunner clamps, and the fascia was reapproximated with two # 1 Vicryl suture overlapped to the right of midline. The subcutaneous tissue was irrigated and reapproximated in two layers with 2-0 Vicryl. The skin was reapproximated with metal yas. Telfa was placed over closed Pfannenstiel skin incision. Patient awoke from anesthesia without difficulty and was transferred to the recovery room in stable condition. Condition: stable Disposition: floor Specimens:: 1. Uterus and part of cervix. Approximately 1 cm of cervix was left. 2. Bilateral ovaries Complications:: None
--- NOTE | 2025-05-18 10:43 | EXP.ANES.I ---
[facility] Anesthesia Record Part I Anesthesia Record I Intake, IV Amount: 1,250 Hydration: Adequate Estimated blood loss (mL): 1,000 Urine output (mL): 200 Blood Products used (#): none Blood Pressure: 152/93 SaO2: 98 Pulse Rate: 101 Airway Patency: Patent Respiratory Rate: 22 Temperature: 97.7 F Patient is:: Drowsy and Stable Stable to PACU at:: 10:32
[2025-05-18] MEDS: MEPERIDINE 25MG/ML 1ML SYRINGE 12.5 MG IV (10:45)
[2025-05-18] MEDS: KETOROLAC 30MG/ML VIAL 30 MG IV ×2 (10:50→17:59)
[2025-05-18] MEDS: ESTRADIOL VALERATE 20 MG/ML VIAL 30 MG IM (10:55)
--- NOTE | 2025-05-18 11:15 | PC.NURSE ---
Patient arrived to unit via bed from pacu. A/o x4, patient is drowsy. IV infusing well. cath in place draining clear yellow urine. SCuds in place. Lungs cta and bowel sounds hypoactive, tender abd. no vaginal bleeding noted. no edema noted. pulses 2+. oriented to room at this time. Denies any needs. at bedside
[2025-05-18] MEDS: HYDROMORPHONE 2MG/ML SYRINGE 1 MG IV (11:27)
[2025-05-18] MEDS: LACTATED RINGERS 1000ML 1,000 ML 125 ML IV (11:31)
[2025-05-18] MEDS: ACETAMINOPHEN 1,000MG/100ML VIAL 1000 MG IV (12:42)
[2025-05-18] MEDS: BUSPIRONE HCL 10 MG TABLET PO ×2 (12:46→20:55)
--- NOTE | 2025-05-18 12:54 | EXP.ANES.II ---
[facility] Anesthesia Record Part II Anesthesia Record Part II Discharge Time: 11:02 Destination: Obstetric PACU nurse assessment reviewed?: Yes Patient Condition:: Good Anesthesia Complications:: None Swallowing reflex intact?: Yes Airway Patency: Patent Cyanosis?: No Blood Pressure: 143/73 SaO2: 100 Respiratory Rate: 18 Pulse Rate: 95 Temperature: 97.7 F Mental Status: Alert & Oriented Pain level:: 6 Nausea and/or vomitting:: None Intake, IV Amount: 0 Hydration: Adequate
[2025-05-18 15:01] LABS: Microscopic,Cath URINE MICROSCOPIC (MICROSCOPIC)
[2025-05-18 15:19] LABS: Appearance,Urine/Cath CLEAR (Clear); Bilirubin,Cath Negative (Negative); Blood, Urine/Cath Negative (Negative); Color,Urine/Cath YELLOW (Yellow); Glucose,Urine/Cath (UA) Negative (Negative); Ketones,Urine/Cath Negative (Negative); Leukocyte Esterase,Cath Negative (Negative); Nitrate,Cath Negative (Negative); PH,Urine/Cath 6.0 (5.0-8.5); Protein,Urine/Cath Negative (Negative); Specific Gravity, Urine/Cath 1.015 (1.005-1.030); Urobilinogen,Cath 0.2 EU/dl (0.2)
[2025-05-18] MEDS: OXYCODONE 5MG IMMEDIATE RELEASE TABLET 5 MG PO ×2 (15:23→20:18)
[2025-05-18 15:28] LABS: Bacteria,Urine/Cath TRACE /lpf; Squamous Epithelial Ur./Cath Occasional #/hpf (0-5)
--- NOTE | 2025-05-18 16:26 | PC.NURSE ---
DR. Ashford at bedside
--- NOTE | 2025-05-18 16:30 | PC.NURSE ---
Reassessment completed at this time, no changes. PRN pain meds per mar- pt tolerated well. Lungs cta and bowel sounds active now. IV infusing, Scuds in place. Mansfield in place. Low transverse incision- dressing cta. abd tender. call light within reach.
[2025-05-18] MEDS: ONDANSETRON 4MG/2ML VIAL 4 MG IV (16:41)
--- NOTE | 2025-05-18 17:00 | PC.NURSE ---
Patient up at this time with RN, bed straightened up. TOlerated well getting up. Anderson removed. Panties and pad applied.
[2025-05-18] MEDS: CEFAZOLIN SODIUM 3 GM in 0.9 % SODIUM CHLORIDE 100 ML IV (17:05)
[2025-05-18] MEDS: POLYETHYLENE GLYCOL 3350 17 GM PACKET PO (20:50)
[2025-05-18] MEDS: PANTOPRAZOLE 40MG TABLET 40 MG PO (20:51)
[2025-05-19] MEDS: KETOROLAC 30MG/ML VIAL 30 MG IV ×2 (00:02→06:25)
[2025-05-19] MEDS: ACETAMINOPHEN 500MG TAB 1000 MG PO ×4 (00:03→19:05)
[2025-05-19] MEDS: SIMETHICONE 80MG CHEWABLE TABLET 160 MG PO (00:31)
[2025-05-19] MEDS: CEFAZOLIN SODIUM 3 GM in 0.9 % SODIUM CHLORIDE 100 ML IV (00:31)
[2025-05-19] MEDS: OXYCODONE 5MG IMMEDIATE RELEASE TABLET 5 MG PO ×4 (01:17→19:05)
[2025-05-19 06:15] VITALS: BP 110/51; PULSE 60; RESP 17; TEMP 36.8; O2SAT 97
[2025-05-19 06:27] LABS: Hematocrit 29.4 % (37.0-47.0); Hemoglobin 9.2 g/dL (12.2-16.2); Immature Granulocytes % 0.3 %; Mean Corpuscular HGB Conc 31.3 g/dL (31.8-35.4); Mean Corpuscular Hemoglobin 26.9 pg (27.0-31.2); Mean Corpuscular Volume 86.0 fl (81-99); Nucleated Red Blood Cells % 0 %; Platelet Count 220 K/mm3 (142-424); Red Blood Count 3.42 M/mm3 (4.20-5.40); Red Cell Distribution Width-SD 39.5 fL; White Blood Count 9.3 K/mm3 (4.8-10.8)
[2025-05-19 09:00] VITALS: O2SAT 99
[2025-05-19] MEDS: BUSPIRONE HCL 10 MG TABLET PO ×3 (09:08→20:29)
[2025-05-19] MEDS: POLYETHYLENE GLYCOL 3350 17 GM PACKET PO ×2 (09:08→20:29)
[2025-05-19 09:18] VITALS: BP 103/44; PULSE 67; TEMP 36.6; O2SAT 98
[2025-05-19] MEDS: SENNOSIDES 8.6MG/DOCUSATE 50MG TABLET 1 TAB PO (13:21)
--- NOTE | 2025-05-19 13:26 | P.PN_ITS ---
Subjective *Date: 05/19/25 *Time: 15:05 Interval history: POD # 1 s/p supracervical abdominal hysterectomy, bilateral oophorectomy Resting comfortably in bed. Pain controlled with medication. Tolerating regular diet. No nausea or vomiting. Voiding without difficulty and passing flatus. De nies fever/chills, chest pain and shortness of breath. Ambulating well ad aaron. Medical Exam Vital signs and Labs for Last 24 Hours: Vital Signs Temp Pulse Resp BP Pulse Ox O2 Del Method 05/19/25 09:18 97.8 F 67 103/44 L 98 Room Air 05/19/25 06:30 Room Air 05/19/25 06:15 98.3 F 60 17 110/51 L 97 Room Air 05/19/25 06:15 97 Room Air 05/19/25 03:33 Room Air 05/19/25 02:30 Room Air 05/19/25 01:24 Room Air 05/19/25 00:13 Room Air 05/18/25 23:15 Room Air 05/18/25 22:04 Room Air 05/18/25 21:00 Room Air 05/18/25 20:30 96 Room Air 05/18/25 20:20 98.5 F 87 18 117/64 96 Room Air 05/18/25 20:15 Room Air 05/18/25 19:40 Room Air 05/18/25 18:05 Room Air 05/18/25 18:00 98.5 F 05/18/25 17:20 101.0 F H 96 H 20 118/70 97 Room Air 05/18/25 17:00 Room Air 05/18/25 16:20 98.0 F 98 H 20 113/59 L 100 Room Air 05/18/25 16:14 Room Air 05/18/25 15:30 Room Air 05/18/25 15:20 98.0 F 88 18 133/80 96 Room Air 05/18/25 14:37 Room Air 05/18/25 14:20 84 18 141/78 H 97 Room Air 05/18/25 13:50 98.0 F 76 17 131/68 97 Room Air Intake and Output 05/18/25 05/19/25 05/19/25 23:59 07:59 15:59 Intake Total 1200 / 2650 200 / 200 Output Total 2750 / 2750 1200 / 1200 Balance -1550 / -100 -1000 / -1000 Intake: Intake, Total IV Amount 1200 / 1400 200 / 200 Cefazolin Sodium 3 gm In 0.9 % 100 / 100 100 / 100 Sodium Chloride 100 ml @ 200 mls/hr IV Q8H [facility] Rx#:[id number] Lactated Ringers 1000ML 1,000 1000 / 1000 ml @ 125 mls/hr IV .Q8H [facility] Rx# :[id number] Metronidaz/Sod Chl 500 mg In 100 / 200 100 / 100 100 ml @ 100 mls/hr IV Q8H [facility] Rx#:[id number] Output: Output, Urine Amount 1550 / 1550 1200 / 1200 Output, Urine Amount (Catheter) 1200 / 1200 Mansfield 1200 / 1200 Other: Number of Voids 1 1 Number of Unmeasured Voids 1 1 Laboratory Results - last 24 hr 05/18/25 07:25: Urine Color Yellow, Urine Appearance Clear, Urine pH 6.0, Ur Specific [place] 1.015, Urine Protein Negative, Urine Glucose (UA) Negative, Urine Ketones Negative, Urine Blood Negative, Urine Nitrate Negative, Urine Bilirubin Negative, Urine Urobilinogen 0.2, Ur Leukocyte Esterase Negative, Urine RBC None, Urine WBC None, Ur Squamous Epith Cells Occasional, Urine Bacteria Trace 05/19/25 05:49: WBC 9.3, RBC 3.42 L, Hgb 9.2 L, Hct 29.4 L, MCV 86.0, MCH 26.9 L , MCHC 31.3 L, RDW 12.7, Plt Count 220, MPV 10.6 H, Neut % (Auto) 79.5, Lymph % (Auto) 14.6, [place] % (Auto) 5.4, Eos % (Auto) 0.1, Baso % (Auto) 0.1, Neut # (Auto) 7.4, Lymph # (Auto) 1.4, [place] # (Auto) 0.5, Eos # (Auto) 0.0, Baso # (Auto) 0.0 I & O for Labs for Last 24 Hours: Intake & Output 05/16/25 05/17/25 05/18/25 05/19/25 23:59 23:59 23:59 23:59 Intake Total 2550 / 2650 200 / 200 Output Total 2750 / 2750 1200 / 1200 Balance -200 / -100 -1000 / -1000 Constitutional: Present no acute distress, obese and cooperative Head: Present atraumatic and normocephalic ENT: Present normal exam Neck: Present normal inspection and full ROM Respiratory: Present CTA bilaterally and normal respiratory effort Cardiac: Present Reg Rate and Rhythm GI: Present soft, tenderness (mild appropriate tenderness to palpation postoperatively) and normal bowel sounds; Absent distention or guarding Rectal (female): Present deferred (female): Present deferred Extremities: Present normal inspection and full ROM; Absent edema or calf tenderness Neuro: Present alert, awake and moves all extremities Assessment and Plan *Assessment and plan (1) S/P abdominal supracervical subtotal hysterectomy: Problem Comment: ~ 1 cm of cervix left Status: Acute Category: Surgical Code(s): Z90.711 - Acquired absence of uterus with remaining cervical stump (2) Pelvic pain: Status: Acute Qualifiers: Laterality: unspecified laterality Qualified Code(s): R10.20 - Pelvic and perineal pain unspecified side Category: Medical Code(s): R10.20 - Pelvic and perineal pain unspecified side (3) History of salpingectomy: Status: Acute Category: Surgical Code(s): Z90.79 - Acquired absence of other genital organ(s) (4) History of endometrial ablation: Status: Acute Category: Surgical Code(s): Z98.890 - Other specified postprocedural states (5) Morbid obesity with BMI of 50.0-59.9, adult: Status: Acute Category: Medical Code(s): E66.01 - Morbid (severe) obesity due to excess calories; Z68.43 - Body mass index [BMI] 50.0-59.9, adult (6) Acute blood loss anemia: Status: Acute Category: Medical Code(s): D62 - Acute posthemorrhagic anemia Plan Continue routine postop care Encouraged increased ambulation AM Hgb 9.2 Plan d/c home tomorrow
[2025-05-19 16:00] VITALS: TEMP 36.6
[2025-05-19] MEDS: PANTOPRAZOLE 40MG TABLET 40 MG PO (20:28)
[2025-05-19 21:00] VITALS: BP 101/42; PULSE 69; RESP 18; TEMP 36.7; O2SAT 100
[2025-05-19 21:10] VITALS: O2SAT 100
[2025-05-20] MEDS: ACETAMINOPHEN 500MG TAB 1000 MG PO ×2 (00:43→09:50)
[2025-05-20 00:57] VITALS: BP 117/66
[2025-05-20] MEDS: OXYCODONE 5MG IMMEDIATE RELEASE TABLET 5 MG PO ×2 (01:29→09:51)
--- NOTE | 2025-05-20 01:42 | PC.NURSE ---
0138 - Pt nauseated after attempting to have bowel movement. Requesting something for nausea, see EMAR.
[2025-05-20] MEDS: ONDANSETRON 4MG/2ML VIAL 4 MG IV (01:45)
--- NOTE | 2025-05-20 01:45 | PC.NURSE ---
0141 - Spoke with Dr. Melchor. TO received for Zofran 4mg IV. Order r/v. See EMAR
[2025-05-20] MEDS: LACTATED RINGERS 1000ML 1,000 ML 125 ML IV (02:14)
[2025-05-20 04:31] VITALS: BP 98/54; PULSE 69; RESP 16; TEMP 36.5; O2SAT 99
[2025-05-20 08:20] VITALS: O2SAT 98
[2025-05-20] MEDS: BUSPIRONE HCL 10 MG TABLET PO ×2 (09:48→13:50)
[2025-05-20] MEDS: POLYETHYLENE GLYCOL 3350 17 GM PACKET PO (09:49)
[2025-05-20] MEDS: SIMETHICONE 80MG CHEWABLE TABLET 160 MG PO (09:50)
[2025-05-20] MEDS: SENNOSIDES 8.6MG/DOCUSATE 50MG TABLET 1 TAB PO (09:50)
[2025-05-20 10:14] VITALS: BP 94/44; PULSE 92; RESP 18; TEMP 36.6; O2SAT 100
[2025-05-20 10:28] LABS: Hematocrit 31.0 % (37.0-47.0); Hemoglobin 9.7 g/dL (12.2-16.2); Immature Granulocytes % 0.4 %; Mean Corpuscular HGB Conc 31.3 g/dL (31.8-35.4); Mean Corpuscular Hemoglobin 27.8 pg (27.0-31.2); Mean Corpuscular Volume 88.8 fl (81-99); Nucleated Red Blood Cells % 0 %; Platelet Count 200 K/mm3 (142-424); Red Blood Count 3.49 M/mm3 (4.20-5.40); Red Cell Distribution Width-SD 41.6 fL; White Blood Count 6.8 K/mm3 (4.8-10.8)
--- NOTE | 2025-05-20 13:15 | EXP.DC.SUM ---
General Admission date:: 05/18/25 Discharge date: 05/20/25 HPI HPI HPI: POD # 2 s/p supracervical abdominal hysterectomy, bilateral oophorectomy Resting comfortably in bed. Pain controlled with medication. Tolerating regular diet. No nausea. She admits to vomiting after taking oxycodone. Voiding without difficulty and passing flatus. Denies fever/chills, chest pain and shortness of breath. Ambulating well ad aaron. Hospital Course Hospital Course Hospital Course: Ms Rosalinda Boateng is a 24 yo P2022 who presents to [facility] for scheduled surgery. She complains of chronic pelvic pain. She states pain is severe and is constant. She has been to the ER secondary to the pain. TVUS and an abdominal CT were within normal limits. Labs within normal limits. She rates the pain a 7/10, with no relief from position changes and very little relief from medication. She describes the pain as similar to labor pains where it starts in her pelvic area and radiates to her back. History of x 2. History of tubal ligation in 2021 and endometrial ablation in 2023. Admits to amenorrhea since July of 2024. She desires definitive surgical intervention with hysterectomy, bilateral oophorectomy. She underwent supracervical abdominal hysterectomy, bilateral oophorectomy on 05/18/25. She did well postoperatively. Pain controlled with medication. Tolerating regular diet. Voiding without difficulty and passing flatus. Denies fever/chills, chest pain and shortness of breath. Ambulating well ad aaron. She received Delestrogen 30 mg IM on postop day 0. Vital signs stable, afebrile. Heart regular rate and rhythm. Lungs clear to auscultation. No lower extremity edema of calf pain. She was discharged home on POD # 2 with instructions to follow-up in the office 12/ for postop visit and staple removal. Exam Data for Last 24 hours Vital signs and Labs for Last 24 Hours: Temp Pulse Resp BP Pulse Ox O2 Del Method 97.8 F 92 H 18 94/44 L 100 Room Air 05/20/25 10:14 05/20/25 10:14 05/20/25 10:14 05/20/25 10:14 05/20/25 10:14 05/20/25 10:14 Laboratory Results - last 24 hr 05/20/25 10:21: WBC 6.8 D, RBC 3.49 L, Hgb 9.7 L, Hct 31.0 L, MCV 88.8, MCH 27.8, MCHC 31.3 L, RDW 12.9, Plt Count 200, MPV 10.8 H, Neut % (Auto) 68.2, Lymph % (Auto) 24.8, [place] % (Auto) 4.7, Eos % (Auto) 1.0, Baso % (Auto) 0.9, Neut # (Auto) 4.6, Lymph # (Auto) 1.7, [place] # (Auto) 0.3, Eos # (Auto) 0.1, Baso # (Auto) 0.1 I & O for Last 24 hours: Intake & Output 05/17/25 05/18/25 05/19/25 05/20/25 23:59 23:59 23:59 23:59 Intake Total 2550 / 2650 200 / 200 Output Total 2750 / 2750 1200 / 1200 0 / 0 Balance -200 / -100 -1000 / -1000 0 / 0 Constitutional Constitutional: no acute distress, obese and cooperative *Routine HEENT Exam Head: Present normocephalic and atraumatic Eye: Absent conjunctivae pink ENT: Present mucous membranes moist *Routine Neck Exam Neck: Present full ROM *Routine Respiratory Exam Respiratory: Present CTA bilaterally and normal respiratory effort *Routine Cardiovascular Exam Cardiovascular: Present RRR *Routine Abdominal Exam Abdominal: Present soft, normoactive bowel sounds and obese; Absent tenderness or distended *Routine Rectal Exam Patient deferred: visual exam *Routine Exam Patient deferred: external exam *Routine Extremities Exam Extremities: Present full ROM; Absent edema or calf tenderness *Routine Neurological Exam Neurological: Present alert, moving all extremities and normal speech Routine Psychiatric Exam Psychiatric: Present normal affect and cooperative Results Data Completed and Pending Labs on day of discharge: Labs from last 24 hours 05/20/25 10:21 WBC 6.8 D RBC 3.49 L Hgb 9.7 L Hct 31.0 L MCV 88.8 MCH 27.8 MCHC 31.3 L RDW 12.9 Plt Count 200 MPV 10.8 H Neut % (Auto) 68.2 Lymph % (Auto) 24.8 [place] % (Auto) 4.7 Eos % (Auto) 1.0 Baso % (Auto) 0.9 Neut # (Auto) 4.6 Lymph # (Auto) 1.7 [place] # (Auto) 0.3 Eos # (Auto) 0.1 Baso # (Auto) 0.1 DS: Diagnosis Discharge Diagnosis (1) S/P abdominal supracervical subtotal hysterectomy: Status: Acute Code(s): Z90.711 - Acquired absence of uterus with remaining cervical stump Problem details: ~ 1 cm of cervix left (2) Pelvic pain: Status: Acute Code(s): R10.20 - Pelvic and perineal pain unspecified side Qualifiers: Laterality: unspecified laterality Qualified Code(s): R10.20 - Pelvic and perineal pain unspecified side (3) History of salpingectomy: Status: Acute Code(s): Z90.79 - Acquired absence of other genital organ(s) (4) History of endometrial ablation: Status: Acute Code(s): Z98.890 - Other specified postprocedural states (5) Morbid obesity with BMI of 50.0-59.9, adult: Status: Acute Code(s): E66.01 - Morbid (severe) obesity due to excess calories; Z68.43 - Body mass index [BMI] 50.0-59.9, adult (6) Acute blood loss anemia: Status: Acute Code(s): D62 - Acute posthemorrhagic anemia Meds Home Medications and Allergies Home Medications ?Medication ?Instructions ?Recorded ?Confirmed ?Type buspirone 10 mg tablet 10 mg PO TID 09/03/24 05/18/25 History pantoprazole 40 mg tablet,delayed 40 mg PO HS Heartburn 09/03/24 05/18/25 History release albuterol sulfate 90 mcg/actuation 2 puff inhalation Q4HP PRN 02/18/25 05/18/25 History aerosol inhaler (Ventolin HFA) Shortness Of Breath clindamycin 1 %-benzoyl peroxide 5 1 applic topical BID 02/18/25 05/18/25 History % topical gel hydroxyzine HCl 10 mg tablet 20 mg PO HSP PRN Sleep 02/18/25 05/18/25 History aripiprazole 30 mg tablet (Abilify) 30 mg PO DAILY 04/27/25 05/12/25 History hydrochlorothiazide 12.5 mg capsule 12.5 mg PO DAILY 04/27/25 05/12/25 History ibuprofen 400 mg tablet 800 mg (2 x 400 mg) PO Q8H #40 tabs 05/20/25 Rx ondansetron 4 mg disintegrating 4 mg PO Q6H PRN nausea and 05/20/25 Rx tablet vomiting #40 tabs oxycodone 5 mg tablet 5 mg PO Q4HP PRN Moderate Pain 05/20/25 Rx (4-6) #20 tabs polyethylene glycol 3350 17 gram 17 g PO BID 3 days #14 ea 05/20/25 Rx oral powder packet (HealthyLax) New Prescriptions to Start Prescriptions: ibuprofen Le Ashford ondansetron Le Ashford oxycodone Le Ashford polyethylene glycol 3350 [HealthyLax] Le Ashford Allergies Allergy/AdvReac Type Severity Reaction Status Date / Time duloxetine (From Cymbalta) Allergy Mild Headache Verified 05/18/25 06:37 sumatriptan (From Imitrex) Allergy Mild Headache Verified 05/18/25 06:37 Discharge Plan Disposition Patient Disposition: Home, Self-Care Condition: Good Follow up Plan Follow up with: Le Ashford DO [Staff Physician, [facility]] - 05/29/25 11:00 am Referral Note: staple removal and postop visit Prescriptions/Medication Reconciliation: New polyethylene glycol 3350 [HealthyLax] 17 gram Powder In Packet 17 g PO BID 3 Days Qty: 14 0RF ibuprofen 400 mg Tablet 800 mg PO Q8H Qty: 40 0RF oxycodone 5 mg Tablet 5 mg PO Q4HP PRN (Reason: Moderate Pain (4-6)) Qty: 20 0RF ondansetron 4 mg tablet,disintegrating 4 mg PO Q6H PRN (Reason: nausea and vomiting) Qty: 40 0RF Continued buspirone 10 mg tablet 10 mg PO TID pantoprazole 40 mg tablet,delayed release (DR/EC) 40 mg PO HS Patient Comments: TAKE 1 TABLET BY MOUTH DAILY. clindamycin-benzoyl peroxide 1-5 % gel 1 applic topical BID albuterol sulfate [Ventolin HFA] 90 mcg/actuation HFA aerosol inhaler 2 puff inhalation Q4HP PRN (Reason: Shortness Of Breath) hydroxyzine HCl 10 mg tablet 20 mg PO HSP PRN (Reason: Sleep) hydrochlorothiazide 12.5 mg capsule 12.5 mg PO DAILY aripiprazole [Abilify] 30 mg tablet 30 mg PO DAILY Problem Reconciliation Problems Reviewed?: Yes Patient Discharge Instructions ACTIVITY: Limited activity DIET: continue same diet and regular diet Additional Instructions: Additional Instructions: You had a supracervical abdominal hysterectomy and bilateral saplingectomy oophorectomy. This means that your uterus, most of your cervix, fallopian tubes and ovaries were removed. You will follow-up in office for a postop visit at 2 weeks and at 6 weeks. At your 6-week postop appointment you will have a pelvic exam. Discharge: 1. Take 800 mg Ibuprofen every 8 hours as needed for pain. You can also take 1000 mg of Tylenol in between doses, every 6-8 hours and Oxycodone 5 mg, 1 tablet every 4-6 hours or more as needed. 2. Take Miralax twice daily for at least 3 days then as needed to avoid constipation Activity: - No lifting more than 10 lbs for 6 weeks. - No driving for 7 days and/or while you are taking narcotic pain medication. - You have three incisions on your abdomen that are closed with stitches and surgical glue. Wound care - Keep your wound clean and dry, ok to wash with soap and water but pat thoroughly dry Please call the office or return to the ER if you have any of the followin. heavy vaginal bleeding 2. pain that does not respond to your narcotic pain medication 3. dizziness or lightheadedness such that you lose consciousness 4. abnormal discharge from your incision Questions or concerns: It is my privilege to be your doctor. Please let me know if you have other questions or concerns. Le Ashford DO [facility] [place], [place] [address] Patient Instructions: Open Hysterectomy Surgery, DI for Hysterectomy Print Language: Austrian Providers Primary Care Provider: Le Blood Admit Provider: Le Ashford Attending Provider: Le Ashford
[2025-05-20] MEDS: ONDANSETRON 4MG ODT 4 MG SL (14:36)
[2025-05-20 15:00] VITALS: BP 94/54; PULSE 62
== END 2025-05-20 15:11 | disposition home or self-care (01) ==
LOC: OB 15:02
PROVIDERS: Admitting Provider Obstetrics & Gynecology; PCP Nurse Practitioner; Visit Provider Obstetrics & Gynecology
PROC: 0UT90ZZ Resection of Uterus, Open Approach (ICD-10-PCS; CPT 58150; principal; 2025-05-18 07:30)
DX: R10.20 Pelvic and perineal pain unspecified side (principal); K21.9 Gastro-esophageal reflux disease without esophagitis; F41.9 Anxiety disorder, unspecified; E28.2 Polycystic ovarian syndrome; Z90.49 Acquired absence of other specified parts of digestive tract; F32.A Depression, unspecified; E03.9 Hypothyroidism, unspecified; Z56.0 Unemployment, unspecified; Z88.8 Allergy status to other drugs, medicaments and biological substances; Z91.040 Latex allergy status; Z79.899 Other long term (current) drug therapy; Z90.722 Acquired absence of ovaries, bilateral; Z98.51 Tubal ligation status; E66.01 Morbid (severe) obesity due to excess calories; Z68.43 Body mass index [BMI] 50.0-59.9, adult; D62 Acute posthemorrhagic anemia
CPT/HCPCS: 58180; 36415; 51702; 81001; 85025; 86850; 96365; 96367; 96372; 96374; 96375; 96376; G0378; J0131; J0665; J0666; J1100; J1171; J1380; J1650; J1836; J1885; J2003; J2175; J2250; J2405; J2704; J3010; J7120; Q0162

== ENCOUNTER 2025-05-27 08:36 | Emergency (ER) | payer OTHER, SELFPAY ==
--- OUTSIDE RECORDS SUMMARY | 2022-10-10 08:20 | XMS_ITS | Encounter Summary ---
Author Organization [place] [address] Support Name Relationship Address Phone Juma Bear Emergency Contact [address] [place] [address] Mecheleelee Jones Emergency Contact [address] [address] Jose Nate Emergency Contact [address] [place] [address] Vicenta Boateng Emergency Contact Unknown Kvng Kilo Personal Relationship [address] [place] Care Team Providers Care Barometers Calibrator Name Role Phone Gareth Wheeler MD Primary Care Provider [phone] Encounter Details Date Type Department Care Team (Late st Contact Info) Description 10/10/2022 9:20 AM EDT Hospital Encounter [facility] [address] [place] [address] Le Blood, [employer] ADMINISTRATOR [address] [place] [address] Left without seen Social History Tobacco Use Types Packs/Day Years Used Date Smoking Tobacco: Never Passive Smoke Exposure: Never Smokeless Tobacco: Never Alcohol Use Standard Drinks/Week Comments Not Currently 1 (1 standard drink = 0.6 oz pur e alcohol) rarely [facility] Utilities Answer Date Recorded In the past 12 months has [employer], gas, oil, or water [employer] threatened to shut off services in your home? No 03/27/2024 Overall Financial Resource Strain (CARDIA) Answe r Date Recorded How hard is it for you to pa y for the very basics like food, housing, medical care, and heating? Not very hard 03/27/2024 PHQ-2 Answer Date Recorded PHQ-2 Total Score 0 01/29/2025 [facility] - Occupational Stress Questionnaire Answer Date Recorded Do you feel stress - tense, restless, nervous, or anxious, or unable to sleep at night because your mind is troubled all the time - these days? Only a little 03/27/2024 Exercise Vital Sign Answer Date Recorde d On average, how many days pe r week do you engage in moderate to strenuous exercise (like a brisk walk)? 0 days 03/31/2024 On average, how many minutes do you engage in exercise at this level? 0 min 03/31/2024 Hunger Vital Sign Answer Date Recorded Within the past 12 months, y ou worried that your food would run out before you got the money to buy more. Never true 03/27/20 24 Within the past 12 months, t he food you bought just didn't last and you didn't have money to get more. Never true 03/27/2024 [facility] - Transportation Answer Date Re corded In the past 12 months, has l ack of transportation kept you from medical appointments or from getting medications? No 08/10 In the past 12 months, has l ack of transportation kept you from meetings, work, or from getting things needed for daily living? No 09/05/2021 [facility] Transportation Answer D ate Recorded In the past 12 months, has l ack of reliable transportation kept you from medical appointments, meetings, work or from getting things needed for daily living? No 03/27/2024 Sexually Active Control Partners Comments Yes Surgical, Other-see comments Male Tubal removal Comments No Sex and Gender Information Value Date Recorded Sex Assigned at Not on file Legal Sex Female 4:25 AM EDT Gender Identity Not on file Sexual Orientation Not on file COVID-19 Exposure Response Date Recorded In the last 10 days, have yo u been in contact with someone who was confirmed or suspected to have Coronavirus/COVID-19? No / Unsure 07/18/2023 12:55 PM EST documented as of this encounter Functional Status * Question Answer Date of Assessment Author Is the person deaf or does he/she have serious difficulty hearing? No 11/14/2024 10:03 AM Liset Ventura ae, RMA Is the person blind or does he/she have serious difficulty seeing even when wearing glasses? No 11/14/2024 10:03 AM EDT Liset Lin ae, RMA Does this person have seriou s difficulty walking or climbing stairs? No 11/14/2024 10:03 AM EDT Liset Lin ae, RMA Does this person have difficulty dressing or bathing? No 11/14/2024 10:03 AM KBT Liset Lin ae, RMA * Is the person deaf or does he/she have serious difficulty hearing? Answer Date of Assessment Author No 10/10/2022 10:16 AM Angelito Meredith, LENKA * Is the person blind or does he/she have serious difficulty seeing even when wearing glasses? Answer Date of Assessment Author No 10/10/2022 10:16 AM Angelito Meredith, GUEST SERVICE MANAGER * Does this person have serious difficulty walking or climbing stairs? Answer Date of Assessment Author No 10/10/2022 10:16 AM Angelito Meredith, GUEST SERVICE MANAGER * Does this person have difficulty dressing or bathing? Answer Date of Assessment Author No 10/10/2022 10:16 AM Angelito Meredith, GUEST SERVICE MANAGER * Because of a physical, mental or emotional condition, does this person have difficulty doing errands alone such as visiting a doctor's office or shopping? Answer Date of Assessment Author No 10/10/2022 10:16 AM Angelito Meredith, GUEST SERVICE MANAGER * PHQ-2 Total Score Answer Date of Assessment Author 0 01/29/2025 9:00 AM Nirmal Ventura RMA * PHQ-9 Total Score Answer Date of Assessment Author 0 01/29/2025 9:00 AM Nirmal Ventura RMA * Question Answer Date of Assessment Author Little interest or pleasure in doing things 0 01/29/2025 9:00 AM EDT Delia, Liset Ma e, RMA Feeling down, depressed, or hopeless 0 01/29/2025 9:00 AM EDT Liset Lin Ma, JAMES Trouble falling or staying asleep, or sleeping too much 0 01/29/2025 9:00 AM Liset Ventura, JAMES Feeling tired or having boogie le energy 0 01/29/2025 9:00 AM EDT Liset Lin Ma, JAMES Poor appetite or overeating 0 01/29/2025 9: 00 AM EDLiset Zepeda, JAMES Feeling bad about yourself - or that you are a failure or have let yourself or your family down 0 01/29/2025 9:00 AM Liset Ventura Ma, JAMES Trouble concentrating on things, such as reading the newspaper or watching television 0 01/29/2025 9:00 AM KBT Liset Lin Ma, JAMES Moving or speaking so slowly that other people could have noticed. Or the opposite - being so fidgety or restless that you have been moving around a lot more than usual 0 01/29/2025 9:00 AM Liset Ventura RMA Thoughts that you would be better off , or of hurting yourself in some way 0 01/29/2025 9:00 AM Liset Ventura ae, RMA * PHQ-2 Total Score Answer Date of Assessment Author 0 01/29/2025 9:00 AM Nirmal Ventura RMA documented as of this encounter Mental Status * Question Answer Entry Date Author Because of a physical, menta l or emotional condition, does this person have difficulty doing errands alone such as visiting a doctor's office or shopping? No 11/14/2024 10:03 AM Liset Ventura ae, RMA Because of a physical, menta l or emotional condition, does this person have serious difficulty concentrating, remembering or making decisions? No 11/14/2024 10:03 AM Liset Vnetura ae, RMA * Because of a physical, mental or emotional condition, does this person have serious difficulty concentrating, remembering or making decisions? Answer Entry Date Author No 10/10/2022 10:16 AM EDT Angelito Martinez, LENKA documented in this encounter Plan of Treatment Upcoming Encounters Date Type Department Care Team (Late st Contact Info) Description 06/01/2025 12:00 PM EST Office Visit [facility] [address] [place] [address] Pretty Vargas APRN [address] [place] [phone] 06/01/2025 2:00 PM EST Telemedicine [facility] [address] [place] [phone] 06/02/2025 1:15 PM EST Office Visit [facility] [address] [place] [address] [place] [address] [place] [phone] 06/22/2025 1:45 PM EST Office Visit [facility] [address] [place] [address] Hakeem Diana MD [address] [place] [phone] 06/30/2025 10:15 AM EST Office Visit [facility] [address] [place] [phone] documented as of this encounter Goals Goal Patient Goal Type Associated Problems Recent Progress Patient-Stated? Author Blood Pressure < 140/90 Blood Pressure 120/76(2024 8:55 AM EDT) No Jess Wang MA Eat better, exercise, reach an ideal body weight General No Liset Lin RMA BMI (Calculated) < 30 General 52.8(05/04/20 12:42 PM EST) No Jess Wang MA HEMOGLOBIN A1C < 7.0 Result Component 5.4( 12:11 PM EDT) Jess Peter MA documented as of this encounter Visit Diagnoses Not on filedocumented in this encounter Additional Health Concerns Assessment Noted Time PHQ-9 Depression Total Score: 23 023 10:16 AM EDT PHQ-2 Depression Total Score: 6 10/11/19 23 10:16 AM EDT documented as of this encounter Care Teams Barometers Calibrator Relationship Specialty Start Date End Date Gareth Wheeler MD [address] [place] [address] PCP - General 03/01/09 documented as of this encounter
--- OUTSIDE RECORDS SUMMARY | 2023-01-11 11:10 | XMS_ITS | Encounter Summary ---
Author Organization [place] [address] Support Name Relationship Address Phone Juma Bear Emergency Contact [address] [place] [address] Mecheleelee Jones Emergency Contact [address] [address] Jose Nate Emergency Contact [address] [place] [address] Vicenta Boateng Emergency Contact Unknown [phone] Kvng Kilo Personal Relationship [address] [place], [place] Care Team Providers Care Gold Miner Blasting Name Role Phone Gareth Wheeler MD Primary Care Provider [phone] Encounter Details Date Type Department Care Team (Latest Contact Info) Description 01/11/2023 12:10 PM EDT Hospital Encounter [facility] [address] [place] [address] Left without seen Social History Tobacco Use Types Packs/Day Years Used Date Smoking Tobacco: Never Passive Smoke Exposure: Never Smokeless Tobacco: Never Alcohol Use Standard Drinks/Week Comments Not Currently 1 (1 standard drink = 0.6 oz pur e alcohol) rarely [facility] Utilities Answer Date Recorded In the past 12 months has th e electric, gas, oil, or water company threatened to shut off services in your home? No 03/27/2024 Overall Financial Resource Strain (CARDIA) Agustine r Date Recorded How hard is it for you to pa y for the very basics like food, housing, medical care, and heating? Not very hard 03/27/2024 PHQ-2 Answer Date Recorded PHQ-2 Total Score 0 01/29/2025 [facility] Occupat ional Health - Occupational Stress Questionnaire Answer Date Recorded [...] things needed for daily living? No 09/05/2021 [facility] IP Transportation Answer D ate Recorded [...] AM EDT Liset Lin ae, RMA * Is the person deaf or does he/she have serious difficulty hearing? Answer Date of Assessment Author No 10/10/2022 10:16 AM EDT Angelito Martinez, LENKA * Is the person blind or does he/she have serious difficulty seeing even when wearing glasses? Answer Date of Assessment Author No 10/10/2022 10:16 AM Angelito Meredith, LENKA * Does this person have serious difficulty walking or climbing stairs? Answer Date of Assessment Author No 10/10/2022 10:16 AM EDAngelito Solis, LENKA * Does this person have difficulty dressing or bathing? Answer Date of Assessment Author No 10/10/2022 10:16 AM Angelito Meredith, LENKA * Because of a physical, mental or emotional condition, does this person have difficulty doing errands alone such as visiting a doctor's office or shopping? Answer Date of Assessment Author No 10/10/2022 10:16 AM Angelito Meredith, LENKA * PHQ-2 Total Score Answer Date of Assessment Author 0 01/29/2025 9:00 AM Rogelio Ventura RMA * PHQ-9 Total Score Answer Date of Assessment Author 0 01/29/2025 9:00 AM Rogelio Ventura RMA * Question Answer Date of Assessment Author Little interest or pleasure in doing things 0 01/29/2025 9:00 AM Liset Ventura Ma, RMA Feeling down, depressed, or hopeless 0 01/29/2025 9:00 AM Liset Ventura Ma, RMA Trouble falling or staying asleep, or sleeping too much 0 01/29/2025 9:00 AM EDLiset Zepeda RMA Feeling tired or having boogie le energy 0 01/29/2025 9:00 AM KBT Liset Lin Ma, RMA Poor appetite or overeating 0 01/29/2025 9: 00 AM Liset Ventura RMA Feeling bad about yourself - or that you are a failure or have let yourself or your family down 0 01/29/2025 9:00 AM EDLiset Zepeda Ma, RMA Trouble concentrating on things, such as reading the newspaper or watching television 0 01/29/2025 9:00 AM KBT Liset Lin Ma, RMA Moving or speaking [...] of Assessment Author 0 01/29/2025 9:00 AM Rogelio Ventura RMA documented as of this encounter Mental Status * Question Answer Entry Date Author Because of a physical, menta l or emotional condition, does this person have difficulty doing errands alone such as visiting a doctor's office or shopping? No 11/14/2024 10:03 AM EDLiset Zepeda ae, RMA Because of a physical, menta l or emotional condition, does this person have serious difficulty concentrating, remembering or making decisions? No 11/14/2024 10:03 AM Liset Ventura ae, RMA * Because of a physical, mental or emotional condition, does this person have serious difficulty concentrating, remembering or making decisions? Answer Entry Date Author No 10/10/2022 10:16 AM EDT Angelito Martinez LPN documented in this encounter Plan of Treatment Upcoming Encounters Date Type Department Care Team (Late st Contact Info) Description 06/01/2025 12:00 PM EST Office Visit [facility] [address] [place] [address] Pretty Vargas APRN [address] [place] [address] 06/01/2025 2:00 PM EST Telemedicine [facility] [address] [place] [address] 06/02/2025 1:15 PM EST Office Visit [facility] [address] [place] [address] Noel Burnett MD [address] [place] [address] 06/22/2025 1:45 PM EST Office Visit [facility] [address] [place] [address] Hakeem Diana MD [address] [place] [address] [place] [phone] 06/30/2025 10:15 AM EST Office Visit [facility] [address] [place] [address] documented as of this encounter Goals Goal Patient Goal Type Associated Problems Recent Progress Patient-Stated? Author Blood Pressure < 140/90 Blood Pressure 120/76(2024 8:55 AM EDT) No Jess Wang MA Eat better, exercise, reach an ideal body weight General No Liset Lin RMA BMI (Calculated) < 30 General 52.8(05/04/20 25 12:42 PM EST) Jess Peter MA HEMOGLOBIN A1C < 7.0 Result Component 5.4( 12:11 PM EDT) Jess Peter MA documented as of this encounter Visit Diagnoses Not on filedocumented in this encounter Additional Health Concerns Assessment Noted Time PHQ-9 Depression Total Score: 23 023 10:16 AM EDT PHQ-2 Depression Total Score: 6 10/11/19 23 10:16 AM EDT documented as of this encounter Care Teams Gold Miner Blasting Relationship Specialty Start Date End Date Gareth Wheeler MD [address] [place] [address] PCP - General 03/01/09 documented as of this encounter
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
--- OUTSIDE RECORDS SUMMARY | 2025-04-09 08:30 | XMS_ITS | Encounter Summary ---
Author Organization [place] [address] Support Name Relationship Address Phone Juma Marianela Emergency Contact [address] [place] [address] Meche Jones Emergency Contact [address] [address] Jose Nate Emergency Contact [address] [place] [address] Vicenta Kilo Emergency Contact Unknown [phone] Kvng Kilo Personal Relationship [address] [place], [place] Care Team Providers Care Web Services Manager Name Role Phone Gareth Wheeler MD Primary Care Provider [phone] Janeth Hester POWER TECHNICIAN Unavailable Unav ailable Reason for Visit * Reason Comments Obesity H&P * Consultation (Routine) - Pending Review Specialty Diagnoses / Procedures Referred By Contbreanne t Referred To Contact Diagnoses Encounter for pre-bariatric surgery counseling and education Morbid obesity with BMI of 50.0-59.9, adult (HCC) Fatty liver Gastroesophageal reflux disease, unspecified whether esophagitis present Portia Jones, HORSE SHOW JUDGE [address] [place] [address] Phone: tel: fax: Noel Burnett MD [address] [place] [address] Phone: tel: fax: Referral ID Status Reason Start Date Expiration Date V isits Requested Visits Authorized [id number] Pending Review 01/30/2025 01/30/2026 99 99 Encounter Details Date Type Department Care Team (Late st Contact Info) Description 04/09/2025 9:30 AM EDT Office Visit [facility] [address] [place] [address] Noel Burnett MD [address] [place] [address] Cervicogenic migraine (Primary Dx); Constipation, chronic; Gastroesophageal reflux disease without esophagitis; Irritable bowel syndrome with constipation; Mild intermittent asthma with acute exacerbation; PCOS (polycystic ovarian syndrome); Morbid obesity with BMI of 50.0-59.9, adult (HCC); Metabolic dysfunction-associate d steatotic liver disease (MASLD); Vitamin D deficiency; Lipedema; Class 3 severe obesity due to excess calories with serious comorbidity and body mass index (BMI) of 50.0 to 59.9 in adult (HCC) Social History Tobacco Use Types Packs/Day Years Used Date Smoking Tobacco: Never Passive Smoke Exposure: Never Smokeless Tobacco: Never Alcohol Use Standard Drinks/Week Comments Not Currently 1 (1 standard drink = 0.6 oz pur e alcohol) rarely [facility] Utilities Answer Date Recorded In the past 12 months has e electric, gas, oil, or water [place] threatened to shut off services in your home? No 03/27/2024 Overall Financial Resource Strain (CARDIA) Answe r Date Recorded How hard is it for you to pa y for the very basics like food, housing, medical care, and heating? Not very hard 03/27/2024 PHQ-2 Answer Date Recorded PHQ-2 Total Score 0 01/29/2025 [place] [facility] - Occupational Stress [...] things needed for daily living? No 09/05/2021 [facility] IP Transportation Answer D ate Recorded [...] Sign Reading Time Taken Comments Blood Pressure 120/76 04/09/2025 8:55 AM EDT Pulse 103 04/09/2025 8:55 AM EDT Temperature - - Respiratory Rate 20 04/09/2025 8:55 AM EDT Oxygen Saturation - - Inhaled Oxygen Concentration - - Weight 138.6 kg (305 lb 9.6 oz) 04/09/2025 8:55 AM EDT Height 161.3 cm (5' 3.5 ) 04/09/2025 8:55 AM EDT Body Mass Index 53.29 04/09/2025 8:55 AM EDT documented in this encounter Functional [...] of Assessment Author No 11/14/2024 10:03 AM Lsiet Ventura RMA * Does this person have [...] documented in this encounter Progress Notes * Noel Burnett MD - 04/09/2025 9:30 AM EDT MEDICAL HISTORY & PHYSICAL Subjective Serenity S Boateng 24 y.o. 2000 Allergies[1] Vitals: 04/09/25 0855 BP: 120/76 Pulse: 103 Resp: 20 Wt Readings from Last 3 Encounters: 04/09/25 (!) 305 lb 9.6 oz (138.6 kg) 03/24/25 (!) 309 lb 9.6 oz (140.4 kg) 02/23/25 (!) 303 lb 6.4 oz (137.6 kg) Body mass index is 53.29 kg/m??. Health History Questionnaire reviewed with patient. See scanned report. History: Past Medical History[2] Surgical History[3] Family History[4] Social History Socioeconomic History Marital status: Spouse name: Not on file Number of children: Not on file Years of education: Not on file Highest education level: Not on file Occupational History Not on file Tobacco Use Smoking status: Never Passive exposure: Never Smokeless tobacco: Never Vaping Use Vaping status: Never Used Substance and Sexual Activity Alcohol use: Not Currently Alcohol/week: 0.6 oz Types: 1 Standard drinks or equivalent per week Comment: rarely Drug use: Never Sexual activity: Yes Partners: Male control/protection: Surgical, Other-see comments Comment: Tubal removal Other Topics Concern Not on file Social History Narrative Not on file Social Drivers of Health Financial Resource Strain: Low Risk (03/27/2024) Overall Financial Resource Strain (CARDIA) Difficulty of Paying Living Expenses: Not very hard Food Insecurity: No Food Insecurity (03/27/2024) Hunger Vital Sign Worried About Running Out of Food in the Last Year: Never true Ran Out of Food in the Last Year: Never true Transportation Needs: No Transportation Needs (03/27/2024) [facility] IP Transportation In the past 12 months, has lack of reliable transportation kept you from medical appointments, meetings, work or from getting things needed for daily living?: No Physical Activity: Inactive (03/31/2024) Exercise Vital Sign Days of Exercise per Week: 0 days Minutes of Exercise per Session: 0 min Stress: No Stress Concern Present (03/27/2024) [place] [facility] - Occupational Stress Questionnaire Feeling of Stress : Only a little Social Connections: Not on file Intimate Partner Violence: Not on file Housing Stability: Not on file Medications ordered prior to the current encounter[5] Review of Systems Constitutional: Positive for fatigue. Negative for activity change and appetite change. HENT: Negative. Negative for dental problem and trouble swallowing. Eyes: Negative. Negative for visual disturbance. Respiratory: Negative. Negative for chest tightness, shortness of breath and wheezing. Cardiovascular: Negative. Negative for chest pain, palpitations and leg swelling. Gastrointestinal: Negative. Negative for abdominal pain, constipation, diarrhea, nausea and vomiting. Endocrine: Negative. Negative for cold intolerance. Genitourinary: Negative. Negative for difficulty urinating. Musculoskeletal: Positive for back pain. Negative for myalgias and neck pain. Skin: Negative. Negative for rash and wound. Allergic/Immunologic: Negative. Neurological: Negative. Negative for dizziness, weakness, light-headedness, numbness and headaches. Hematological: Negative. Does not bruise/bleed easily. Psychiatric/Behavioral: Positive for sleep disturbance. The patient is not nervous/anxious and is not hyperactive. All other systems reviewed and are negative. Patient gives verbal permission for this provider to take a picture of whole body in order to document in the patient record. The patient is aware that no data is stored anywhere except for [employer]. This permission was witnessed by Noel Burnett MD . Medical Conditions: Diabetes: No Using Insulin? N/A Oral Meds? N/A Diet Controlled Only (no medications or insulin)? N/A Hypertension: Do you take medication for your blood pressure? no BP Readings from Last 3 Encounters: 04/09/25 120/76 03/24/25 134/82 02/20/25 116/76 Hyperlipidemia: no Do you take medication for your cholesterol? N/A Lab Results Component Value Date CHOLESTEROL 154 12/11/2024 CHOLESTEROL 174 05/28/2024 CHOLESTEROL 176 10/10/2022 Lab Results Component Value Date HDL 36 (L) 12/11/2024 HDL 44 05/28/2024 HDL 40 10/10/2022 Lab Results Component Value Date LDLCALC 82 12/11/2024 LDLCALC 109 (H) 05/28/2024 LDLCALC 119 (H) 10/10/2022 Lab Results Component Value Date TRIG 213 (H) 12/11/2024 TRIG 119 05/28/2024 TRIG 92 10/10/2022 No results found for: CHOLHDL Sleep Apnea: no If you have sleep apnea, are you prescribed CPap or BiPap? N/A Are you wearing CPap or BiPap? N/A GERD: yes Do you take medication to control stomach acid?: yes If so, which one? Protonix Did you take this or similar medication prior to surgery? N/A Objective: Circumference: See flowsheet Body Composition Analysis completed: Yes, 59.3 % Fat, 181.27 lbs fat PHYSICAL EXAM: Physical Exam Vitals reviewed. Constitutional: General: She is not in acute distress. Appearance: She is obese. She is not ill-appearing, toxic-appearing or diaphoretic. HENT: Head: Normocephalic and atraumatic. Right Ear: Tympanic membrane, ear canal and external ear normal. Left Ear: Tympanic membrane, ear canal and external ear normal. Nose: Nose normal. Mouth/Throat: Mouth: Mucous membranes are moist. Eyes: Conjunctiva/sclera: Conjunctivae normal. Neck: Vascular: No carotid bruit. Cardiovascular: Rate and Rhythm: Normal rate and regular rhythm. Pulses: Normal pulses. Heart sounds: Normal heart sounds. Pulmonary: Effort: Pulmonary effort is normal. No respiratory distress. Breath sounds: Normal breath sounds. No stridor. No wheezing, rhonchi or rales. Abdominal: General: Abdomen is flat. Bowel sounds are normal. There is no distension. Palpations: Abdomen is soft. There is no mass. Tenderness: There is no abdominal tenderness. There is no guarding or rebound. Hernia: No hernia is present. Musculoskeletal: Cervical back: Normal range of motion and neck supple. No rigidity or tenderness. Lymphadenopathy: Cervical: No cervical adenopathy. Skin: General: Skin is warm and dry. Neurological: Mental Status: She is alert and oriented to person, place, and time. Psychiatric: Behavior: Behavior normal. Thought Content: Thought content normal. Judgment: Judgment normal. DIAGNOSTICS: Lab Results Component Value Date WBC 7.5 01/02/2025 HGB 13.8 01/02/2025 HCT 44.5 01/02/2025 PLT 230 01/02/2025 CHOLESTEROL 154 12/11/2024 TRIG 213 (H) 12/11/2024 HDL 36 (L) 12/11/2024 LDLCALC 82 12/11/2024 ALT 35 01/02/2025 AST 30 01/02/2025 NA 136 01/02/2025 K 3.8 01/02/2025 CL 102 01/02/2025 CALCIUM 9.2 01/02/2025 BUN 10 01/02/2025 CREATININE 0.55 01/02/2025 GFRAFRAM 158 01/27/2021 GFRNONAFRAM 137 01/27/2021 CO2 23 01/02/2025 INR 1.00 03/30/2020 GLU 86 01/02/2025 HGBA1C 5.4 01/02/2025 MICROALBUR 10 07/13/2020 TSH 2.130 12/11/2024 TSHREFLEX 2.720 08/01/2023 [id number] 23.9 (L) 01/02/2025 No results found for this visit on 04/09/25. FIB4 Score: Fibrosis 4 Score: .57 For patients with... F0-F1 Indeterminate F3-F4 DELAROSA <1.30 1.30-2.67 >2.67 HCV <1.45 1.45-3.25 >3.25 *The Fib-4 Fibrosis score may not be as accurate in patients <35 years old and >65 years old.Use caution when interpreting results Lab Results Component Value Date ALT 35 01/02/2025 AST 30 01/02/2025 PLT 230 01/02/2025 ASSESSMENT & PLAN: 1. Cervicogenic migraine 2. Constipation, chronic 3. Gastroesophageal reflux disease without esophagitis 4. Irritable bowel syndrome with constipation 5. Mild intermittent asthma with acute exacerbation 6. PCOS (polycystic ovarian syndrome) 7. Morbid obesity with BMI of 50.0-59.9, adult ([facility]) 8. Metabolic dysfunction-associated steatotic liver disease (MASLD) 9. Vitamin D deficiency 10. Lipedema 11. Class 3 severe obesity due to excess calories with serious comorbidity and body mass index (BMI) of 50.0 to 59.9 in adult ([facility]) Diet Plan: [place] 2-LCD Number of Supplements Daily: 1 Total Calories Daily: 1200 Exercise Plan: Anaerobic 30 minutes/day 3-4 days/week, Aerobic exercise 30 minutes per day, 5 timesper week Reviewed: Health History Questionnaire, Labs, Body Composition, Notes, PCP notes, and Speciality notes Follow Up: Return in 1-2 weeks from program start for follow-up visit for RD / HORSE SHOW JUDGE class, Return in 8 weeks from program start for Physician follow up visit or earlier if medically necessary, Patient will schedule appointments REFERRALS: Additional testing: Labs per orders placed today, Assessment: Referral to per protocol, New Start Orientation MEDICATION CHANGES:No Reviewed obesogenic medications CONTRAINDICATIONS TO WEIGHT LOSS: none NEW START: Cleared for New Start LCD Pt has been working with surgical program As of Month 5 of 6 pt has gained 13 lbs Pt needs to demonstrate weight loss with Life style prior to proceeding with bariatric surgery Pt has been cleared moving forward by outside Pt was referred for evaluation for DAVID This has not been done as of yet Set up initial visit for 06/2025 Times spent in Chart review / precharting prior to visit 14 min Times spent face to face time with patient obtaining history, performing medically relevant exam, ordering tests/referrals, documenting in chart and Care Coordination.65 min Total time: 79 min Return in about 2 months (around 06/09/2025). [1] Allergies Allergen Reactions Cymbalta [Duloxetine] Nausea And Vomiting Imitrex [Sumatriptan Succinate] Nausea And Vomiting [2] Past Medical History: Diagnosis Date Allergy Anemia Anxiety Asthma Breast disorder low vitamin E Complication of anesthesia anxiety, mild nausea Depression Geographical tongue during GERD (gastroesophageal reflux disease) Headache Migraines [facility] Heartburn Mental disorder depression, anxiety Motion sickness PCOS (polycystic ovarian syndrome) 08/15/2022 Post-operative nausea and vomiting nausea postop Thyroid disease Vertebrogenic pain [3] Past Surgical History: Procedure Laterality Date ABDOMEN SURGERY March 10 Tubal removal CHOLECYSTECTOMY, LAPAROSCOPIC N/A 09/03/2021 laparoscopic cholecystectomy ; Surgeon: Marcel Marti MD; Location: ED MAIN OR; Service: General FINGER SURGERY Left 02/20/2017 LEFT RING FINGER CLOSED REDUCTION PERCUTANEOUS PINNING; Surgeon: Ankit Gan MD; Location: [facility]; Service: Hand FRACTURE SURGERY 2017 OTHER SURGICAL HISTORY 03/17/2024 cervical ablation TONSILLECTOMY AND ADENOIDECTOMY Bilateral 10/31/2019 Recurrent tonsilitis/Dr Raymundo Cook TUBAL LIGATION 03/10/2022 WISDOM TOOTH EXTRACTION [4] Family History Problem Relation Age of Onset Asthma Mother Migraines Mother Hypertension Father Heart Disease Father Liver Disease Father Diabetes Father Substance Abuse Father Asthma Father Hypertension Sister Heart Disease Sister mumur Heart Disease Brother mumur Testicular Cancer Brother No Known Problems Maternal Grandmother Hypertension Maternal Grandfather Heart Disease Maternal Grandfather Diabetes Paternal Grandmother Cancer Paternal Grandfather Diabetes Paternal Grandfather Hypertension Paternal Grandfather Heart Disease Paternal Grandfather Diabetes Maternal Aunt Depression Maternal Aunt Diabetes Maternal Aunt Thyroid Disease Maternal Aunt High Blood Pressure Maternal Aunt Hearing Loss Neg Hx Allergies Neg Hx Anesth Problems Neg Hx [5] Current Outpatient Medications on File Prior to Visit Medication Sig Dispense Refill albuterol (PROVENTIL HFA;VENTOLIN HFA) 90 mcg/actuation Inhl HFA Aerosol Inhaler Inhale 2 Puffs into the lungs every 4 hours as needed for Wheezing. 1 Each 2 ARIPiprazole (ABILIFY) 30 mg Oral Tablet Take 1 Tablet by mouth daily. 30 Tablet 2 busPIRone (BUSPAR) 10 mg Oral Tablet Take 1 Tablet by mouth 3 times daily. 270 Tablet 0 Cholecalciferol, Vitamin D3, (VITAMIN D3) 125 mcg (5,000 unit) Oral Tablet Take by mouth daily. clindamycin-benzoyl peroxide (BENZACLIN) Top Gel Apply topically 2 times daily. 50 g 2 hydroCHLOROthiazide (MICROZIDE) 12.5 mg Oral Capsule Take 1 Capsule by mouth daily. 30 Capsule 2 hydrOXYzine (ATARAX) 10 mg Oral Tablet Take 1-2 tabs nightly as needed. 180 Tablet 0 linaCLOtide (LINZESS) 72 mcg Oral Capsule Take [...] 1 Tablet by mouth daily. 90 Tablet 0 No current facility-administered medications on file prior to visit. documented in this encounter Plan of Treatment Upcoming Encounters Date Type Department Care Team (Late st Contact Info) Description 06/01/2025 12:00 PM EST Office Visit [facility] [address] [place] [address] Pretty Vargas APRN [address] [place] [address] 06/01/2025 2:00 PM EST Telemedicine [facility] [address] [place] [address] 06/02/2025 1:15 PM EST Office Visit [facility] [address] [place] [address] Noel Burnett MD [address] [place] [address] 06/22/2025 1:45 PM EST Office Visit [facility] [address] [place] [address] Hakeem Diana MD [address] [address] 06/30/2025 10:15 AM EST Office Visit [facility] [address] [place] [address] Scheduled Referrals Name Type Priority [...] as of this encounter Visit Diagnoses Diagnosis Cervicogenic migraine- Primary Other forms of migraine, without mention of intractable migraine without mention of status migrainosus Constipation, chronic Unspecified constipation Gastroesophageal reflux disease without esophagitis Esophageal reflux Irritable bowel syndrome with constipation Irritable bowel syndrome Mild intermittent asthma with acute exacerbation Unspecified asthma, with exacerbation PCOS (polycystic ovarian syndrome) Polycystic ovaries Morbid obesity with BMI of 50.0-59.9, adult (HCC) Metabolic dysfunction-associated steatotic liver disease (MASLD) Vitamin D deficiency Unspecified vitamin D deficiency Lipedema Class 3 severe obesity due to excess calories with serious comorbidity and body mass index (BMI) of 50.0 to 59.9 in adult (HCC) documented in this encounter Care Teams Web Services Manager Relationship Specialty Start Date End Date Gareth Wheeler MD [address] [place] [address] PCP - General 03/01/09 Janeth Hester, POWER TECHNICIAN Director Of Safety And Security 10/16/24 documented as of this encounter
--- OUTSIDE RECORDS SUMMARY | 2025-04-13 12:00 | XMS_ITS | Encounter Summary ---
Author Organization [place] [address] Support Name Relationship Address Phone Juma Bear Emergency Contact [address] [place] [address] Meche Jones Emergency Contact [address] [address] Jose Nate Emergency Contact [address] [place] [address] Vicenta Kilo Emergency Contact Unknown [phone] Kvng Kilo Personal Relationship [address] [place], [place] Care Team Providers Care Energy Efficient Site Manager Name Role Phone Gareth Wheeler MD Primary Care Provider [phone] Janeth Hester HR SPECIALIST Unavailable Unav ailable Reason for Visit * Reason Comments Nutrition Counseling Encounter Details Date Type Department Care Team (Late st Contact Info) Description 04/13/2025 12:00 PM EST Office Visit SEP WEIGHT MGT [facility] [address] [place] [address] Morbid obesity with BMI of 50.0-59.9, adult (HCC) (Primary Dx) Social History Tobacco Use Types Packs/Day Years Used Date Smoking Tobacco: Never Passive Smoke Exposure: Never Smokeless Tobacco: Never Alcohol Use Standard Drinks/Week Comments Not Currently 1 (1 standard drink = 0.6 oz pur e alcohol) rarely [facility] Utilities Answer Date Recorded In the past 12 months has [employer], gas, oil, or water company threatened to shut off services in your home? No 03/27/2024 Overall Financial Resource Strain (CARDIA) Answe r Date Recorded How hard is it for you to pa y for the very basics like food, housing, medical care, and heating? Not very hard 03/27/2024 PHQ-2 Answer Date Recorded PHQ-2 Total Score 0 01/29/2025 [facility] - Occupational [...] things needed for daily living? No 09/05/2021 [facility] IP Transportation Answer D ate [...] Julien RD - 04/13/2025 12:00 PM EST [facility] WEIGHT [facility]NAGEMENT [facility]: MEDICAL WEIGHT LOSS PROGRAM Low Calorie Diet (LCD) New Start Registered Dietitian Class Patient attended Virtual New Start Class. Bariatrician's assessment and plan were reviewed. Meal plan provided: [place] 2, 1200 calories with 1 meal replacements Diet preferences: none Instructed on: Arrival times No Show and Cancellation Policy Specific (LCD) Low Calorie Diet [place] Program and phases of the program BH [...] Visit [facility] [address] [place] [address] Pretty Vargas APRN [address] [place] [address] 06/01/2025 2:00 PM EST Telemedicine SE[facility] WE[facility] MGT [facility] [address] [place] [address] 06/02/2025 1:15 PM EST Office Visit [facility] [address] [place] [address] Noel Burnett MD [address] [place] [address] 06/22/2025 1:45 PM EST Office Visit SEP PULMONOLOGY WILL [address] [place] [address] Hakeem Diana MD [address] [place] [address] 06/30/2025 10:15 AM EST Office Visit SEP WEIGHT MGT [facility] [address] [place] [address] documented as of this encounter [...] Primary documented in this encounter Care Teams Energy Efficient Site Manager Relationship Specialty Start Date End Date Gareth Wheeler MD [address] [facility] [place] [address] PCP - General 03/01/09 Janeth Hester, HR SPECIALIST Marketing Program Coordinator 10/16/24 documented as of this encounter
--- OUTSIDE RECORDS SUMMARY | 2025-04-15 11:00 | XMS_ITS | Encounter Summary ---
Author Organization [place] [address] Support Name Relationship Address Phone Juma Bear Emergency Contact [address] [place] [address] Mecheleelee Jones Emergency Contact [address] [address] Jose Salass Emergency Contact [address] [place] [address] Vicenta Boateng Emergency Contact Unknown [phone] Kvng Kilo Personal Relationship [address] [place], [place] Care Team Providers Care Seismic Survey Assistant Name Role Phone Gareth Wheeler MD Primary Care Provider [phone] Janeth Hester TURBO ELECTRIC OPERATOR Unavailable Unav ailable Encounter Details Date Type Department Care Team (Latest Contact Info) Description 04/15/2025 11:00 AM EST Telemedicine SEP WEIGHT MGT [facility] [address] [place] [address] Marky Gaspar, BOX OFFICE ATTENDANT [address] [place] [address] Bipolar 2 disorder (HCC) (Primary Dx); Eating disorder, unspecified type; History of posttraumatic stress disorder (PTSD) Social History Tobacco Use Types Packs/Day Years Used Date Smoking Tobacco: Never Passive Smoke Exposure: Never Smokeless Tobacco: Never Alcohol Use Standard Drinks/Week Comments Not Currently 1 (1 standard drink = 0.6 oz pur e alcohol) rarely [facility] Utilities Answer Date Recorded In the past [...] PHQ-2 Total Score 0 01/29/2025 [facility] of Occupat ional Health - Occupational Stress [...] things needed for daily living? No 09/05/2021 [facility] IP Transportation Answer D ate Recorded In [...] this encounter Progress Notes * Marky Gaspar, BOX OFFICE ATTENDANT - 04/15/2025 11:00 AM EST BEHAVIORAL HEALTH FOLLOW-UP SURGICAL PRE-OP CLASS/REVIEW This encounter was completed through: [employer] Video Visit - Patient presented today through a videovisit. Patient has reviewed the terms and conditions of service as part of the registration for today's visit. Patient is aware that a video visit does not replace a [id number] exam and further services may be necessary. I advised the patient that we are conducting this video visit through a private space on our secure network, and that this video visit is being conducted in accordance with [facility] telehealth/video visit regulations. Emergency and disconnection contacts were confirmed.Patient had no questions prior to initiation of the visit. DIAGNOSIS: 1. Bipolar 2 disorder (HCC) 2. Eating disorder, unspecified type 3. History of posttraumatic stress disorder (PTSD) SESSION START TIME: 10:59 AM SESSION END TIME: 11:58 AM SESSION TIME (MINUTES): 59 METHOD OF THERAPY: Insight Oriented/Supportive Therapy, Mindfulness, and Psycho-education SUMMARY OF SESSION: Subjective (complaints/concerns addressed): Pt. reported feeling confident with information shared.Pt. noted an awareness of various behavioral health considerations related to WLS such as stages ofchange, realistic vs. unrealistic expectations, healthy thinking, symptoms of anxiety and depression, common maladaptive eating behaviors, self-care, and mindfulness. Pt. listed unexpected psychosocial outcomes and when to seek additional help for anxiety/depressive symptoms?as the topics?most helpful/relevant to the pt.'s specific process. Objective (observations in session): Pt. demonstrated attentiveness and a cooperative attitude. Pt.and therapist reviewed materials related to pre-op behavioral health considerations. Pt. and therapist also discussed capturing and challenging maladaptive thoughts related to weight and body, as well as mindful eating strategies. Pt. agreed to contact therapist with any questions regarding the material covered today should the need arise. GOALS/OBJECTIVES/STATUS: Goals: Facilitate pt.'s cognitive readiness for WLS. Objective: Pt. will demonstrate adequate knowledge of medical risks and possible complications and/or psychosocial consequences of the WLS (including behavioral health issues). Progress: Progressing, Goal: Facilitate pt.'s cognitive readiness for WLS. Objective: Pt. will demonstrate adequate knowledge of the dietary and lifestyle changes required before and after WLS. Progress: Progressing, and Goal: Facilitate pt.'s cognitive readiness for WLS. Objective: Pt. will demonstrate adequate knowledge of the risks of noncompliance with diet/behavi oral guidelines both prior to and following WLS. Progress: Progressing MENTAL STATUS EXAM: Appearance: Normal [...] From a behavioral health perspective, this pt. has been deemed an appropriate candidate for weight loss surgery. Per assessment/clinical note completed on 03/19/25, this pt. has already been deemedan appropriate candidate for weight loss surgery from a behavioral health perspective. No additional information was presented today that would counter the previous assessment recommendation at this time. PLAN: Homework: Review psychoeducational materials provided and Engage in self-care activities as discussed Follow-up: Continue with program appointments documented in this encounter Plan of Treatment Upcoming Encounters Date Type Department Care Team (Late st Contact Info) Description 06/01/2025 12:00 PM EST Office Visit [facility] [address] [place] [address] Pretty Vargas APRN [address] [place] [address] 06/01/2025 2:00 PM EST Telemedicine [facility] MGT [facility] [address] [place] [address] 06/02/2025 1:15 PM EST Office Visit [facility] [address] [place] [address] Noel Burnett MD [address] [place] [address] 06/22/2025 1:45 PM EST Office Visit SEP PULMONOLOGY WILL [address] [place] [address] Hakeem Diana MD [address] [place] [address] [place] [phone] 06/30/2025 10:15 AM EST Office Visit SEP WEIGHT MGT [facility] [address] [place] [address] documented as of this encounter Goals Goal Patient Goal Type Associated Problems Recent Progress Patient-Stated? Author Blood Pressure < 140/90 Blood Pressure 120/76(2024 8:55 AM EDT) No Jess Wang MA Eat better, exercise, reach an ideal body weight General No Liset Lin RMA BMI (Calculated) < 30 General 52.8(05/04/20 25 12:42 PM EST) No Jess Wang MA HEMOGLOBIN A1C < 7.0 Result Component 5.4( 5 12:11 PM EDT) No Jess Wang MA documented as of this encounter Visit Diagnoses Diagnosis Bipolar 2 disorder (HCC)- Primary Other bipolar disorders Eating disorder, unspecified type History of posttraumatic stress disorder (PTSD) documented in this encounter Care Teams Seismic Survey Assistant Relationship Specialty Start Date End Date Gareth Wheeler MD [address] [place] [phone] PCP - General 03/01/09 Janeth Hester, TURBO ELECTRIC OPERATOR Jet Mechanic 10/16/24 documented as of this encounter
--- OUTSIDE RECORDS SUMMARY | 2025-04-20 12:00 | XMS_ITS | Encounter Summary ---
Author Organization [place] [address] Care Team Providers Care Tire Technician Name Role Phone Gareth Wheeler MD Primary Care Provider [phone] Janeth Hester SUPERVISOR FARM EQUIPMENT MAINTENANCE Unavailable Unav ailable Encounter Details Date Type Department Care Team (Late st Contact Info) Description 04/20/2025 12:00 PM EST Office Visit [facility] [address] [place] [address] Pretty Vargas APRN [address] [place] [address] Morbid obesity with BMI of 50.0-59.9, adult (HCC) (Primary Dx) Social History Tobacco Use Types Packs/Day Years Used Date Smoking Tobacco: Never Passive Smoke Exposure: Never Smokeless Tobacco: Never Alcohol Use Standard Drinks/Week Comments Not Currently 1 (1 standard drink = 0.6 oz pur e alcohol) rarely [facility] Utilities Answer Date Recorded In the [...] Date Recorded PHQ-2 Total Score 0 01/29/2025 [facility] - Occupational Stress Questionnaire Answer [...] living? No 09/05/2021 [facility] IP Transportation Answer D ate Recorded [...] - Inhaled Oxygen Concentration - - Weight 138.3 kg (305 lb) 04/20/2025 12:54 PM EST Height 161.3 cm (5' 3.5 ) 04/20/2025 12:54 PM ES T Body Mass Index 53.18 04/20/2025 12:54 PM EST documented in this encounter Functional Status * [...] documented in this encounter Progress Notes * Pretty Vargas APRN - 04/20/2025 12:00 PM EST Weight: Wt Readings from Last 6 Encounters: 04/20/25 (!) 305 lb (138.3 kg) 04/09/25 (!) 305 lb 9.6 oz (138.6 kg) 03/24/25 (!) 309 lb 9.6 oz (140.4 kg) 02/23/25 (!) 303 lb 6.4 oz (137.6 kg) 02/20/25 (!) 305 lb 6.4 oz (138.5 kg) 01/30/25 (!) 308 lb (139.7 kg) CURRENT ASSESSMENT / DIAGNOSES: BMI: Body mass index is 53.18 kg/m??. Height: 5' 3.5 (161.3 cm) CURRENT ASSESSMENT / DIAGNOSES: Diagnoses and all orders for this visit: Morbid obesity with BMI of 50.0-59.9, adult (HCC) (Chronic) Chronic Problem List: Problem List[1] Current Medications: Medications Taking[2] Reviewed cancer prevention with nutrition with RD class: -Diet is a modifiable risk factor -30-35% if cancer cases are diet related - food ingredients affect inflammation and hormone levels Best diets are the mediterranean diet, planet based, and DASH diet. Diets should be real food with whole grains and emphasize in legumes Aguilar Nutrients : - fiber- reduce colorectal cancer - antioxidants - phytochemicals - calcium and vitamin D levels Reduce processed meats including lunch meat and gonzales Reduce alcohol Reduce sugary beverages Reduce stress Improve adequate sleep 30 min spent in class with RD/COUNSELING CENTER DIRECTOR [1] Patient Active Problem List Diagnosis Constipation, chronic [...] Bipolar 2 disorder, major depressive episode (HCC) Mild intermittent asthma with acute exacerbation CYP2B6 intermediate metabolizer (HCC) [id number] rapid metabolizer (HCC) CY intermediate metabolizer (HCC) Monoallelic mutation of VKORC1 gene Metabolic dysfunction-associated steatotic liver disease (MASLD) Vitamin D deficiency Lipedema [2] No outpatient medications have been marked as taking for the 04/20/25 encounter (Office Visit) withPretty Vargas APRN. documented in this encounter Plan of Treatment Upcoming Encounters Date Type Department Care Team (Late st Contact Info) Description 06/01/2025 12:00 PM EST Office Visit [facility] [address] [place] [address] Pretty Vargas APRN [address] [place] [address] 06/01/2025 2:00 PM EST Telemedicine SE[facility] WE[facility] MGT [facility] [address] [place] [address] 06/02/2025 1:15 PM EST Office Visit [facility] [address] [place] [address] Noel Burnett MD [address] [place] [address] 06/22/2025 1:45 PM EST Office Visit SEP PULMONOLOGY WILL [address] [place] [address] Hakeem Diana MD [address] [place] [address] [place] [phone] 06/30/2025 10:15 AM EST Office Visit SEP WEIGHT MGT [facility] [address] [place] [address] documented as of this encounter [...] Primary documented in this encounter Care Teams Tire Technician Relationship Specialty Start Date End Date Gareth Wheeler MD [address] [place] [address] PCP - General 03/01/09 Janeth Hester, TRE Surveillance Dual Rate Officer 10/16/24 documented as of this encounter
--- OUTSIDE RECORDS SUMMARY | 2025-04-22 14:30 | XMS_ITS | Encounter Summary ---
Author Organization [facility] [place] [address] Support Name Relationship Address Phone Juma Marianela Emergency Contact [address] [place] [address] Meche Jones Emergency Contact [address] [address] Jose Sullivan Emergency Contact [address] [place] [address] Vicenta Boateng Emergency Contact Unknown [phone] Kvng Kilo Personal Relationship 920 06/12 [address] [place], [place] Care Team Providers Care Bottom Painter Name Role Phone Gareth Wheeler MD Primary Care Provider Janeth Hester TEXTILE COLORIST FORMULATOR Unavailable Unav ailable Reason for Visit * Reason Comments Diet Trial 6 of 6 Encounter Details Date Type Department Care Team (Late st Contact Info) Description 04/22/2025 2:30 PM EST Telemedicine [facility] [address] [place] [address] Portia Jones, PHARMACY CARE COORDINATOR [address] [place] [address] Encounter for pre-bariatric surgery counseling [...] = 0.6 oz pur e alcohol) rarely [facility] Utilities Answer Date Recorded In the [...] Date Recorded PHQ-2 Total Score 0 01/29/2025 [employer] [place] of Occupat ional Health - Occupational Stress [...] needed for daily living? No 09/05/2021 [facility] IP Transportation Answer D [...] A video visit does not replace a avjk-bo-nefu exam and further services may be necessary. [...] MW recommendations, getting more protein. Tracking with [employer] yamila. Has eliminated carbonated beverages. Exercise - [...] recommended by the National Kidney Foundation - [place] Society of Nephrology Task Force. Hgb A1C 01/02/2025 5.4 4.2 - 5.6 % Final Est. Avg Glucose 01/02/2025 108 mg/dL Final Vit A(Retinol) 01/02/2025 0.36 0.30 - 1.20 mg/L Final Retinyl Palm 01/02/2025 <0.02 0.00 - 0.10 mg/L Final Vit A Intrp 01/02/2025 Normal Final This test was developed and its performance characteristics determined by [facility]. It has not been cleared or approved by the US Food and Drug Administration. This test was performed in a CLIA certified laboratory and is intended for clinical purposes. Performed By: [facility] [address] [place] [address] Spring Forger: Elie Hassan MD, PhD CLIA Number: [id number] Vit B1 WB 01/02/2025 109 70 - [...] developed and its performance characteristics determined by [facility]. It has not been cleared or approved by the US Food and Drug Administration. This test was performed in a CLIA certified laboratory and is intended for clinical purposes. Performed By: [facility] [address] [place] [address] Spring Forger: Elie Hassan MD, PhD CLIA Number: [id number] Vitamin B12 01/02/2025 490 232 - 1,245 [...] developed and its performance characteristics determined by [facility]. It has not been cleared or approved by the US Food and Drug Administration. This test was performed in a CLIA certified laboratory and is intended for clinical purposes. Gamma-Tocopherol (Vit E) mg/L 01/02/2025 1.9 0.0 - 6.0 mg/L Final Performed By: [facility] [address] [place], [place] [id number] Spring Forger: Elie Hassan MD, PhD CLIA Number: [id number] Zinc 01/02/2025 79.9 60.0 - 120.0 ug/dL [...] developed and its performance characteristics determined by [facility]. It has not been cleared or approved by the US Food and Drug Administration. This test was performed in a CLIA certified laboratory and is intended for clinical purposes. Performed By: [facility] [address] [place] [address] Spring Forger: Elie Hassan MD, PhD CLIA Number: [id number] Magnesium 01/02/2025 2.3 1.6 - 2.4 mg/dL [...] weeks before test) -Cardiology clearance; call your bi application developer and schedule an appointment -Pulmonary clearance; keep [...] surgery Additional Comments: --- Portia Jones, MSN, PHARMACY CARE COORDINATOR, DIRECTOR AUTOMOTIVE-C [facility] [address] [place] [address] [1] Outpatient Medications Marked as Taking for [...] with acute exacerbation CYP2B6 intermediate metabolizer (HCC) [id number] rapid metabolizer (HCC) CY intermediate metabolizer (HCC) [...] weeks before test) -Cardiology clearance; call your bi application developer and schedule an appointment -Pulmonary clearance; keep [...] Visit [facility] [address] [place] [address] Pretty Vargas APRN [address] [place] [address] 06/01/2025 2:00 PM EST Telemedicine [facility] [address] [place] [address] 06/02/2025 1:15 PM EST Office Visit [facility] [address] [place] [address] Noel Burnett MD [address] [place] [address] 06/22/2025 1:45 PM EST Office Visit [facility] [address] [place] [address] Hakeem Diana MD [address] [place] [address] [place] [address] 06/30/2025 10:15 AM EST Office Visit [facility] [address] [place] [address] Scheduled Orders Name Type Priority Associated Diagnoses [...] documented as of this encounter Care Teams Bottom Painter Relationship Specialty Start Date End Date Gareth Wheeler MD [address] [place] [address] PCP - General 03/01/09 Janeth Hester, TEXTILE COLORIST FORMULATOR Environmental Attorney 10/16/24 documented as of this encounter
--- OUTSIDE RECORDS SUMMARY | 2025-05-04 12:00 | XMS_ITS | Encounter Summary ---
Author Organization [facility] [place] [address] Care Team Providers Care Inspector Subassembly Name Role Phone Gareth Wheeler MD Primary Care Provider [phone] Janeth Hester PERINATAL EDUCATOR Unavailable Unav ailable Encounter Details Date Type Department Care Team (Late st Contact Info) Description 05/04/2025 12:00 PM EST Office Visit [facility] [address] [place] [address] Pretty Vargas APRN [address] [place] [address] Morbid obesity with BMI of 50.0-59.9, adult (HCC) (Primary Dx) Social History Tobacco Use Types Packs/Day Years Used Date Smoking Tobacco: Never Passive Smoke Exposure: Never Smokeless Tobacco: Never Alcohol Use Standard Drinks/Week Comments Not Currently 1 (1 standard drink = 0.6 oz pur e alcohol) rarely [facility] Utilities Answer Date Recorded In the [...] Date Recorded PHQ-2 Total Score 0 01/29/2025 [facility] - Occupational Stress Questionnaire Answer [...] things needed for daily living? 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 documented in this encounter Plan of Treatment Upcoming Encounters Date Type Department Care Team (Late st Contact Info) Description 06/01/2025 12:00 PM EST Office Visit [facility] [address] [place] [address] Pretty Vargas APRN [address] [place] [address] 06/01/2025 2:00 PM EST Telemedicine [facility] [address] [place] [address] 06/02/2025 1:15 PM EST Office Visit [facility] [address] [place] [address] [place] [address] [place] [address] 06/22/2025 1:45 PM EST Office Visit [facility] [address] [place] [address] Hakeem Diana MD [address] [address] 06/30/2025 10:15 AM EST Office Visit [facility] [address] [place] [address] documented as of this encounter [...] Primary documented in this encounter Care Teams Inspector Subassembly Relationship Specialty Start Date End Date Gareth Wheeler MD [address] [place] [address] PCP - General 03/01/09 Janeth Hester, TRE Service Representative 10/16/24 documented as of this encounter
[2025-05-27] VITALS (7 sets, daily range): BP systolic 101–130; BP diastolic 50–62; PULSE 77–102; RESP 20; TEMP 36.8–37.4; O2SAT 95–100; BMI 50.9
--- NOTE | 2025-05-27 08:47 | CT_ITS ---
FINAL REPORT TECHNIQUE: Oral and IV contrast enhanced exam This study was performed with techniques to keep radiation doses as low as reasonably achievable, (ALARA). Individualized dose reduction techniques using automated exposure control or adjustment of mA and/or kV according to the patient''s size were employed. CLINICAL HISTORY: s/p hysterectomy, lower abd pain/vaginal bleed COMPARISON: 02/16/2025 FINDINGS: Abdomen: No acute density is seen within the lung bases. The gallbladder is absent. The liver is fatty infiltrated. Remaining solid abdominal organs are unremarkable. No bowel obstruction is present. There is no free air. No fluid collection is seen. There is no adenopathy. Pelvis: The appendix is enlarged, similar to prior exam. Findings are likely due to Abdullahi appendix. There is no surrounding inflammatory change. An appendicolith is noted at the base of the appendix. There has been interval hysterectomy. A fluid collection is seen at the vaginal cuff, which may represent abscess, measuring 47 x 35 x 22 mm. Urinary bladder wall thickening is noted. Cystitis not excluded. There is a small amount of free fluid in the pelvic cul-de-sac. IMPRESSION: 1. Interval hysterectomy with complex fluid collection of the vaginal cuff. Vaginal cuff dehiscence not excluded. Fluid collection could represent hematoma or abscess. 2. Chronically enlarged appendix with appendicolith. No evidence of acute appendicitis. 3. Urinary bladder wall thickening, cystitis not excluded. Reviewed, Interpreted and Dictated by Yang Stark MD Transcribed by Shu Bush Authenticated and . [facility]
--- NOTE | 2025-05-27 08:49 | ED_ITS ---
Discharge Plan Disposition Patient Disposition: Home, Self-Care Prescriptions Prescriptions: New cefdinir 300 mg capsule 300 mg PO BID 7 Days Qty: 14 0RF No Action buspirone 10 mg tablet 10 mg PO TID pantoprazole 40 mg tablet,delayed release (DR/EC) 40 mg PO HS Patient Comments: TAKE 1 TABLET BY MOUTH DAILY. clindamycin-benzoyl peroxide 1-5 % gel 1 applic topical BID albuterol sulfate [Ventolin HFA] 90 mcg/actuation HFA aerosol inhaler 2 puff inhalation Q4HP PRN (Reason: Shortness Of Breath) hydroxyzine HCl 10 mg tablet 20 mg PO HSP PRN (Reason: Sleep) hydrochlorothiazide 12.5 mg capsule 12.5 mg PO DAILY aripiprazole [Abilify] 30 mg tablet 30 mg PO DAILY polyethylene glycol 3350 17 gram/dose powder PO Linzess 72 mcg capsule 72 mcg PO DAILY sulfamethoxazole-trimethoprim [Bactrim DS] 800-160 mg tablet 1 tab PO BID Qty: 20 0RF polyethylene glycol 3350 [HealthyLax] 17 gram Powder In Packet 17 g PO BID 3 Days Qty: 14 0RF ibuprofen 400 mg Tablet 800 mg PO Q8H Qty: 40 0RF oxycodone 5 mg Tablet 5 mg PO Q4HP PRN (Reason: Moderate Pain (4-6)) Qty: 20 0RF ondansetron 4 mg tablet,disintegrating 4 mg PO Q6H PRN (Reason: nausea and vomiting) Qty: 40 0RF Referrals Follow up/Referrals: Le Blood APRN [Primary Care Provider, Medical] - See instructions Activity Restrictions/Add. Instructions Additional Instructions/Restrictions: Follow-up with Dr. Ashford on Sunday as discussed. You can take 600 mg of ibuprofen and 1000 mg of Tylenol every 6 hours as needed to help with symptoms. I am prescribing you an antibiotic for urinary tract infection. Take this as prescribed. If you develop any new or worsening symptoms, such as worsening bleeding, lightheadedness, dizziness, chest pain, shortness of breath, or if you become concerned for your help for any reason, return to the emergency department for evaluation. Clinical Impressions Clinical Impression: Postoperative vaginal bleeding Print Language Print Language: [place] Sudanese Discharge ED Provider: Caden Sheppard Adult [facility] General Chief complaint: Vaginal Bleeding Stated complaint: postop 05/18, cramping, bleeding Time Seen by Provider: 05/27/25 08:42 History of Present Illness HPI narrative: Rosalinda Boateng is a 24-year-old female who presents to the emergency department for complaints of lower abdominal cramping and vaginal bleeding status post surgery. Patient had chronic pelvic pain. She had tubal ligation 2021 and endometrial ablation 2023 and amenorrhea since July 2024. She was admitted and had a supracervical abdominal hysterectomy, bilateral oophorectomy on 05/18/2025. She was discharged home on postoperative day 2. She states that starting last night, she developed abdominal cramping in her suprapubic area and then has had a large amount of vaginal bleeding, describing it as red and brown with clots. She states that she has gone through 3 pads and soaked through her pants. She spoke with the gynecology office last night was told to go to the emergency department, however she has kids and could not come until this morning. She denies any dysuria or fever.Patient had chronic pelvic pain. She had tubal ligation 2021 and endometrial ablation 2023 and amenorrhea since July 2024. She was admitted and had a supracervical abdominal hysterectomy, bilateral oophorectomy on 05/18/2025. She was discharged home on postoperative day 2. She states that starting last night, she developed abdominal cramping in her suprapubic area and then has had a large amount of vaginal bleeding, describing it as red and brown with clots. She states that she has gone through 3 pads and soaked through her pants. She spoke with the gynecology office last night was told to go to the emergency department, however she has kids and could not come until this morning. She denies any dysuria or fever. Related Data Home Medications ?Medication ?Instructions ?Recorded ?Confirmed buspirone 10 mg tablet 10 mg PO TID 09/03/24 pantoprazole 40 mg tablet,delayed 40 mg PO HS Heartbur n 09/03/24 05/25/25 release albuterol sulfate 90 mcg/actuation 2 puff inhalation Q 4HP PRN 02/18/25 05/25/25 aerosol inhaler (Ventolin HFA) Shortness Of Breath clindamycin 1 %-benzoyl peroxide 5 1 applic topical BI D 02/18/25 05/25/25 % topical gel hydroxyzine HCl 10 mg tablet 20 mg PO HSP PRN Sleep 05/25/25 aripiprazole 30 mg tablet (Abilify) 30 mg PO DAILY 05/25/25 hydrochlorothiazide 12.5 mg capsule 12.5 mg PO DAILY 1 06/27/24 05/25/25 linaclotide 72 mcg capsule 72 mcg PO DAILY 05/25/25 (Linzess) polyethylene glycol 3350 17 g PO 05/25/25 05/25/25 gram/dose oral powder Previous Rx's ?Medication ?Instructions ?Recorded ibuprofen 400 mg tablet 800 mg (2 x 400 mg) PO Q8H # 40 tabs 05/20/25 ondansetron 4 mg disintegrating 4 mg PO Q6H PRN nausea and 05/20/25 tablet vomiting #40 tabs oxycodone 5 mg tablet 5 mg PO Q4HP PRN Moderate Pa in 05/20/25 (4-6) #20 tabs polyethylene glycol 3350 17 gram 17 g PO BID 3 days #1 4 ea 05/20/25 oral powder packet (HealthyLax) sulfamethoxazole 800 1 tab PO BID #20 tabs mg-trimethoprim 160 mg tablet (Bactrim DS) cefdinir 300 mg capsule 300 mg PO BID 7 days #14 cap s 05/27/25 Allergies Allergy/AdvReac Type Severity Reaction Status Date / Time duloxetine (From Cymbalta) Allergy Mild Headache Verified 05/25/25 15:11 sumatriptan (From Imitrex) Allergy Mild Headache Verified 05/25/25 15:11 [facility] PFS Disclaimer: The information contained in this section may have been updated after the patient was seen, as this information can be updated by other users. Medical History (Updated 05/27/25 @ 12:30 by Caden Sheppard MD) Non-cardiac chest pain Acute blood loss anemia Pelvic pain Breast pain, left Acid reflux Anxiety History of gastroesophageal reflux (GERD) Palpitations Right ventricular dysfunction PVC (premature ventricular contraction) Ventricular bigeminy Encounter for pre-operative cardiovascular clearance Abnormal electrocardiogram [ECG] [EKG] Dysmenorrhea Menorrhagia Asthma History of bipolar disorder Depression Anxiety Scoliosis Degenerative disc disease Irritable bowel syndrome (IBS) Hypothyroid Allergies Enlarged heart Heart murmur History of anemia Cholecystectomy planned Surgical History (Updated 05/25/25 @ 15:19 by EFE Landa) H/O bilateral salpingectomy History of abdominal supracervical subtotal hysterectomy S/P abdominal supracervical subtotal hysterectomy H/O cardiac radiofrequency ablation History of endometrial ablation H/O wisdom tooth extraction History of cholecystectomy History of tonsillectomy History of salpingectomy History of tonsillectomy and adenoidectomy [place] teeth extracted Family History Father History of liver disease Father Heart attack Brother Testicular cancer Grandmother Lung cancer Social History Smoking Status: Never smoker alcohol intake: never substance use type: denies use current occupational status: unemployed Travel in the last 8 weeks?: None Have you lived/traveled outside US in past 30 days?: No Contact w/someone who lives/traveled outside US past 30 days?: No Exposure to someone with infectious disease in past 14 days?: No Do you have a fever (greater than 100.4 F or 38 C)?: No Have you tested positive for COVID-19?: No Exposed to someone with COVID-19 in past 14 days?: No Do you have a sore throat?: No Do you have a cough?: No Do you have any weakness?: No Do you have any diarrhea?: No Are you experiencing any unusual bleeding?: Yes Do you have any muscle aches/pain?: No Do you have any abdominal pain?: No Are you experiencing loss of taste or smell?: No Other Medical History Have you received the Flu Vaccine for this season: No Have you received the Pneumonia Vaccine: No ROS Obtained: Yes Systems reviewed as appropriate & no additional complaints except as documented Physical Exam General General appearance: alert, in no apparent distress and obese Head Head exam: atraumatic Eye Eye exam: Present normal appearance ENT ENT exam: Present normal external ear exam Neck Neck exam: Present full ROM Chest Chest inspection: Present symmetric chest wall rise Respiratory Respiratory exam: Present normal lung sounds bilaterally; Absent respiratory distress Cardiovascular Cardiovascular exam: Present regular rate and normal rhythm Abdominal Exam Abdominal exam: Present soft and tenderness (suprapubic tenderness, horizontal lower abdominal surgical scar appears to be healing well without erythema or swelling or drainage.); Absent guarding or rigidity Extremities Exam Extremities exam: Present normal inspection Back Exam Back exam: Present normal inspection Neurological Exam Neurological exam: Present alert and oriented X3 Psychiatric Psychiatric exam: Present normal affect Skin Skin exam: Present warm and dry Medical Decision Making Medical Records Screening: Per USPSTF and CDC recommendations, given the prevalence of disease in our region, it is our hospital?s policy to screen for HIV and viral Hepatitis for all patients aged 18 and over and those with ongoing risk factors. Narinder Inquiry Pt receiving controlled substance: No Vital Signs: 05/27/25 08:40 05/27/25 08:46 05/27/25 09:01 Temperature 99.3 F Temperature Source Oral Pulse Rate 100 H 96 H Pulse Rate [Left Radial] 102 H Respiratory Rate 20 Blood Pressure 130/62 101/50 L Blood Pressure [Right Arm] 130/62 Blood Pressure Mean [Right Arm] 84 02 Sat by Pulse Oximetry 99 97 100 Oxygen Delivery Method Room Air Room Air Room Air 05/27/25 09:20 05/27/25 09:47 05/27/25 10:00 Temperature Temperature Source Pulse Rate 90 83 78 Pulse Rate [Left Radial] Respiratory Rate Blood Pressure 109/52 L 108/51 L 105/51 L Blood Pressure [Right Arm] Blood Pressure Mean [Right Arm] 02 Sat by Pulse Oximetry 95 96 96 Oxygen Delivery Method Room Air Room Air Room Air Lab Data Lab Results 05/27/25 08:39: Urine Color Yellow, Urine Appearance Slightly cloudy, Urine pH 7.0, Ur Specific [place] 1.010, Urine Protein 1+ A, Urine Glucose (UA) Negative, Urine Ketones Negative, Urine Blood 3+ A, Urine Nitrate Negative, Urine Bilirubin Negative, Urine Urobilinogen 0.2, Ur Leukocyte Esterase 3+ A, Urine RBC 5-10, Urine WBC Occasional, Ur Squamous Epith Cells None, Urine Bacteria 2+ 05/27/25 08:54: WBC 9.4, RBC 3.46 L, Hgb 9.5 L, Hct 30.8 L, MCV 89.0, MCH 27.5, MCHC 30.8 L, RDW 13.8, Plt Count 249, MPV 10.0, Neut % (Auto) 85.2 H, Lymph % (Auto) 9.7 L, [place] % (Auto) 3.7, Eos % (Auto) 0.7, Baso % (Auto) 0.2, Neut # (Auto) 8.0 H, Lymph # (Auto) 0.9, [place] # (Auto) 0.4, Eos # (Auto) 0.1, Baso # (Auto) 0.0, PT 11.2, INR 1.01, Sodium 134 L, Potassium 3.9, Chloride 103, Carbon Dioxide 27, Anion Gap 7.9, BUN 7, Creatinine 0.70, Estimated Creat Clear 110, Estimated GFR 101, Est GFR ( Amer) 122, Glucose 109 H, Calcium 8.7, Total Bilirubin 0.5, AST 37 H, ALT 52, Alkaline Phosphatase 120, Total Protein 7.3, Albumin 4.3, Globulin 3.0, Albumin/Globulin Ratio 1.4, Lipase 36 05/27/25 10:16: Lactate 0.8 05/27/25 08:54 05/27/25 08:54 Orders (Tests/Meds): ED MEDICATIONS Discontinued Medications Generic Name Dose Route Start Last Admin Trade Name [place] PRN Reason Stop Dose Admin Lactated Ringer's 1,000 mls @ 999 mls/hr 05/27/25 08:54 05/27/25 10:51 Lactated Ringer's 1000 Ml Bag IV 05/27/25 09:54 Infused .Q1H1M ONE Infusion Ceftriaxone Sodium 2 gm/ 100 mls @ 200 mls/hr 05/27/25 10:56 05/27/25 12:00 Sodium Chloride IV 05/27/25 11:25 Infused ONCE ONE Infusion Iopamidol 85 ml 05/27/25 09:22 05/27/25 09:22 Iopamidol-370 (76%);100ml Bottle IV 05/27/25 09:23 85 ml ONCE ONE Administration Ketorolac Tromethamine 15 mg 05/27/25 12:06 05/27/25 12:12 Ketorolac 15mg/Ml Vial IV 05/27/25 12:07 15 mg ONCE ONE Administration Morphine Sulfate 4 mg 05/27/25 08:47 05/27/25 09:02 Morphine 4mg/Ml Syringe IV 05/27/25 08:48 4 mg ONCE ONE Administration Ondansetron HCl 4 mg 05/27/25 09:00 05/27/25 09:03 Ondansetron 4mg/2ml Vial IV 05/27/25 09:01 4 mg ONCE ONE Administration ORDERS Category Date Time Status CT abdomen pelvis w con Stat Cat Scan 05/27/25 08:47 Completed CBC w/Auto Diff [Complete Blood Count Auto Diff] Stat Lab 05/27/25 08:54 Completed CMP [Comprehensive Metabolic Panel] Stat Lab 05/27/25 08:54 Completed Lactic Acid Stat Lab 05/27/25 10:16 Completed Lipase Stat Lab 05/27/25 08:54 Completed PT INR [Prothrombin Time INR] Stat Lab 05/27/25 08:54 Completed UA [Urinalysis and Microscopic] Stat Lab 05/27/25 08:39 Completed Urine Culture Stat Micro 05/27/25 08:39 Received Medical Decision Narrative: Rosalinda Boateng is a 24-year-old female who presents to the emergency department for complaints of lower abdominal cramping and vaginal bleeding status post surgery. Patient had chronic pelvic pain. She had tubal ligation 2021 and endometrial ablation 2023 and amenorrhea since July 2024. She was admitted and had a supracervical abdominal hysterectomy, bilateral oophorectomy on 05/18/2025. She was discharged home on postoperative day 2. She states that starting last night, she developed abdominal cramping in her suprapubic area and then has had a large amount of vaginal bleeding, describing it as red and brown with clots. She states that she has gone through 3 pads and soaked through her pants. She spoke with the gynecology office last night was told to go to the emergency department, however she has kids and could not come until this morning. She denies any dysuria or fever.Patient had chronic pelvic pain. She had tubal ligation 2021 and endometrial ablation 2023 and amenorrhea since July 2024. She was admitted and had a supracervical abdominal hysterectomy, bilateral oophorectomy on 05/18/2025. She was discharged home on postoperative day 2. She states that starting last night, she developed abdominal cramping in her suprapubic area and then has had a large amount of vaginal bleeding, describing it as red and brown with clots. She states that she has gone through 3 pads and soaked through her pants. She spoke with the gynecology office last night was told to go to the emergency department, however she has kids and could not come until this morning. She denies any dysuria or fever. On arrival, patient is hemodynamically stable, mildly tachycardic, afebrile with temperature of 99.2 ?F, breathing comfortably on room air with appropriate oxygen saturation. Physical exam, stated above, revealed nontoxic-appearing female in no respiratory distress. She has a well-healing horizontal lower abdominal surgical scar without drainage, erythema or swelling. No dehiscence is appreciated. She is tender in the suprapubic region without rigidity or peritonitis. Deferral diagnosis includes, but is not limited to: Postoperative complication/infection, anemia, internal dehiscence, abscess, hematoma, among others. The most morbid conditions were considered and workup was based on these. Patient's workup shows no leukocytosis, stable hemoglobin at 9.5, hematocrit 30.8, platelets within normal limits. Coagulation studies within normal limits. Mild hyponatremia at 134 but electrolytes and CMP otherwise unremarkable nonactionable. Urine with 1+ protein, 3+ blood and 3+ leukocyte esterase. Occasional white blood cells and 2+ bacteria. This could be bilingual sales representative of a urinary tract infection. Will administer 2 g of IV Rocephin. CT imaging was interpreted by me personally. Patient has what appears to be a complex fluid collection in the vaginal cuff. Per radiology, this could be bilingual sales representative of vaginal cuff dehiscence and could be bilingual sales representative of hematoma versus abscess. Patient has chronically enlarged appendix with appendicolith but no evidence of acute Penta situs. She has urinary bladder wall thickening concerning for cystitis. See radiology report for details. I did discuss patient's case with Dr. Ashford at approximately 11:[address] Estevez placed Surgicel in the area of what radiology is describing as abscess versus hematoma and believes that it could be that instead of an actual hematoma or abscess and that vaginal cuff dehiscence is less likely. She will come evaluate the patient and perform vaginal exam as well. After Dr. Ashford and evaluated the patient, she stated that patient's internal sutures appear to be intact and no evidence of dehiscence on her vaginal exam. She does feel that the bleeding/brown discoloration she is experiencing is likely from the Surgicel dissolving, especially given her improving hemoglobin. She agrees with course of antibiotics and requested patient get a dose of Toradol here in the emergency department. Recommended follow-up in clinic on Sunday and continued NSAIDs and antibiotics for her urinary tract infection. Patient was administered 15 mg of IV Toradol. On reassessment, she remained hemodynamically stable. She is in agreement with the plan as stated above. I did give patient strict return precautions for any evidence of worsening bleeding, dizziness, lightheadedness, shortness of breath or chest pain. Will send a course of cefdinir to her pharmacy. All questions were answered. She demonstrated understanding and was in agreement this plan. She was then discharged from the emergency department in stable condition Critical Care Critical Care Time Critical Care Time: No
[2025-05-27 08:50] LABS: Microscopic, Urine URINE MICROSCOPIC (MICROSCOPIC)
--- OUTSIDE RECORDS SUMMARY | 2025-05-27 08:54 | XMS_ITS | Encounter Summary ---
Author Organization [facility] Address [address] [place] [address] Phone Care Team Providers Care Record Clerk Name Role Phone Bonita Frederick MD Primary Care Provider Reason for Referral * Radiology Services (Routine) - Closed Specialty Diagnoses / Procedures Referred By Contbreanne t Referred To Contact Procedures OB US STANDARD SECOND OR THIRD TRIMESTER HISTORICAL MED Referral ID Status Reason Start Date Expiration Date V isits Requested Visits Authorized [id number] Closed Specialty Services Required 01/10/2019 01/10/2020 150 150 Encounter Details Date Type Department Care Team (Late st Contact Info) Description 01/10/2019 [facility] [address] [place] [id number] Social History Tobacco Use Types Packs/Day Years [...] on filedocumented in this encounter Care Teams Record Clerk Relationship Specialty Start Date End Date Bonita Frederick MD PCP - General Obstetrics & Gynecology 01/08/19 documented as of this encounter
--- OUTSIDE RECORDS SUMMARY | 2025-05-27 08:54 | XMS_ITS | Patient Health Record ---
Author Organization [facility] Address [address] [place] [address] Care Team Providers Care Supervisor Painting [employer]yard Name Role Phone Bonita Frederick Unavailable [phone] Allergies Allergen (clinical drug ingredient) Drug/Non Drug [...] Finger fracture *NO SIGNIFICANT GENETIC HISTORY 7 [place]: Self breast exam - No 7 [place]: Sexually active - Yes 7 [place]: Dairy Product Use - Yes Surgical History Surgery Date(Month/Year) Tonsillectomy [place] teeth surgery
--- OUTSIDE RECORDS SUMMARY | 2025-05-27 08:54 | XMS_ITS | Encounter Summary ---
Author Organization [place] [address] Support Name Relationship Address Phone Juma Bear Emergency Contact [address] [place] [address] Meche Jones Emergency Contact [address] [address] Jose Salass Emergency Contact [address] [place] [address] Vicentarosa m Brothersen Emergency Contact Unknown [phone] Kvng Kilo Personal Relationship [address] [place] Care Team Providers Care Controls Technician Name Role Phone Gareth Wheeler MD Primary Care Provider [phone] Janeth Hester HELPER MAINTENANCE CLEANING Unavailable Unav ailable Reason for Visit * Reason Onset Date Comments Medication Refill 04/05/2025 Encounter Details Date Type Department Care Team (Late st Contact Info) Description 04/04/2025 Refill [facility] [address] [place] [address] Le Blood, DIGESTER OPERATOR HELPER [address] [place] [address] Medication Refill Social History Tobacco Use Types Packs/Day Years Used Date Smoking Tobacco: Never Passive Smoke Exposure: Never Smokeless Tobacco: Never Alcohol Use Standard Drinks/Week Comments Not Currently 1 (1 standard drink = 0.6 oz pur e alcohol) every once and a while [facility] Utilities Answer Date Recorded In the past [...] Date Recorded PHQ-2 Total Score 0 01/29/2025 [facility] - Occupational [...] things needed for daily living? No 09/05/2021 [facility] Transportation Answer D ate Recorded In [...] supply with 2 refills. Pt notified via [facility] if active. buspirone - There is no CRS protocol for this medication. clindamycin-benzoyl peroxide - There is no CRS protocol for this medication. hydrochlorothiazide - Refill requested too soon. Refill denied. Last sent on 03/13/2025 for a 30 day supply with 2 refills. Pt notified via [facility] if active. documented in this encounter Plan of Treatment Upcoming Encounters Date Type Department Care Team (Late st Contact Info) Description 06/01/2025 12:00 PM EST Office Visit [facility] [address] [place] [address] Pretty Vargas APRN [address] [place] [address] [phone] 06/01/2025 2:00 PM EST Telemedicine [facility] [address] [place] [phone] 06/02/2025 1:15 PM EST Office Visit [facility] [address] [place] [address] Noel Burnett MD [address] [place] [address] 06/22/2025 1:45 PM EST Office Visit [facility] [address] [place] [address] Hakeem Diana MD [address] [place] [address] [place] [phone] 06/30/2025 10:15 AM EST Office Visit [facility] [address] [place] [address] documented as of this encounter [...] documented as of this encounter Care Teams Controls Technician Relationship Specialty Start Date End Date Gareth Wheeler MD [address] [place] [address] PCP - General 03/01/09 Janeth Hester, HELPER MAINTENANCE CLEANING Deaf/Hard Of Hearing Specialist 10/16/24 documented as of this encounter
--- OUTSIDE RECORDS SUMMARY | 2025-05-27 08:54 | XMS_ITS | Encounter Summary ---
Author Organization [facility] Address [address] [place] [address] Phone Care Team Providers Care Pecan Cleaner Name Role Phone Bonita Frederick MD Primary Care Provider [phone] Reason for Referral * Radiology Services (Routine) - Closed Specialty Diagnoses / Procedures Referred By Contbreanne t Referred To Contact Procedures OB US STANDARD SECOND OR THIRD TRIMESTER HISTORICAL MED Referral ID Status Reason Start Date Expiration Date V isits Requested Visits Authorized [id number] Closed Specialty Services Required 02/20/2019 02/20/2020 150 150 Encounter Details Date Type Department Care Team (Late st Contact Info) Description 02/20/2019 SCAN [facility] [address] [place] [id number] Social History Tobacco Use Types Packs/Day Years [...] on filedocumented in this encounter Care Teams Pecan Cleaner Relationship Specialty Start Date End Date Otoniel, Denia., MD PCP - General Obstetrics & Gynecology 01/08/19 documented as of this encounter
--- OUTSIDE RECORDS SUMMARY | 2025-05-27 08:54 | XMS_ITS | Clinical Summary ---
Author Organization [facility] Address [address] [place] [phone] Phone Care Team Providers Care Can Striper Name Role Phone Bonita Frederick MD Primary Care Provider [phone] Social History Tobacco Use Types Packs/Day Years [...] Address Personal/Family Self [address] [place] [address] [facility] Care Teams Can Striper Relationship Specialty Start Date End Date Bonita Frederick MD PCP - General Obstetrics & Gynecology 01/08/19
--- OUTSIDE RECORDS SUMMARY | 2025-05-27 08:54 | XMS_ITS | Encounter Summary ---
Author Organization [facility] Address [address] [place] [address] Phone Care Team Providers Care Chemical Plant Worker Name Role Phone Bonita Frederick MD Primary Care Provider [phone] Reason for Referral * Radiology Services (Routine) - Closed Specialty Diagnoses / Procedures Referred By Contbreanne t Referred To Contact Procedures OB US STANDARD SECOND OR THIRD TRIMESTER HISTORICAL MED Referral ID Status Reason Start Date Expiration Date V isits Requested Visits Authorized [id number] Closed Specialty Services Required 03/24/2019 03/23/2020 150 150 Encounter Details Date Type Department Care Team (Late st Contact Info) Description 03/24/2019 SCAN [facility] [address] [place] [phone] Social History Tobacco Use Types Packs/Day Years [...] on filedocumented in this encounter Care Teams Chemical Plant Worker Relationship Specialty Start Date End Date Otoniel, Denia., MD PCP - General Obstetrics & Gynecology 01/08/19 documented as of this encounter
--- OUTSIDE RECORDS SUMMARY | 2025-05-27 08:54 | XMS_ITS | Encounter Summary ---
Author Organization [place] [address] Support Name Relationship Address Phone Juma Bear Emergency Contact [address] [place] [address] Meche Jones Emergency Contact [address] [address] Jose Salass Emergency Contact [address] [place] [address] Vicenta Kilo Emergency Contact Unknown Kvng Kilo Personal Relationship [address] [place] Care Team Providers Care Material Distributor Name Role Phone Gareth Wheeler MD Primary Care Provider [phone] Janeth Hester PUBLIC HEALTH SANITARIAN Unavailable Unav ailable Reason for Visit * Reason Onset Date Comments Medication Refill 05/14/2025 Encounter Details Date Type Department Care Team (Late st Contact Info) Description 05/13/2025 Refill [facility] [address] [place] [address] Le Blood, CUSTOMS APPRAISER [address] [place] [address] Medication Refill Social History Tobacco Use Types Packs/Day Years Used Date Smoking Tobacco: Never Passive Smoke Exposure: Never Smokeless Tobacco: Never Alcohol Use Standard Drinks/Week Comments Not Currently 1 (1 standard drink = 0.6 oz pur e alcohol) rarely [facility] Utilities Answer Date Recorded In [...] things needed for daily living? No [facility] IP Transportation Answer D ate Recorded [...] gain,Swelling Take 1 Capsule by mouth daily. 100 Capsule 2 05/15/2025 ARIPiprazole (ABILIFY) 30 mg Oral Tablet Take 1 Tablet by mouth daily. 100 Tablet 05/15/2025 hydrOXYzine (ATARAX) 10 mg Oral TabletIndications: Insomnia, persistent Take 1-2 tabs nightly as needed. 60 Tablet 05/15/2025 linaCLOtide (LINZESS) 72 mcg Oral CapsuleIndications :Irritable bowel syndrome with constipation Take 1 Capsule by mouth daily. 30 Capsule 05/15/2025 documented in this encounter Miscellaneous Notes * Telephone Encounter - Ashwin Lyles, director [employer] - 05/15/2025 10:01 AM EST Abilify Future Visit: NONE Last Assessed Visit: 12/30/24 Follow-Up: 07/02/25 All protocols passed. Refills approved and sent to requesting pharmacy. Routed to PN Pool if an appointment is needed. HCTZ Future Visit: NONE Last Assessed Visit: 12/11/24 Follow-Up: 12/11/25 All protocols passed. Refills approved and sent to requesting pharmacy. Routed to PN Pool if an appointment is needed. Hydroxyzine There is no CRS protocol for this medication. Linzess There is no CRS protocol for this medication. documented in this encounter Plan of Treatment Upcoming Encounters Date Type Department Care Team (Late st Contact Info) Description 06/01/2025 12:00 PM EST Office Visit [facility] [address] [place] [address] Pretty Vargas APRN [address] [place] [address] 06/01/2025 2:00 PM EST Telemedicine [facility] [address] [place] [address] 06/02/2025 1:15 PM EST Office Visit [facility] [address] [place] [address] Noel Burnett MD [address] [place] [address] 06/22/2025 1:45 PM EST Office Visit [facility] [address] [place] [phone] aHkeem Diana MD [address] [facility] Building [address] [place] [address] 06/30/2025 10:15 AM EST Office Visit [facility] [address] [place] [address] documented as of this encounter [...] as of this encounter Visit Diagnoses Diagnosis Irritable bowel syndrome with constipation Irritable bowel syndrome Insomnia, persistent Persistent disorder of initiating or maintaining sleep Weight gain Abnormal weight gain Swelling Edema documented in this encounter Discontinued Medications Medication Sig Discontinue Reason Start Date End Da te ARIPiprazole (ABILIFY) 30 mg Oral Tablet Take 1 Tablet by mouth daily. Reorder 03/05/2025 05/13/2025 hydroCHLOROthiazide (MICROZIDE) 12.5 mg Oral CapsuleIndications:Weight gain,Swelling Take 1 Capsule by mouth daily. Reorder 03/13/2025 05/13/2025 linaCLOtide (LINZESS) 72 mcg Oral CapsuleIndications:Irrita ble bowel syndrome with constipation Take 1 Capsule by mouth daily. Reorder 12/11/2024 05/13/2025 hydrOXYzine (ATARAX) 10 mg Oral TabletIndications:Insomni a, persistent Take 1-2 tabs nightly as needed. Reorder 02/02/2025 05/13/2025 documented as of this encounter Care Teams Material Distributor Relationship Specialty Start Date End Date Gareth Wheeler MD [address] [facility] [address] PCP - General 03/01/09 Janeth Hester, PUBLIC HEALTH SANITARIAN Transportation Maintenance Specialist 10/16/24 documented as of this encounter
--- OUTSIDE RECORDS SUMMARY | 2025-05-27 08:54 | XMS_ITS | Encounter Summary ---
Author Organization [place] [address] Support Name Relationship Address Phone Juma Bear Emergency Contact [address] [place] [address] Meche Jones Emergency Contact [address] [address] Jose Salass Emergency Contact [address] [place] [address] Vicenta Kilo Emergency Contact Unknown Kvng Kilo Personal Relationship [address] [place] Care Team Providers Care Furniture Shampooer Name Role Phone Gareth Wheeler MD Primary Care Provider [phone] Janeth Hester BLISTER PACKING MACHINE TENDER Unavailable Unav ailable Reason for Visit * Reason Onset Date Comments Medication Refill 04/14/2025 Encounter Details Date Type Department Care Team (Late st Contact Info) Description 04/13/2025 Refill [facility] [address] [place] [address] Le Blood, LPN MEDICAL ASSISTANT [address] [place] [address] Medication Refill Social History Tobacco Use Types Packs/Day Years Used Date Smoking Tobacco: Never Passive Smoke Exposure: Never Smokeless Tobacco: Never Alcohol Use Standard Drinks/Week Comments Not Currently 1 (1 standard drink = 0.6 oz pur e alcohol) rarely [facility] Utilities Answer Date Recorded In the [...] Date Recorded PHQ-2 Total Score 0 01/29/2025 [facility] - [...] things needed for daily living? No [facility]/05/2021 [facility] IP Transportation Answer D [...] supply with 2 refills. Pt notified via Technology [employer] if active. documented in this encounter Plan of Treatment Upcoming Encounters Date Type Department Care Team (Late st Contact Info) Description 06/01/2025 12:00 PM EST Office Visit [facility] [address] [place] [address] Pretty Vargas APRN [address] [place] [address] 06/01/2025 2:00 PM EST Telemedicine [facility] [address] [place] [address] 06/02/2025 1:15 PM EST Office Visit [facility] [address] [place] [address] Noel Burnett MD [address] [place] [address] 06/22/2025 1:45 PM EST Office Visit [facility] [address] [place] [address] Hakeem Diana MD [address] [place] [address] 06/30/2025 10:15 AM EST Office Visit [facility] [address] [place] [address] documented as of this encounter [...] on filedocumented in this encounter Care Teams Furniture Shampooer Relationship Specialty Start Date End Date Gareth Wheeler MD [address] [place] [address] PCP - General 03/01/09 Janeth Hester CSW Post Office Markup Clerk 10/16/24 documented as of this encounter
--- OUTSIDE RECORDS SUMMARY | 2025-05-27 08:54 | XMS_ITS | Encounter Summary ---
Author Organization [facility] [place] [address] Support Name Relationship Address Phone Juma Bear Emergency Contact [address] [place] [address] Meche Jones Emergency Contact [address] [address] Jose Nate Emergency Contact [address] [place] [address] Vicentarosa m Brothersen Emergency Contact Unknown Kvng Kilo Personal Relationship [address] [place] Care Team Providers Care Instructional Media Services Technician Name Role Phone Gareth Wheeler MD Primary Care Provider [phone] Janeth Hester HEAD REFRIGERATION ENGINEER Unavailable Unav ailable Reason for Visit * Reason Onset Date Comments Prior Authorization 03/31/2025 [place] for Abili fy 30mg tablet Approved Encounter Details Date Type Department Care Team (Late st Contact Info) Description 03/31/2025 Telephone [facility] [address] [facility] [place] [address] Le Blood, CLEARANCE REPRESENTATIVE [address] [place] [address] Prior Authorization ([place] for Abilify 30mg tablet Approved) Social History Tobacco Use Types Packs/Day Years Used Date Smoking Tobacco: Never Passive Smoke Exposure: Never Smokeless Tobacco: Never Alcohol Use Standard Drinks/Week Comments Not Currently 1 (1 standard drink = 0.6 oz pur e alcohol) every once and a while [facility] Utilities Answer Date Recorded In the [...] Date Recorded PHQ-2 Total Score 0 01/29/2025 [facility]at [facility] - Occupational Stress [...] things needed for daily living? No 09/05/[address] [facility] [...] 30mg tablet APPROVED. Prior authorization approved Payer: ADOR [phone] Note from payer: The request has been [...] Office Visit [facility] [address] [place] [address] Pretty Vargas APRN [address] [place] [address] 06/01/2025 2:00 PM EST Telemedicine [facility] [address] [place] [address] 06/02/2025 1:15 PM EST Office Visit [facility] [address] [place] [address] [place] [address] [place] [address] 06/22/2025 1:45 PM EST Office Visit [facility] [address] [place] [address] Hakeem Diana MD [address] [place] [address] 06/30/2025 10:15 AM EST Office Visit [facility] [address] [place] [address] documented as of this encounter Goals Goal Patient Goal Type Associated Problems Recent Progress Patient-Stated? Author Blood Pressure < 140/90 Blood Pressure 120/76(2024 8:55 AM EDT) No Jess Wnag MA Eat better, exercise, reach an ideal body weight General No Liset Lin RMA BMI (Calculated) < 30 General 52.8(05/04/20 12:42 PM EST) No Jess Wang MA HEMOGLOBIN A1C < 7.0 Result Component 5.4( 5 12:11 PM EDT) No Jess Wang MA documented as of this encounter Visit Diagnoses Not on filedocumented in this encounter Care Teams Instructional Media Services Technician Relationship Specialty Start Date End Date Gareth Wheeler MD [address] [place] [address] PCP - General 03/01/09 Janeth Hester, TRE Jingle Writer 10/16/24 documented as of this encounter
--- OUTSIDE RECORDS SUMMARY | 2025-05-27 08:54 | XMS_ITS | Clinical Summary ---
Author Organization [facility] Address [address] [place] [address] Phone Care Team Providers Care Forest Patrolman Name Role Phone Gareth Wheeler MD Primary Care Provider [phone] Janeth Hester MOTOR ROOM CONTROLLER Unavailable Unav ailable Allergies Active Allergy Reactions Criticality Noted Date Comments Duloxetine Nausea And Vomiting Medium 01/03/2018 Sumatriptan Succinate Nausea And Vomiting Medium 03/27 Medications albuterol (PROVENTIL HFA;VENTOLIN HFA) 90 mcg/actuation Inhl HFA Aerosol InhalerIndicatio ns:History of asthma Inhale 2 Puffs into the lungs every 4 hours as needed for Wheezing. 1 Each 2 5 Active ondansetron (ZOFRAN-ODT) 4 mg Oral Tablet, Rapid DissolveIndicati ons:Nausea Dissolve 1 Tablet by mouth every 6 hours as needed. 30 Tablet 07/22/202 5 Active pantoprazole (PROTONIX) 40 mg Oral Tablet, Delayed Release (E.C.)Indication s:Gastroesophage al reflux disease with esophagitis without hemorrhage Take 1 Tablet by mouth daily. 90 Tablet 5 Active Cholecalciferol, Vitamin D3, (VITAMIN D3) 125 mcg (5,000 unit) Oral Tablet Take by mouth daily. Active clindamycin-dolores oyl peroxide (BENZACLIN) Top GelIndications:A cne vulgaris Apply topically 2 times daily. 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 270 Tablet 5 Active linaCLOtide (LINZESS) 72 mcg Oral CapsuleIndicatio ns:Irritable bowel syndrome with constipation Take 1 Capsule by mouth daily. 30 Capsule 5 Active hydrOXYzine (ATARAX) 10 mg Oral TabletIndication s:Insomnia, persistent Take 1-2 tabs nightly as needed. 60 Tablet 5 Active ARIPiprazole (ABILIFY) 30 mg Oral Tablet Take 1 Tablet by mouth daily. 100 Tablet 5 Active hydroCHLOROthiaz aleshia (MICROZIDE) 12.5 mg Oral CapsuleIndicatio ns:Weight gain,Swelling Take 1 Capsule by mouth daily. 100 Capsule 2 5 Active linaCLOtide (LINZESS) 72 mcg Oral CapsuleIndicatio ns:Irritable bowel syndrome with constipation Take 1 Capsule by mouth daily. 30 Capsule 2 5 05/13/20 25 Discontin ued(Reord er) hydrOXYzine (ATARAX) 10 mg Oral TabletIndication s:Insomnia, persistent Take 1-2 tabs nightly as needed. 180 Tablet 5 05/13/20 25 Discontin ued(Reord er) ARIPiprazole (ABILIFY) 30 mg Oral Tablet Take 1 Tablet by mouth daily. 30 Tablet 2 5 05/13/20 25 Discontin ued(Reord er) hydroCHLOROthiaz aleshia (MICROZIDE) 12.5 mg Oral CapsuleIndicatio ns:Weight gain,Swelling Take 1 Capsule by mouth daily. 30 Capsule 2 5 05/13/20 25 Discontin ued(Reord er) Active Problems Patient Care Coordination No te Formatting of this note migh t be different from the original. [facility] - Humberto Dos Santos MD Interventional Pain Protocol: Narinder report completed (EVERY 3 MONTHS) ( 06/20/23 ) Pharmacy: [facility] [address] [place] [address] [address] [facility] [phone] [[id number]] Narinder ENTAS Controlled report completed 10/23/2019 Informed consent signed 10/23/2019 Problem Noted Date Diagnosed Date Metabolic dysfunction-associ ated steatotic liver disease (MASLD) 04/09/2025 Vitamin D deficiency 04/09/2025 Lipedema 04/09/2025 CYP2B6 intermediate metabolizer 01/26/2025 Overview (01/26/2025): Patient is predicted to have genotype-predicted CYP2B6 Intermediate Metabolizer activity. This can lead to higher drug levels of medications impacted by CYP2B6 such as efavirenz and sertraline. See the Genomic Indicators tab in the Patient Snapshot or on the toolbar for more information. [id number] rapid metabolizer 01/26/2025 Overview (01/26/2025): Patient has a genotype-predicted [id number] rapid metabolizer phenotype (*1/*17) . Medications impacted by the [id number] Rapid Metabolizer phenotype are SSRI's (citalopram, escitalopram [...] or on the toolbar for more information. Mild intermittent asthma with acute exacerbation 11/14/2024 Assessment & Plan (02/20/2025 10:54 AM EDT): Orders: predniSONE (DELTASONE) 20 mg Oral Tablet; Take 1 Tablet by mouth 2 times daily for 7 days. Assessment & Plan (11/14/2024 10:18 AM EDT): [...] 05/10/2022 08/16/19 23 Recurrent biliary colic 09/03/2021 03/0 12/2022 Symptomatic cholelithiasis 09/03/2021 0 08/15/2022 Biliary colic [...] Encounters Date Type Department Care Team Description 05/13/2025 Refill [facility] [address] [place] [phone] Le Blood APRN Medication Refill 05/04/2025 12:00 PM EST Office Visit [facility] [address] [place] [address] Pretty Vargas APRN Morbid obesity with BMI of 50.0-59.9, adult (HCC) (Primary Dx) 04/22/2025 2:30 PM EST Telemedicine [facility] [address] [place] [address] Portia Jones APRN Encounter for pre-bariatric surgery counseling and education (Primary Dx); Pre-operative laboratory examination; Morbid obesity with BMI of 50.0-59.9, adult (HCC); Metabolic dysfunction-associate d steatotic liver disease (MASLD); Gastroesophageal reflux disease without esophagitis 04/20/2025 12:00 PM EST Office Visit [facility] [address] [place] [address] Pretty Vargas APRN Morbid obesity with BMI of 50.0-59.9, adult (HCC) (Primary Dx) 04/15/2025 11:00 AM EST Telemedicine [facility] [address] [place] [address] Marky Gaspar, [employer] YOU[employer] SUPERVISOR Bipolar 2 disorder (HCC) (Primary Dx); Eating disorder, unspecified type; History of posttraumatic stress disorder (PTSD) 04/13/2025 12:00 PM EST Office Visit [facility] [address] [place] [address] Morbid obesity with BMI of 50.0-59.9, adult (HCC) (Primary Dx) 04/13/2025 Refill [facility] [address] [place] [address] Le Blood APRN Medication Refill 04/09/2025 9:30 AM EDT Office Visit [facility] [address] [place] [address] Noel Burnett MD Cervicogenic migraine (Primary Dx); Constipation, chronic; Gastroesophageal reflux disease without esophagitis; Irritable bowel syndrome with constipation; Mild intermittent asthma with acute exacerbation; PCOS (polycystic ovarian syndrome); Morbid obesity with BMI of 50.0-59.9, adult ([facility]); Metabolic dysfunction-associate d steatotic liver disease (MASLD); Vitamin D deficiency; Lipedema; Class 3 severe obesity due to excess calories with serious comorbidity and body mass index (BMI) of 50.0 to 59.9 in adult ([facility]) 04/04/2025 Refill [facility]P [facility] [address] [place] [address] Le Blood APRN Medication Refill 03/31/2025 Telephone SEP [address] [place] [address] Le Blood APRN Prior Authorization (PA for Abilify 30mg tablet Approved) 03/24/2025 10:00 AM EDT Office Visit [facility] [place] [address] Andreia Lvoe APRN Morbid obesity with BMI of 50.0-59.9, adult ([facility]) (Primary Dx) 03/13/2025 2:45 PM EDT Telemedicine SEP [facility] [address] [place] [address] Le Blood APRN Weight gain (Primary Dx); Swelling 03/13/2025 Travel 03/04/2025 Refill SEP [facility] [address] [place] [address] Le Blood APRN Medication Refill from Last 3 Months Immunizations Immunization Administration Dates Next Due DTaP 07/01/2003, 0,09/13/1999,07/14,05/09/1999 DTaP, Unspecified Formulation 04/27/2000 ,09/13/1999,07/14/1999,05/09 HPV Quadrivalent 12/24/2015,10/08/2012 Hepatitis A, Ped/Adol, 2 Dose 01/30/2017, 016 Hepatitis B, Adolescent/High Risk Infant 09/30/1999,02/08/1999,1998 Hepatitis B, Unspecified Formulation 09/30/1999, 02/08/1999,1998 [...] PERCUTANEOUS PINNING; Surgeon: Ankit Gan MD; Location: [facility]; Service: Hand Medical devices from this surgery are in the Medical Devices section. WISDOM TOOTH EXTRACTION TONSILLECTOMY AND ADENOIDECTOMY 10/31/2019 Bilateral Recurrent tonsilitis/Dr Raymundo Cook CHOLECYSTECTOMY, LAPAROSCOPIC 09/03/2021 Abdomen/N/A laparoscopic cholecystectomy ; Surgeon: Marcel Marti MD; Location: [facility]; Service: General TUBAL LIGATION 03/10/2022 ABDOMEN SURGERY March 10 Tubal removal FRACTURE SURGERY 2017 OTHER SURGICAL HISTORY 03/17/2024 cervical ablation Medical History Medical History Date Comments Allergy Asthma Motion sickness Geographical tongue during pregn richar heart murmur [facility] Anemia Breast disorder low vitamin E Mental disorder depression, anxi ety Complication of anesthesia anxie ty, mild nausea Depression Thyroid disease Headache Migraines PCOS (polycystic ovarian syndrome) 08/15/2022 Anxiety Heartburn Post-operative nausea and vomiting nausea postop Vertebrogenic pain Heart murmur GERD (gastroesophageal reflux disease) Family History Medical History Relation Name Comments Heart Disease Brother mumshaista Testicular Cancer Brother Asthma Father Kvng Boateng Sr Diabetes Father Kvng Boateng Sr Heart Disease Father Kvng Boateng Sr Hypertension Father Kvng Boateng Sr Liver Disease Father Kvng Boateng Sr Substance Abuse Father Kvng Boateng Sr Diabetes Maternal Aunt 1 Depression Maternal [...] Alive Maternal Grandfather Alive Maternal Grandmother Mother Vicenta Boateng Alive Paternal Aunt Meche Jones Alive Paternal Grandfather Alive Paternal Grandmother Alive Sister Alive Social History Tobacco Use Types Packs/Day Years Used Date Smoking Tobacco: Never Passive Smoke Exposure: Never Smokeless Tobacco: Never Alcohol Use Standard Drinks/Week Comments Not Currently 1 (1 standard drink = 0.6 oz pur e alcohol) rarely [facility] Utilities Answer Date Recorded In the past 12 months has [employer] electric, gas, oil, or water [employer] threatened to shut off services in your home? No 03/27/2024 Overall Financial Resource Strain (CARDIA) Answe r Date Recorded How hard is it for you to pa y for the very basics like food, housing, medical care, and heating? Not very hard 03/27/2024 PHQ-2 Answer Date Recorded PHQ-2 Total Score 0 01/29/2025 [facility] [place] of Occupat ional Health - Occupational Stress [...] things needed for daily living? No 09/05/2021 [facility] HRSN CMS IP Transportation Answer D [...] N,SER ENITY GIRL Bonita Frederick MD Delivery Location:[facility] ([facility] 0 SAB 2021 Term 39w 2d 0h 03m 0h 03m 7 lb 8.1 oz (3.405 kg) M Vag-S pont Epidur al N Livin g 8 9 HOLDE N,SER ENITY BOY Melani Campuzano i, MD Complications:Marginal inser tion of umbilical cord affecting management of mother Delivery Location:[facility]) Last Filed Vital Signs Vital Sign Reading Time Taken Comments Blood Pressure 120/76 04/09/2025 8:55 AM EDT Pulse 103 04/09/2025 8:55 AM EDT Temperature 36.2 C (97.2 F) 02/20/2025 10:26 AM EDT Respiratory Rate 20 04/09/2025 8:55 AM EDT Oxygen Saturation 99% 03/24/2025 9:53 AM EDT Inhaled Oxygen Concentration - - Weight 139.3 kg (307 lb) 05/04/2025 12:42 PM EST Height 162.6 cm (5' 4 ) 05/04/2025 12:42 PM EST Body Mass Index 52.7 05/04/2025 12:42 PM EST Plan of Treatment Upcoming Encounters Date Type Department Care Team (Late st Contact Info) Description 06/01/2025 12:00 PM EST Office Visit [facility] [address] [place] [address] Pretty Vargas APRN [address] [place] [address] 06/01/2025 2:00 PM EST Telemedicine [facility] [address] [place] [address] 06/02/2025 1:15 PM EST Office Visit [facility] [address] [place] [address] Noel Burnett MD [address] [place] [address] 06/22/2025 1:45 PM EST Office Visit [facility] [address] [place] [address] Hakeem Diana MD [address] [address] 06/30/2025 10:15 AM EST Office Visit [facility] [address] [place] [address] Health Maintenance Due Date Last Done Comments Pneumococcal Vaccine 0-49 (1 of 2 - PCV) 2017 Cervical Cancer Screening 02/11/2024 Pap Smear 02/11/2024 02/10/2021, 01/19/2020 COVID-19 Vaccine (1 - season) 2025 Annual Wellness Exam 12/11/2025 12/11/2024 DTaP/TDaP/Td (9 - Td or Tdap) 06/06/2031 06/06/2021, 03/03/2019, 01/08/2010, Additional history exists Hepatitis B Vaccine Completed 09/30/1999, 09/30/1999, 02/08/1999, Additional history exists HPV Completed 12/24/2015, 10/08/2012 Chlamydia Screening Discontinued 02/10/2021, 01/27/2021, 01/19/2020, Additional history exists Influenza Vaccine Completed 03/17/2025, , 03/05/2019, Additional history exists Meningococcal B Vaccine Aged Out No l onger eligible based on patient's age to complete this topic Goals Goal Patient Goal Type Associated Problems Recent Progress Patient-Stated? Author Blood Pressure < 140/90 Blood Pressure 120/76(2024 8:55 AM EDT) No Jess Wang MA Eat better, exercise, reach an ideal body weight General No Liset Lin, JAMES BMI (Calculated) < 30 General 52.8(05/04/20 25 12:42 PM EST) No Jess Wang MA HEMOGLOBIN A1C < 7.0 Result Component 5.4( 12:11 PM EDT) No Jess Wang MA Medical Devices Implanted Type Area Online Merchandising Specialist Device Identifier Shelf Expiration Date Model / Serial / Lot K-Wire & Guide,.035 (0. 9mm) 1600-021 - [id number] Implanted:Qty: 2 on 02/20/2017 by Ankit Gan MD at [facility] Left: Finger MICROAIRE SURG INSTR 11/08/20201599- / / [id number] Procedures Procedure Name Priority Date/Time Associated Diagnosis Comments GC CHLAMYDIA THIN PREP Routine 02/10/2021 10:09 AM EDT High risk due to recurrent loss, first trimester Encounter for supervision of other normal in third trimester ANIMATION ARTIST CYTOLOGY REQUEST (PAP ONLY) Routine 02/10/2021 10:09 AM EDT High risk due to recurrent loss, first trimester Encounter for supervision of other normal in third trimester from Last 3 Months or Most Recently Relevant to Health Maintenance Results * ANIMATION ARTIST CYTOLOGY REQUEST (PAP ONLY) (02/10/2021 10:09 AM EDT) CASE REPORT Gynecologic Cytology Report Case: [id number] Authorizing Provider: Jitendra Reyes, Collected: 02/10/2021 1009 DO Ordering Location: [facility] Received: 02/10/2021 1009 First Screen: Cordelia Freed CT Specimen: LIQUID-BASED PAP - CERVICAL/ENDOCERV ICAL, Cervix, Endocervical 02/15/2021 10:30 AM EDT [facility] PAP FINAL DIAGNOSIS Negative for intraepithelial lesion or malignancy 02/15/2021 10:30 AM EDT [facility] at 1030 EDT MICROSCOPIC DESCRIPTION Microscopic examination is performed and the findings corroborate the diagnosis. 02/15/2021 10:30 AM EDT [facility] PAP SMEAR ADEQUACY Satisfactory for evaluation 02/15/2021 10:30 AM EDT [facility] ENDOCERVICAL T-ZONE Transformation zone absent. This is not unusual in a woman 02/15/2021 10:30 AM EDT [facility] EMBEDDED IMAGES 10:30 AM EDT [facility] PAP DISCLAIMER The Pap Smear is a screening test that aids in the detection of cervical cancer and cancer precursors. Both false positive and false negative results can occur. The test should be used at regular intervals, and positive results should be confirmed before definitive therapy. Processed using the Private[employer]Me Automated cytology screening device (Merchant View). 02/15/2021 10:30 AM EDT [facility] Thin Prep ENDOCERVICAL STRUCTURE / Unknown 02/10/2021 10:09 AM EDT 02/10/2021 10:09 AM EDT Jitendra Reyes DO CYTOLOGY ORDERABLES Final Result [facility] [address] [place] [id number] * GC CHLAMYDIA THIN PREP (02/10/2021 10:09 AM EDT) Chlamydia trachomatis Not Detected Not Detected 02/11/2021 3:28 PM EDT PREFERRED LAB 5 Minutes, [facility] Neisseria gonorrhoeae Not Detected Not Detected 02/11/2021 3:28 PM EDT PREFERRED LAB 5 Minutes, [facility] Thin Prep SPECIMEN FROM UTERINE CERVIX / Unknown 02/10/2021 10:09 AM EDT 02/10/2021 10:09 AM EDT Narrative PREFERRED [employer], [facility] - 02/11/2021 3:28 PM EDT Testing methodology is parts washer mediated amplification (TMA) using the Aptima Combo 2 assay from [employer]. A negative result does not completely rule [...] - GENER AL ORDERABLES Final Result PREFERRED [facility], [facility] [address] [facility], [place] [address] from Last 3 Months or Most Recently Relevant to Health Maintenance Insurance [id number] Advance Directives For more information, please contact: [phone] * Full Code (Latest Code Status on File) Date Activated Date Inactivated Comments 03/27/2024 7:51 PM 03/29/2024 3:54 PM * Full Code Date Activated Date Inactivated Comments 09/03/2021 3:18 AM 09/04/2021 5:24 PM * Full Code Date Activated Date Inactivated Comments 08/09/2021 6:23 AM 08/10/2021 9:19 PM * Full Code Date Activated Date Inactivated Comments 05/15/2019 2:00 PM 05/17/2019 8:30 PM Care Teams Forest Patrolman Relationship Specialty Start Date End Date Gareth Wheeler MD [address] [place] [address] PCP - General 03/01/09 Janeth Hester, MOTOR ROOM CONTROLLER Scruff Worker 10/16/24
--- OUTSIDE RECORDS SUMMARY | 2025-05-27 08:54 | XMS_ITS | Encounter Summary ---
Author Organization [place] [address] Support Name Relationship Address Phone Juma Bear Emergency Contact [address] [place] [address] Meche Jones Emergency Contact [address] [address] Jose Nate Emergency Contact [address] [place] [address] Vicenta Boateng Emergency Contact Unknown [phone] Kvng Brothersen Personal Relationship [address] [place] Care Team Providers Care University Administrative Assistant Name Role Phone Gareth Wheeler MD Primary Care Provider [phone] Mervat Reyes RN Unavailable Unavailable Janeth Hester HOME HEALTH LVN Unavailable Unav ailable Reason for Visit * Auth/Cert/Inpt Specialty Diagnoses / Procedures Referred By Contac t Referred To Contact Diagnoses labor assessment Referral ID Status Reason Start Date Expiration Date Visits Re quested Visits Authorized [id number] 1 1 Encounter Details Date Type Department Care Team (Late st Contact Info) Description 04/29/2019 Lab Requisition [facility] [place] [id number] Artemio Mayo MD Encounter for supervision of [...] Visit [facility] [address] [place] [address] Pretty Vargas APRN [address] [place] [address] 06/01/2025 2:00 PM EST Telemedicine [facility] [address] [place] [address] 06/02/2025 1:15 PM EST Office Visit [facility] [address] [place] [address] Noel Burnett MD [address] [place] [address] 06/22/2025 1:45 PM EST Office Visit [facility] [address] [place] [address] Hakeem Diana MD [address] [place] [address] [address] [place] [address] 06/30/2025 10:15 AM EST Office Visit [facility] [address] [place] [address] documented as of this encounter Goals Goal Patient Goal Type Associated Problems Recent Progress Patient-Stated? Author Eat better, exercise, reach an ideal body weight General No Liset Lin Rogelio documented as of this encounter Procedures Procedure Name Priority Date/Time Associated Diagnosis Comments STREP B DNA Routine 04/29/2019 4:30 PM EST Encounter for supervision of other normal , unspecified trimester documented in this encounter Results * STREP B DNA (04/29/2019 4:30 PM EST) Strep B DNA Not Detected Not Detected 9 8:15 AM EST PREFERRED [employer] Swab RECTUM AND VAGINA, CS / Unknown 04/29/2019 4:30 PM EST 04/29/2019 6:35 PM EST Narrative [facility]REFERR[facility] [employer] - 05/01/2019 8:15 AM EST TEST INFORMATION: [...] - GENERAL ORDER MYRNA Final Result [facility]REFERR[facility] [employer] [address] [place] [address] , [place] [address] documented in this encounter Visit Diagnoses Diagnosis Encounter for supervision of other normal , unspecified trimester documented in this encounter Additional Health Concerns Infection Onset Date Last Indicated Resolved Time R/O COVID-03/03/2021 03/03/2021 03/03/2021 11:4 8 PM EDT COVID-19 06/23/2021 06/23/2021 07/23/2021 10:1 2 PM EST documented as of this encounter Care Teams University Administrative Assistant Relationship Specialty Start Date End Date Gareth Wheeler MD [address] [place] [address] PCP - General 03/01/09 Mervat Reyes, RN Gin Feeder 09/05/21 09/05/21 Janeth Hester, HOME HEALTH LVN Clinical Nurse 10/16/24 documented as of this encounter
[2025-05-27 08:56] LABS: Bilirubin,Urine Negative (Negative); Color,Urine YELLOW (Yellow); Glucose,Urine (UA) Negative (Negative); Ketones,Urine Negative (Negative); Leukocyte Esterase,Urine 3+ (Negative); PH,Urine 7.0 (5.0-8.5); Protein,Urine 1+ (Negative); Specific Gravity, Urine 1.010 (1.005-1.030); Urobilinogen,Urine 0.2 EU/dl (0.2)
[2025-05-27] MEDS: MORPHINE 4MG/ML SYRINGE 4 MG IV (09:02)
[2025-05-27] MEDS: LACTATED RINGERS 1000ML 1,000 ML 999 ML IV (09:02)
[2025-05-27 09:03] LABS: Hematocrit 30.8 % (37.0-47.0); Hemoglobin 9.5 g/dL (12.2-16.2); Immature Granulocytes % 0.5 %; Mean Corpuscular HGB Conc 30.8 g/dL (31.8-35.4); Mean Corpuscular Hemoglobin 27.5 pg (27.0-31.2); Mean Corpuscular Volume 89.0 fl (81-99); Nucleated Red Blood Cells % 0 %; Platelet Count 249 K/mm3 (142-424); Red Blood Count 3.46 M/mm3 (4.20-5.40); Red Cell Distribution Width-SD 43.8 fL; White Blood Count 9.4 K/mm3 (4.8-10.8)
[2025-05-27] MEDS: ONDANSETRON 4MG/2ML VIAL 4 MG IV (09:03)
[2025-05-27 09:18] LABS: Albumin Level 4.3 g/dl (3.5-5.0); Chloride 103 mmol/L (98-107); Potassium 3.9 mmoL/L (3.5-5.1); Sodium 134 mmol/L (136-145)
[2025-05-27 09:20] LABS: Blood Urea Nitrogen 7 mg/dl (7-17); Creatinine Clearance Estimated 110 mL/min (50-200); Creatinine,Serum 0.70 mg/dl (0.52-1.04); Estimated Glomerular Filt Rate 101 ml/min (>60); GFR (African American) 122 ML/MIN (>60)
[2025-05-27 09:21] LABS: Alanine Aminotransferase 52 U/L (12-78); Albumin/Globulin Ratio 1.4 (1.1-1.8); Alkaline Phosphatase 120 U/L (38-126); Anion Gap 7.9 mEq/L (5-15); Aspartate Amino Transferase 37 U/L (14-36); Bilirubin,Total 0.5 mg/dl (0.2-1.3); Calcium 8.7 mg/dl (8.4-10.2); Carbon Dioxide 27 mmol/L (22.0-30.0); Globulin 3.0 g/dL (1.3-3.2); Glucose 109 mg/dl (74-100); Lipase 36 U/L (23-300); Total Protein,Serum 7.3 g/dl (6.3-8.2)
[2025-05-27] MEDS: IOPAMIDOL-370 (76%);100ML BOTTLE 85 ML IV (09:22)
[2025-05-27 09:30] LABS: INR 1.01 (0.9-1.1); Prothrombin Time 11.2 seconds (10.1-12.5)
[2025-05-27 10:14] LABS: WBC,Urine Occasional #/hpf (0-3)
[2025-05-27 10:15] LABS: Bacteria,Urine 2+ /lpf
--- NOTE | 2025-05-27 11:16 | PC.NURSE ---
Dr Sheppard at bedside.
--- NOTE | 2025-05-27 12:05 | PC.NURSE ---
Dr Ashford a bedside for vaginal examination. This RN at bedside assisting.
[2025-05-27] MEDS: KETOROLAC 15MG/ML VIAL 15 MG IV (12:12)
--- NOTE | 2025-05-27 12:26 | EXP.GYNCONS ---
History of Present Illness *Admission Date: 05/27/25 *Reason for visit:: pelvic cramping and vaginal bleeding 9 days s/p supracervical hysterectomy *History of present illness: Rosalinda presents to the ED with complaint of vaginal bleeding red and brown and pelvic cramping that started lasted night. She was [employer] shopping yesterday and last night started having suprapubic cramping followed passage of a quarter size red clot and then red and brown bleeding throughout the night. She also admits to urinary frequency throughout the night that started with the cramping. Prior to yesterday she had no urinary complaints. She is having normal BM for her. Denies fever/chills. She admits to decreased appetite but states this occurred prior to surgery. She states the pain medication makes her nauseous. No chest pain or shortness of breath. Abdominal incision is healing well. CT demonstrated Interval hysterectomy with complex fluid collection of the vaginal cuff. Vaginal cuff dehiscence not excluded. Fluid collection could represent hematoma or abscess. 2. Chronically enlarged appendix with appendicolith. No evidence of acute appendicitis. 3. Urinary bladder wall thickening, cystitis not excluded. [facility] Disclaimer: The information contained in this section may have been updated after the patient was seen, as this information can be updated by other users. Medical History (Updated 05/27/25 @ 12:38 by Le Ashford DO) UTI (urinary tract infection) Non-cardiac chest pain Acute blood loss anemia Pelvic pain Breast pain, left Acid reflux Anxiety History of gastroesophageal reflux (GERD) Palpitations Right ventricular dysfunction PVC (premature ventricular contraction) Ventricular bigeminy Encounter for pre-operative cardiovascular clearance Abnormal electrocardiogram [ECG] [EKG] Dysmenorrhea Menorrhagia Asthma History of bipolar disorder Depression Anxiety Scoliosis Degenerative disc disease Irritable bowel syndrome (IBS) Hypothyroid Allergies Enlarged heart Heart murmur History of anemia Cholecystectomy planned Surgical History (Updated 05/25/25 @ 15:19 by EFE Landa) H/O bilateral salpingectomy History of abdominal supracervical subtotal hysterectomy S/P abdominal supracervical subtotal hysterectomy H/O cardiac radiofrequency ablation History of endometrial ablation H/O wisdom tooth extraction History of cholecystectomy History of tonsillectomy History of salpingectomy History of tonsillectomy and adenoidectomy [place] teeth extracted Family History Father History of liver disease Father Heart attack Brother Testicular cancer Grandmother Lung cancer Social History Smoking Status: Never smoker alcohol intake: never substance use type: denies use current occupational status: unemployed Travel in the last 8 weeks?: None Have you lived/traveled outside [place] in past 30 days?: No Contact w/someone who lives/traveled outside [place] past 30 days?: No Exposure to someone with infectious disease in past 14 days?: No Do you have a fever (greater than 100.4 F or 38 C)?: No Have you tested positive for COVID-19?: No Exposed to someone with COVID-19 in past 14 days?: No Do you have a sore throat?: No Do you have a cough?: No Do you have any weakness?: No Do you have any diarrhea?: No Are you experiencing any unusual bleeding?: Yes Do you have any muscle aches/pain?: No Do you have any abdominal pain?: No Are you experiencing loss of taste or smell?: No Review of Systems Review of Systems Review of systems:: pertinent systems reviewed and negative unless documented below *Gastrointestinal Gastrointestinal: Reports as per HPI *Genitourinary Genitourinary: Reports as per HPI Meds Home Medications and Allergies Home Medications ?Medication ?Instructions ?Recorded ?Confirmed ?Type buspirone 10 mg tablet 10 mg PO TID 09/03/24 05/25/25 History pantoprazole 40 mg tablet,delayed 40 mg PO HS Heartburn 09/03/24 05/25/25 History release albuterol sulfate 90 mcg/actuation 2 puff inhalation Q4HP PRN 02/18/25 05/25/25 History aerosol inhaler (Ventolin HFA) Shortness Of Breath clindamycin 1 %-benzoyl peroxide 5 1 applic topical BID 02/18/25 05/25/25 History % topical gel hydroxyzine HCl 10 mg tablet 20 mg PO HSP PRN Sleep 02/18/25 05/25/25 History aripiprazole 30 mg tablet (Abilify) 30 mg PO DAILY 04/27/25 05/25/25 History hydrochlorothiazide 12.5 mg capsule 12.5 mg PO DAILY 04/27/25 05/25/25 History ibuprofen 400 mg tablet 800 mg (2 x 400 mg) PO Q8H #40 tabs 05/20/25 05/25/25 Rx ondansetron 4 mg disintegrating 4 mg PO Q6H PRN nausea and 05/20/25 05/25/25 Rx tablet vomiting #40 tabs oxycodone 5 mg tablet 5 mg PO Q4HP PRN Moderate Pain 05/20/25 05/25/25 Rx (4-6) #20 tabs polyethylene glycol 3350 17 gram 17 g PO BID 3 days #14 ea 05/20/25 05/25/25 Rx oral powder packet (HealthyLax) linaclotide 72 mcg capsule 72 mcg PO DAILY 05/25/25 05/25/25 History (Linzess) polyethylene glycol 3350 17 g PO 05/25/25 05/25/25 History gram/dose oral powder sulfamethoxazole 800 1 tab PO BID #20 tabs 05/25/25 05/25/25 Rx mg-trimethoprim 160 mg tablet (Bactrim DS) cefdinir 300 mg capsule 300 mg PO BID 7 days #14 caps 05/27/25 Rx ketorolac 10 mg tablet 10 mg PO Q8H PRN pain 2 days #6 05/27/25 Rx tabs New Prescriptions to Start Prescriptions: cefdinir Caden Sheppard ketorolac Caden Sheppard Allergies Allergy/AdvReac Type Severity Reaction Status Date / Time duloxetine (From Cymbalta) Allergy Mild Headache Verified 05/25/25 15:11 sumatriptan (From Imitrex) Allergy Mild Headache Verified 05/25/25 15:11 Exam (Inpt) Vital signs and Labs for Last 24 Hours: Temp Pulse Resp BP Pulse Ox O2 Del Method 99.3 F 78 20 105/51 L 96 Room Air 05/27/25 08:40 05/27/25 10:00 05/27/25 08:40 05/27/25 10:00 05/27/25 10:00 05/27/25 10:00 Laboratory Results - last 24 hr 05/27/25 08:39: Urine Color Yellow, Urine Appearance Slightly cloudy, Urine pH 7.0, Ur Specific [place] 1.010, Urine Protein 1+ A, Urine Glucose (UA) Negative, Urine Ketones Negative, Urine Blood 3+ A, Urine Nitrate Negative, Urine Bilirubin Negative, Urine Urobilinogen 0.2, Ur Leukocyte Esterase 3+ A, Urine RBC 5-10, Urine WBC Occasional, Ur Squamous Epith Cells None, Urine Bacteria 2+ 05/27/25 08:54: WBC 9.4, RBC 3.46 L, Hgb 9.5 L, Hct 30.8 L, MCV 89.0, MCH 27.5, MCHC 30.8 L, RDW 13.8, Plt Count 249, MPV 10.0, Neut % (Auto) 85.2 H, Lymph % (Auto) 9.7 L, [place] % (Auto) 3.7, Eos % (Auto) 0.7, Baso % (Auto) 0.2, Neut # (Auto) 8.0 H, Lymph # (Auto) 0.9, [place] # (Auto) 0.4, Eos # (Auto) 0.1, Baso # (Auto) 0.0, PT 11.2, INR 1.01, Sodium 134 L, Potassium 3.9, Chloride 103, Carbon Dioxide 27, Anion Gap 7.9, BUN 7, Creatinine 0.70, Estimated Creat Clear 110, Estimated GFR 101, Est GFR ( Amer) 122, Glucose 109 H, Calcium 8.7, Total Bilirubin 0.5, AST 37 H, ALT 52, Alkaline Phosphatase 120, Total Protein 7.3, Albumin 4.3, Globulin 3.0, Albumin/Globulin Ratio 1.4, Lipase 36 05/27/25 10:16: Lactate 0.8 I & O for Labs for Last 24 Hours: Intake & Output 05/24/25 05/25/25 05/26/25 05/27/25 23:59 23:59 23:59 23:59 Intake Total 1100.000 / 1100.000 Balance 1100.000 / 1100.000 Weight 306 lb Constitutional: no acute distress, obese and cooperative HEENT Head: Present normocephalic and atraumatic ENT: Present normal exam Neck: Present normal inspection and full ROM Respiratory: Present CTA bilaterally and normal respiratory effort Cardiac: Present Reg Rate and Rhythm GI: Present soft; Absent distention or tenderness Comments:: Pfannenstiel incision healing well with metal yas in place : Present normal urethra appearance; Absent erythema, swelling or tenderness Vagina: Present normal moisture; Absent discharge Comments:: On speculum exam, brownish red drainage present in vault; cervix appears grossly normal, vagina appears grossly normal Extremities: Present normal inspection and full ROM Neuro: Present alert, awake and moves all extremities Assessment and Plan *Assessment and plan (1) Postoperative vaginal bleeding: Status: Acute Category: Medical (2) UTI (urinary tract infection): Status: Acute Category: Medical Code(s): N39.0 - Urinary tract infection, site not specified (3) S/P abdominal supracervical subtotal hysterectomy: Problem Comment: ~ 1 cm of cervix left Status: Acute Category: Surgical Code(s): Z90.711 - Acquired absence of uterus with remaining cervical stump (4) Morbid obesity with BMI of 50.0-59.9, adult: Status: Acute Category: Medical Code(s): E66.01 - Morbid (severe) obesity due to excess calories; Z68.43 - Body mass index [BMI] 50.0-59.9, adult (5) Thyroid disease: Status: Acute Category: Medical Code(s): E07.9 - Disorder of thyroid, unspecified Plan Pelvic exam performed. Small section of cervix and vagina appeared grossly normal. Small amount of brownish red drainage noted in vaginal vault. Discussed gel foam was placed over cervix during hysterectomy secondary to oozing. The drainage she is experiencing is most likely gel foam starting to dissolve and going through path of least resistance. WBC within normal limits and Hgb stable. Urinalysis demostrates UTI. Abdominal incision is healing well with metal yas in place. Discussed exam findings and plan with ED physician. He will send patient home with antibiotics for UTI as well as oral Toradol for a few days. Patient is comfortable going home and will follow-up with me in the office on Sunday, 05/29.
== END 2025-05-27 12:39 | disposition home or self-care (01) ==
PROVIDERS: Emergency Provider Student in an Organized Health Care Education/Training Program; PCP Nurse Practitioner
DX: N99.820 Postprocedural hemorrhage of a genitourinary system organ or structure following a genitourinary system procedure (principal); R10.24 Suprapubic pain; N39.0 Urinary tract infection, site not specified; Z90.711 Acquired absence of uterus with remaining cervical stump
CPT/HCPCS: 74177; 80053; 81001; 83605; 83690; 85025; 85610; 87077; 87086; 96361; 96365; 96375; 99285; J0696; J1885; J2270; J2405; J7120; Q9967